=== PATIENT | female | born 1945 | race Caucasian/White ===

== ENCOUNTER 2018-05-24 08:53 | Emergency (ER) | payer MEDICARE, OTHER ==
--- NOTE | 2018-05-24 10:51 | ULT ---
ULTRASOUND WITH DOPPLER DUPLEX VENOUS LOWER EXTREMITY LEFT: HISTORY: A 73-year-old female with left lower extremity edema. TECHNIQUE: Color flow Doppler, spectral waveform analysis of pulsed Doppler, and valentin-scale imaging with hina taz and augmentation, were used to evaluate the left common femoral, femoral, popliteal, posterior t ibial, and superficial femoral, veins; and the proximal portions of the profunda femoral and greater saphenous, veins. FINDINGS: There is normal compressibility, demonstration of blood flow by color Doppler and pulsed Doppler, and response to augmentation, in all interrogated veins. IMPRESSION: Negative. No deep vein thrombosis in the left lower extremity. jn[] POS: HERMILO
== END 2018-05-24 10:39 | disposition home or self-care (01) ==
LOC: ERS 08:53
DX: M79.89 Other specified soft tissue disorders (principal); I25.10 Atherosclerotic heart disease of native coronary artery without angina pectoris; E11.9 Type 2 diabetes mellitus without complications; K21.9 Gastro-esophageal reflux disease without esophagitis; I11.0 Hypertensive heart disease with heart failure; I50.9 Heart failure, unspecified; Z86.73 Personal history of transient ischemic attack (TIA), and cerebral infarction without residual deficits; J44.9 Chronic obstructive pulmonary disease, unspecified; F41.9 Anxiety disorder, unspecified; F17.210 Nicotine dependence, cigarettes, uncomplicated; Z79.82 Long term (current) use of aspirin; Z79.899 Other long term (current) drug therapy; Z79.4 Long term (current) use of insulin

== ENCOUNTER 2018-08-24 15:39 | Inpatient (IN) | payer MEDICARE, MEDICAID ==
--- NOTE | 2018-08-24 18:04 | HP ---
REQUESTING PHYSICIAN: Dr. Carter. ATTENDING SURGEON: Dr. Ramsey. CONSULTATIONS: Orthopedics, Dr. Sloan. HISTORY OF PRESENT ILLNESS: The patient is a 73-year-old woman, who was at home, smoking on her porch. She was not using her walker. She turned to walk back to her house to get to her walker when she lost her balance and hit her right knee when she fell. She was able to summon her family to come get her, she was taken emergently to the emergency department at [facility], where she underwent evaluation and examination and was noted to have comminuted right proximal tibia and fibular fracture, at which time she was transferred to our facility for evaluation by Orthopedics in admission. Lab work there also showed that she had what appeared to be a chronic anemia with a hemoglobin of 6.8. The patient also has a history of CHF and COPD. ALLERGIES: CODEINE, HYDROCODONE, AND MORPHINE. SHE STATES THAT HER REACTION IS THEY MAKE HER "LOOPY." GABAPENTIN AND ADHESIVE TAPE. CURRENT MEDICATIONS: 1. Aspirin. 2. Diltiazem. 3. Lasix. 4. Lyrica. 5. Plavix. 6. Pravastatin. 7. Ranitidine. 8. Trazodone. 9. Estradiol. 10. Fish oil. 11. Albuterol sulfate. 12. Humalog. 13. Lantus. 14. Losartan. 15. Prednisone. 16. Protonix. 17. Remeron. PAST MEDICAL HISTORY: Coronary artery disease; type 1 diabetes; gastroesophageal reflux disease; spinal stenosis; history of TIA; COPD, the patient wears 3 L home oxygen; osteoarthritis; carotid stenosis; hypothyroidism; chronic bronchitis; hyperlipidemia; peripheral vascular disease; congestive heart failure; anxiety; and insomnia. PAST SURGICAL HISTORY: Four-vessel CABG, cholecystectomy, hernia repair, hysterectomy, tonsillectomy, and appendectomy. SOCIAL HISTORY: The patient denies drug or alcohol use, but smokes about 1/2 pack of cigarettes per day. FAMILY MEDICAL HISTORY: Diabetes. REVIEW OF SYSTEMS: Ten-point review of systems is negative as otherwise stated. PHYSICAL EXAMINATION: VITAL SIGNS: Blood pressure 106/56, heart rate 86, respirations 20, oxygen saturation is 97% on 3 L via nasal cannula, and temperature is 98.8. GENERAL: The patient is resting comfortably in bed. She is awake, alert, and oriented x3. [place] Coma Scale is 15. HEENT: Unremarkable. Head is normocephalic and atraumatic. Eyes, extraocular motion intact. PERRLA bilaterally. Ears are atraumatic without discharge. Nose is atraumatic without discharge. Oropharynx is clear. NECK: Nontender. Trachea is midline. No JVD. CHEST: Clear to auscultation with good inspiratory and expiratory effort. She does have at times some bilateral rhonchi that clears with cough. HEART: Regular rate and rhythm. ABDOMEN: Soft, flat, and nontender with active bowel sounds. PELVIS: Stable. EXTREMITIES: Neurovascularly intact x4. Right lower extremity is mobilized in a well-fitting knee immobilizer. The patient is also noted to have 1 to 2+ pitting edema. BACK: Nontender and atraumatic. LABORATORY FINDINGS: White blood cell count 13.9, hemoglobin 6.8, hematocrit 23.7, and platelets 163. Sodium 135, potassium 2.7, chloride 78, CO2 of 41, BUN 25, creatinine 1.18, glucose 60, troponin 0.036, and BNP 365. Urinalysis is unremarkable. RADIOGRAPHIC FINDINGS: CT of the chest without contrast shows diffuse severe interstitial lung disease, worse in the lung apices with changes throughout the all lobes, that appears unchanged since 2014, also noted are cardiomegaly and coronary artery sclerosis. Views of the right tib-fib showed displaced fractures of the proximal tibia and fibula. Views of the right knee again showed displaced comminuted fractures of right proximal tib-fib. CT of the brain without contrast shows no acute intracranial findings. AP chest x-ray shows cardiomegaly and chronic interstitial changes. ASSESSMENT: 1. Status post ground level fall. 2. Comminuted right tibia and fibular fracture. 3. History of chronic obstructive pulmonary disease, on home oxygen and steroids. 4. Congestive heart failure, that the patient reports she recently restarted her Lasix and sounds that she is self medicating. She restarted her Lasix on Tuesday and lost 30 pounds in just about six days. 5. Anemia. 6. History of hypertension. 7. History of hyperlipidemia. PLAN: Plan will be to admit the patient to the surgical floor. Per discussion with Orthopedics, the patient will be managed nonoperatively. She has good alignment at this point, and in light of all her multiple comorbidities, the attempts will be made for non-operative management at this time. The patient and family were in agreement with this plan. We will transfuse the patient 1 unit of PRBCs. She will have pulmonary toilet, gastritis, mechanical VTE prophylaxis, and we will resume her home medications as soon as possible. The evaluation, examination, laboratory, and radiographic findings will be discussed with Dr. Ramsey after this dictation. Job ID: [id number]
--- NOTE | 2018-08-24 18:14 | RAD ---
THREE VIEW RIGHT KNEE 08/24/18 CLINICAL INDICATION: Injury with pain, trauma. FINDINGS: There is a comminuted fracture centered about the proximal metaphysis of the tibia with intra-articul ar extension to undermine the tibial spines. There is a comminuted proximal fibular fracture with ass ociated angulation. Mild joint capsular distention is present. There is vascular disease. There are o steophytes. Prepatellar soft tissue swelling is present. IMPRESSION: Comminuted intra-articular proximal tibial fracture. Comminuted and angulated proximal fibular fracture. POS: C
[2018-08-24] MEDS ORDERED: Cyclobenzaprine 10 MG TAB PO PRN (20:32)
[2018-08-24] MEDS ORDERED: Dextrose 50% Abboject 50 ML SYRINGE SLOW IVP PRN (20:32)
[2018-08-24] MEDS ORDERED: Acetaminophen 1,000 MG in Premix Bag 1 BAG IVPB SCH (20:32)
[2018-08-24] MEDS ORDERED: Dextrose 5% in Water 1,000 ML IV PRN (20:32)
[2018-08-24] MEDS ORDERED: traMADol HCl 50 MG TAB PO PRN (20:32)
[2018-08-24] MEDS ORDERED: Furosemide 20 MG TAB PO SCH (20:32)
[2018-08-24] MEDS: Famotidine 20 MG TAB PO SCH (21:47)
[2018-08-24 23:29] VITALS: BMI 27.6
[2018-08-25] MEDS: traMADol HCl 50 MG TAB PO PRN (02:56)
[2018-08-25] MEDS: Acetaminophen 500 MG TAB PO SCH ×4 (02:56→20:51)
[2018-08-25 06:50] LABS: BUN (Urea Nitrogen) 22 mg/dL (9.8-20.1); Calc. Creatinine Clearance 60 mL/min (70-130); Calcium 8.5 mg/dL (7.8-10.44); Estimated GFR-MDRD 55; Glucose 103 mg/dL (83-110)
[2018-08-25 06:59] LABS: #Eosinphils 0.1 thou/uL (0.0-0.7); #Lymphocytes 1.6 thou/uL (1.20-3.40); #Monocytes 1.1 thou/uL (0.11-0.59); #Neutrophils 7.4 thou/uL (1.40-6.50); %Basophils 0.3 % (0.0-1.0); %Eosinophils 1.4 % (0.0-10.0); %Lymphocytes 15.3 % (21.0-51.0); %Monocytes 10.5 % (0.0-10.0); %Neutrophils 72.5 % (42.0-75.0); Anion Gap 16 mmol/L (10-20); Band 4 % (5-11); Chloride 80 mmol/L (98-107); Eosinophils 1 % (0-10); Hemoglobin 8.1 g/dL (12.0-16.0); Hypochromia MODERATE=16-30 cells (100X) (0-5/hpf); Lymphocytes 18 % (21-51); MDiff Complete? YES; Mean Corpuscular HGB CONC 30.4 g/dL (32.0-36.0); Mean Corpuscular Hemoglobin 19.8 pg (27.0-31.0); Mean Platelet Volume 6.9 fL (7.4-10.4); Microcytosis MODERATE=15-30 cells (100X) (0-5/hpf); Monocytes 5 % (0-10); Neutrophil 72 % (42-75); Platelet Count 120 thou/uL (130-400); Platelet Morphology Comment Appears Decreased; RBC Distribution Width 21.3 % (11.5-14.5); Reflex for Review?? NO; Sodium 137 mmol/L (136-145); White Blood Cell (WBC) Count 10.2 thou/uL (4.8-10.8)
[2018-08-25] MEDS ORDERED: CEFAZOLIN/Water 2 GM/20 ML SYRINGE SLOW IVP SCH ×2 (07:15→11:15)
[2018-08-25] MEDS ORDERED: CEFAZOLIN 2 GM/50 ML-DEXTROSE 2 GM in Premix Bag 1 BAG IVPB SCH (07:30)
--- NOTE | 2018-08-25 07:50 | RAD ---
PORTABLE AP CHEST XRAY: DATE: 08/25/2018. HISTORY: CHF. COMPARISON: 08/24/2018. FINDINGS: Median sternotomy wires are noted. Cardiac silhouette is enlarged. There are increased interstitial densities seen throughout the lungs bilaterally, greater in the upper lung zones and on the left sim ilar to the prior study. The findings were also present on the prior chest x-ray on 02/12/2016 and ar e most likely attributable to chronic interstitial fibrotic lung changes. There is mild persistent e levation of the right hemidiaphragm. No other interval change. IMPRESSION: Chronic interstitial fibrotic lung changes without definite acute cardiopulmonary process. POS: HERMILO
[2018-08-25] MEDS ORDERED: CEFAZOLIN 2 GM/50 ML BAG ONE (08:07)
[2018-08-25 08:09] LABS: Carbon Dioxide Greater than 37 mmol/L (23-31); Potassium 2.5 mmol/L (3.5-5.1)
[2018-08-25] MEDS ORDERED: Potassium Chloride 40 MEQ in Premix Bag 1 BAG IVPB SCH (09:15)
[2018-08-25] MEDS ORDERED: Fentanyl 100 MCG/2 ML VIAL ONE (09:19)
[2018-08-25] MEDS ORDERED: Midazolam HCl 2 mg/2 ml Vial ONE (09:19)
[2018-08-25] MEDS ORDERED: Dexamethasone 4 mg/ml Vial ONE (09:20)
[2018-08-25] MEDS ORDERED: KETAMINE 100 MG/ML (5ML VIAL) ONE (10:28)
--- NOTE | 2018-08-25 10:32 | CON ---
DATE OF CONSULTATION: 08/24/2018 REQUESTING PHYSICIAN: Dr. Todd Ramsey. BRIEF HISTORY OF PRESENT ILLNESS: The patient is a very ill 73-year-old lady who while at home was smoking on her porch when she turned to walk back into the house, lost her balance, fell and twisted her right knee. She was unable to ambulate after this fall. She was subsequently seen in the emergency department at [place], where x-rays demonstrated a proximal tibial plateau fracture. She was then transferred to [facility] for further evaluation and orthopedic care. On initial evaluation in the emergency room, she was found to have an extensive medical history with severe COPD. She wears 3 L of O2 nasal cannula at home as a baseline. She also has type 1 diabetes, spinal stenosis, coronary artery disease and peripheral vascular disease. Given all of these and comorbidities, we discussed initially proceeding with nonsurgical management with the patient admitted to the Trauma Service. PAST MEDICAL HISTORY: Remarkable for congestive heart failure, COPD, coronary artery disease, type 1 diabetes, gastroesophageal reflux, spinal stenosis, hyperlipidemia, carotid stenosis, and osteoarthritis. PAST SURGICAL HISTORY: Includes coronary artery bypass graft, cholecystectomy, hernia repair, hysterectomy, tonsillectomy, and appendectomy. MEDICATIONS: Include; 1. Aspirin. 2. Diltiazem. 3. Lasix. 4. Lyrica. 5. Plavix. 6. Pravastatin. 7. Ranitidine. 8. Trazodone. 9. Estradiol. 10. Albuterol. 11. Humalog. 12. Lantus. 13. Losartan. 14. Protonix. 15. Remeron. 16. Prednisone 20 mg daily. ALLERGIES: TO MORPHINE AND HYDROCODONE, WHICH CAUSED SOME CHANGE IN MENTAL STATUS. SOCIAL HISTORY: She smokes half pack cigarettes per day and denies alcohol use. FAMILY HISTORY: Noncontributory. REVIEW OF SYSTEMS: No recent fevers or chills or sweats. She does have chronic shortness of breath and chronic cough. She also has a stocking dysesthesias distally. PHYSICAL EXAMINATION: VITAL SIGNS: Temperature of 98.8, heart rate of 86, respiratory rate of 20, and blood pressure 106/56. GENERAL: She is resting in bed with generalized shortness of breath, but awake and alert. HEENT: Atraumatic, normocephalic. HEART: Shows a regular rate and rhythm with 2/6 murmur. CHEST: Remarkable for bilateral rhonchi with reasonably good respiratory effort. Chest wall, nontender. PELVIS: Stable. EXTREMITIES: Most remarkable for right lower extremity that is in a knee immobilizer. Inspection below the knee immobilizer shows some mild ecchymosis about the proximal tibia. There is no gross deformity. However, she has pain to palpation at the flare of the proximal tibia with a palpable step-off felt at the subcutaneous border of the tibia. Distally, she is moving her toes. She has a stocking distribution dysesthesias, which is not new. LABORATORY DATA: She was found to have a white count of 13.9, hematocrit of 23.7, and 163,000 platelets. Her potassium is 2.7. X-RAYS: Four-view x-ray of the right knee was obtained and is remarkable for a bicondylar fracture of the proximal tibia with comminution in the metaphyseal region and some displacement present as well as what appears to be very washed out osteopenic bone. ASSESSMENT: A 73-year-old lady status post ground level fall sustaining comminuted proximal right tib-fib fracture with intra-articular extension of the tibia. The patient also with severe comorbidities including COPD, congestive heart failure, coronary artery disease, hypertension, chronic anemia, as well as a history of prednisone consumption. PLAN: At this time, we discussed potential surgical versus nonsurgical management. She is at extremely high risk for wound infection or wound problems secondary to her cigarette smoking, prednisone use, as well as her diabetes. We have further discussed nonsurgical management. At this time, the proximal tibia is relatively well aligned, although I am concerned about the intra-articular split. At this time, we will proceed with nonsurgical management using the knee immobilizer. If there looks to be drift of the fracture, we could certainly reassess for a possible surgical intervention, although the patient is at extremely high risk for an extensive surgical procedure. The patient and family appeared comfortable with our discussion and plan. Job ID: [id number]
[2018-08-25] MEDS ORDERED: Lidocaine 1% (PF) 30 ML VIAL ONE (10:36)
[2018-08-25] MEDS: Potassium Chloride 20 MEQ in Premix Bag 1 BAG IVPB SCH ×2 (11:00→14:16)
--- NOTE | 2018-08-25 11:41 | RAD ---
RIGHT KNEE: Technique: Five fluoroscopic images were obtained in the OR during internal fixation procedure. Indications: Open reduction internal fixation of tibia fracture. FINDINGS: Screws are transfixing the tibial condyles from a lateral approach. Fractures of proximal tibia and f ibula again noted. POS: OFF
--- NOTE | 2018-08-25 11:55 | OP ---
DATE OF PROCEDURE: 08/25/2018 PREOPERATIVE DIAGNOSIS: Right bicondylar tibial plateau fracture. POSTOPERATIVE DIAGNOSIS: Right bicondylar tibial plateau fracture. PROCEDURE PERFORMED: 1. Closed reduction and percutaneous screw stabilization of intercondylar split of right tibial plateau. 2. Closed treatment of proximal tibial metaphyseal fracture. ANESTHESIA: General. 5TH GRADE TEACHER: Fozia Antonio PA-C. ESTIMATED BLOOD LOSS: 5 mL. IMPLANTS: Synthes 6.5 mm cannulated screws with washers x2. COMPLICATIONS: None. DRAINS: None. SPECIMEN: None. OUTCOME: Anatomic reduction of intra-articular fracture extension of tibial plateau and acceptable alignment of proximal tibial metaphyseal fracture with a posterior splint. INDICATIONS: The patient is a pleasant 73-year-old lady, who has very poor health with coronary artery disease, congestive heart failure, and COPD as well as type 1 diabetes. The patient was felt to be a very high risk for postsurgical infection due to her prednisone, history of cigarette smoking, and overall health, and also very high risk for general anesthetic. The patient originally accepted a concept of nonsurgical management of her tibial plateau. However, in light of this intra-articular extension, I would now like to be stabilizing intra-articular extension and try and treat the metaphyseal portion of the fracture with splint and casting. As such, the patient now taken to the operating room for percutaneous stabilization of the intra-articular split fracture of the tibial plateau under a regional anesthesia. Informed consent has been obtained. I believe I have answered all questions of the patient and her family, who were present for the original discussion regarding risks and benefits of surgery. DESCRIPTION OF PROCEDURE: The patient was brought to the operating room and a time-out performed followed by induction of pulmonary support with supplemental oxygen. She had blocks placed previously in day-stay. Next, a sterile prep and drape was performed of the right knee. Two areas, where stab wounds are going to be made laterally, were then infiltrated with a total of 10 mL of 1% lidocaine. Next, two 1 cm long vertical stab wounds were made along the lateral tibial plateau. Under C-arm guidance, threaded guidewires were then passed just below the surface of the tibial plateau across the fracture and into the medial condylar fragment. Once appropriately positioned, measurement was taken off these pins and then two 32 mm partially-threaded 6.5 cannulated screws with washers were passed over the respective guidewires. The guidewires were then removed. The two incisions irrigated with bulb syringe, then closed with berenice. At the completion of this, Xeroform gauze dressing was applied to the surgical site. The leg was then wrapped in a heavy cotton padding and Webril underlayment and then a long-leg posterior splint with the knee flexed approximately 15 degrees. Final AP lateral C-arm images were obtained that showed acceptable alignment on both AP and lateral image of the metaphyseal portion of the fracture. As such, the patient was then transferred to recovery room in stable condition. There were no complications. She tolerated this procedure well. Job ID: [id number]
[2018-08-25] MEDS: Famotidine 20 MG TAB PO SCH ×2 (14:20→20:52)
[2018-08-25] MEDS ORDERED: Bupivacaine HCl 0.5%/Epinephrine 1:200,000/PF 30 ml Vial ONE (16:12)
[2018-08-25] MEDS: CEFAZOLIN 2 GM/50 ML-DEXTROSE 2 GM in Premix Bag 1 BAG IVPB SCH ×2 (17:04→23:42)
[2018-08-25] MEDS: HumaLOG 300 UNITS/3 ML VIAL SC PRN (21:41)
[2018-08-26] MEDS: Acetaminophen 500 MG TAB PO SCH ×4 (02:36→21:55)
[2018-08-26] MEDS: Ondansetron ODT 4 MG TAB PO PRN ×3 (04:06→18:09)
[2018-08-26 06:24] LABS: #Lymphocytes 1.1 thou/uL (1.20-3.40); #Monocytes 1.1 thou/uL (0.11-0.59); #Neutrophils 10.7 thou/uL (1.40-6.50); %Basophils 0.3 % (0.0-1.0); %Eosinophils 0.4 % (0.0-10.0); %Lymphocytes 8.2 % (21.0-51.0); %Monocytes 8.5 % (0.0-10.0); %Neutrophils 82.7 % (42.0-75.0); Hemoglobin 8.3 g/dL (12.0-16.0); Mean Corpuscular HGB CONC 29.8 g/dL (32.0-36.0); Mean Corpuscular Hemoglobin 19.8 pg (27.0-31.0); Mean Corpuscular Volume 66.3 fL (78.0-98.0); Mean Platelet Volume 6.4 fL (7.4-10.4); Platelet Count 118 thou/uL (130-400); RBC Distribution Width 22.5 % (11.5-14.5)
[2018-08-26 06:34] LABS: BUN (Urea Nitrogen) 14 mg/dL (9.8-20.1); Calc. Creatinine Clearance 73 mL/min (70-130); Calcium 8.4 mg/dL (7.8-10.44); Estimated GFR-MDRD 70; Glucose 167 mg/dL (83-110); Magnesium 1.2 mg/dL (1.6-2.6); Phosphorus 2.4 mg/dL (2.3-4.7)
[2018-08-26 06:44] LABS: Anion Gap 18 mmol/L (10-20); Carbon Dioxide 38 mmol/L (23-31); Chloride 82 mmol/L (98-107); Sodium 135 mmol/L (136-145)
[2018-08-26 06:46] LABS: Potassium 2.8 mmol/L (3.5-5.1)
[2018-08-26] MEDS: HumaLOG 300 UNITS/3 ML VIAL SC PRN ×4 (07:05→21:41)
[2018-08-26] MEDS: CEFAZOLIN 2 GM/50 ML-DEXTROSE 2 GM in Premix Bag 1 BAG IVPB SCH (08:18)
[2018-08-26] MEDS: Potassium Chloride 20 MEQ TAB PO SCH ×2 (08:19→16:21)
[2018-08-26] MEDS: Ondansetron PF 4 MG/2 ML Vial IVP PRN ×3 (08:19→21:36)
[2018-08-26] MEDS: Famotidine 20 MG TAB PO SCH ×2 (08:19→21:55)
[2018-08-26] MEDS: Furosemide 40 MG TAB PO SCH (13:13)
--- NOTE | 2018-08-26 15:17 | CON ---
DATE OF CONSULTATION: HISTORY: Pilar Kirk is a 73-year-old white female patient of Dr. Barajas. She underwent CABG x4 in June 2009 with BARBOSA to the LAD and saphenous vein graft to diagonal, ramus, and right posterior descending artery. Her last echocardiogram was in July 2015, which revealed an ejection fraction of 50% to 55% with moderate left atrial enlargement, mild mitral regurgitation, mitral annular calcification , mild aortic sclerosis, mild aortic regurgitation, and mild tricuspid regurgitation. In November 2017, she underwent cardiac PET, which revealed reversible ischemia in the lateral wall, which was mild in the small area. She underwent cardiac catheterization at [facility] and vascular [place]. She was found to have diffuse three-vessel disease with total occlusion of the right coronary artery. There was a 50% stenosis in the proximal circumflex and 90% stenosis of the diagonal. Bypass grafts revealed patent graft to the ramus, although there was a 90%, followed by 75% stenosis distal to the graft insertion. The BARBOSA to the LAD was patent. The right posterior descending was patent. The diagonal graft was occluded. She has had some problems with diastolic heart failure and was seen in May 2018. At the present time, she denies any significant dyspnea at home, although she states that her legs will still occasionally become edematous. She also denies any chest discomfort. She had a fall with right tibial plateau fracture and underwent surgery of this yesterday. PAST MEDICAL HISTORY: Diabetes, hypertension, hypercholesterolemia, COPD, GERD, anxiety, depression, peripheral vascular disease, carotid stenosis, hypothyroidism. OPERATIONS: CABG x4, cholecystectomy, hernia repair, hysterectomy, tonsillectomy, appendectomy. She also just recently underwent right tibial plateau surgery. MEDICATIONS: 1. Albuterol nebs t.i.d. 2. Aspirin 81 daily. 3. Plavix 75 daily. 4. Colace 100 mg daily. 5. Duloxetine 60 daily. 6. Estradiol 0.5 mg daily. 7. Breo one inhalation daily. 8. Furosemide 40 b.i.d. 9. Insulin. 10. Combivent inhaler q.i.d. 11. Xyzal 5 mg at bedtime. 12. Cozaar 25 daily. 13. Mobic 15 mg daily. 14. Metolazone 5 mg daily. 15. Remeron 30 mg at bedtime. 16. Nitroglycerin p.r.n. 17. Protonix 40 mg daily. 18. [place]-3 one capsule b.i.d. 19. Pravastatin 40 at bedtime. 20. Lyrica 300 b.i.d. 21. Ranitidine 150 daily. 22. Trazodone 200 mg at bedtime. ALLERGIES: ACETAMINOPHEN, ADHESIVE TAPE, CODEINE, GABAPENTIN, HYDROCODONE, IODINE, MORPHINE, AND BEES. SOCIAL HISTORY: She continues to smoke one-half pack per day despite being on home oxygen. REVIEW OF SYSTEMS: A 10-point review of systems is otherwise unremarkable. PHYSICAL EXAMINATION: VITAL SIGNS: Blood pressure 124/65, pulse of 92. HEENT: PERRL. NECK: Supple. CHEST: Clear. CARDIAC: S1 and S2 normal without any S3, S4, or murmurs. ABDOMEN: Obese. Normal bowel sounds. No tenderness. EXTREMITIES: Revealed no significant edema. NEUROLOGIC: Grossly intact. SKIN: Warm and dry. IMAGING STUDIES: EKG revealed normal sinus rhythm with right bundle-branch block. No acute changes. Possible left ventricular hypertrophy. IMAGING STUDIES: Hemoglobin 8.3, hematocrit 27.9, white count 13,000, platelets 118,000. Sodium 135, potassium 2.8, chloride 82, carbon dioxide 38, BUN 14, creatinine 0.81. IMPRESSION: 1. Status post right tibial plateau surgery. 2. Status post coronary artery bypass grafting with occluded diagonal graft and significant disease distal to the ramus graft insertion. 3. History of diastolic heart failure, on high dose diuretics. 4. Severe chronic obstructive pulmonary disease, on home oxygen. 5. The patient continues to smoke. 6. Hypertension. 7. Hyperlipidemia. 8. Peripheral vascular disease. 9. Bilateral carotid artery stenosis. 10. Obesity. 11. Diabetes. PLAN: The patient will be watched very closely in terms of her volume status. Her medications will be gradually resumed. We will follow the patient with you. Job ID: [id number] [facility]
[2018-08-26] MEDS ORDERED: Magnesium Oxide 400 MG TAB PO SCH (15:45)
--- NOTE | 2018-08-26 16:09 | PRG ---
DATE OF SERVICE: 08/26/2018 SUBJECTIVE: The patient is hospital day #2, postop day #1, status post fall, which she sustained, had a right tibial plateau fracture. Yesterday, she underwent percutaneous pinning of the same. She tolerated the procedure well. This morning, she states that she feels tired, but her pain is controlled and she is tolerating a diet. She has not yet worked with Physical Therapy. She was also evaluated by Dr. Welch this morning from Cardiology. This is a patient of Dr. Barajas, and we asked them for their input with this patient per her family request. OBJECTIVE: VITAL SIGNS: Temperature is 98.8, heart rate 92, blood pressure 112/69, respirations 18, and oxygen saturation 94% on 3 L via nasal cannula. GENERAL: The patient is resting comfortably in bed. She is awake, alert, responsive, and appropriate. HEENT: Unremarkable. LUNGS: There are scant rhonchi and wheezes bilaterally. HEART: Regular rate and rhythm. ABDOMEN: Soft, flat, and nontender with active bowel sounds. EXTREMITIES: Neurovascularly intact x4. The patient has 1 to 2+ pitting edema which she states is normal. LABORATORY FINDINGS: White blood cell count 13.0, hemoglobin 8.3, hematocrit 27.9, platelets 118. Sodium 135, potassium 2.8, chloride 82, CO2 of 38, BUN 14, creatinine 0.81, glucose 167, phosphorus 2.4, magnesium 1.2. DIAGNOSTIC STUDIES: Radiographs reviewed this morning. ASSESSMENT: 1. Status post fall. 2. Status post percutaneous pinning of proximal tibial fracture. 3. Hypokalemia. 4. Hypomagnesemia. 5. Chronic obstructive pulmonary disease, chronic. PLAN: Plan will be to continue supportive care. We will resume her home medications. Replace her electrolytes. Recheck her labs in the morning. Begin physical and occupational therapy, and as soon as agreeable between Trauma Ortho and the cannon pinion adjuster, the patient will likely be discharged back to home hospice. This will likely be within the next 1 to 2 days. Job ID: [id number]
[2018-08-26] MEDS: Mometasone/Formoterol 120 PUFF INHALER INH SCH (18:52)
[2018-08-26] MEDS: traZODone HCl 50 MG TAB PO SCH (21:56)
[2018-08-26] MEDS: Loratadine 10 MG TAB PO SCH (21:56)
[2018-08-26] MEDS: Atorvastatin Calcium 10 MG TAB PO SCH (21:56)
[2018-08-26] MEDS: Senokot S 8.6-50 MG TAB PO SCH (21:56)
[2018-08-26] MEDS: Magnesium Oxide 400 MG TAB PO SCH (21:56)
[2018-08-26] MEDS: Fluticasone Propionate Nasal Spray 16 gm Bottle NASAL SCH (22:02)
[2018-08-26] MEDS: Azelastine 137 MCG/Spray 30 ML NS SCH (22:03)
[2018-08-26] MEDS: Mirtazapine 30 MG TAB PO SCH (22:29)
[2018-08-27] MEDS: Acetaminophen 500 MG TAB PO SCH ×4 (04:38→22:03)
[2018-08-27] MEDS: HumaLOG 300 UNITS/3 ML VIAL SC PRN ×2 (06:23→12:17)
[2018-08-27] MEDS: Mometasone/Formoterol 120 PUFF INHALER INH SCH ×2 (06:26→19:03)
[2018-08-27 06:36] LABS: #Eosinphils 0.1 thou/uL (0.0-0.7); #Neutrophils 9.1 thou/uL (1.40-6.50); %Basophils 0.2 % (0.0-1.0); %Eosinophils 0.6 % (0.0-10.0); %Lymphocytes 8.9 % (21.0-51.0); %Monocytes 9.1 % (0.0-10.0); %Neutrophils 81.1 % (42.0-75.0); Hemoglobin 8.6 g/dL (12.0-16.0); Mean Corpuscular HGB CONC 29.5 g/dL (32.0-36.0); Mean Corpuscular Hemoglobin 19.4 pg (27.0-31.0); Mean Corpuscular Volume 65.8 fL (78.0-98.0); Mean Platelet Volume 6.6 fL (7.4-10.4); Platelet Count 120 thou/uL (130-400); RBC Distribution Width 23.2 % (11.5-14.5); Red Blood Cell (RBC) Count 4.41 mill/uL (4.20-5.40); White Blood Cell (WBC) Count 11.2 thou/uL (4.8-10.8)
[2018-08-27 07:09] LABS: Anion Gap 22 mmol/L (10-20); Carbon Dioxide 36 mmol/L (23-31); Chloride 83 mmol/L (98-107); Sodium 138 mmol/L (136-145)
[2018-08-27 07:16] LABS: Phosphorus 1.9 mg/dL (2.3-4.7)
[2018-08-27 07:17] LABS: BUN (Urea Nitrogen) 16 mg/dL (9.8-20.1); Calc. Creatinine Clearance 63 mL/min (70-130); Calcium 9.2 mg/dL (7.8-10.44); Estimated GFR-MDRD 59; Glucose 187 mg/dL (83-110); Magnesium 1.6 mg/dL (1.6-2.6)
[2018-08-27] MEDS ORDERED: Potassium Phosphate 30 MMOL in Sodium Chloride 0.9% 250 ML 250 ML IVPB SCH (07:30)
[2018-08-27] MEDS: Potassium Chloride 20 MEQ TAB PO SCH ×2 (08:45→16:33)
[2018-08-27] MEDS: Losartan 25 MG TAB PO SCH (08:45)
[2018-08-27] MEDS: DULoxetine 60 MG CAP PO SCH (08:45)
[2018-08-27] MEDS: Clopidogrel Bisulfate 75 MG TAB PO SCH (08:45)
[2018-08-27] MEDS: Senokot S 8.6-50 MG TAB PO SCH ×2 (08:45→22:02)
[2018-08-27] MEDS: Polyethylene Glycol 3350 17 GM Packet PO SCH (08:45)
[2018-08-27] MEDS: Fluticasone Propionate Nasal Spray 16 gm Bottle NASAL SCH ×2 (08:46→22:04)
[2018-08-27] MEDS: Magnesium Oxide 400 MG TAB PO SCH ×2 (08:46→21:57)
[2018-08-27] MEDS: Aspirin 81 mg Enteric Coated Tablet PO SCH (08:46)
[2018-08-27] MEDS: Cyanocobalamin (Vitamin B-12) 1,000 MCG TAB PO SCH (08:46)
[2018-08-27] MEDS: Famotidine 20 MG TAB PO SCH ×2 (08:46→21:56)
[2018-08-27] MEDS: Furosemide 40 MG TAB PO SCH ×2 (08:46→13:21)
[2018-08-27] MEDS: Metolazone 5 MG TAB PO SCH (08:46)
[2018-08-27] MEDS: Estradiol 1 MG TAB PO SCH (08:47)
[2018-08-27] MEDS: Azelastine 137 MCG/Spray 30 ML NS SCH ×2 (08:47→22:03)
--- NOTE | 2018-08-27 13:55 | PRG ---
DATE OF SERVICE: 08/27/2018 SUBJECTIVE: The patient is currently on the surgical floor. She is hospital day 3, postop day 2, status post fall when she sustained a right tibial plateau fracture. She underwent percutaneous pinning of the same. Tolerated the procedure well and is scheduled to begin working with Physical and Occupational Therapy today. The patient had some nausea and some weakness yesterday. She did feel able to get out of bed, but the therapist were not able to do some in bed exercises. Overnight, she did well. She has tolerated diet this morning. States her pain is controlled. PHYSICAL EXAMINATION: VITAL SIGNS: Temperature is 98.8, heart rate 105, respirations 20, oxygen saturation is 97% on 3 L via nasal cannula. Blood pressure is 112/62. GENERAL: The patient is currently sitting on the side of the bed and the therapist are just beginning to work with her. HEENT: Unremarkable. LUNGS: Remain with scattered rhonchi and wheezes bilaterally. HEART: Regular rate and rhythm. ABDOMEN: Soft, flat, nontender with active bowel sounds. EXTREMITIES: Neurovascularly intact x4. Postop dressing and splint are clean, dry, and intact. LABORATORY FINDINGS: White blood cell count 11.2, hemoglobin 8.6, hematocrit 29.0, platelets 120. Sodium 138, potassium 3.0, chloride 83, CO2 36, BUN 16, creatinine 0.94, glucose 187, phosphorus 1.9. Magnesium 1.6. There are no radiographs to review this morning. ASSESSMENT AND PLAN: 1. Status post fall. 2. Status post percutaneous pinning of proximal tibia fracture. 3. Hypokalemia. 4. Hypophosphatemia. 5. Chronic obstructive pulmonary disease, stable. Plan will be to replace her electrolytes. Continue physical and occupational therapy and await final placement decision. Job ID: [id number]
[2018-08-27] MEDS: Mirtazapine 30 MG TAB PO SCH (21:54)
[2018-08-27] MEDS: traZODone HCl 50 MG TAB PO SCH (21:55)
[2018-08-27] MEDS: Atorvastatin Calcium 10 MG TAB PO SCH (21:56)
[2018-08-27] MEDS: Loratadine 10 MG TAB PO SCH (21:57)
[2018-08-28] MEDS: Acetaminophen 500 MG TAB PO SCH ×2 (01:57→07:30)
[2018-08-28] MEDS: HumaLOG 300 UNITS/3 ML VIAL SC PRN ×4 (06:55→21:29)
[2018-08-28 08:25] LABS: Anion Gap 23 mmol/L (10-20); Carbon Dioxide 34 mmol/L (23-31); Chloride 85 mmol/L (98-107); Potassium 3.5 mmol/L (3.5-5.1); Sodium 138 mmol/L (136-145)
[2018-08-28 08:27] LABS: BUN (Urea Nitrogen) 25 mg/dL (9.8-20.1); Calcium 9.2 mg/dL (7.8-10.44); Glucose 186 mg/dL (83-110); Magnesium 1.6 mg/dL (1.6-2.6); Phosphorus 3.3 mg/dL (2.3-4.7)
[2018-08-28 08:28] LABS: Calc. Creatinine Clearance 52 mL/min (70-130); Estimated GFR-MDRD 47
[2018-08-28] MEDS: Polyethylene Glycol 3350 17 GM Packet PO SCH (08:28)
[2018-08-28] MEDS: Potassium Chloride 20 MEQ TAB PO SCH ×2 (08:28→17:29)
[2018-08-28] MEDS: Aspirin 81 mg Enteric Coated Tablet PO SCH (08:29)
[2018-08-28] MEDS: DULoxetine 60 MG CAP PO SCH (08:29)
[2018-08-28] MEDS: Clopidogrel Bisulfate 75 MG TAB PO SCH (08:29)
[2018-08-28] MEDS: Famotidine 20 MG TAB PO SCH ×2 (08:29→21:20)
[2018-08-28] MEDS: Losartan 25 MG TAB PO SCH (08:29)
[2018-08-28] MEDS: Metolazone 5 MG TAB PO SCH (08:29)
[2018-08-28] MEDS: Senokot S 8.6-50 MG TAB PO SCH ×2 (08:29→21:20)
[2018-08-28] MEDS: Estradiol 1 MG TAB PO SCH (08:30)
[2018-08-28] MEDS: Cyanocobalamin (Vitamin B-12) 1,000 MCG TAB PO SCH (08:49)
[2018-08-28] MEDS: Azelastine 137 MCG/Spray 30 ML NS SCH ×2 (08:49→21:21)
[2018-08-28] MEDS: Furosemide 40 MG TAB PO SCH ×2 (09:29→17:29)
[2018-08-28] MEDS: Magnesium Oxide 400 MG TAB PO SCH ×2 (09:29→21:20)
[2018-08-28] MEDS: Mometasone/Formoterol 120 PUFF INHALER INH SCH ×2 (09:33→19:44)
--- NOTE | 2018-08-28 11:29 | PRG ---
DATE OF SERVICE: 08/28/2018 SUBJECTIVE: Ms. Kirk is a 73-year-old woman post injury day #4, status post fall. The patient is postoperative day #3 status post closed reduction and percutaneous screw to right tibial plateau fracture. This morning, the patient reports adequate pain control. She is participating with physical therapy modestly. She tolerates general diet, having normal bowel and urinary function. OBJECTIVE: VITAL SIGNS: Today include blood pressure 106/66, pulse 99, respiratory rate 18, temperature is 98.3 degrees Fahrenheit, oxygen saturation 97% on 2 L by nasal cannula oxygen. HEART: Reveals regular rate and rhythm. LUNGS: Clear to auscultation bilaterally. Breathing was nonlabored. ABDOMEN: Soft, nontender, nondistended. EXTREMITIES: Reveal 2+ radial and pedal pulses bilaterally. NEUROLOGIC: Reveals no focal deficits present. LABORATORY FINDINGS: Today includes metabolic profile; sodium 138, potassium 3.5, chloride is 85, bicarb is 34, BUN 25, creatinine is 1.14, glucose 186, magnesium 1.6, phosphorus 3.3. IMPRESSION: Postop day #3 status post closed reduction and percutaneous pinning to tibial plateau fracture. The patient is hemodynamically stable. PLAN: Continue with physical and occupational therapy. The patient has been evaluated by PM and R, and is stable for transfer to inpatient rehabilitation once bed becomes available and insurance authorization has been secured. Job ID: [id number]
--- NOTE | 2018-08-28 12:28 | PDOC.CTH ---
Cardiology Progress Note - Subjective The pt seen and examined. No overnight events. No cardiac complaints. - Objective Vital Signs Temp Pulse Resp BP Pulse Ox 08/28/18 12:04 98.0 F 100 18 129/75 96 08/28/18 09:33 100 18 96 08/28/18 08:52 100 18 96 08/28/18 08:09 98.3 F 99 18 106/66 97 08/28/18 04:24 98.6 F 97 20 97/62 95 Weight 160 lb 14.4 oz 08/27/18 08/28/18 08/29/18 06:59 06:59 06:59 Intake Total 1000 1280 Output Total 1100 450 Balance -100 830 - Physical Examination General/Neuro: alert & oriented x3 Neck: no JVD present Lungs: other: (diminished at bases) Heart: RRR Abdomen: soft Extremities: other: (No edema) - Labs Result Diagrams: 08/27/18 06:09 08/28/18 07:17 - Assessment/Plan 1. S/p Rt Tibial fx and sx on 08/25/2018 - stable; managed by trauma team 2. Chronic diastolic HF - stable; On Lasix, ARB. 3. CAD with Hx of CABG x4 in 2008 - stable; on ASA and Statin, but not on BBlocker due to hx of COPD. 4. HTN - stable 5. DM type 2 - managed by PCP 6. Hyperlipidemia - on Statin 7. Severe COPD with Home O2 - stable 8. Bilat carotid stenosis - stable 9. Obese - MAR reviewed * From Cardiac standpoint, the pt is stable to tx to rehab. The pt will f/u with Dr Barajas' office within 2-4 wks after she is d/c from Rehab. Pt. seen and eval. by me. I agree with the A/P by the SENIOR MEDICAL TECHNOLOGIST. The cardiac status is stable. Chest clear, RRR. Review of Systems - Review of Systems Constitutional: reports: no symptoms reported EENTM: reports: no symptoms reported Respiratory: reports: no symptoms reported Cardiac (ROS): reports: no symptoms reported ABD/GI: reports: no symptoms reported : reports: no symptoms reported
[2018-08-28] MEDS: traMADol HCl 50 MG TAB PO PRN (13:23)
[2018-08-28] MEDS: Fluticasone Propionate Nasal Spray 16 gm Bottle NASAL SCH ×2 (13:24→21:21)
--- NOTE | 2018-08-28 13:57 | PQF ---
CINTHIA OROPEZA GARY PA-C [id number] [place] [id number] CLINICAL DOCUMENTATION IMPROVEMENT CLARIFICATION FORM: ICD-10 Updated PLEASE DO AN ADDENDUM TO THE PROGRESS NOTE WITH ANY DOCUMENTATION UPDATES OR ADDITIONS AND CARRY THROUGH TO DC SUMMARY. THANK YOU. DATE: 08/28/2018 ATTN: MARGARETTE DALY PA-C Please exercise your independent, professional judgment in responding to the clarification form. Clinical indicators are provided on the bottom of this form for your review Please check appropriate box(s): [X ] Chronic Respiratory Failure [ ] with Hypoxia [ ] with Hypercapnia [ ] Hypoxia [ ] Other diagnosis [ ] Unable to determine In addition, please specify: Present on Admission (POA): [ ] Yes [ ] No [ ] Unable to determine For continuity of documentation, please document condition throughout progress notes and discharge summary. Thank You. CLINICAL INDICATORS - SIGNS / SYMPTOMS / LABS *ER NOTE: WEARS 3L HOME O2. *08/26 PROGRESS NOTE: SAT 94% ON 3L. RISK FACTORS ORIF, RIGHT HIP ON 08/24 08/24 H&P: CHRONIC CONGESTIVE HEART FAILURE AND ANEMIA *08/26 PROGRESS NOTE: HISTORY OF CHRONIC COPD *08/26 PROGRESS NOTE: LIKELY DISCHARGE BACK TO HOSPICE IN 1-2 DAYS. TREATMENTS: Oxygen STEROIDS LASIX Monitoring of oxygenation status Thank you, Caro (This form is maintained as a part of the permanent medical record) 2015 [employer] All Rights Reserved Caro Lopez RN, CDIS [email or web address] [phone] [facility]ITAL[facility]
[2018-08-28] MEDS: Atorvastatin Calcium 10 MG TAB PO SCH (21:20)
[2018-08-28] MEDS: Loratadine 10 MG TAB PO SCH (21:20)
[2018-08-28] MEDS: Mirtazapine 30 MG TAB PO SCH (21:22)
[2018-08-28] MEDS: traZODone HCl 50 MG TAB PO SCH (21:24)
[2018-08-29] MEDS: traMADol HCl 50 MG TAB PO PRN ×2 (00:15→12:05)
[2018-08-29] MEDS: HumaLOG 300 UNITS/3 ML VIAL SC PRN ×4 (06:22→21:16)
[2018-08-29 07:03] LABS: Anion Gap 17 mmol/L (10-20); BUN (Urea Nitrogen) 30 mg/dL (9.8-20.1); Calc. Creatinine Clearance 48 mL/min (70-130); Calcium 9.5 mg/dL (7.8-10.44); Carbon Dioxide 36 mmol/L (23-31); Chloride 88 mmol/L (98-107); Estimated GFR-MDRD 43; Glucose 174 mg/dL (83-110); Magnesium 1.7 mg/dL (1.6-2.6); Phosphorus 3.8 mg/dL (2.3-4.7); Potassium 4.1 mmol/L (3.5-5.1); Sodium 137 mmol/L (136-145)
[2018-08-29] MEDS ORDERED: Magnesium Sulfate 2 GM in Sodium Chloride 0.9% 100 ML IVPB SCH (07:45)
[2018-08-29] MEDS: Mometasone/Formoterol 120 PUFF INHALER INH SCH ×2 (07:53→19:29)
[2018-08-29] MEDS ORDERED: Magnesium 2 GM/50 ML 2 GM in Premix Bag 1 BAG IVPB SCH (08:00)
--- NOTE | 2018-08-29 09:10 | PDOC.CTH ---
Cardiology Progress Note - Subjective The pt seen and examined. No overnight events. No cardiac complaints. Her O2 Sat was 70s with RA while sleeping. O2 sat went up to 92% with 3LNC. - Objective Vital Signs Temp Pulse Resp BP Pulse Ox 08/29/18 07:45 98.5 F 110 H 20 129/77 100 08/29/18 07:44 111 H 16 97 08/29/18 03:52 99.4 F 102 H 19 111/69 95 08/29/18 00:15 99.1 F 107 H 18 103/69 95 Weight 160 lb 14.4 oz 08/28/18 08/29/18 08/30/18 06:59 06:59 06:59 Intake Total 1280 850 Output Total 450 Balance 830 850 - Physical Examination General/Neuro: alert & oriented x3 Lungs: other: (very diminished at bases) Heart: RRR Abdomen: soft Extremities: other: (No edema) - Labs Result Diagrams: 08/27/18 06:09 08/29/18 06:15 - Assessment/Plan 1. S/p Rt Tibial fx and sx on 08/25/2018 - stable; managed by trauma team 2. Chronic diastolic HF - stable; On Lasix, ARB. 3. CAD with Hx of CABG x4 in 2008 - stable; on ASA and Statin, but not on BBlocker due to hx of COPD. 4. HTN - stable 5. DM type 2 - managed by PCP 6. Hyperlipidemia - on Statin 7. Severe COPD with Home O2 - stable 8. Bilat carotid stenosis - stable 9. Obese - MAR reviewed * From Cardiac standpoint, the pt is stable to tx to rehab. The pt will f/u with Dr Barajas' office within 2-4 wks after she is d/c from Rehab. Review of Systems - Review of Systems Constitutional: reports: no symptoms reported EENTM: reports: no symptoms reported Respiratory: reports: no symptoms reported Cardiac (ROS): reports: no symptoms reported ABD/GI: reports: no symptoms reported : reports: no symptoms reported Musculoskeletal: reports: no symptoms reported
[2018-08-29] MEDS: Polyethylene Glycol 3350 17 GM Packet PO SCH (10:02)
[2018-08-29] MEDS: Azelastine 137 MCG/Spray 30 ML NS SCH ×2 (10:02→21:22)
[2018-08-29] MEDS: Fluticasone Propionate Nasal Spray 16 gm Bottle NASAL SCH ×2 (10:02→21:22)
[2018-08-29] MEDS: Famotidine 20 MG TAB PO SCH ×2 (10:03→21:22)
[2018-08-29] MEDS: Losartan 25 MG TAB PO SCH (10:03)
[2018-08-29] MEDS: Clopidogrel Bisulfate 75 MG TAB PO SCH (10:03)
[2018-08-29] MEDS: DULoxetine 60 MG CAP PO SCH (10:03)
[2018-08-29] MEDS: Cyanocobalamin (Vitamin B-12) 1,000 MCG TAB PO SCH (10:03)
[2018-08-29] MEDS: Potassium Chloride 20 MEQ TAB PO SCH ×2 (10:04→17:33)
[2018-08-29] MEDS: Magnesium Oxide 400 MG TAB PO SCH ×2 (10:04→21:21)
[2018-08-29] MEDS: Estradiol 1 MG TAB PO SCH (10:04)
[2018-08-29] MEDS: Senokot S 8.6-50 MG TAB PO SCH ×2 (10:04→21:25)
[2018-08-29] MEDS: Aspirin 81 mg Enteric Coated Tablet PO SCH ×2 (11:10→21:21)
[2018-08-29] MEDS ORDERED: Lactated Ringer's 500 ML IV SCH (11:15)
--- NOTE | 2018-08-29 14:03 | PRG ---
DATE OF SERVICE: 08/29/2018 SUBJECTIVE: This is a 73-year-old female, who is status post fall, postop day 4 status post closed reduction and percutaneous screw to right tibial plateau fracture. The patient is delirious this morning and oriented only to self. Upon our evaluation this morning, the patient had removed her nasal cannula and O2 saturations were in the 70s. This was replaced with an improvement in her O2 sats to the low to mid 90s. She is also mildly tachycardic with heart rate in one teens. OBJECTIVE: VITAL SIGNS: T-max 99.4, pulse 110, respiratory rate 20, O2 saturation 97% on 3 L nasal cannula, blood pressure is 129/77. GENERAL: Elderly appearing female, in no acute distress, resting in bed. PULMONARY: Normal work of breathing. Symmetric rise. LUNGS: Clear to auscultation bilaterally. CARDIOVASCULAR: Regular rate and rhythm. GI: Abdomen is soft, nontender, nondistended. MUSCULOSKELETAL: Moves all extremities x4. NEURO: No focal deficit is noted. Alert to self at this time. LABORATORY FINDINGS: Sodium 137, potassium 4.1, chloride 88, carbon dioxide 36 , BUN 30, creatinine 1.24, glucose 174, phosphorus 3.8, magnesium 1.7. ASSESSMENT: 1. Status post mechanical fall. 2. Right tibial plateau fracture postop day 4. 3. Acute traumatic pain. 4. Acute kidney injury, worsening. 5. Metabolic alkalosis. 6. History of coronary artery disease. 7. Diabetes. 8. Chronic obstructive pulmonary disease, on 3 L nasal cannula, chronic hypoxic respiratory failure. 9. Hypothyroidism. 10. Peripheral vascular disease. 11. History of congestive heart failure. PLAN: Gentle IV fluid bolus in setting of acute kidney injury and tachycardia. We will hold the patient's home Lasix and Zaroxolyn today. Given her increased confusion, we will also check urinalysis, limit sedating medications. Continue to encourage incentive spirometry and pulmonary toileting. Continue PT and OT. The patient has been having poor p.o. intake, we will add Glucerna and encourage PO intake. Eventual disposition to long-term facility once renal function and mental status is stabilized. Plan of care was discussed with the patient and the patient's nurse. All questions were answered at the time of this dictation. The patient was discussed with Trauma attending. Job ID: [id number] [facility]
[2018-08-29 15:01] LABS: Bilirubin Negative (Negative); Blood, Urine Negative (Negative); Clarity CLEAR (Clear); Glucose, Urine (Dipstick) Negative (Negative); Leukocyte Negative (Negative); Nitrite Negative (Negative); Protein, Urine (Dipstick) Negative (Neg-Trace); Specific Gravity, Urine 1.013 (1.002-1.036); pH, Urine 7.5 (5.0-9.0)
[2018-08-29 15:04] LABS: Bacteria/HPF None Seen HPF (None Seen); Hyaline Casts/LPF 4-6 HYALINE CAST LPF (0-3 Hyaline); Pathc Cast-AUWi Flag 1.01 (0-2.49); Squamous Epithelial 0-3 HPF (0-3); WBC/HPF 0-3 HPF (0-3)
[2018-08-29 15:05] LABS: Urine Culture Reflex No No
[2018-08-29] MEDS: Atorvastatin Calcium 10 MG TAB PO SCH (21:21)
[2018-08-29] MEDS: Loratadine 10 MG TAB PO SCH (21:21)
[2018-08-29] MEDS: traZODone HCl 50 MG TAB PO SCH (21:25)
[2018-08-29] MEDS: Mirtazapine 30 MG TAB PO SCH (21:25)
[2018-08-30] MEDS: HumaLOG 300 UNITS/3 ML VIAL SC PRN (06:41)
[2018-08-30] MEDS: Mometasone/Formoterol 120 PUFF INHALER INH SCH (06:55)
[2018-08-30 07:27] LABS: #Basophils 0.1 thou/uL (0.0-0.2); #Eosinphils 0.4 thou/uL (0.0-0.7); #Lymphocytes 1.3 thou/uL (1.20-3.40); #Monocytes 0.9 thou/uL (0.11-0.59); %Eosinophils 4.1 % (0.0-10.0); %Monocytes 9.8 % (0.0-10.0); %Neutrophils 70.1 % (42.0-75.0); Hemoglobin 8.5 g/dL (12.0-16.0); Mean Corpuscular HGB CONC 28.6 g/dL (32.0-36.0); Mean Corpuscular Hemoglobin 19.5 pg (27.0-31.0); Mean Corpuscular Volume 68.2 fL (78.0-98.0); Mean Platelet Volume 5.9 fL (7.4-10.4); Platelet Count 159 thou/uL (130-400); RBC Distribution Width 23.6 % (11.5-14.5); Red Blood Cell (RBC) Count 4.34 mill/uL (4.20-5.40); White Blood Cell (WBC) Count 8.6 thou/uL (4.8-10.8)
[2018-08-30 07:31] LABS: Anion Gap 16 mmol/L (10-20); BUN (Urea Nitrogen) 28 mg/dL (9.8-20.1); Calc. Creatinine Clearance 58 mL/min (70-130); Carbon Dioxide 36 mmol/L (23-31); Chloride 94 mmol/L (98-107); Estimated GFR-MDRD 53; Glucose 167 mg/dL (83-110); Magnesium 2.2 mg/dL (1.6-2.6); Phosphorus 3.7 mg/dL (2.3-4.7); Potassium 4.4 mmol/L (3.5-5.1); Sodium 142 mmol/L (136-145)
[2018-08-30 07:57] LABS: Hypochromia MODERATE=16-30 cells (100X) (0-5/hpf); MDiff Complete? YES; Microcytosis MODERATE=15-30 cells (100X) (0-5/hpf); Ovalocytes SLIGHT = 2-5 cells (100X) (0-1/hpf); Platelet Morphology Comment Appears Adequate; Polychromasia MODERATE = 3-4 cells (100X) (0-2/hpf)
[2018-08-30 08:42] VITALS: TEMP 98.5
[2018-08-30] MEDS: Famotidine 20 MG TAB PO SCH (09:06)
[2018-08-30] MEDS: Cyanocobalamin (Vitamin B-12) 1,000 MCG TAB PO SCH (09:07)
[2018-08-30] MEDS: Fluticasone Propionate Nasal Spray 16 gm Bottle NASAL SCH (09:07)
[2018-08-30] MEDS: Azelastine 137 MCG/Spray 30 ML NS SCH (09:07)
[2018-08-30] MEDS: Estradiol 1 MG TAB PO SCH (09:07)
[2018-08-30] MEDS: Magnesium Oxide 400 MG TAB PO SCH (09:08)
[2018-08-30] MEDS: DULoxetine 60 MG CAP PO SCH (09:08)
[2018-08-30] MEDS: Senokot S 8.6-50 MG TAB PO SCH (09:09)
[2018-08-30] MEDS: Polyethylene Glycol 3350 17 GM Packet PO SCH (09:09)
[2018-08-30] MEDS: Clopidogrel Bisulfate 75 MG TAB PO SCH (09:09)
[2018-08-30] MEDS: Losartan 25 MG TAB PO SCH (09:16)
[2018-08-30] MEDS: Aspirin 81 mg Enteric Coated Tablet PO SCH (09:17)
[2018-08-30] MEDS: Potassium Chloride 20 MEQ TAB PO SCH (09:17)
[2018-08-30 12:10] VITALS: BP 105/64
--- NOTE | 2018-08-30 12:49 | PDOC.CTH ---
Cardiology Progress Note - Subjective The pt seen and examined. No overnight events. No cardiac complaints. - Objective Vital Signs Temp Pulse Resp BP Pulse Ox 08/30/18 12:14 98 16 98 08/30/18 10:57 98.5 F 99 20 105/64 95 08/30/18 08:11 98.5 F 99 18 99/75 96 08/30/18 06:39 97 08/30/18 06:38 98 16 97 08/30/18 04:18 98.4 F 99 16 102/71 95 Weight 160 lb 14.4 oz 08/29/18 08/30/18 08/31/18 06:59 06:59 06:59 Intake Total 850 480 Balance 850 480 - Physical Examination General/Neuro: alert & oriented x3 Neck: no JVD present Lungs: other: (diminished at griffiths) Heart: RRR Abdomen: soft Extremities: other: (No edema) - Labs Result Diagrams: 08/30/18 06:25 08/30/18 06:25 - Assessment/Plan 1. S/p Rt Tibial fx and sx on 08/25/2018 - stable; managed by trauma team 2. Chronic diastolic HF - stable; On Lasix, ARB. 3. CAD with Hx of CABG x4 in 2008 - stable; on ASA and Statin, but not on BBlocker due to hx of COPD. 4. HTN - stable 5. DM type 2 - managed by PCP 6. Hyperlipidemia - on Statin 7. Severe COPD with Home O2 - stable 8. Bilat carotid stenosis - stable 9. Obese - MAR reviewed * From Cardiac standpoint, the pt is stable to tx to rehab. The pt will f/u with Dr Barajas' office within 2-4 wks after she is d/c from Rehab. Review of Systems - Review of Systems Constitutional: reports: no symptoms reported EENTM: reports: no symptoms reported Respiratory: reports: no symptoms reported Cardiac (ROS): reports: no symptoms reported ABD/GI: reports: no symptoms reported : reports: no symptoms reported Musculoskeletal: reports: no symptoms reported
--- NOTE | 2018-08-31 04:33 | DIS ---
DATE OF ADMISSION: 08/24/2018 DATE OF DISCHARGE: 08/30/2018 ADMISSION DIAGNOSIS: Right proximal tibia and fibular fracture. DISCHARGE DIAGNOSES: 1. Right proximal tibia and fibular fracture. 2. Status post mechanical fall. 3. Acute traumatic vein. 4. Acute kidney injury. 5. Metabolic alkalosis. 6. History of coronary artery disease. 7. Diabetes. 8. Chronic obstructive pulmonary disease, on home oxygen. 9. Hypothyroidism. 10. Peripheral vascular disease. 11. Congestive heart failure. CONSULTING PHYSICIAN: Oziel Sloan MD, who is orthopedic surgery. PROCEDURE: She went to the operating room with Dr. Sloan on August 25, 2018 and she had her postop diagnosis was a right bicondylar tibial plateau fracture. She got a closed reduction and percutaneous screw stabilization of intercondylar split of the right tibial plateau and closed treatment of proximal tibial metaphyseal fracture. HOSPITAL COURSE: Ms. Pilar Kirk is a 73-year-old female, presented to the hospital after a mechanical fall from standing. While on Plavix, she was determined to have a right proximal tib-fib fracture, for which orthopedic surgery was consulted. She was admitted to the hospital under the trauma team and resuscitated. The next day, she was taken to the operating room by Dr. Sloan to have a fixation of her right proximal tib-fib fracture. While in the hospital, cardiology also did see the patient and reported that she was stable and ready to go to rehab on August 29. She did develop change in her mentation on August 29 and acute kidney injury also developed on the same day. Her Lasix and Zaroxolyn were held for concern for dehydration as her p.o. intake was not sufficient. The trauma team also gave her a 500 mL bolus of IV fluid for that day. The next day, the patient's mentation was much improved as well as her creatinine was within normal range. On August 30, the patient was seen and evaluated by the trauma team with improved mentation, improved vital signs, and improved laboratory results. She had been working with physical therapy, who reported she was ready for discharge and she was subsequently discharged to the group home facility. Her Lasix and Zaroxolyn were held with an order for a BMP to be completed in 48 hours after discharge by the facility. The facility was also asked to reassess the patient in 48 hours and determine if the Lasix and Zaroxolyn could be restarted. DISCHARGE DISPOSITION: [facility] facility. DISCHARGE CONDITION: Satisfactory. PHYSICAL EXAMINATION: VITAL SIGNS: Temperature 98.5, pulse 98, respirations 16, O2 98% on 3 L nasal cannula. GENERAL: The patient is an elderly female, no acute distress, comfortable in bed. PULMONARY: No increased work of breathing, equal chest rise and fall, clear and equal breath sounds. CARDIOVASCULAR: Regular rate and rhythm, no gallops, rubs, or murmurs. GI: Abdomen is soft, nontender, nondistended. MUSCULOSKELETAL: Moves all extremities to command, with sensation intact in bilateral upper extremities and left lower extremity, did report decreased sensation to the great toe of the right lower extremity. Pule is intact in all extremities. All extremities are warm and dry. NEURO: No focal neurological deficits. Alert to person, place, and situation, not aware of time. LABORATORY FINDINGS: WBC 8.6, hemoglobin 8.5, hematocrit 29.6, platelets 159. Sodium 142, potassium 4.4, chloride 94, carbon dioxide 36, BUN 28, creatinine 1.03, glucose 167. DISCHARGE INSTRUCTIONS: The patient is discharged to a group home facility. Home medications were restarted as well as she was given a prescription for tramadol for 3 days. She is to have therapy by occupational and physical therapy. She has limitations of nonweightbearing to her right lower extremity. She was sent to the facility on a diabetic diet with Glucerna. She is to use a walker with assistance at the facility. DISCHARGE MEDICATIONS: The patient was discharged with: 1. Albuterol. 2. Aspirin. 3. Azelastine. 4. Plavix. 5. Vitamin B12. 6. Docusate sodium. 7. Duloxetine. 8. Estradiol. 9. Famotidine. 10. Fluticasone. 11. NovoLog. 12. Lantus. 13. Combivent. 14. Loratadine. 15. Losartan. 16. Magnesium oxide. 17. Mirtazapine. 18. Multivitamin. 19. Nitroglycerine p.r.n. 20. [place] 3 fatty acids. 21. Fish oil. 22. Pantoprazole. 23. MiraLax. 24. Potassium chloride. 25. Pravastatin. 26. Lyrica. 27. Ranitidine. 28. Sennoside. 29. Tramadol. 30. Trazodone. FOLLOWUP INSTRUCTIONS: The patient is to follow up in 2 to 4 weeks after discharge from her group home facility with Dr. Gabo Barajas, which is her assembler arranger. She is to follow up with Dr. Jason Avina, which is her primary care provider as needed and she is to follow up with Dr. Oziel Sloan, which is her orthopedic surgeon in 10 days. Job ID: [id number] MTDD
== END 2018-08-30 14:44 | DRG 493 ==
LOC: ERS 15:39 → SJJU 20:19
PROVIDERS: ADMIT Orthopaedic Surgery; ATTEND Orthopaedic Surgery
PROC: 30233N1 Transfusion of Nonautologous Red Blood Cells into Peripheral Vein, Percutaneous Approach (ICD-10-PCS; 2018-08-24)
PROC: 0QSG04Z Reposition Right Tibia with Internal Fixation Device, Open Approach (ICD-10-PCS; principal; 2018-08-25)
DX: S82.251A Displaced comminuted fracture of shaft of right tibia, initial encounter for closed fracture (principal); I50.32 Chronic diastolic (congestive) heart failure; E87.3 Alkalosis; N17.9 Acute kidney failure, unspecified; J96.10 Chronic respiratory failure, unspecified whether with hypoxia or hypercapnia; S82.451A Displaced comminuted fracture of shaft of right fibula, initial encounter for closed fracture; Z88.5 Allergy status to narcotic agent; Z91.048 Other nonmedicinal substance allergy status; Z79.899 Other long term (current) drug therapy; Z79.82 Long term (current) use of aspirin; Z79.02 Long term (current) use of antithrombotics/antiplatelets; J44.9 Chronic obstructive pulmonary disease, unspecified; I25.10 Atherosclerotic heart disease of native coronary artery without angina pectoris; I11.0 Hypertensive heart disease with heart failure; K21.9 Gastro-esophageal reflux disease without esophagitis; D50.9 Iron deficiency anemia, unspecified; E03.9 Hypothyroidism, unspecified; E78.5 Hyperlipidemia, unspecified; E11.9 Type 2 diabetes mellitus without complications; Z79.4 Long term (current) use of insulin; Z79.52 Long term (current) use of systemic steroids; Z86.73 Personal history of transient ischemic attack (TIA), and cerebral infarction without residual deficits; M48.00 Spinal stenosis, site unspecified; Z99.81 Dependence on supplemental oxygen; M19.90 Unspecified osteoarthritis, unspecified site; I73.9 Peripheral vascular disease, unspecified; F41.9 Anxiety disorder, unspecified; G47.00 Insomnia, unspecified; Z95.1 Presence of aortocoronary bypass graft; F17.210 Nicotine dependence, cigarettes, uncomplicated; W18.30XA Fall on same level, unspecified, initial encounter; Y92.008 Other place in unspecified non-institutional (private) residence as the place of occurrence of the external cause; D64.9 Anemia, unspecified; R00.0 Tachycardia, unspecified; E87.6 Hypokalemia; E83.39 Other disorders of phosphorus metabolism; I65.23 Occlusion and stenosis of bilateral carotid arteries; Z68.27 Body mass index [BMI] 27.0-27.9, adult
CPT/HCPCS: 36415; 36416; 36430; 71045; 76000; 80048; 81001; 83735; 84100; 85025; 86850; 86900; 86901; 94640; C1713; C1769; G0390; J0131; J0670; J1100; J2001; J2250; J2405; J3010; J3480; J7050; J7620; P9016; Q0162

== ENCOUNTER 2018-09-01 19:24 | Inpatient (IN) | payer MEDICARE, MEDICAID ==
[~2018-09-01 19:24] MED LIST: ISOVUE-370 76%-LOCM 1 ML ONE
[2018-09-01] MEDS ORDERED: Norepinephrine 8 MG/250 ML BAG IVPB PRN (19:47)
[2018-09-01 20:25] LABS: Hemoglobin 7.6 g/dL (12.0-16.0); Mean Corpuscular HGB CONC 29.2 g/dL (32.0-36.0); Mean Corpuscular Hemoglobin 20.1 pg (27.0-31.0); Mean Corpuscular Volume 68.9 fL (78.0-98.0); Platelet Count 227 thou/uL (130-400); RBC Distribution Width 23.8 % (11.5-14.5); Red Blood Cell (RBC) Count 3.78 mill/uL (4.20-5.40); White Blood Cell (WBC) Count 22.8 thou/uL (4.8-10.8)
[2018-09-01 20:46] LABS: Anisocytosis MODERATE=16-30 cells (100X) (0-5/hpf); Band 3 % (5-11); Basophilic Stippling SLIGHT = 1-2 cells (100X) (None Seen); Eosinophils 2 % (0-10); Hypochromia SLIGHT = 6-15 cells (100X) (0-5/hpf); Large Platelets SLIGHT; Lymphocytes 4 % (21-51); MDiff Complete? YES; Microcytosis SLIGHT = 6-15 cells (100X) (0-5/hpf); Monocytes 3 % (0-10); Neutrophil 88 % (42-75); Platelet Morphology Comment Appears Adequate; Polychromasia SLIGHT = 2-3 cells (100X) (0-2/hpf)
[2018-09-01 20:49] LABS: ALT (SGPT) 24 U/L (8-55); AST (SGOT) 51 U/L (5-34); Alkaline Phosphatase 96 U/L (40-150); Anion Gap 13 mmol/L (10-20); BUN (Urea Nitrogen) 41 mg/dL (9.8-20.1); Bilirubin, Total 1.3 mg/dL (0.2-1.2); Calc. Creatinine Clearance 0 mL/min (70-130); Calcium 8.1 mg/dL (7.8-10.44); Carbon Dioxide 31 mmol/L (23-31); Chloride 94 mmol/L (98-107); Estimated GFR-MDRD 19; Globulin 2.9 g/dL (2.4-3.5); Glucose 117 mg/dL (83-110); Potassium 5.2 mmol/L (3.5-5.1); Protein, Total 5.9 g/dL (6.0-8.3); Sodium 133 mmol/L (136-145)
[2018-09-01 20:57] LABS: Bilirubin Negative (Negative); Blood, Urine Negative (Negative); Clarity CLOUDY (Clear); Glucose, Urine (Dipstick) Negative (Negative); Leukocyte Trace (Negative); Nitrite Negative (Negative); Protein, Urine (Dipstick) Negative (Neg-Trace); Specific Gravity, Urine 1.011 (1.002-1.036)
[2018-09-01 21:00] LABS: Bacteria/HPF None Seen HPF (None Seen); WBC/HPF 0-3 HPF (0-3)
[2018-09-01 21:10] LABS: Hyaline Casts/LPF 0-3 HYALINE CAST LPF (0-3 Hyaline); Pathc Cast-AUWi Flag 5.66 (0-2.49)
[2018-09-01] MEDS ORDERED: Sodium Bicarb 50 MEQ/50 ML Abboject 8.4% SYRINGE ONE (21:53)
--- NOTE | 2018-09-01 22:54 | CT ---
CT ANGIOGRAM THORAX WITH IV CONTRAST AND 3D RECONSTRUCTIONS 09/01/18 HISTORY: Dyspnea. Patient transferred from [facility] with hypotension and sepsis. COMPARISON: Prior study obtained at [facility] on 08/24/18. FINDINGS: There is limited evaluation of the upper lobe segmental pulmonary arteries primarily related to the c hronic interstitial lung changes. There are otherwise no filling defects seen in the pulmonary arteri es to suggest a pulmonary embolus. Dense vascular calcifications are again seen in the coronary arteries as well as involving the thorac ic aorta. Mild scattered atherosclerotic plaque in the distal descending thoracic aorta and proximal abdominal aorta. The thoracic aorta is normal in caliber without evidence of an aortic dissection. The heart is enlarged. Prominent calcifications of the mitral valve annulus are seen. There is mediastinal and bilateral hilar lymphadenopathy. Largest right hilar lymph node measures james roximately 1.7 cm in short axis dimension. A large subcarinal lymph node is present measuring 1.8 cm in short axis dimension with increased number of mediastinal lymph nodes present. Lymphadenopathy wa s difficult to evaluate on the prior exam due to unopacified mediastinal structures, but there was al so probably lymphadenopathy on the prior exam. There was evidence of lymphadenopathy on a prior contr asted CT exam on 01/17/14. No pleural effusion is present, but there are increased interstitial opacities seen throughout the yamini ngs bilaterally, much greater in the upper lobes, overall similar to the prior exam. There does appea r to be mild traction bronchiectasis in the right upper lobe. There is a greater patchy parenchymal a hesham of small focal rounded areas of consolidation seen within the right lower lobe which could be rel ated to a focal area of acute pneumonitis/pneumonia superimposed on chronic lung changes. Mild ground glass densities are also seen within the right lower lobe. Multilevel degenerative changes are again seen in the thoracic spine. There is a wedge shaped hina taz fracture of the T6 vertebral body stable from the prior exam. Again noted is prominent thickening of each adrenal gland with nodular appearance involving the left adrenal gland which is stable from the prior exam. There was a nodule present involving the left adre nal gland on CT abdomen on 03/07/13. However, this left adrenal nodule does appear larger in size comp ared to that study in 2013. A nonemergent followup CT adrenal mass protocol with washout is recommend ed. IMPRESSION: 1. No CT evidence of a pulmonary embolus. 2. Mediastinal and hilar lymphadenopathy also seen on prior studies. 3. Chronic interstitial lung changes overall stable when compared to prior studies, but there is a focal rounded area of consolidation in the right lower lobe with additional ground glass opacities . The findings are worrisome for acute pneumonitis/pneumonia superimposed on chronic interstitial aleks g changes in the right lower lobe. Followup to resolution is recommended. 4. Stable compression fracture of T6 vertebral body. 5. Adrenal thickening bilaterally, which may be related to adrenal hyperplasia, but there is als o a left adrenal nodule which was seen on the prior study in 2012. However, the left adrenal gland as well as this nodule appear larger in size. A CT scan of the abdomen following the adrenal mass uziel col with washout imaging is recommended for further evaluation on a nonemergent basis. POS: HERMILO
[2018-09-01] MEDS ORDERED: Dextrose 5% in Water 1,000 ML IV PRN (23:25)
[2018-09-01] MEDS ORDERED: Sodium Chloride 0.9% 1,000 ML IV SCH (23:25)
[2018-09-01] MEDS ORDERED: Ondansetron ODT 4 MG TAB PO PRN (23:25)
[2018-09-01] MEDS ORDERED: Dextrose 50% Abboject 50 ML SYRINGE SLOW IVP PRN (23:25)
[2018-09-01] MEDS ORDERED: Ondansetron PF 4 MG/2 ML Vial IVP PRN (23:25)
[2018-09-01 23:38] LABS: Bilirubin Negative (Negative); Blood, Urine Small (Negative); Clarity CLEAR (Clear); Glucose, Urine (Dipstick) Negative (Negative); Leukocyte Negative (Negative); Nitrite Negative (Negative); Protein, Urine (Dipstick) Negative (Neg-Trace)
[2018-09-01 23:40] LABS: Bacteria/HPF None Seen HPF (None Seen); Hyaline Casts/LPF 0-3 HYALINE CAST LPF (0-3 Hyaline); Pathc Cast-AUWi Flag 0.43 (0-2.49); RBC/HPF 0-3 HPF (0-3); Squamous Epithelial 0-3 HPF (0-3); WBC/HPF None Seen HPF (0-3)
[2018-09-01] MEDS ORDERED: Morphine 4 MG/ML VIAL SLOW IVP PRN (23:45)
[2018-09-01] MEDS ORDERED: Vancomycin HCl 1 GM in Premix Bag 1 BAG IVPB SCH (23:45)
[2018-09-02] MEDS ORDERED: Sodium Bicarbonate 50 MEQ in Sodium Chloride 0.45% 1,000 ML IV SCH (00:30)
[2018-09-02 00:32] LABS: CKMB 3.8 ng/mL (0-6.6); Troponin I 0.024 ng/mL (< 0.028)
--- NOTE | 2018-09-02 02:03 | HP ---
REQUESTING PHYSICIAN: ATTENDING SURGEON: Dr. Layton. CONSULTATIONS: None. HISTORY OF PRESENT ILLNESS: The patient is a 73-year-old female, who is known to our service. She was recently discharged on 08/30/2018, status post ground-level fall when she sustained a proximal right tibia fracture that she underwent percutaneous screw placement. She tolerated the procedure well and was [facility]. This evening though was noted by nursing staff there that she had become hypotensive and was somewhat altered. She was taken to the emergency room there, underwent evaluation, examination, and noted to have elevated white count and hypotension, it is felt that she was septic and was brought to our facility for further evaluation and admission. Here in the emergency department, she was started on Levophed to support her pressure. Her oxygen saturation stayed at 100% at her baseline 3 L per nasal cannula. She had appropriate labs drawn to include blood cultures and started on antibiotics. ALLERGIES: CODEINE, GABAPENTIN, HYDROCODONE, AND MORPHINE, THE PATIENT STATES THAT THESE MEDICATIONS ALL MAKE HER "FEEL FUNNY AND WOOZY." SHE REPORTS NO HISTORY OF ANAPHYLAXIS FROM ANY OF THESE MEDICATIONS. CURRENT MEDICATIONS: 1. Albuterol. 2. Aspirin. 3. Azelastine. 4. Plavix. 5. Vitamin B12. 6. Docusate. 7. Duloxetine. 8. Estradiol. 9. Famotidine. 10. Fluticasone. 11. NovoLog. 12. Lantus. 13. Combivent. 14. Loratadine. 15. Losartan. 16. Magnesium oxide. 17. Mirtazapine. 18. Multivitamin. 19. Nitroglycerine sublingual p.r.n. 20. [place]-3 fatty acids. 21. Fish oil. 22. . 23. MiraLax. 24. Potassium chloride. 25. Pravastatin. 26. Lyrica. 27. Ranitidine. 28. Sennoside. 29. Tramadol. 30. Trazodone. PAST MEDICAL HISTORY: Gastroesophageal reflux disease, COPD, hyperlipidemia, hypothyroidism, carotid artery disease, hypertension, history of TIA, diabetes, anxiety, insomnia, spinal stenosis, and peripheral vascular disease. PAST SURGICAL HISTORY: Appendectomy; coronary artery bypass graft, four vessel; cholecystectomy; hernia repair; hysterectomy; and tonsillectomy. SOCIAL HISTORY: The patient prior to this fall lived independently at home. She smokes approximately 4 to 5 cigarettes per day. Denies drug or alcohol use. REVIEW OF SYSTEMS: A 10-point review of systems is negative as otherwise stated. PHYSICAL EXAMINATION: VITAL SIGNS: Blood pressure 96/72, this is on 10 mcg of Levophed; heart rate 110; respirations 20; oxygen saturation is 100% on 3 L via nasal cannula; and temperature is 99.0. GENERAL: The patient is resting comfortably in bed. She is awake, alert, and oriented. Sasha Coma Scale is 15. HEENT. Head is normocephalic and atraumatic. Eyes, extraocular motions are intact. PERRLA bilaterally. Ears are atraumatic without discharge. Nose is atraumatic without discharge. Oropharynx is clear. NECK: Nontender. Trachea is midline. LUNGS: The patient has scant rhonchi and scattered wheezes bilaterally. HEART: Regular rate and rhythm. ABDOMEN: Soft, flat, nontender with active bowel sounds. EXTREMITIES: Neurovascularly intact x2. Lower extremities have 1 to 2+ pitting edema. Right lower extremity is clean, dry, and intact, posterior splint and dressing, this was taken down. Her postoperative sites are clean, dry, and intact. There is no evidence of infection. There is no surrounding erythema. Minimal tenderness. There is no streaking. BACK: Nontender and atraumatic. LABORATORY FINDINGS: White blood cell count 22.8, hemoglobin 7.6, hematocrit 26.0, platelets 227, and 3% bands. Sodium 133, potassium 5.2, chloride 94, CO2 of 31, BUN 41, creatinine 2.50, and glucose 117. BNP 112. D-dimer 2.43. Urinalysis is unremarkable. RADIOGRAPHS: 1. CTA of the chest shows no CT evidence of pulmonary embolus. 2. Mediastinal and hilar lymphadenopathy seen on prior studies. 3. Shows findings are worrisome for acute pneumonitis/pneumonia superimposed on chronic interstitial lung changes in the right lower lobe. ASSESSMENT: 1. Septic shock. 2. Right lower lobe pneumonia. 3. Status post percutaneous screw fixation of right proximal tibia fracture. 4. History of chronic obstructive pulmonary disease. 5. History of congestive heart failure. 6. Pvufe-sl-qwznato renal failure. 7. History of coronary artery disease. 8. History of Plavix use. PLAN: 1. Plan will be to admit the patient to the critical care unit. Pulmonary toilet, antibiotics for possible hospital-acquired pneumonia. 2. Treatment for hypotension with fluids, albumin, and attempt to wean from her pressors. Repeat labs in the morning, gastritis, mechanical VTE prophylaxis. The patient was evaluated in the emergency department by Dr. Calin leyva. We will notify Dr. Ramsey in the morning or sooner as needed if the patient's critical care needs change. The patient is stable at this time. Of note, the patient will be held here in the emergency room until a bed is available in the critical care unit. Job ID: [id number]
[2018-09-02 02:26] LABS: Troponin I 0.067 ng/mL (< 0.028)
--- NOTE | 2018-09-02 04:03 | HP ---
HISTORY OF PRESENT ILLNESS: Pilar Kirk, is a 73-year-old female, recently status post on 08/25/2018, closed reduction and percutaneous screw stabilization of intercondylar split of the right tibial plateau and closed treatment of proximal tibial metaphyseal fracture by Dr. Sloan. The patient was transferred to the [facility] Bed. She presented to the emergency room, alert and oriented. GCS 15 because of low blood pressure. She had a CTA that was normal, obtained because of hypoxia and low blood pressure. GÓMEZ Rabago, has evaluated her and is planning on management in ICU due to her relative low blood pressure currently in the 90s. Her heart rate is 110. Her x-rays do reveal an infiltrate in the base, questionable, but the patient has no cough or fever. Her white count is 22, hemoglobin 7.6, BUN 41, creatinine 2.50. The patient has had normal renal function prior to August, but has had several increase in her creatinine, but this is higher than usual. She did have an echocardiogram on 01/29/2014, with normal LV function and only mild regurgitation, valvular changes. Cardiology did see her in August 2018, noted chronic diastolic dysfunction, history of CABG x4 in 2008, diabetes mellitus type 2, bilateral carotid stenosis, obesity, COPD on home oxygen. The patient will be admitted ICU and observed overnight. We will watch her oxygen saturations and blood pressure and gently hydrate her and recheck her renal function due to acute kidney injury. I agree with orders and plan per Raman Bridges PA-C Job ID: [id number]
[2018-09-02 04:20] LABS: Anion Gap 15 mmol/L (10-20); BUN (Urea Nitrogen) 32 mg/dL (9.8-20.1); Calc. Creatinine Clearance 0 mL/min (70-130); Calcium 7.7 mg/dL (7.8-10.44); Carbon Dioxide 29 mmol/L (23-31); Chloride 98 mmol/L (98-107); Estimated GFR-MDRD 32; Glucose 152 mg/dL (83-110); Magnesium 2.1 mg/dL (1.6-2.6); Potassium 4.1 mmol/L (3.5-5.1); Sodium 138 mmol/L (136-145)
[2018-09-02 04:22] LABS: Phosphorus 3.6 mg/dL (2.3-4.7)
[2018-09-02 05:53] LABS: #Basophils 0.1 thou/uL (0.0-0.2); #Eosinphils 0.2 thou/uL (0.0-0.7); #Lymphocytes 1.2 thou/uL (1.20-3.40); #Neutrophils 14.2 thou/uL (1.40-6.50); %Basophils 0.3 % (0.0-1.0); %Eosinophils 1.3 % (0.0-10.0); %Monocytes 5.9 % (0.0-10.0); %Neutrophils 85.6 % (42.0-75.0); Basophilic Stippling SLIGHT = 1-2 cells (100X) (None Seen); Hemoglobin 7.1 g/dL (12.0-16.0); Hypochromia MODERATE=16-30 cells (100X) (0-5/hpf); MDiff Complete? YES; Mean Corpuscular HGB CONC 28.6 g/dL (32.0-36.0); Mean Corpuscular Hemoglobin 19.9 pg (27.0-31.0); Mean Corpuscular Volume 69.7 fL (78.0-98.0); Mean Platelet Volume 5.9 fL (7.4-10.4); Microcytosis SLIGHT = 6-15 cells (100X) (0-5/hpf); Platelet Count 196 thou/uL (130-400); Platelet Morphology Comment Appears Adequate; Poikilocytosis SLIGHT = 6-15 cells (100X) (0-5/hpf); Polychromasia SLIGHT = 2-3 cells (100X) (0-2/hpf); RBC Distribution Width 23.7 % (11.5-14.5); Red Blood Cell (RBC) Count 3.57 mill/uL (4.20-5.40); Stomatocytes SLIGHT = 2-5 cells (100X) (0-1/hpf); White Blood Cell (WBC) Count 16.6 thou/uL (4.8-10.8)
--- NOTE | 2018-09-02 07:51 | RAD ---
PORTABLE CHEST: Date: 09/02/18 PROVIDED CLINICAL HISTORY: Pneumonia. COMPARISON: 09/01/18. FINDINGS: Cardiac and mediastinal silhouette is unchanged in appearance. The appearance of the lung parenchyma is radiographically stable. Blunting of the right costophrenic angle. No evidence for pneumothorax. IMPRESSION: Limited study. POS: [facility]
[2018-09-02] MEDS: Famotidine 20 MG TAB PO SCH (08:00)
[2018-09-02] MEDS ORDERED: Famotidine 20 MG TAB ONE (08:03)
[2018-09-02] MEDS ORDERED: Piperacillin/Tazobactam 3.375 GM VIAL ONE (11:27)
[2018-09-02] MEDS ORDERED: Sodium Bicarbonate 150 MEQ in Sodium Chloride 0.45% 1,000 ML IV SCH (11:30)
[2018-09-02] MEDS: Piperacillin/Tazobactam 3.375 GM in Sodium Chloride 0.9% 100 ML IVPB SCH ×4 (11:32→19:53)
[2018-09-02] MEDS ORDERED: Insulin Regular 300 UNITS/3 ML VIAL ONE (11:56)
[2018-09-02] MEDS: Insulin Regular 300 UNITS/3 ML VIAL SC PRN (12:11)
[2018-09-02] MEDS: Vancomycin HCl 1 GM in Premix Bag 1 BAG IVPB SCH ×2 (15:14→21:38)
[2018-09-02] MEDS ORDERED: Hydrocortisone Sod Succ/PF 100 mg/2 ml Vial IVP SCH ×2 (15:15)
--- NOTE | 2018-09-02 16:12 | PRG ---
DATE OF SERVICE: 09/02/2018 SUBJECTIVE: The patient is hospital day #2, status post being transferred back to our facility from a long term facility, where she was recovering from a proximal tibia fracture. She had been discharged on 08/30/2018. She reportedly had episodes of hypotension requiring pressor support and when transferred over here, she underwent evaluation, examination for sepsis and a possible pulmonary embolus. Her chest CTA was unremarkable for PE but did show a possible right lower lobe effusion. Overnight, the patient had been hydrated and treated with sodium bicarb drip in light of her acute on chronic kidney injury and any additional dye load from her CTA. Overnight, she did well. She maintained her oxygen saturation at 100% on 3 L via nasal cannula and her Levophed was able to be weaned down to 2.5 this morning when she was evaluated. She is tolerating clear liquid diet and her pain is controlled. The patient also had her surgical sites evaluated by Dr. Sloan and he was in agreement that the sites look good. There was no evidence of an infection. PHYSICAL EXAMINATION: VITAL SIGNS: Blood pressure 112/68, heart rate 103, respirations 19, oxygen saturations 100% on 3 L via nasal cannula, and temperature is 98.1. GENERAL: The patient remains in the emergency department as a critical care unit hold patient. She is awake, alert, in good spirits and appropriate. HEENT: Unremarkable. LUNGS: Scattered rhonchi and wheezes, which this patient is known to me and this is essentially her baseline due to her significant COPD. HEART: Regular rate and rhythm. ABDOMEN: Soft, flat, nontender with active bowel sounds. EXTREMITIES: Neurovascularly intact x4. LABORATORY FINDINGS: White blood cell count 16.6, hemoglobin 7.1, hematocrit 24.9, platelets 196. Sodium 138, potassium 4.1, chloride 98, CO2 of 29, BUN 32, creatinine 1.60, glucose 152, magnesium 2.1. RADIOGRAPHIC FINDINGS: AP chest shows blunting of the right costophrenic angle. Otherwise stable/unchanged appearance. ASSESSMENT: 1. Septic shock, resolving. 2. Possible right lower lobe pneumonia, under treatment with antibiotics. 3. Status post percutaneous screw fixation of right proximal tibia fracture. 4. History of chronic obstructive pulmonary disease. 5. History of congestive heart failure. 6. Acute on chronic renal failure. 7. History of coronary artery disease. 8. History of Plavix use. PLAN: Plan will be to continue weaning from the Levophed. We will give the patient 100 mg of hydrocortisone IV this morning and then 25 mg q.6 hours to treat her possible adrenal insufficiency with a cortisol level of 16. Continue gentle fluid hydration for renal protection and repeat labs in the morning. Continue to follow her I's and O's and await bed availability upstairs. The patient was discussed with Dr. Ramsey that if we were able to wean her from her pressors, we will be able to move her to the surgical floor after 4 hours of being off her vasopressors. Job ID: [id number]
[2018-09-02] MEDS ORDERED: Hydrocortisone Sod Succ/PF 100 mg/2 ml Vial ONE (19:36)
[2018-09-02] MEDS: Hydrocortisone Sod Succ/PF 100 mg/2 ml Vial IVP SCH (21:38)
[2018-09-02 22:14] VITALS: BMI 30.4
[2018-09-03] MEDS: Piperacillin/Tazobactam 3.375 GM in Sodium Chloride 0.9% 100 ML IVPB SCH ×4 (00:06→18:07)
[2018-09-03] MEDS: Insulin Regular 300 UNITS/3 ML VIAL SC PRN ×6 (00:15→20:26)
[2018-09-03 05:09] LABS: Magnesium 1.6 mg/dL (1.6-2.6); Phosphorus 2.6 mg/dL (2.3-4.7)
[2018-09-03] MEDS: Hydrocortisone Sod Succ/PF 100 mg/2 ml Vial IVP SCH ×4 (06:53→22:04)
[2018-09-03 07:14] LABS: Anion Gap 15 mmol/L (10-20); BUN (Urea Nitrogen) 13 mg/dL (9.8-20.1); Calc. Creatinine Clearance 76 mL/min (70-130); Calcium 8.5 mg/dL (7.8-10.44); Carbon Dioxide 32 mmol/L (23-31); Chloride 97 mmol/L (98-107); Estimated GFR-MDRD 63; Glucose 170 mg/dL (83-110); Sodium 141 mmol/L (136-145)
[2018-09-03 07:17] LABS: Potassium 2.9 mmol/L (3.5-5.1)
--- NOTE | 2018-09-03 09:05 | RAD ---
PORTABLE CHEST: Date: 09/03/18 PROVIDED CLINICAL HISTORY: Pneumonia. FINDINGS: Comparison with 09/02/18. Significant interval change with respect to the prior examination is not apparent. IMPRESSION: As above. POS: [facility]
[2018-09-03] MEDS: Famotidine 20 MG TAB PO SCH (09:09)
[2018-09-03] MEDS: Vancomycin HCl 1 GM in Premix Bag 1 BAG IVPB SCH (09:10)
[2018-09-03] MEDS ORDERED: Potassium Chloride 20 MEQ TAB PO SCH ×2 (09:15→18:30)
[2018-09-03 11:23] LABS: #Lymphocytes 0.5 thou/uL (1.20-3.40); #Monocytes 0.4 thou/uL (0.11-0.59); #Neutrophils 8.5 thou/uL (1.40-6.50); %Basophils 0.1 % (0.0-1.0); %Eosinophils 0.1 % (0.0-10.0); %Lymphocytes 5.5 % (21.0-51.0); %Monocytes 4.2 % (0.0-10.0); %Neutrophils 90.1 % (42.0-75.0); Hemoglobin 8.2 g/dL (12.0-16.0); Mean Corpuscular HGB CONC 29.3 g/dL (32.0-36.0); Mean Corpuscular Hemoglobin 20.8 pg (27.0-31.0); Mean Corpuscular Volume 70.9 fL (78.0-98.0); Mean Platelet Volume 6.5 fL (7.4-10.4); Platelet Count 188 thou/uL (130-400); RBC Distribution Width 24.1 % (11.5-14.5); Red Blood Cell (RBC) Count 3.95 mill/uL (4.20-5.40); White Blood Cell (WBC) Count 9.4 thou/uL (4.8-10.8)
[2018-09-03] MEDS ORDERED: Furosemide 20 MG/2 ML VIAL SLOW IVP SCH (13:15)
[2018-09-03] MEDS ORDERED: Cyclobenzaprine 10 MG TAB PO PRN (15:01)
[2018-09-03] MEDS ORDERED: Magnesium Oxide 400 MG TAB PO SCH (16:15)
--- NOTE | 2018-09-03 16:30 | PRG ---
DATE OF SERVICE: 09/03/2018 SUBJECTIVE: The patient is currently in the Critical Care Unit. She is hospital day #2, status post an admission for sepsis. The patient overnight is doing well, though the family noticed that she is starting to become confused at times, consistent with her previous admission, where she appeared started having some sundowning like issues. The patient is tolerating a diet and she has begun working with Physical Therapy. The patient since being here, has been afebrile and is off her Levophed for greater than 12 hours now. OBJECTIVE: VITAL SIGNS: Temperature 98.6, heart rate 98, blood pressure 126/98, respirations 25, oxygen saturation is 100% on 3 L via nasal cannula. GENERAL: The patient is resting comfortably in the bed. She is awake, alert, and appropriate. Nurse and family stated that she "just calm down." During my interview, the patient appeared appropriate. She remembered her surgeons and her prosthetics assistant, and stated that she would just like to go home. HEENT: Unremarkable. LUNGS: Continue to have scattered rhonchi and wheezing bilaterally. HEART: Regular rate and rhythm. ABDOMEN: Soft, flat, and nontender with active bowel sounds. EXTREMITIES: Neurovascularly intact x4. The patient has her knee immobilizer well fitted on her right lower extremity. I was informed that we are waiting for [facility] orthotics to place a different orthotic. LABORATORY EXAMINATION: White blood cell count 9.4, hemoglobin 8.2, hematocrit 28.0, platelets 188. Sodium 141, potassium 2.9, chloride 97, CO2 of 32, BUN 13, creatinine 0.88, glucose 170, magnesium 1.6, phosphorus 2.6. Radiographic reports; AP chest x-ray shows no significant interval change. ASSESSMENT AND PLAN: 1. Status post ground level fall with readmission due to sepsis. 2. Septic shock, resolved. 3. Possible right lower lobe pneumonia, Zosyn will be continued. We would discontinue Levaquin and vancomycin. 4. Status post percutaneous screw fixation of right proximal tibia fracture. 5. History of chronic obstructive pulmonary disease. 6. History of congestive heart failure. 7. Acute renal failure. 8. History of coronary artery disease. 9. History of Plavix use. PLAN: Plan will be to continue supportive care, pulmonary toilet. To begin VTE prophylaxis tonight. Prior to this dictation, I was called back to the patient's bedside, to me informed that when they lie her flat to do personal care is when she becomes extremely anxious and short of breath and lightheadedness. We will give her some Lasix today and also get an echocardiogram to evaluate her orthopnea. Once the patient was sat upright, she again returns to 100% oxygen saturation and appears calm as again upon my return, the patient was awake and appropriate. The evaluation, examination, laboratory, and radiographic findings and plan were discussed with Dr. Ramsey. Job ID: [id number]
[2018-09-03 18:11] LABS: Anion Gap 17 mmol/L (10-20); BUN (Urea Nitrogen) 12 mg/dL (9.8-20.1); Calc. Creatinine Clearance 77 mL/min (70-130); Calcium 9.1 mg/dL (7.8-10.44); Carbon Dioxide 32 mmol/L (23-31); Chloride 95 mmol/L (98-107); Estimated GFR-MDRD 65; Glucose 159 mg/dL (83-110); Magnesium 1.3 mg/dL (1.6-2.6); Phosphorus 1.9 mg/dL (2.3-4.7); Sodium 141 mmol/L (136-145)
[2018-09-03] MEDS ORDERED: Magnesium Sulfate 3 GM in Sodium Chloride 0.9% 100 ML IVPB SCH (18:45)
[2018-09-03] MEDS ORDERED: Potassium Phosphate 30 MMOL in Sodium Chloride 0.9% 250 ML 250 ML IVPB SCH (19:00)
[2018-09-03] MEDS: Ibuprofen 800 MG TAB PO SCH (22:04)
[2018-09-03] MEDS: Magnesium Oxide 400 MG TAB PO SCH (22:04)
[2018-09-04] MEDS: Piperacillin/Tazobactam 3.375 GM in Sodium Chloride 0.9% 100 ML IVPB SCH ×5 (00:52→23:13)
[2018-09-04] MEDS: Insulin Regular 300 UNITS/3 ML VIAL SC PRN ×4 (00:53→12:44)
[2018-09-04] MEDS: Hydrocortisone Sod Succ/PF 100 mg/2 ml Vial IVP SCH ×4 (04:59→23:07)
[2018-09-04] MEDS: Ibuprofen 800 MG TAB PO SCH ×3 (05:13→21:45)
[2018-09-04 05:37] LABS: Anion Gap 18 mmol/L (10-20); BUN (Urea Nitrogen) 14 mg/dL (9.8-20.1); Calc. Creatinine Clearance 83 mL/min (70-130); Calcium 8.9 mg/dL (7.8-10.44); Carbon Dioxide 31 mmol/L (23-31); Chloride 98 mmol/L (98-107); Estimated GFR-MDRD 72; Glucose 136 mg/dL (83-110); Magnesium 2.3 mg/dL (1.6-2.6); Phosphorus 3.9 mg/dL (2.3-4.7); Potassium 2.8 mmol/L (3.5-5.1); Sodium 144 mmol/L (136-145)
[2018-09-04 05:45] LABS: #Lymphocytes 0.6 thou/uL (1.20-3.40); #Monocytes 0.5 thou/uL (0.11-0.59); #Neutrophils 6.6 thou/uL (1.40-6.50); %Basophils 0.1 % (0.0-1.0); %Eosinophils 0.2 % (0.0-10.0); %Lymphocytes 8.2 % (21.0-51.0); %Monocytes 6.1 % (0.0-10.0); %Neutrophils 85.4 % (42.0-75.0); Anisocytosis MODERATE=16-30 cells (100X) (0-5/hpf); Hemoglobin 8.5 g/dL (12.0-16.0); Hypochromia MODERATE=16-30 cells (100X) (0-5/hpf); MDiff Complete? YES; Mean Corpuscular HGB CONC 29.3 g/dL (32.0-36.0); Mean Corpuscular Hemoglobin 21.2 pg (27.0-31.0); Mean Corpuscular Volume 72.2 fL (78.0-98.0); Mean Platelet Volume 6.3 fL (7.4-10.4); Microcytosis SLIGHT = 6-15 cells (100X) (0-5/hpf); Platelet Count 244 thou/uL (130-400); Polychromasia SLIGHT = 2-3 cells (100X) (0-2/hpf); RBC Distribution Width 24.5 % (11.5-14.5); Red Blood Cell (RBC) Count 4.03 mill/uL (4.20-5.40); White Blood Cell (WBC) Count 7.8 thou/uL (4.8-10.8)
[2018-09-04] MEDS: Mometasone/Formoterol 120 PUFF INHALER INH SCH ×2 (07:09→19:12)
[2018-09-04] MEDS ORDERED: Metolazone 5 MG TAB PO SCH (07:30)
[2018-09-04] MEDS ORDERED: Potassium Chloride 40 MEQ in Premix Bag 1 BAG IVPB ONE (07:52)
[2018-09-04] MEDS ORDERED: Potassium Chloride 20 MEQ TAB PO SCH ×3 (08:00→18:00)
[2018-09-04] MEDS: Losartan 25 MG TAB PO SCH (08:09)
[2018-09-04] MEDS: Aspirin 81 mg Enteric Coated Tablet PO SCH ×2 (08:09→21:45)
[2018-09-04] MEDS: DULoxetine 60 MG CAP PO SCH (08:10)
[2018-09-04] MEDS: Magnesium Oxide 400 MG TAB PO SCH ×2 (08:10→21:45)
[2018-09-04] MEDS: Famotidine 20 MG TAB PO SCH ×2 (08:11→21:45)
[2018-09-04] MEDS: Clopidogrel Bisulfate 75 MG TAB PO SCH (08:11)
[2018-09-04] MEDS ORDERED: Magnesium Oxide 400 MG TAB PO SCH ×2 (09:00→17:45)
[2018-09-04] MEDS ORDERED: Enoxaparin Sodium 40 MG/0.4 ML SYRINGE SC SCH (09:00)
[2018-09-04] MEDS ORDERED: Digoxin 0.5 MG/2 ML AMP ONE (09:42)
[2018-09-04] MEDS ORDERED: Furosemide 100 MG/10 ML VIAL SLOW IVP SCH (11:00)
[2018-09-04] MEDS ORDERED: Furosemide 40 MG/4 ML VIAL ONE (11:02)
--- NOTE | 2018-09-04 11:42 | RAD ---
AP CHEST: History: Atrial fibrillation. Date: 09-04-18 Comparison: 09-03-18 FINDINGS: AP chest demonstrates EKG leads seen over the chest. Sternotomy wires are seen. Mild cardiomegaly is seen. Pulmonary vascular congestion seen. Airspace opacity seen in the left upper lobe and patchy areas seen in the right lung. These are stabl e and unchanged. IMPRESSION: 1. Areas of multilevel lung parenchymal opacities. 2. Cardiomegaly. POS: [facility]
[2018-09-04] MEDS: Estradiol 1 MG TAB PO SCH (12:31)
[2018-09-04] MEDS: Pregabalin 75 MG CAP PO SCH ×2 (12:32→21:57)
[2018-09-04 16:52] LABS: Anion Gap 21 mmol/L (10-20); BUN (Urea Nitrogen) 17 mg/dL (9.8-20.1); Calc. Creatinine Clearance 69 mL/min (70-130); Calcium 9.3 mg/dL (7.8-10.44); Carbon Dioxide 30 mmol/L (23-31); Chloride 95 mmol/L (98-107); Estimated GFR-MDRD 58; Glucose 135 mg/dL (83-110); Magnesium 1.8 mg/dL (1.6-2.6); Phosphorus 3.3 mg/dL (2.3-4.7); Sodium 143 mmol/L (136-145)
--- NOTE | 2018-09-04 18:07 | PRG ---
DATE OF SERVICE: 09/05/2018 SUBJECTIVE: The patient was seen this morning on rounds, sitting up, on nasal cannula with no signs of distress. Reported pain was well tolerated and was tolerating a low-sodium diet. Her Rosario was in place with clear yellow urine. The Trauma Team left her room and shortly after was called back due to respiratory distress, the patient was placed on BiPAP by the Respiratory Team. A chest x- ray demonstrated perihilar edema and bilateral parenchymal opacities. At that time , the patient was given 80 mg of Lasix IV. She has not been on any pressors for over 24 hours. Later that afternoon, the patient was revisited by the Trauma Team and she was on a non-rebreather mask with significant improvement in her respiratory effort. PHYSICAL EXAMINATION: VITAL SIGNS: Temperature 98.6, pulse 96, respirations 12, oxygen saturation 100 % on 3 L nasal cannula, blood pressure 116/90. GENERAL: Alert and oriented, obese female, sitting up in bed with non- rebreather in place. NEURO: GCS 15, alert and oriented, gross motor and sensation intact. Pupils are equal, round and reactive to light. PULMONARY: Mild, acute distress, equal chest rise and fall, crackles at base of bilateral lungs. HEART: Tachycardic. No murmurs, gallops, or rubs. GI: Abdomen soft, nontender, nondistended. : Rosario in place with clear yellow urine in bag. EXTREMITIES: Motor and sensation intact. 2+ pulses in all extremities, 1+ pitting edema to right lower extremity, no pitting edema to left lower extremity. NECK: No signs of any JVD. No signs of trauma. LAB FINDINGS: White count 7.8, hemoglobin 8.5, hematocrit 29.1, platelets 244. Sodium 144, potassium 2.8, chloride 98, carbon dioxide 31, BUN 14, creatinine 0.79, glucose 136, phosphorus 3.9, magnesium 2.3. DIAGNOSTIC FINDINGS: Chest x-ray obtained this morning demonstrated areas of multilevel lung parenchymal opacities and a cardiomegaly. ASSESSMENT: 1. Status post readmission for septic shock. Originally admitted for right tibial fracture due to fall from standing. 2. Right tibial fracture. 3. Right lower lobe pneumonia. 4. Adrenal insufficiency. 5. Hypokalemia. 6. History of gastroesophageal reflux disease, hyperlipidemia, chronic obstructive pulmonary disease, on home oxygen at 3 L/minute, hypothyroidism, coronary artery disease, congestive heart failure, hypertension, transient ischemic attack, diabetes, peripheral vascular disease, anxiety. PLAN: The patient's home dose of 40 mg Lasix b.i.d. was restarted. Zaroxolyn was restarted at 2.5 mg per day. Her home dose was 5 mg per day. We will continue pain regimen as before. Potassium was replaced orally and through IV today. We will complete BMP this evening to reassess potassium levels. Diet was changed from a low-sodium diet to a diabetic diet. We will also start Glucerna 3 times day. Home Protonix was also started today. We will continue hydrocortisone for now. Patient was seen and discussed with Dr. Ramsey. Job ID: [id number] [facility]
[2018-09-04] MEDS: traZODone HCl 50 MG TAB PO SCH (21:45)
[2018-09-04] MEDS: Loratadine 10 MG TAB PO SCH (21:46)
[2018-09-04] MEDS: Atorvastatin Calcium 10 MG TAB PO SCH (21:46)
[2018-09-04] MEDS: Mirtazapine 30 MG TAB PO SCH (21:46)
--- NOTE | 2018-09-05 01:00 | CON ---
DATE OF CONSULTATION: 09/04/2018 INDICATION FOR CONSULTATION: A 73-year-old female, who has a history of atrial fibrillation, who developed tachycardia this morning with hypoxemia, also perhaps had an acute pulmonary edema. She required IV Lasix and BiPAP mask and then has had improvement. We were asked to see her due to the episode of what appeared to be acute congestive heart failure; however, she also appears to have possible pneumonia. She recently had a hip fracture and was in the hospital here and then was discharged to a snf facility or rehab. While she was there, she was noted to have hypotension and also became short of breath and was transferred to the emergency room and then transferred here for further evaluation. It was felt that she was having CHF exacerbation and also was noted to have possible pneumonia, is being treated with antibiotics at this time and earlier this morning. She became very anxious apparently and had significant tachycardia. Heart rate reportedly in the 160 to 180 range. There was noted to be an atrial fibrillation with rapid ventricular response. She was given I believe IV digoxin as well as Lasix for the CHF and is now improved. Her heart rate at this time is about 93 beats per minute and appears to be a sinus rhythm with frequent PACs. Does not appear that she is in atrial fibrillation. Her EKG on the also showed a normal sinus rhythm with a right bundle-branch block. At this time, she is comfortable. She denies any complaints at this time and is able to converse without any significant shortness of breath at this time. PAST MEDICAL HISTORY: Significant for coronary artery disease. She underwent bypass surgery x4 in 06/2009 with BARBOSA to the LAD, saphenous vein graft to diagonal, ramus and right posterior descending artery. Her most recent catheterization showed that in I believe 2018, she underwent cardiac catheterization, it was found to have severe [place] three vessel disease and had a 50% stenosis in the proximal circumflex, 90% stenosis of the diagonal, and total occlusion of the right coronary artery. She had bypasses with a patent graft to the ramus, but diffuse disease noted in the vessel beyond the graft insertion. The BARBOSA to the LAD was patent. The right posterior descending artery graft was patent and the diagonal graft was also occluded. She also has a history of diastolic heart failure. She has a history of diabetes, hypertension, hypercholesterolemia, COPD, gastroesophageal reflux disease, anxiety, depression, and peripheral vascular disease. She has had carotid artery stenosis as well as other vascular disease and hypothyroidism. She has had a bypass surgery x4, cholecystectomy, hernia repair, hysterectomy, tonsillectomy, and appendectomy. She has had right tibial plateau surgery after the fracture after she fell and broke her leg. MEDICATIONS: Include: 1. Albuterol. 2. Aspirin. 3. Plavix. 4. Colace. 5. Duloxetine. 6. Estradiol. 7. Breo inhaler. 8. Furosemide. 9. Insulin. 10. Combivent inhaler. 11. Xyzal 5 mg at bedtime. 12. Cozaar. 13. Mobic. 14. Metolazone. 15. Remeron. 16. Nitroglycerin. 17. Protonix. 18. [place]-3 capsules. 19. Pravastatin. 20. Lyrica. 21. Ranitidine. 22. Trazodone. ALLERGIES: SHE IS ALLERGIC TO ACETAMINOPHEN, ADHESIVE TAPE, CODEINE, GABAPENTIN, HYDROCODONE, IODINE, MORPHINE, AND BEES. SOCIAL HISTORY: She continued to smoke, but has not smoked for the last several days obviously. She is on oxygen at home. REVIEW OF SYSTEMS: Unchanged since her previous evaluations. She denies any HEENT complaints. She mainly complains of shortness of breath and also the pain in her leg after the fracture. She has been unable to walk very much despite being in rehab. She has only been there for two days before returning to the hospital. She had no or GI complaints. No neurological complaints. PHYSICAL EXAMINATION: GENERAL: Reveals an elderly female, who is in no acute distress at this time. She is alert. She is oriented. VITAL SIGNS: Show a blood pressure 116/90, previously was 155/72. She is afebrile. Heart rate is in the 90 to 100s and shows sinus rhythm with frequent PACs. Respiratory rate is about 12 to 14. HEENT: Reveals the head to be normocephalic and atraumatic. Carotid pulses are present. I did not hear any significant bruits. She has decreased carotid pulses bilaterally. CHEST: She does have bilateral rales noted. CARDIOVASCULAR: Reveals an irregular rhythm somewhat at this time, but mainly regular with occasional ectopy. She has systolic murmur at the upper sternal border and also with the apex, which is very soft. She also has surgical incision in the midsternal area. This is obviously is not well healed but is a chronic problem. There is no open wounds, but the bone healing was inadequate at the time of her surgery. ABDOMEN: Soft and nontender. Positive bowel sounds are present. EXTREMITIES: No clubbing or cyanosis. There is no significant edema noted. She has a Rosario catheter in place. Has good urine output. NEUROLOGICAL: She is intact. SKIN: Warm and dry. Cannot palpate pedal pulses. IMPRESSION: 1. Probable congestive heart failure exacerbation with associated probably underlying pneumonia. The patient became volume overloaded. We will need to continue her diuretics and watch her very carefully. May need to adjust her medications. Need to make sure that she goes back on her Zaroxolyn in addition to her Lasix. 2. History of coronary artery disease, appears to be stable at this time. 3. History of chronic obstructive pulmonary disease. She continues to smoke at home and uses home O2. Hopefully, this will be an encouragement for her to stop smoking. 4. Anemia. Her hemoglobin is 8.5, hematocrit was 29, but she has had recent leg surgery after fracture. 5. Hypokalemia. Earlier today, potassium was 2.8, this has been replaced and repeated at 4 o'clock, was still 3.0 due to the increased urine output. We will continue to follow this and replace potassium as needed. 6. Right bundle-branch block, this is stable. 7. Tachycardia earlier today what appears to be in sinus rhythm with PACs at this time and most likely this is due to her underlying CHF and pneumonia. Chest x-ray earlier today showed evidence of cardiomegaly as well as congestion. We will be more than happy to continue to follow the patient with you and see if we can improve her congestive heart failure symptoms. Job ID: [id number]
[2018-09-05] MEDS: Hydrocortisone Sod Succ/PF 100 mg/2 ml Vial IVP SCH ×2 (04:28→21:03)
[2018-09-05 05:08] LABS: Anion Gap 18 mmol/L (10-20); BUN (Urea Nitrogen) 20 mg/dL (9.8-20.1); Calc. Creatinine Clearance 66 mL/min (70-130); Calcium 8.8 mg/dL (7.8-10.44); Carbon Dioxide 31 mmol/L (23-31); Chloride 96 mmol/L (98-107); Estimated GFR-MDRD 57; Glucose 149 mg/dL (83-110); Magnesium 1.7 mg/dL (1.6-2.6); Phosphorus 4.2 mg/dL (2.3-4.7); Potassium 3.3 mmol/L (3.5-5.1); Sodium 142 mmol/L (136-145)
[2018-09-05] MEDS: Ibuprofen 800 MG TAB PO SCH ×3 (05:21→22:00)
[2018-09-05] MEDS: Piperacillin/Tazobactam 3.375 GM in Sodium Chloride 0.9% 100 ML IVPB SCH ×2 (05:21→11:23)
[2018-09-05 05:48] LABS: Anisocytosis MODERATE=16-30 cells (100X) (0-5/hpf); Hypochromia MODERATE=16-30 cells (100X) (0-5/hpf); MDiff Complete? YES
[2018-09-05 05:49] LABS: #Lymphocytes 0.7 thou/uL (1.20-3.40); #Monocytes 0.5 thou/uL (0.11-0.59); #Neutrophils 5.2 thou/uL (1.40-6.50); %Eosinophils 0.2 % (0.0-10.0); %Lymphocytes 11.4 % (21.0-51.0); %Monocytes 7.6 % (0.0-10.0); %Neutrophils 80.8 % (42.0-75.0); Hemoglobin 8.9 g/dL (12.0-16.0); Mean Corpuscular HGB CONC 28.9 g/dL (32.0-36.0); Mean Corpuscular Hemoglobin 21.1 pg (27.0-31.0); Mean Corpuscular Volume 73.2 fL (78.0-98.0); Platelet Count 247 thou/uL (130-400); RBC Distribution Width 24.6 % (11.5-14.5); Red Blood Cell (RBC) Count 4.21 mill/uL (4.20-5.40); White Blood Cell (WBC) Count 6.5 thou/uL (4.8-10.8)
[2018-09-05] MEDS ORDERED: Magnesium Oxide 400 MG TAB PO SCH (07:48)
[2018-09-05] MEDS: Mometasone/Formoterol 120 PUFF INHALER INH SCH ×2 (08:20→18:21)
[2018-09-05] MEDS: Potassium Chloride 20 MEQ TAB PO SCH ×2 (08:33→17:05)
[2018-09-05] MEDS: Clopidogrel Bisulfate 75 MG TAB PO SCH (08:33)
[2018-09-05] MEDS: Metolazone 5 MG TAB PO SCH (08:34)
[2018-09-05] MEDS: Estradiol 1 MG TAB PO SCH (08:35)
[2018-09-05] MEDS: Famotidine 20 MG TAB PO SCH (08:36)
[2018-09-05] MEDS: Pregabalin 75 MG CAP PO SCH ×2 (08:36→21:58)
[2018-09-05] MEDS: Pantoprazole 40 MG GRANULES PACKET PO SCH (08:38)
[2018-09-05] MEDS: DULoxetine 60 MG CAP PO SCH (08:38)
[2018-09-05] MEDS: Aspirin 81 mg Enteric Coated Tablet PO SCH (08:38)
[2018-09-05] MEDS: Losartan 25 MG TAB PO SCH (08:38)
[2018-09-05] MEDS: Furosemide 40 MG TAB PO SCH ×2 (08:38→13:38)
[2018-09-05] MEDS: Magnesium Oxide 400 MG TAB PO SCH ×2 (11:23→21:02)
[2018-09-05] MEDS ORDERED: traMADol HCl 50 MG TAB PO PRN (11:40)
--- NOTE | 2018-09-05 13:01 | PDOC.CTH ---
Cardiology Progress Note - Subjective The pt seen and examined. No overnight events. No cardiac complaints. She is more alerted and oriented today. - Objective Vital Signs Temp Pulse Resp BP Pulse Ox 09/05/18 10:57 99.3 F 112 H 22 H 116/60 100 09/05/18 08:20 99 09/05/18 08:18 109 H 18 99 09/05/18 08:00 100 09/05/18 07:36 98.3 F 99 22 H 110/81 96 09/05/18 04:36 98.3 F 101 H 22 H 130/69 97 Weight 173 lb 5 oz 09/04/18 09/05/18 09/06/18 06:59 06:59 06:59 Intake Total 2037 1820 Output Total 2079 3400 Balance -42 -1580 - Physical Examination General/Neuro: alert & oriented x3 Neck: no JVD present Lungs: other: (very coarses and diminished at bases) Heart: RRR Abdomen: soft Extremities: other: (mild edema to RLE) - Labs Result Diagrams: 09/05/18 04:25 09/05/18 04:25 Troponin/CKMB CK-MB (CK-2) 3.8 ng/mL (0-6.6) 09/01/18 20:11 Troponin I 0.067 ng/mL (< 0.028) H 09/02/18 01:41 - Assessment/Plan 1. Acute on Chronic Diastolic HF - stable with Lasix 40 mg PO BID, Losartan 25 mg qd; but no BBlocker 2/2 hx of severe COPD 2. CAD with hx of CABG x4 in 2008 - stable; on ASA 81mg qd, Plavix 75mg qd, and Lipitor. Not on Bblocker 2/2 Hx of severe COPD. 3. HTN - stable 4. Severe COPD with Home O2 - stable with 3LNC 5. DM type 2 - managed by PCP 6. RBBB - stable 7. Current smoker - Smoking cessation education given to the pt; she is willing to quit smoking now 8. Bilat Carotid stenosis - stable 9. S/p Rt tibial Fx and Sx on 08/25/2018 - will receive new brace to her RLE. MAR reviewed * Echo on 09/04/2018 showed EF 45-50%, mod dilated LA, mild MR, trace AR, and mod TR Pt. seen and eval. by me. I agree with the A/P by the RN REGISTRY. She was feeling better this AM but this afternoon she convereted to atrial fibrillation. Will give IV dogoxin and start diltiazem if BP tolerates. Review of Systems - Review of Systems Constitutional: reports: weakness EENTM: reports: no symptoms reported Respiratory: reports: no symptoms reported Cardiac (ROS): reports: no symptoms reported ABD/GI: reports: no symptoms reported : reports: no symptoms reported
--- NOTE | 2018-09-05 14:15 | PRG ---
DATE OF SERVICE: 09/05/2018 SUBJECTIVE: The patient is a readmission for septic shock and right lower lobe pneumonia, status post fall from standing with a right tib-fib fracture. She was seen this morning. Alert and oriented, sitting up in bed. She had no signs of acute distress. She was on her 3 L nasal cannula home oxygen, which was her baseline home amount. She reported she had not had any breakfast yet, but was feeling hungry. She denied any pain, but did say that her right lower extremity splint was uncomfortable and I have asked Orthopedic Surgery to replace the splint. Rosario was still in place. She denies any loose stools. PHYSICAL EXAMINATION: VITAL SIGNS: Temperature 99.3, pulse 112, heart rate 22, oxygen saturation 100 % on 3 L nasal cannula, blood pressure 116/60. GENERAL: Alert and oriented, obese female, sitting up in bed with nasal cannula in place. No signs of acute distress. NEUROLOGIC: GCS 15. Alert and oriented. Gross motor and sensation intact. Pupils are equal, round, reactive to light. PULMONARY: No acute signs of distress, equal chest rise and fall, minimal crackles at bilateral bases. HEART: Tachycardic but with regular rhythm. No murmurs, gallops, or rubs. GI. Abdomen is soft, nontender, nondistended. Rosario in place with clear yellow urine in bag. EXTREMITIES: Motor and sensation intact in all four extremities. Knee immobilizer to right lower extremity. 2+ pulses in all extremities. 1+ pitting edema to the right lower extremity. No pitting edema to the left lower extremity. NECK: No signs of JVD. No signs of trauma. LABORATORY FINDINGS: White blood cell count 6.5, hemoglobin 8.9, hematocrit 30.9, platelets 247. Sodium 142, potassium 3.3, chloride 69, BUN 20, creatinine 0.97, glucose 149, phosphorous 4.2, magnesium 1.7. DIAGNOSTIC FINDINGS: There are no diagnostic findings to report. ASSESSMENT: 1. Status post readmission for septic shock and pneumonia. Originally admitted for right tib-fib fracture due to fall from standing. 2. Right tib-fib fracture. 3. Right lower lobe pneumonia. 4. Adrenal insufficiency. 5. Hypokalemia. 6. History of gastroesophageal reflux disease; hyperlipidemia; chronic obstructive pulmonary disease, on home oxygen at 3 L/minute; hypothyroidism; coronary artery disease; congestive heart failure; hypertension; TIA; diabetes; peripheral vascular disease; and anxiety. PLAN: The patient was started on her home Lasix and potassium yesterday. Her Zaroxolyn was started at 2.5 mg. Her home dose is 5 mg. Today, we will continue that regimen. We will discontinue her Rosario, send her to a regular nursing floor. We will stop her IV Zosyn and transition her to oral antibiotics with oral Levaquin 750 mg daily for her hospital-acquired pneumonia. We will start a hydrocortisone taper, she would get it b.i.d. x2 days, then she will get it once a day for one day. Magnesium and potassium will also be replaced. The patient was seen and discussed with Dr. Ramsey on morning rounds. Job ID: [id number] [facility]
--- NOTE | 2018-09-05 14:47 | PQF ---
CINTHIA OROPEZADEE [id number] [facility]- B11 [id number] CLINICAL DOCUMENTATION IMPROVEMENT CLARIFICATION FORM: ICD-10 Updated PLEASE DO AN ADDENDUM TO THE PROGRESS NOTE WITH ANY DOCUMENTATION UPDATES OR ADDITIONS AND CARRY THROUGH TO DC SUMMARY. THANK YOU. DATE: 09/05 ATTN: DR. DEE VICTORIA Please exercise your independent, professional judgment in responding to the clarification form. Clinical indicators are provided on the bottom of this form for your review. Please check appropriate box(s): [ x ] Acute On Chronic Respiratory Failure: [x ] with Hypoxia [ ] with Hypercapnia [ ] Chronic Respiratory Failure only: [ ] with Hypoxia [ ] with Hypercapnia [ ] Hypoxia [ ] Other diagnosis [ ] Unable to determine For continuity of documentation, please document condition throughout progress notes and discharge summary. Thank You. CLINICAL INDICATORS - SIGNS / SYMPTOMS / LABS ER DIAGNOSES: HYPOXIA, PNEUMONIA H&P 09/01: HX: COPD ON HOME 02 @ 3L NC PN 09/04: SUBJ: ...TRAUMA TEAM CALLED BACK TO ROOM D/T RESPIRATORY DISTRESS, THE PT WAS PLACED ON BIPAP. CXR DEMONSTRATED PERIHILAR EDEMA & B PARENCHYMAL OPACITIES. THE PT WAS GIVEN 80 MG OF IV LASIX. LATER THAT AFTERNOON, THE PT WAS ON NRB MASK W/SIGNIFICANT IMPROVEMENT IN HER RESPIRATORY EFFORT. NN 09/04: PT NOTED TO BE VERY ANXIOUS & HAVING A HARD TIME BREATHING. DR GREENE AT BEDSIDE TO ASSIST.; PLACED PT ON BIPAP AT THIS TIME, 02 SATS RANGING FROM 74-80'S BEFORE PLACING ON BIPAP PN 09/05: SUBJ: ...SHE WAS ON HER 3L NC HOME OXYGEN, WHICH WAS HER BASELINE HOME AMOUNT. IMPRESSION: 6) HX OF COPD, ON HOME O2 AT 3L RISK FACTORS: COPD W/HOME 02 USE AT 3L NC AT BASELINE RLL HEALTHCARE ACQUIRED PNEUMONIA A/C DIASTOLIC CHF TREATMENTS: 3L NC > BIPAP > NRB > 3L NC (09/01 > 09/04 > 09/05) MONITORING OF 02 SATS (09/01 - PRESENT) THANK YOU! Ivana (This form is maintained as a part of the permanent medical record) 2014 [employer]. All Rights Reserved Ivana Sanchez RN, BSN [email or web address] Office: [phone] SHANE
[2018-09-05] MEDS ORDERED: Digoxin 0.5 MG/2 ML AMP ONE (16:23)
[2018-09-05] MEDS ORDERED: Digoxin 0.5 MG/2 ML AMP SLOW IVP SCH (16:30)
[2018-09-05] MEDS: Acetaminophen 500 MG TAB PO SCH ×2 (16:46→16:47)
[2018-09-05 19:46] LABS: BUN (Urea Nitrogen) 25 mg/dL (9.8-20.1); Calc. Creatinine Clearance 50 mL/min (70-130); Calcium 8.8 mg/dL (7.8-10.44); Chloride 92 mmol/L (98-107); Estimated GFR-MDRD 41; Glucose 113 mg/dL (83-110); Magnesium 1.4 mg/dL (1.6-2.6); Phosphorus 2.4 mg/dL (2.3-4.7); Potassium 3.1 mmol/L (3.5-5.1); Sodium 142 mmol/L (136-145)
[2018-09-05 19:53] LABS: Anion Gap 21 mmol/L (10-20); Carbon Dioxide 32 mmol/L (23-31)
[2018-09-05] MEDS ORDERED: Magnesium Sulfate 3 GM in Sodium Chloride 0.9% 100 ML IVPB SCH (20:45)
[2018-09-05] MEDS ORDERED: Potassium Chloride 40 MEQ in Sodium Chloride 0.9% 250 ML 250 ML IVPB SCH (20:45)
[2018-09-05] MEDS: Atorvastatin Calcium 10 MG TAB PO SCH (21:02)
[2018-09-05] MEDS: Loratadine 10 MG TAB PO SCH (21:02)
[2018-09-05] MEDS: Mirtazapine 30 MG TAB PO SCH (21:02)
[2018-09-05] MEDS: traZODone HCl 50 MG TAB PO SCH (21:02)
[2018-09-06 05:21] LABS: #Monocytes 0.7 thou/uL (0.11-0.59); #Neutrophils 6.5 thou/uL (1.40-6.50); %Basophils 0.3 % (0.0-1.0); %Eosinophils 0.5 % (0.0-10.0); %Lymphocytes 12.2 % (21.0-51.0); %Monocytes 8.6 % (0.0-10.0); %Neutrophils 78.4 % (42.0-75.0); Anion Gap 16 mmol/L (10-20); Anisocytosis MODERATE=16-30 cells (100X) (0-5/hpf); BUN (Urea Nitrogen) 22 mg/dL (9.8-20.1); Calc. Creatinine Clearance 59 mL/min (70-130); Calcium 8.8 mg/dL (7.8-10.44); Carbon Dioxide 36 mmol/L (23-31); Chloride 95 mmol/L (98-107); Estimated GFR-MDRD 50; Glucose 190 mg/dL (83-110); Hemoglobin 9.4 g/dL (12.0-16.0); Hypochromia MODERATE=16-30 cells (100X) (0-5/hpf); MDiff Complete? YES; Mean Corpuscular HGB CONC 28.6 g/dL (32.0-36.0); Mean Corpuscular Hemoglobin 21.1 pg (27.0-31.0); Mean Corpuscular Volume 73.6 fL (78.0-98.0); Mean Platelet Volume 6.2 fL (7.4-10.4); Microcytosis SLIGHT = 6-15 cells (100X) (0-5/hpf); Phosphorus 3.1 mg/dL (2.3-4.7); Platelet Count 261 thou/uL (130-400); Potassium 3.6 mmol/L (3.5-5.1); RBC Distribution Width 24.4 % (11.5-14.5); Red Blood Cell (RBC) Count 4.45 mill/uL (4.20-5.40); Sodium 143 mmol/L (136-145); White Blood Cell (WBC) Count 8.3 thou/uL (4.8-10.8)
[2018-09-06] MEDS: Ibuprofen 800 MG TAB PO SCH ×3 (06:28→21:30)
[2018-09-06] MEDS: Mometasone/Formoterol 120 PUFF INHALER INH SCH ×2 (07:54→19:18)
[2018-09-06] MEDS ORDERED: Potassium Chloride 20 MEQ TAB PO ONE (08:00)
[2018-09-06] MEDS: Losartan 25 MG TAB PO SCH (09:24)
[2018-09-06] MEDS: Pantoprazole 40 MG GRANULES PACKET PO SCH (09:24)
[2018-09-06] MEDS: Furosemide 40 MG TAB PO SCH ×2 (09:26→14:01)
[2018-09-06] MEDS: Estradiol 1 MG TAB PO SCH (09:26)
[2018-09-06] MEDS: DULoxetine 60 MG CAP PO SCH (09:26)
[2018-09-06] MEDS: Magnesium Oxide 400 MG TAB PO SCH ×2 (09:27→21:30)
[2018-09-06] MEDS: Digoxin 0.125 MG TAB PO SCH (09:27)
[2018-09-06] MEDS: Potassium Chloride 20 MEQ TAB PO SCH ×2 (09:28→18:20)
[2018-09-06] MEDS: Aspirin 81 mg Enteric Coated Tablet PO SCH (09:28)
[2018-09-06] MEDS: Clopidogrel Bisulfate 75 MG TAB PO SCH (09:28)
[2018-09-06] MEDS: Metolazone 5 MG TAB PO SCH (09:29)
[2018-09-06] MEDS: Pregabalin 75 MG CAP PO SCH ×2 (09:30→23:38)
[2018-09-06] MEDS: Hydrocortisone Sod Succ/PF 100 mg/2 ml Vial IVP SCH ×2 (09:31→21:27)
[2018-09-06] MEDS: Acetaminophen 500 MG TAB PO SCH ×4 (09:44→22:00)
[2018-09-06] MEDS: Insulin Regular 300 UNITS/3 ML VIAL SC PRN (13:09)
--- NOTE | 2018-09-06 17:29 | PRG ---
DATE OF SERVICE: 09/06/2018 SUBJECTIVE: The patient is a readmission for septic shock and right lower lobe pneumonia, status post fall from standing with a right tib-fib fracture. She was seen this morning in the ICU, alert, and awake. She had no acute signs of distress and had no complaints. She was on her home 3 L nasal cannula. She reports pain in her right lower extremity. She denies any nausea, vomiting, or loose stools. OBJECTIVE: VITAL SIGNS: Temperature 98.6, pulse 101, respirations 18, oxygen saturation 100% on 3 L nasal cannula, and blood pressure 105/60. GENERAL: Alert and oriented, obese female, sitting on the bed with nasal cannula, no signs of acute distress. NEUROLOGIC: GCS 15. Alert and oriented x3. Gross motor and sensation intact. Pupils are equal, round, and reactive to light. PULMONARY: No acute signs of distress, equal chest rise and fall, minimal crackles at bilateral lung bases. HEART: Tachycardic but with regular rhythm. No murmurs, gallops, or rubs. GI: Abdomen is soft, nontender, and nondistended. EXTREMITIES: Motor and sensation intact in all four extremities. Knee immobilizer to the right lower extremity. 2+ pulses in all extremities. 1+ pitting edema to the right lower extremity. NECK: No signs of JVD or signs of trauma. LABORATORY DATA: White count 8.3, hemoglobin 9.4, hematocrit 32.7, and platelets 261. Sodium 143, potassium 3.6, chloride 95, bicarbonate 36, BUN 22, creatinine 1.08, Mag 2.0. Phosphorus 3.1. ASSESSMENT: 1. Status post readmission for septic shock and pneumonia. Originally admitted for right tib-fib fracture due to fall from standing. 2. Right tib-fib fracture. 3. Right lower lobe pneumonia. 4. Adrenal insufficiency. 5. Hypokalemia. 6. History of gastroesophageal reflux disease, hyperlipidemia, chronic obstructive pulmonary disease on home oxygen at 3 L/minute, hypothyroidism, coronary artery disease, congestive heart failure, hypertension, transient ischemic attack, diabetes with peripheral vascular disease, anxiety. PLAN: The patient will be moved from the ICU to the surgical floor. She was started on scheduled Tylenol for pain. She reported she does have an allergy to Tylenol, but reported there was not anaphylactic and was willing to try the medication again. Her potassium was replaced. She was started on 0.125 mg of digoxin every day for paroxysmal atrial fibrillation. She will continue her hydrocortisone taper for another two days. She will continue to work with Physical and Occupational Therapy. The patient was seen as well as examined and discussed with Dr. Ramsey this morning on rounds. Job ID: [id number] MTDD
--- NOTE | 2018-09-06 19:53 | PDOC.CTH ---
Cardiology Progress Note - Subjective The pt seen and examined. No overnight events. No cardiac complaints. She is alerted and oriented today. She is up to chair. - Objective Vital Signs Temp Pulse Pulse Pulse Resp BP BP 09/06/18 19:05 100 16 09/06/18 15:00 98.2 F 102 H 20 09/06/18 13:04 103 H 16 09/06/18 10:40 98.6 F 101 H 18 09/06/18 09:59 109 H 110 H 105/60 101/72 09/06/18 09:27 113 H 09/06/18 08:00 BP Pulse Ox Pulse Ox Pulse Ox 09/06/18 19:05 100 09/06/18 15:00 110/56 L 99 09/06/18 13:04 100 09/06/18 10:40 105/60 100 09/06/18 09:59 100 100 09/06/18 09:27 09/06/18 08:00 99 Weight 170 lb 9.6 oz 09/05/18 09/06/18 09/07/18 06:59 06:59 06:59 Intake Total 1820 1580 Output Total 3400 2000 Balance -1580 -420 - Physical Examination General/Neuro: alert & oriented x3 Lungs: other: (coarses and diminished at bases) Heart: RRR Abdomen: soft Extremities: other: (No edema) - Telemetry Telemetry Rhythm: SR-ST - Labs Result Diagrams: 09/06/18 04:39 09/06/18 04:39 Troponin/CKMB CK-MB (CK-2) 3.8 ng/mL (0-6.6) 09/01/18 20:11 Troponin I 0.067 ng/mL (< 0.028) H 09/02/18 01:41 - Assessment/Plan 1. Acute on Chronic Diastolic HF - stable with Lasix 40 mg PO BID, Losartan 25 mg qd; but no BBlocker 2/2 hx of severe COPD 2. CAD with hx of CABG x4 in 2008 - stable; on ASA 81mg qd, Plavix 75mg qd, and Lipitor. Not on Bblocker 2/2 Hx of severe COPD. 3. HTN - stable 4. Severe COPD with Home O2 - stable with 3LNC 5. DM type 2 - managed by PCP 6. RBBB - stable 7. Current smoker - Smoking cessation education given to the pt; she is willing to quit smoking now 8. Bilat Carotid stenosis - stable 9. S/p Rt tibial Fx and Sx on 08/25/2018 - will receive new brace to her RLE. 10. Parox. Afib - Remains in SR-ST 90-100s with Digoxin 0.125mg po qd and ASA 81mg qd. MAR reviewed * Echo on 09/04/2018 showed EF 45-50%, mod dilated LA, mild MR, trace AR, and mod TR Pt. seen and eval. by me. I agree with the A/P by the SALES AGENT FINANCIAL REPORT SERVICE. I will add diltiazem to decrease the risk of atrial fib. recurrence. Review of Systems - Review of Systems Constitutional: reports: no symptoms reported EENTM: reports: no symptoms reported Respiratory: reports: no symptoms reported Cardiac (ROS): reports: no symptoms reported ABD/GI: reports: no symptoms reported : reports: no symptoms reported Musculoskeletal: reports: no symptoms reported
[2018-09-06] MEDS: Atorvastatin Calcium 10 MG TAB PO SCH (21:24)
[2018-09-06] MEDS: traZODone HCl 50 MG TAB PO SCH (21:29)
[2018-09-06] MEDS: Mirtazapine 30 MG TAB PO SCH (22:01)
[2018-09-06] MEDS: Loratadine 10 MG TAB PO SCH (22:01)
[2018-09-07] MEDS: Acetaminophen 500 MG TAB PO SCH ×6 (04:05→21:24)
[2018-09-07] MEDS: Insulin Regular 300 UNITS/3 ML VIAL SC PRN ×3 (06:15→21:40)
[2018-09-07] MEDS: Metolazone 5 MG TAB PO SCH (06:33)
[2018-09-07] MEDS: Ibuprofen 800 MG TAB PO SCH ×3 (06:34→21:50)
[2018-09-07 06:53] LABS: Anion Gap 18 mmol/L (10-20); Carbon Dioxide 38 mmol/L (23-31); Chloride 89 mmol/L (98-107); Potassium 3.3 mmol/L (3.5-5.1); Sodium 142 mmol/L (136-145)
[2018-09-07 07:06] LABS: BUN (Urea Nitrogen) 20 mg/dL (9.8-20.1); Calc. Creatinine Clearance 62 mL/min (70-130); Calcium 9.2 mg/dL (7.8-10.44); Estimated GFR-MDRD 54; Glucose 173 mg/dL (83-110); Magnesium 1.6 mg/dL (1.6-2.6)
[2018-09-07] MEDS: Mometasone/Formoterol 120 PUFF INHALER INH SCH ×2 (07:13→18:41)
[2018-09-07 07:21] LABS: #Eosinphils 0.1 thou/uL (0.0-0.7); #Lymphocytes 1.1 thou/uL (1.20-3.40); #Monocytes 0.5 thou/uL (0.11-0.59); %Basophils 0.4 % (0.0-1.0); %Eosinophils 1.5 % (0.0-10.0); %Lymphocytes 12.8 % (21.0-51.0); %Monocytes 5.6 % (0.0-10.0); %Neutrophils 79.7 % (42.0-75.0); Hemoglobin 9.9 g/dL (12.0-16.0); Hypochromia MODERATE=16-30 cells (100X) (0-5/hpf); MDiff Complete? YES; Mean Corpuscular Hemoglobin 21.4 pg (27.0-31.0); Mean Corpuscular Volume 73.7 fL (78.0-98.0); Mean Platelet Volume 6.2 fL (7.4-10.4); Microcytosis SLIGHT = 6-15 cells (100X) (0-5/hpf); Ovalocytes SLIGHT = 2-5 cells (100X) (0-1/hpf); Platelet Count 217 thou/uL (130-400); Platelet Morphology Comment Appears Adequate; Polychromasia MODERATE = 3-4 cells (100X) (0-2/hpf); RBC Distribution Width 23.5 % (11.5-14.5); Red Blood Cell (RBC) Count 4.62 mill/uL (4.20-5.40); Stomatocytes SLIGHT = 2-5 cells (100X) (0-1/hpf); White Blood Cell (WBC) Count 8.8 thou/uL (4.8-10.8)
[2018-09-07 07:28] LABS: Digoxin 1.38 ng/mL (0.8-2.0)
[2018-09-07] MEDS ORDERED: Magnesium Oxide 400 MG TAB PO SCH (07:44)
[2018-09-07] MEDS ORDERED: Potassium Chloride 20 MEQ TAB PO SCH (07:44)
[2018-09-07] MEDS ORDERED: Magnesium Sulfate 4 GM, Potassium Chloride 40 MEQ in Sodium Chloride 0.9% 250 ML 250 ML IVPB SCH (08:30)
[2018-09-07] MEDS: Potassium Chloride 20 MEQ TAB PO SCH ×2 (09:00→16:27)
[2018-09-07] MEDS: Magnesium Oxide 400 MG TAB PO SCH ×2 (09:01→21:23)
[2018-09-07] MEDS: DULoxetine 60 MG CAP PO SCH (09:03)
[2018-09-07] MEDS: Clopidogrel Bisulfate 75 MG TAB PO SCH (09:03)
[2018-09-07] MEDS: Estradiol 1 MG TAB PO SCH (09:03)
[2018-09-07] MEDS: Aspirin 81 mg Enteric Coated Tablet PO SCH (09:03)
[2018-09-07] MEDS: Furosemide 40 MG TAB PO SCH ×2 (09:03→15:11)
[2018-09-07] MEDS: Pantoprazole 40 MG GRANULES PACKET PO SCH (09:03)
[2018-09-07] MEDS: Pregabalin 75 MG CAP PO SCH ×2 (09:05→21:21)
[2018-09-07] MEDS: Digoxin 0.125 MG TAB PO SCH (09:06)
[2018-09-07] MEDS: Losartan 25 MG TAB PO SCH (09:16)
--- NOTE | 2018-09-07 11:35 | PDOC.CTH ---
Cardiology Progress Note - Subjective The pt seen and examined. No overnight events. No cardiac complaints. - Objective Vital Signs Temp Pulse Resp BP Pulse Ox 09/07/18 08:28 97.8 F 100 18 94/56 L 98 09/07/18 07:13 110 H 14 09/07/18 04:33 97.7 F 99 17 129/73 97 09/07/18 00:27 18 09/07/18 00:11 97.8 F 98 17 110/67 96 09/06/18 23:38 129/78 Weight 169 lb 5.04 oz 09/06/18 09/07/18 09/08/18 06:59 06:59 06:59 Intake Total 1580 740 Output Total 2000 Balance -420 740 - Physical Examination General/Neuro: alert & oriented x3 Neck: no JVD present Lungs: other: (diminished at bases) Heart: RRR Abdomen: soft Extremities: other: (no edema) - Labs Result Diagrams: 09/08/18 05:18 09/08/18 05:18 Troponin/CKMB CK-MB (CK-2) 3.8 ng/mL (0-6.6) 09/01/18 20:11 Troponin I 0.067 ng/mL (< 0.028) H 09/02/18 01:41 - Assessment/Plan 1. Acute on Chronic Diastolic HF - stable with Lasix 40 mg PO BID, Losartan 25 mg qd; but no BBlocker 2/2 hx of severe COPD 2. CAD with hx of CABG x4 in 2008 - stable; on ASA 81mg qd, Plavix 75mg qd, and Lipitor. Not on Bblocker 2/2 Hx of severe COPD. 3. HTN - stable 4. Severe COPD with Home O2 - stable with 3LNC 5. DM type 2 - managed by PCP 6. RBBB - stable 7. Current smoker - Smoking cessation education given to the pt; she is willing to quit smoking now 8. Bilat Carotid stenosis - stable 9. S/p Rt tibial Fx and Sx on 08/25/2018 - will receive new brace to her RLE. 10. Parox. Afib - Remains in SR-ST 90-100s with Digoxin 0.125mg po qd, ASA 81mg qd, and Diltiazem 180mg qd. MAR reviewed * Echo on 09/04/2018 showed EF 45-50%, mod dilated LA, mild MR, trace AR, and mod TR Pt. seen and eval. by me. I agree with the A/P by the MASTER BAKER. HR reg. Chest clear. Review of Systems - Review of Systems Constitutional: reports: no symptoms reported EENTM: reports: no symptoms reported Respiratory: reports: no symptoms reported Cardiac (ROS): reports: no symptoms reported ABD/GI: reports: no symptoms reported : reports: no symptoms reported Musculoskeletal: reports: joint pain
--- NOTE | 2018-09-07 14:25 | RAD ---
RIGHT KNEE 3 VIEWS: HISTORY: Right knee fracture. COMPARISON: 08/25/2018. FINDINGS: Lag screws transfixing the tibial plateaus remain in place without perihardware lucency. Comminuted fractures of the proximal tibia and fibula are again demonstrated with shaft width anterior displ acement of the distal fibular component and 1/3 shaft width anterior displacement of the distal tibia l component. Extensive fragmentation. IMPRESSION: Slight further anterior displacement of the major distal tibial and fibular fragments since the origi n exam from 08/24/2018. POS: [facility]
--- NOTE | 2018-09-07 15:15 | PRG ---
DATE OF SERVICE: 09/07/2018 SUBJECTIVE: Ms. Kirk is a readmission status post septic shock and right lower lobe pneumonia. Her previous admission was for a right tib-fib fracture. She was seen this morning on a regular nursing floor, alert and awake. She had no acute signs of distress. She was on her home 3 L nasal cannula. She reported some pain in her right lower extremity, but otherwise had no other complaints. She denies nausea, vomiting, or diarrhea. OBJECTIVE: VITAL SIGNS: Temperature 97.8, pulse 100, respirations 18, oxygen 98% on room air, and blood pressure 94/56. GENERAL: Alert and oriented, obese female, sitting up in bed with nasal cannula. No acute signs of distress. NEURO: GCS 15. Alert and oriented x3. Gross motor and sensation intact. Pupils are equal, round, and reactive to light. PULMONARY: No acute signs of distress. Equal chest rise and fall. Minimal crackles at bases of lungs. HEART: Tachycardic, but regular rhythm. No murmurs, gallops, or rubs. GI: Abdomen is soft, nontender, and nondistended. EXTREMITIES: Motor and sensation intact in all 4 extremities. Knee immobilizer to the right lower extremity. 2+ pulses in all extremities. 1+ pitting edema at the right lower extremity. NECK: No signs of JVD or trauma. LABORATORY FINDINGS: White count 8.8, hemoglobin 9.9, hematocrit 34.0, and platelets 217. Sodium 142, potassium 3.3, chloride 89, carbon dioxide 38, BUN 20, creatinine 1.01, glucose 137, phos 4.0, and magnesium 1.6. There are no diagnostic findings to report. ASSESSMENT: 1. Status post readmission for septic shock and pneumonia. Originally admitted for a right tib-fib fracture due to fall from standing. 2. Right tib-fib fracture. 3. Right lower lobe pneumonia. 4. Renal insufficiency, resolved. 5. Hypokalemia and hypomagnesemia. 6. History of gastroesophageal reflux disease, hyperlipidemia, congestive heart failure, on home O2 at 3 L/minute, hypothyroidism, coronary artery disease, chronic obstructive pulmonary disease, hypertension, transient ischemic attack, diabetes with peripheral vascular disease, and anxiety. PLAN: The patient will continue care on nursing floor today. The patient was offered tramadol for additional pain control, but she reported the medication makes her feel crazy. She denied our recommendation and would like to continue with Tylenol and ibuprofen. Ortho is to see her and replace her right knee brace. We will continue her hydrocortisone taper as tomorrow will be the last day. Her digoxin level today was 1.38 and adequate. We will replace her potassium and magnesium today. The patient is ready for discharge pending a new brace for her right lower extremity, which will be placed tomorrow. We will continue the current pain regimen and diet. The patient was seen and examined by Dr. Ramsey this morning during morning rounds. Job ID: [id number]
[2018-09-07] MEDS ORDERED: Hydrocortisone Sod Succ/PF 100 mg/2 ml Vial IVP SCH (21:00)
[2018-09-07] MEDS: traZODone HCl 50 MG TAB PO SCH (21:20)
[2018-09-07] MEDS: Loratadine 10 MG TAB PO SCH (21:23)
[2018-09-07] MEDS: Atorvastatin Calcium 10 MG TAB PO SCH (21:23)
[2018-09-07] MEDS: Mirtazapine 30 MG TAB PO SCH (21:50)
[2018-09-08] MEDS: Acetaminophen 500 MG TAB PO SCH ×3 (03:41→16:19)
[2018-09-08 06:18] LABS: #Eosinphils 0.1 thou/uL (0.0-0.7); #Lymphocytes 0.9 thou/uL (1.20-3.40); #Monocytes 0.4 thou/uL (0.11-0.59); #Neutrophils 6.6 thou/uL (1.40-6.50); %Basophils 0.2 % (0.0-1.0); %Eosinophils 0.7 % (0.0-10.0); %Monocytes 5.2 % (0.0-10.0); %Neutrophils 82.9 % (42.0-75.0); Hemoglobin 9.6 g/dL (12.0-16.0); Mean Corpuscular HGB CONC 28.9 g/dL (32.0-36.0); Mean Corpuscular Hemoglobin 21.3 pg (27.0-31.0); Mean Corpuscular Volume 73.7 fL (78.0-98.0); Mean Platelet Volume 5.6 fL (7.4-10.4); Platelet Count 241 thou/uL (130-400); RBC Distribution Width 23.5 % (11.5-14.5); Red Blood Cell (RBC) Count 4.49 mill/uL (4.20-5.40); White Blood Cell (WBC) Count 7.9 thou/uL (4.8-10.8)
[2018-09-08] MEDS: Insulin Regular 300 UNITS/3 ML VIAL SC PRN ×2 (06:30→12:38)
[2018-09-08] MEDS: Metolazone 5 MG TAB PO SCH (06:35)
[2018-09-08] MEDS: Ibuprofen 800 MG TAB PO SCH (06:36)
[2018-09-08 06:40] LABS: BUN (Urea Nitrogen) 21 mg/dL (9.8-20.1); Calc. Creatinine Clearance 55 mL/min (70-130); Estimated GFR-MDRD 46; Glucose 203 mg/dL (83-110); Magnesium 1.9 mg/dL (1.6-2.6); Phosphorus 4.3 mg/dL (2.3-4.7)
[2018-09-08 06:51] LABS: Anion Gap 15 mmol/L (10-20); Carbon Dioxide 39 mmol/L (23-31); Chloride 88 mmol/L (98-107); Potassium 4.3 mmol/L (3.5-5.1); Sodium 138 mmol/L (136-145)
[2018-09-08] MEDS: Mometasone/Formoterol 120 PUFF INHALER INH SCH (07:43)
[2018-09-08] MEDS: Digoxin 0.125 MG TAB PO SCH (09:40)
[2018-09-08] MEDS: DULoxetine 60 MG CAP PO SCH (09:40)
[2018-09-08] MEDS: Estradiol 1 MG TAB PO SCH (09:40)
[2018-09-08] MEDS: Pregabalin 75 MG CAP PO SCH (09:41)
[2018-09-08] MEDS: Magnesium Oxide 400 MG TAB PO SCH (09:41)
[2018-09-08] MEDS: Losartan 25 MG TAB PO SCH (09:42)
[2018-09-08] MEDS: Clopidogrel Bisulfate 75 MG TAB PO SCH (09:43)
[2018-09-08] MEDS: Potassium Chloride 20 MEQ TAB PO SCH (09:43)
[2018-09-08] MEDS: Aspirin 81 mg Enteric Coated Tablet PO SCH (09:43)
[2018-09-08] MEDS: Pantoprazole 40 MG GRANULES PACKET PO SCH (09:43)
--- NOTE | 2018-09-08 11:50 | PDOC.CTH ---
Cardiology Progress Note - Subjective The pt seen and examined. No overnight events. No cardiac complaints. - Objective Vital Signs Temp Pulse Resp BP Pulse Ox 09/08/18 10:43 97.8 F 89 20 110/67 100 09/08/18 09:40 98 09/08/18 07:46 99 09/08/18 07:44 95 20 99 09/08/18 07:40 98.1 F 89 18 128/72 98 09/08/18 06:00 98 F 92 20 102/57 L 96 09/08/18 00:39 82 18 100 09/08/18 00:00 97.8 F 87 20 123/68 99 Weight 173 lb 14.4 oz 09/07/18 09/08/18 09/09/18 06:59 06:59 06:59 Intake Total 740 Output Total 550 Balance 740 -550 - Physical Examination General/Neuro: alert & oriented x3 Neck: no JVD present Lungs: other: (diminished at bases) Heart: other: (irregular) Abdomen: soft Extremities: other: (No edema) - Labs Result Diagrams: 09/08/18 05:18 09/08/18 05:18 Troponin/CKMB CK-MB (CK-2) 3.8 ng/mL (0-6.6) 09/01/18 20:11 Troponin I 0.067 ng/mL (< 0.028) H 09/02/18 01:41 - Assessment/Plan 1. Acute on Chronic Diastolic HF - stable with Lasix 40 mg PO BID, Losartan 25 mg qd; but no BBlocker 2/2 hx of severe COPD 2. CAD with hx of CABG x4 in 2008 - stable; on ASA 81mg qd, Plavix 75mg qd, and Lipitor. Not on Bblocker 2/2 Hx of severe COPD. 3. HTN - stable 4. Severe COPD with Home O2 - stable with 3LNC 5. DM type 2 - managed by PCP 6. RBBB - stable 7. Current smoker - Smoking cessation education given to the pt; she is willing to quit smoking now 8. Bilat Carotid stenosis - stable 9. S/p Rt tibial Fx and Sx on 08/25/2018 - will receive new brace to her RLE. 10. Parox. Afib - Remains in SR-ST 90-100s with Digoxin 0.125mg po qd, Diltiazem 180mg qd, and ASA 81mg qd 2/2 high risk and hx of multiple falls. MAR reviewed * Echo on 09/04/2018 showed EF 45-50%, mod dilated LA, mild MR, trace AR, and mod TR * From Cardiac standpoint, the pt is stable to tx to Rehab. The pt will f/u with Dr Barajas' office within 2 wks after she is discharged from rehab. Pt. seen and eval. by me. I agree with the A/P by the TREATMENT SUPERVISOR. She remains in a regular rhythm. Chest clear. Ready for discharge back to rehab. Review of Systems - Review of Systems Constitutional: reports: no symptoms reported EENTM: reports: no symptoms reported Respiratory: reports: no symptoms reported Cardiac (ROS): reports: no symptoms reported ABD/GI: reports: no symptoms reported : reports: no symptoms reported Musculoskeletal: reports: joint pain
[2018-09-08 16:15] VITALS: BP 100/48; TEMP 97.3
--- NOTE | 2018-09-08 21:46 | DIS ---
DATE OF ADMISSION: 09/01/2018 DATE OF DISCHARGE: 09/08/2018 ADMITTING PHYSICIAN: Stevie Layton MD. CONSULTS: 1. Cardiology, Dr. Barajas. 2. Orthopedic Consult, Dr. Sloan. PROCEDURES: 1. On 09/01/2018, chest and thorax CTA, no evidence of pulmonary embolus, stable compression fracture of T6 vertebral body. 2. Mediastinal and hilar lymphadenopathy seen on prior studies. 3. Findings worrisome for acute pneumonitis/pneumonia superimposed on chronic interstitial lung changes in the right lower lobe. 4. Chest x-ray, appearance of lung parenchymal is radiographically stable. 5. Chest x-ray on 09/03, no significant change. 6. Chest x-ray on 09/04/2018; impression, cardiomegaly and areas of multilevel lung parenchymal opacities. 7. On 09/04/2018, knee x-ray, slight further anterior displacement of the major distal tibia-fibula fragment since original from 08/24/2018. PRIMARY DIAGNOSIS: Sepsis with right lower lobe pneumonia. SECONDARY DIAGNOSES: 1. Status post percutaneous screw fixation of the right proximal tibia of fracture. 2. Chronic obstructive pulmonary disease. 3. History of congestive heart failure. 4. Acute on chronic renal failure. 5. History of coronary artery disease. 6. History of Plavix use. DISCHARGE MEDICATIONS: 1. Digoxin 0.125 mg p.o. daily. 2. Acetaminophen 1000 mg q.6 hours. 3. Albuterol 2.5 mg neb 3 times a day. 4. Aspirin 81 mg p.o. daily. 5. Azelastine 137 mcg nasal spray b.i.d. 6. Vitamin B12 of 1000 mcg p.o. daily. 7. Flexeril 5 mg 3 times a day as needed. 8. Cardizem 180 mg cap p.o. daily. 9. Docusate sodium 100 mg capsule p.o. daily. 10. Cymbalta 60 mg p.o. daily. 11. Estrace 0.5 mg p.o. daily. 12. Pepcid 20 mg b.i.d. 13. Flonase nasal spray b.i.d. 14. Lasix 40 mg b.i.d. 15. NovoLog 1 unit subcu. 16. Sliding scale Lantus 32 units subcu b.i.d. 17. Ipratropium and albuterol 1 puff 3 times a day. 18. Xyzal 5 mg x2 p.o. at bedtime. 19. Claritin 10 mg p.o. at bedtime. 20. Losartan 25 mg p.o. daily. 21. Magnesium oxide 400 mg p.o. b.i.d. 22. Remeron 30 mg p.o. at bedtime. 23. Women's 50+ one p.o. daily. 24. Nitroglycerin 0.4 mg sublingual q.5 minutes p.r.n. for chest pain. 25. Anza-3 fatty acid fish oil one cap b.i.d. 1000 mg capsules. 26. Protonix 40 mg p.o. daily. 27. MiraLAX 17 g p.o. daily. 28. K-Dur 40 mEq p.o. b.i.d. 29. Pravastatin 40 mg tablets p.o. at bedtime. 30. Lyrica 400 mg p.o. b.i.d. 31. Ranitidine 150 mg p.o. b.i.d. 32. Sodium chloride/aloe vera saline gel one spray each naris q.i.d. 33. Trazodone 200 mg p.o. at bedtime. No discontinued medications. Dr. Barajas, polisher hand with recommendations one continued medications as above. HISTORY OF PRESENT ILLNESS AND HOSPITAL COURSE: This is a 73-year-old female, who was known to the Trauma Service. She was recently discharged on 08/30/2018, status post ground level fall with a proximal right tibia fracture, for which she underwent percutaneous screw replacement. She tolerated the procedure well and was discharged to [facility] in [place]. She was taken to the ER after the nursing staff noticed that she was hypotensive and somewhat altered. She was evaluated in the ER and felt that she was septic and was admitted to Trauma Services for further evaluation and admission. Initially, the patient was started on Levophed for pressure support. The patient remained on 100% oxygen saturation in the emergency room on 3 L nasal cannula. The patient was weaned off Levophed and was placed on hydrocortisone at a tapered dose during her hospital stay. Thus, it was felt to be possible adrenal insufficiency. The patient was given gentle fluid hydration for renal protection. The patient's I's and O's were monitored strictly during her hospital stay. The patient did have an episode of shortness of breath during her hospital stay with flash pulmonary edema. She was given Lasix and Cardiology consult and echo was ordered. The patient was placed on IV antibiotics and eventually was transitioned to oral antibiotics with Levaquin. The patient's magnesium and potassium were also replaced during the hospital stay. The patient was also started on digoxin for paroxysmal atrial fib per Cardiology. The patient's digoxin level was in normal range. The patient was eventually placed with her new brace to right lower extremity and continue to tolerate her pain regimen and diet. On the day of exam, the patient was stable. The patient was examined with Dr. Ramsey during morning rounds. The patient's vital signs were stable. On the day of discharge, an exam was unremarkable including cardiopulmonary and GI exam. The patient was deemed stable for discharge to swing bed for continued physical therapy and occupational therapy. The patient's medications were continued based on Cardiology's recommendation. The patient's echo on 09/04/2018, showed an EF of 45% to 50%, moderate dilated left atrium, mild mitral regurgitation and a trace of AR. From a cardiac standpoint, the patient is stable to be treated at rehab. DISPOSITION: Stable. DISCHARGE INSTRUCTIONS: 1. Location: Swing bed unit. 2. Diet: Heart healthy, diabetic diet. 3. Activity: Weightbearing as tolerated. The patient is to wear hinged brace at all times. Monitor weight and fluid intake. 4. Followup: Follow up with Dr. Barajas in 2 to 3 weeks. Follow up with Dr. Sloan, call for appointment. Follow up with Dr. Ramsey as needed. Job ID: [id number] [facility]
[2018-09-09] MEDS ORDERED: Furosemide 40 MG TAB PO SCH (07:30)
--- NOTE | 2018-09-09 23:17 | EKG ---
Test Reason : SEPSIS Blood Pressure : / mmHG Vent. Rate : 100 BPM Atrial Rate : 100 BPM P-R Int : 180 ms QRS Dur : 136 ms QT Int : 380 ms P-R-T Axes : 026 -21 039 degrees QTc Int : 490 ms Normal sinus rhythm Right bundle branch block Abnormal ECG Confirmed by CINDY ALFARO ([id number]), senior technical editor GREGOR MARTINEZ ([id number]) on 09/09/2018 11:17:14 PM Referred By: Confirmed By:CINDY ALFARO
== END 2018-09-08 17:27 | DRG 871 ==
LOC: ERS 19:24 → ERHOLD 21:08 → CCU 09-02 20:41 → IMCU/EMU 09-04 14:33 → SURG B 09-06 14:49
PROVIDERS: ADMIT Specialist; ATTEND Specialist
PROC: 30233N1 Transfusion of Nonautologous Red Blood Cells into Peripheral Vein, Percutaneous Approach (ICD-10-PCS; principal; 2018-09-02)
DX: A41.9 Sepsis, unspecified organism (principal); J18.1 Lobar pneumonia, unspecified organism; R65.21 Severe sepsis with septic shock; J96.21 Acute and chronic respiratory failure with hypoxia; I50.33 Acute on chronic diastolic (congestive) heart failure; N17.9 Acute kidney failure, unspecified; I13.0 Hypertensive heart and chronic kidney disease with heart failure and stage 1 through stage 4 chronic kidney disease, or unspecified chronic kidney disease; I25.10 Atherosclerotic heart disease of native coronary artery without angina pectoris; J44.9 Chronic obstructive pulmonary disease, unspecified; K21.9 Gastro-esophageal reflux disease without esophagitis; E78.5 Hyperlipidemia, unspecified; E03.9 Hypothyroidism, unspecified; F41.9 Anxiety disorder, unspecified; G47.00 Insomnia, unspecified; E11.51 Type 2 diabetes mellitus with diabetic peripheral angiopathy without gangrene; E11.65 Type 2 diabetes mellitus with hyperglycemia; E11.22 Type 2 diabetes mellitus with diabetic chronic kidney disease; N18.9 Chronic kidney disease, unspecified; I45.10 Unspecified right bundle-branch block; I65.23 Occlusion and stenosis of bilateral carotid arteries; F17.210 Nicotine dependence, cigarettes, uncomplicated; I48.0 Paroxysmal atrial fibrillation; D64.9 Anemia, unspecified; E87.6 Hypokalemia; Z99.81 Dependence on supplemental oxygen; Z79.02 Long term (current) use of antithrombotics/antiplatelets; Z79.82 Long term (current) use of aspirin; Z79.4 Long term (current) use of insulin; Z86.73 Personal history of transient ischemic attack (TIA), and cerebral infarction without residual deficits; Z95.1 Presence of aortocoronary bypass graft
CPT/HCPCS: 36415; 36416; 36430; 71045; 71275; 80048; 80162; 81015; 82533; 82553; 83605; 83735; 83880; 84100; 84484; 85025; 85379; 86850; 86900; 86901; 89220; 93005; 93010; 93306; 94640; 94660; A4353; J1160; J1720; J1815; J1940; J1956; J2270; J2543; J3370; J3475; J3480; J7050; J7620; L1832; P9016; P9045

== ENCOUNTER 2018-10-16 09:26 | Inpatient (IN) | payer MEDICARE, MEDICAID ==
[2018-10-16 10:20] LABS: ALT (SGPT) 35 U/L (8-55); AST (SGOT) 28 U/L (5-34); Albumin 2.7 g/dL (3.4-4.8); Alkaline Phosphatase 113 U/L (40-150); Anion Gap 12 mmol/L (10-20); BUN (Urea Nitrogen) 19 mg/dL (9.8-20.1); Bilirubin, Total 1.2 mg/dL (0.2-1.2); Calc. Creatinine Clearance 0 mL/min (70-130); Carbon Dioxide 31 mmol/L (23-31); Chloride 100 mmol/L (98-107); Estimated GFR-MDRD 49; Globulin 2.8 g/dL (2.4-3.5); Glucose 219 mg/dL (83-110); Potassium 3.1 mmol/L (3.5-5.1); Protein, Total 5.5 g/dL (6.0-8.3); Sodium 140 mmol/L (136-145)
[2018-10-16 10:45] LABS: Band 6 % (5-11); Eosinophils 1 % (0-10); Hemoglobin 9.5 g/dL (12.0-16.0); Hypochromia SLIGHT = 6-15 cells (100X) (0-5/hpf); Lymphocytes 7 % (21-51); MDiff Complete? YES; Mean Corpuscular HGB CONC 30.4 g/dL (32.0-36.0); Mean Corpuscular Hemoglobin 26.1 pg (27.0-31.0); Mean Corpuscular Volume 85.9 fL (78.0-98.0); Mean Platelet Volume 6.3 fL (7.4-10.4); Monocytes 3 % (0-10); Neutrophil 83 % (42-75); Platelet Count 100 thou/uL (130-400); Platelet Morphology Comment Appears Decreased; Polychromasia SLIGHT = 2-3 cells (100X) (0-2/hpf); RBC Distribution Width 21.4 % (11.5-14.5); Red Blood Cell (RBC) Count 3.62 mill/uL (4.20-5.40); White Blood Cell (WBC) Count 17.5 thou/uL (4.8-10.8)
--- NOTE | 2018-10-16 11:58 | CON ---
DATE OF CONSULTATION: 10/16/2018 CONSULTING PHYSICIAN: Cedric Olivares MD REASON FOR CONSULTATION: Sepsis and upcoming right proximal tibial hardware removal. HISTORY OF PRESENT ILLNESS: This is a 73-year-old female, who currently is staying at the [facility]. The patient was a code green activation at the [facility] and was brought into the [facility] this morning by ground ambulance and further evaluated for sepsis. It appears that the source is abdominal given the patient's history of diarrhea several days ago. She is being admitted to Dr. Wade's service for sepsis. We were asked to evaluate the patient for concern of right knee involvement and mainly because the patient has upcoming procedure with us this Tuesday for hardware removal, to take out two cannulated screws, and placement of a plate and screws. Dr. Wade was concerned that this upcoming procedure could possibly be indicated by joint infection. Currently in the emergency department, at bedside, the patient states she has no right knee pain. No recent increase in right knee pain and no recent redness noted to the right leg. She has been continuing to use a knee immobilizer. She denies any new symptoms of the right leg. She was last seen in our office on October 09, and at that time, it was decided that a portion of her right proximal tibia fracture was healing. This was the intra-articular component; however, the metaphyseal component was not healing. The patient had a long discussion with Dr. Sloan regarding removal of the two cannulated screws that are present and placement of a plate and screws to stabilize the metaphyseal fracture. Due to the patient's risk for surgery because of her multiple comorbidities, she underwent a spinal during the first procedure and we plan to do a spinal for this next upcoming procedure. PAST MEDICAL HISTORY: Significant for COPD as well as diabetes and congestive heart failure. Coronary artery disease, gastrointestinal disease, GERD, iron-deficiency anemia, hypertension, spinal stenosis, and TIA. PAST SURGICAL HISTORY: Significant for appendectomy, coronary artery bypass graft surgery x4, cholecystectomy, hernia repair, hysterectomy, and tonsillectomy. SOCIAL HISTORY: The patient is a smoker, approximately 4 to 5 cigarettes a day. Denies any alcohol use or illicit tobacco use. The patient states that she stopped smoking in August of 2018. KNOWN ALLERGIES: Codeine, gabapentin, hydrocodone, iodines, morphine, Tylenol, and Vicodin. FAMILY HISTORY: Reviewed and noncontributory. PHYSICAL EXAMINATION: VITAL SIGNS: Current vital signs show pulse of 102, blood pressure 100/57, respiratory rate of 17, and afebrile. GENERAL: The patient is awake and alert in the emergency department. Her son is currently at bedside. She is in no apparent distress. She is pleasant and cooperative with exam today. HEENT: Head is normocephalic and atraumatic. NECK: Supple. Trachea midline. RESPIRATIONS: Breathing nonlabored. CARDIAC: The patient is tachycardic. EXTREMITIES: The right lower extremity was evaluated. There is a knee immobilizer present. Foot is noted to be in the equinus position. Knee immobilizer was opened. There is no evidence for soft tissue swelling at the knee or at the proximal tibia. There does appear to be somewhat of a deformity noted at the proximal tibia. No ecchymosis. No lesions or blisters to the skin. No erythema. The patient is able to plantar flex the foot. EHL is not intact at this time. There is no obvious peroneal nerve palsy. DIAGNOSTIC DATA: X-rays reviewed from the patient's last clinic visit on 10/08/2018 show evidence of 2 cannulated screws placed to the proximal portion of the tibial plateau. This appears to show a healing split to the intra-articular component of the fracture. There is also metaphyseal component to the fracture that appears without any signs of healing bone. No x-rays taken in the emergency department today. ASSESSMENT: Sepsis with likely abdominal source. PLAN: I have discussed this case with Dr. Wade in depth. I have explained to him that the upcoming surgical procedure this Tuesday was to help stabilize the nonhealing portion of her fracture rather than remove hardware due to infection. He verbalizes understanding on this. I have also seen and examined the patient today and have no concerns for infection to the right lower extremity. We will plan to cancel the patient's surgery for this Tuesday due to her current infection. We will sign off on this patient for now. Please re-consult us if you have any further orthopedic concerns. We will see the patient in clinic once she has recovered from this hospitalization. Job ID: [id number]
[2018-10-16] MEDS ORDERED: Vancomycin HCl 1 GM in Premix Bag 1 BAG IVPB SCH (15:45)
[2018-10-16] MEDS ORDERED: Bisacodyl 5 MG TAB PO PRN (15:46)
[2018-10-16] MEDS ORDERED: Dextrose 5% in Water 1,000 ML IV PRN (15:50)
[2018-10-16] MEDS ORDERED: Dextrose 50% Abboject 50 ML SYRINGE SLOW IVP PRN (15:50)
--- NOTE | 2018-10-16 16:35 | HP ---
PRIMARY CARE PROVIDER: Dr. Jason Avina. CHIEF COMPLAINT: Fever. HISTORY OF PRESENT ILLNESS: Ms. Kirk is a pleasant 73-year-old lady, who was seen at [facility] on October 16, 2018, following transfer from emergency room at [facility]. She was hospitalized at [facility] from August 24, 2018 to August 30, 2018 for a right proximal tibia and fibular fracture following a fall. She underwent closed reduction and percutaneous screw stabilization of intercondylar split of the right tibial plateau and closed treatment of proximal tibial metaphyseal fracture. She was subsequently transferred to [facility]. She reports that she was doing well there. She reports that 2 days ago, she started having abdominal pain. Pain is over the right lower quadrant, sharp, 8/10, constant, radiating to the left lower quadrant, accompanied by vomiting. She reports vomiting four times. She also reports having a temperature of 100.3 degree Fahrenheit. She also reports having some diarrhea two days ago, but has not had a bowel movement since then. She reports chronic cough that has not changed recently. She also reports tingling of her right hand, where she had IV placement today. REVIEW OF SYSTEMS: All other systems reviewed and found to be negative. PAST MEDICAL HISTORY: Gastroesophageal reflux disease, COPD, dyslipidemia, hypothyroidism, coronary artery disease, hypertension, TIA, diabetes type 2, anxiety, insomnia, spinal stenosis, peripheral vascular disease, systolic congestive heart failure, and chronic kidney disease. PAST SURGICAL HISTORY: Appendectomy, coronary artery bypass graft, cholecystectomy, hernia repair, hysterectomy, tonsillectomy, and right tibial fracture repair. SOCIAL HISTORY: The patient denies tobacco use, alcohol use, or recreational drug use. FAMILY HISTORY: Significant for hypertension. ALLERGIES: CODEINE, GABAPENTIN, HYDROCODONE, MORPHINE. CURRENT MEDICATIONS: 1. Aspirin 81 mg daily. 2. Lasix 40 mg two times a day. 3. Plavix 75 mg daily. 4. Pravastatin 40 mg daily. 5. Ranitidine 150 mg two times a day. 6. Trazodone 200 mg daily at bedtime. 7. Albuterol inhaler as needed. 8. Humalog Mix 50/50 100 units subcutaneously daily. 9. Losartan 25 mg daily. 10. Prednisone 20 mg two times a day. 11. Protonix 40 mg daily. 12. Remeron 60 mg daily. 13. Vitamin B12 1000 mcg daily. 14. Anusol-HC 25 mg rectally three times a day. 15. Women's multiple vitamins one tab daily. 16. Nitrostat p.r.n. 17. Nasal saline p.r.n. 18. Docusate 100 mg as needed. 19. Fish oil 1000 mg 2 times a day. 20. Nystatin topically two times a day. 21. Meloxicam 15 mg daily. 22. Dymista one spray intranasally two times a day. 23. Breo Ellipta one puff daily. 24. Duloxetine 60 mg daily. 25. Lantus 32 units subcutaneously two times a day. 26. Estradiol 0.5 mg daily. 27. Lyrica 300 mg two times a day. 28. Xyzal 5 mg daily. CODE STATUS: I discussed her code status. She is chemical code only. PHYSICAL EXAMINATION: GENERAL: On examination, Ms. Kirk is awake and alert, not in acute distress. VITAL SIGNS: Blood pressure is 99/59, pulse 100, respiratory rate 16, and oxygen saturation 100% on 2 L of oxygen. When she presented to the emergency room, she had a pulse of 107. T-max in the emergency room was 99.4. HEENT: Eyes; no scleral icterus. No conjunctival pallor. ENT; moist mucosal membranes. No oropharyngeal erythema or exudates. NECK: Supple, nontender. Trachea is midline. RESPIRATORY: Accessory muscles of breathing are not active. Chest wall movements are symmetric bilaterally. Lungs are clear to auscultation without wheeze, rhonchi, or crepitations. CARDIOVASCULAR: S1 and S2 are heard, regular. Peripheral pulses palpable. ABDOMEN: She has right lower quadrant tenderness along with guarding. Bowel sounds are heard. No hepatomegaly. No splenomegaly. NEUROLOGIC: Cranial nerves 2 through 12 are intact. MUSCULOSKELETAL: Right lower extremity with brace. She is able to move all four extremities. SKIN: No rashes or subcutaneous nodules. LYMPHATIC: No lymphadenopathy. PSYCHIATRIC: Normal mood, normal affect. The patient is oriented to person, place, and time. LABORATORY DATA: Ms. Kirk's labs and investigations were reviewed. I reviewed her electrocardiogram, which shows sinus tachycardia, no ST changes to suggest an acute coronary syndrome. I also reviewed her chest x-ray, which does not show any pulmonary infiltrates. She had a CT scan of the abdomen and pelvis, which did not show any CT evidence of urinary tract obstruction or calcification. She had two areas of inflammation involving the right and transverse colon, with normal area in between. She also had diverticula, with no evidence of diverticulitis. She has normal sodium; decreased potassium of 3.1; normal creatinine; decreased albumin of 2.7; leukocytosis with 17,500 white cells, of which 83% are neutrophils, thrombocytopenia with platelet count of 100,000 and normocytic anemia with hemoglobin 9.5. ASSESSMENT AND PLAN: Ms. Kirk is a pleasant 73-year-old lady, who was seen at [facility] on October 16, 2017. Her problem list includes: 1. Sepsis: Ms. Kirk is presenting with sepsis, most likely secondary to colitis. She will be admitted to the hospital for further management. She will be treated with intravenous antibiotics. She has already been started on vancomycin and Zosyn, which I will continue. We will consult GI service for colitis. 2. Hypokalemia: Potassium will be replaced and rechecked. 3. Diabetes mellitus type 2: We will continue insulin, and start Accu-Cheks and sliding scale insulin as well. 4. Hypertension: Blood pressure is slightly low at this time. We will monitor vital signs and titrate antihypertensives as needed. 5. Chronic obstructive pulmonary disease: Appears to be stable. The patient reports that at baseline she uses oxygen at home. 6. Gastroesophageal reflux disease: Stable. 7. Dyslipidemia: Continue statin. 8. Chronic systolic congestive heart failure: Appears to be stable. 9. Acute on chronic stage 2 kidney disease: The patient is currently in stage 3. We will continue to monitor creatinine and GFR. Many thanks for allowing me to participate in your patient's care. Please feel free to contact me with any questions or concerns. LEVEL OF RISK: High. LEVEL OF COMPLEXITY: High. Job ID: [id number]
[2018-10-16] MEDS ORDERED: Piperacillin/Tazobactam 4.5 GM in Sodium Chloride 0.9% 100 ML IVPB SCH (17:00)
[2018-10-16] MEDS ORDERED: Vancomycin HCl 1.75 GM in Sodium Chloride 0.9% 500 ML IVPB SCH (18:00)
[2018-10-16] MEDS ORDERED: Sodium Chloride Nasal 15 GM TUBE EA NARE PRN (18:23)
[2018-10-16] MEDS ORDERED: Nitroglycerin 0.4 MG TAB (25 Tab Bottle) SL PRN (18:23)
[2018-10-16] MEDS: Albuterol Sulfate 2.5 mg/3 ml Neb NEB SCH (19:17)
[2018-10-16] MEDS ORDERED: Famotidine 20 MG TAB PO SCH (21:00)
[2018-10-16] MEDS ORDERED: Non-Formulary Item 1 EACH (Insulin Glargine,Hum.Rec.Anlog [Lantus Solostar] 32 UNIT) SC SCH (21:00)
[2018-10-16] MEDS: Fish Oil 1,000 MG CAP PO SCH (21:24)
[2018-10-16] MEDS: traZODone HCl 50 MG TAB PO SCH (21:24)
[2018-10-16] MEDS: Loratadine 10 MG TAB PO SCH (21:24)
[2018-10-16] MEDS: Famotidine 20 MG TAB PO SCH (21:25)
[2018-10-16] MEDS: Pravastatin Sodium 40 MG TAB PO SCH (21:25)
[2018-10-16] MEDS: Pregabalin 75 MG CAP PO SCH (21:27)
[2018-10-16] MEDS: Hydrocortisone Acetate 25 MG Suppository PR SCH (21:28)
[2018-10-16] MEDS: Mirtazapine 30 MG TAB PO SCH (21:43)
[2018-10-16] MEDS: Oseltamivir 75 MG CAP PO SCH (21:44)
[2018-10-16] MEDS: Furosemide 40 MG TAB PO SCH (21:55)
[2018-10-16] MEDS: Insulin Glargine 32 UNITS in Pre-Filled Syringe 1 EACH SC SCH (21:55)
[2018-10-16] MEDS ORDERED: Vancomycin HCl 25 MG/ML Oral PO SCH (22:45)
[2018-10-16] MEDS ORDERED: metroNIDAZOLE 500 MG in Premix Bag 1 BAG IVPB SCH (22:45)
--- NOTE | 2018-10-16 23:38 | CON ---
DATE OF CONSULTATION: 10/16/2018 CHIEF COMPLAINT: Abdominal pain and diarrhea. HISTORY OF PRESENT ILLNESS: Ms. Kirk is a 73-year-old woman who was admitted with right lower quadrant pain and nausea, vomiting, diarrhea. She had recently been hospitalized with a fracture of the right tibia. Saturday night, 2 nights ago, she had rather abrupt onset of nausea and vomiting, 5 or 6 times followed by multiple liquidy stools. She had ongoing diarrhea the next day and cramping pain in the right lower quadrant as well. She had no blood in the stool that was visible. She was transferred to [place] and admitted for further care. She was diagnosed with sepsis and started on broad-spectrum antibiotics, found to have elevated white blood cell count, and this afternoon she has had a few more liquidy stools per her report. PAST MEDICAL HISTORY: COPD, on high-dose prednisone 20 mg twice daily. Dyslipidemia, gastroesophageal reflux, hypothyroidism, coronary artery disease, hypertension, TIA, diabetes mellitus type 2, peripheral vascular disease, congestive heart failure, chronic kidney disease. She has had iron deficiency anemia, evaluated with upper endoscopy in 2009 and colonoscopy around 2011. She had an adenoma removed at that time in 2011 from her right colon. She declined further workup after that and states that she does not wish to ever undergo any further procedures or anesthesia. FAMILY HISTORY: Negative for GI malignancies. SOCIAL HISTORY: No alcohol, tobacco, or drugs. ALLERGIES: CODEINE, GABAPENTIN, HYDROCODONE, MORPHINE. MEDICATIONS: As an outpatient, she has an extensive list including 1. Plavix. 2. Aspirin. 3. Furosemide. 4. Pravastatin. 5. Ranitidine. 6. Trazodone. 7. Albuterol. 8. Insulin. 9. Losartan. 10. Prednisone 20 mg twice daily. 11. Protonix. 12. Remeron. 13. Vitamin B12. 14. Anusol-HC. 15. Multiple vitamins. 16. Docusate. 17. Meloxicam. 18. Nystatin topically. 19. Dymista. 20. Breo Ellipta. 21. Duloxetine. 22. Lantus. 23. Estradiol. 24. Lyrica. 25. Xyzal. REVIEW OF SYSTEMS: Negative x10 systems reviewed except as stated in the history of present illness. PHYSICAL EXAMINATION: VITAL SIGNS: Temperature 99.1, pulse 98, blood pressure is 97/53. GENERAL: She is in no acute distress. Alert and oriented x3. HEENT: Eyes have no scleral icterus. Oropharynx is clear without lesions. No cervical or supraclavicular lymphadenopathy. LUNGS: Have bilateral expiratory low-pitched wheezes. HEART: Regular rate and rhythm without murmur. ABDOMEN: Soft. Mild tenderness in right lower quadrant without guarding. Bowel sounds are present. EXTREMITIES: No lower extremity edema. LABORATORY DATA: Bilirubin 1.2, AST 28, ALT 35, alkaline phosphatase 113, albumin 2.7. White blood cell count 17.5, hemoglobin 9.5, platelets 100. C diff antigen is positive. PCR for toxigenic C diff is pending. IMPRESSION: 1. Acute infectious gastroenteritis, most likely secondary to Clostridium difficile given the positive Clostridium difficile antigen and recent hospitalization. Still this could be an infectious gastroenteritis from another source, such as other bacteria or viral, but she is at risk for Clostridium difficile and has positive antigen. We will start treatment for that. 2. Chronic obstructive pulmonary disease, on prednisone 20 mg twice daily. 3. Coronary artery disease and congestive heart failure, on aspirin and Plavix. 4. History of anemia. She states that she does not wish to undergo endoscopic evaluation of that. Still, it would be reasonable to check iron studies and start iron supplementation if she is iron deficient. RECOMMENDATIONS: 1. Start vancomycin 125 mg orally 4 times daily. 2. Discontinue Zosyn and IV vancomycin. She appears to have been started on the broad-spectrum antibiotics for sepsis related to colitis. At this point, blood cultures are negative and urine cultures are negative and the C diff is positive in the stool, so we will discontinue all the broad-spectrum antibiotics and initiate oral vancomycin. Certainly, if the primary service wishes to restart the other antibiotics for other reasons, these can be restarted. Given her high white blood cell count greater than 15,000 and low albumin, I will give IV metronidazole along with the oral vancomycin. Job ID: [id number]
[2018-10-17] MEDS: Nystatin Cream 30 GM TUBE TOP SCH ×3 (00:49→21:04)
[2018-10-17] MEDS: metroNIDAZOLE 500 MG in Premix Bag 1 BAG IVPB SCH ×3 (06:03→21:10)
[2018-10-17 06:33] LABS: Anion Gap 12 mmol/L (10-20); BUN (Urea Nitrogen) 13 mg/dL (9.8-20.1); Calc. Creatinine Clearance 98 mL/min (70-130); Calcium 8.3 mg/dL (7.8-10.44); Carbon Dioxide 29 mmol/L (23-31); Chloride 104 mmol/L (98-107); Estimated GFR-MDRD 79; Glucose 128 mg/dL (83-110); Sodium 142 mmol/L (136-145)
[2018-10-17 06:37] LABS: Potassium 2.7 mmol/L (3.5-5.1)
[2018-10-17 06:41] LABS: #Eosinphils 0.1 thou/uL (0.0-0.7); #Lymphocytes 1.1 thou/uL (1.20-3.40); #Monocytes 0.5 thou/uL (0.11-0.59); #Neutrophils 10.4 thou/uL (1.40-6.50); %Basophils 0.3 % (0.0-1.0); %Eosinophils 1.2 % (0.0-10.0); %Lymphocytes 8.8 % (21.0-51.0); %Monocytes 3.8 % (0.0-10.0); %Neutrophils 85.8 % (42.0-75.0); Hemoglobin 9.7 g/dL (12.0-16.0); Mean Corpuscular HGB CONC 30.4 g/dL (32.0-36.0); Mean Corpuscular Volume 85.8 fL (78.0-98.0); Platelet Count 115 thou/uL (130-400); Platelet Morphology Comment Appears Decreased; Red Blood Cell (RBC) Count 3.72 mill/uL (4.20-5.40); White Blood Cell (WBC) Count 12.1 thou/uL (4.8-10.8)
[2018-10-17] MEDS: Mometasone/Formoterol 120 PUFF INHALER INH SCH ×2 (07:02→19:58)
[2018-10-17] MEDS: Vancomycin HCl 25 MG/ML Oral PO SCH ×4 (09:57→21:03)
[2018-10-17] MEDS: Enoxaparin Sodium 40 MG/0.4 ML SYRINGE SC SCH (09:57)
[2018-10-17] MEDS: Pregabalin 75 MG CAP PO SCH ×2 (09:58→20:57)
[2018-10-17] MEDS: Potassium Chloride 20 MEQ TAB PO SCH ×3 (09:59→14:05)
[2018-10-17] MEDS: Aspirin 81 mg Enteric Coated Tablet PO SCH (09:59)
[2018-10-17] MEDS: Cyanocobalamin (Vitamin B-12) 1,000 MCG TAB PO SCH (09:59)
[2018-10-17] MEDS: Estradiol 1 MG TAB PO SCH (09:59)
[2018-10-17] MEDS: Losartan 25 MG TAB PO SCH (09:59)
[2018-10-17] MEDS: DULoxetine 60 MG CAP PO SCH (09:59)
[2018-10-17] MEDS: Docusate 100 MG CAP PO SCH (10:00)
[2018-10-17] MEDS: Meloxicam 15 MG TAB PO SCH (10:00)
[2018-10-17] MEDS: Fish Oil 1,000 MG CAP PO SCH ×2 (10:00→20:54)
[2018-10-17] MEDS: Multivitamin W/ Minerals 1 TAB PO SCH (10:01)
[2018-10-17] MEDS: Clopidogrel Bisulfate 75 MG TAB PO SCH (10:01)
[2018-10-17] MEDS: Hydrocortisone Acetate 25 MG Suppository PR SCH ×3 (10:01→21:03)
[2018-10-17] MEDS: Pantoprazole 40 MG GRANULES PACKET PO SCH (10:01)
[2018-10-17] MEDS: Furosemide 40 MG TAB PO SCH ×2 (10:01→20:54)
[2018-10-17] MEDS: Oseltamivir 75 MG CAP PO SCH ×2 (10:02→20:56)
[2018-10-17] MEDS: Insulin Glargine 32 UNITS in Pre-Filled Syringe 1 EACH SC SCH ×2 (10:03→20:55)
[2018-10-17] MEDS: Albuterol Sulfate 2.5 mg/3 ml Neb NEB SCH (11:07)
--- NOTE | 2018-10-17 16:34 | PDOC.PN ---
- Subjective Encounter Start Date: 10/17/18 Encounter Start Time: 09:00 Pt seen for followup re: clostridium difficile diarrhea. Denies chest pain or shortness of breath. - Objective Resuscitation Status - Order Detail: 10/16/18 15:46 Resuscitation Status Routine Resuscitation Status: PRTL: Chem only Discussed with: patient MAR Reviewed: Yes Vital Signs & Weight: Vital Signs (12 hours) Temp Pulse Pulse Resp BP BP BP 10/17/18 15:47 98.1 F 97 20 10/17/18 14:56 117 H 86/54 L 110/51 L 103/51 L 10/17/18 11:24 97.8 F 88 18 10/17/18 10:49 80 16 10/17/18 07:54 97.9 F 100 18 10/17/18 07:02 80 16 BP BP Pulse Ox Pulse Ox 10/17/18 15:47 105/53 L 97 10/17/18 14:56 92/46 L 106 H 10/17/18 11:24 104/51 L 99 10/17/18 10:49 10/17/18 07:54 111/51 L 100 10/17/18 07:02 Weight Weight 193 lb 3.2 oz I&O: 10/16/18 10/17/18 10/18/18 06:59 06:59 06:59 Intake Total 1280 Output Total 1250 Balance 30 Result Diagrams: 10/17/18 05:57 10/17/18 05:57 Additional Labs: Accuchecks 10/17/18 10/17/18 10/16/18 11:26 05:57 20:39 POC Glucose 149 H 129 H 122 H 10/16/18 17:06 POC Glucose 149 H EKG Reviewed by me: Yes (Tele: sinus tachycardia) Phys Exam - Physical Examination Obese HEENT: moist MMs, sclera anicteric, oral pharynx no lesions, 2+ tonsils Neck: no nodes, no JVD, supple, full ROM Respiratory: clear to auscultation bilateral Cardiovascular: no rub S1, S2, reg, tachy Gastrointestinal: soft, non-tender, no distention, positive bowel sounds Neurological: moves all 4 limbs Psychiatric: normal affect, A&O x 3 Dx/Plan (1) Clostridium difficile colitis Status: Acute Comment: continue IV metronidazole and oral vancomycin (2) Hypokalemia Code(s): E87.6 - HYPOKALEMIA Status: Acute Comment: replace potassium and recheck (3) CAD (coronary artery disease) Code(s): I25.10 - ATHSCL HEART DISEASE OF PILOT STATION CORONARY ARTERY W/O ANG PCTRS Status: Chronic Comment: stable (4) COPD (chronic obstructive pulmonary disease) Status: Chronic Comment: stable (5) DM type 2 (diabetes mellitus, type 2) Status: Chronic Comment: relatively controlled (6) GERD (gastroesophageal reflux disease) Code(s): K21.9 - GASTRO-ESOPHAGEAL REFLUX DISEASE WITHOUT ESOPHAGITIS Status: Chronic Comment: stable (7) Sepsis Code(s): A41.9 - SEPSIS, UNSPECIFIED ORGANISM Status: Resolved Comment: due to clostridium difficile colitis, present on admission - Plan * . Review of Systems - Review of Systems Constitutional: weakness. negative: fever, chills, sweats, malaise Respiratory: negative: Cough, Shortness of Breath, SOB with Excertion, Pleuritic Pain, Wheezing Cardiovascular: negative: chest pain, palpitations, orthopnea, paroxysmal nocturnal dyspnea, edema, light headedness Gastrointestinal: Diarrhea. negative: Nausea, Vomiting, Abdominal Pain, Constipation, Melena, Hematochezia Genitourinary: negative: Dysuria, Frequency, Incontinence, Hematuria, Retention - Medications/Allergies Allergies/Adverse Reactions: Allergies Allergy/AdvReac Type Severity Reaction Status Date / Time acetaminophen [From Tylenol] Allergy Verified 08/24/18 21:29 adhesive tape Allergy Verified 08/24/18 21:29 codeine Allergy Verified 08/24/18 21:29 gabapentin Allergy Verified 08/24/18 21:29 hydrocodone Allergy Verified 08/24/18 21:29 iodine Allergy Verified 08/24/18 21:29 morphine Allergy Verified 08/24/18 21:29 venom-honey bee Allergy Verified 08/24/18 21:29 [bee venom (honey bee)] Medications: Current Medications Albuterol/Ipratropium (Duoneb) 3 ml NEB QID-RT [facility] Last Admin: 10/17/18 14:24 Dose: 3 ml Aspirin (Ecotrin) 81 mg PO DAILY [facility] Last Admin: 10/17/18 09:59 Dose: 81 mg Bisacodyl (Dulcolax) 10 mg PO DAILYPRN PRN PRN Reason: Constipation Clopidogrel Bisulfate (Plavix) 75 mg PO DAILY [facility] Last Admin: 10/17/18 10:01 Dose: 75 mg Cyanocobalamin (Vitamin B-12) 1,000 mcg PO DAILY [facility] Last Admin: 10/17/18 09:59 Dose: 1,000 mcg Dextrose/Water (Dextrose 50%) 25 gm SLOW IVP PRN PRN PRN Reason: Hypoglycemia Docusate Sodium (Colace) 100 mg PO DAILY [facility] Last Admin: 10/17/18 10:00 Dose: Not Given Duloxetine HCl (Cymbalta) 60 mg PO DAILY [facility] Last Admin: 10/17/18 09:59 Dose: 60 mg Enoxaparin Sodium (Lovenox) 40 mg SC 0900 [facility] Last Admin: 10/17/18 09:57 Dose: 40 mg Estradiol (Estrace) 0.5 mg PO DAILY [facility] Last Admin: 10/17/18 09:59 Dose: 0.5 mg Famotidine (Pepcid) 20 mg PO Q24HR [facility] Last Admin: 10/16/18 21:25 Dose: 20 mg Fish Oil (Fish Oil) 1,000 mg PO BID [facility] Last Admin: 10/17/18 10:00 Dose: 1,000 mg Furosemide (Lasix) 40 mg PO BID [facility] Last Admin: 10/17/18 10:01 Dose: 40 mg Glucagon (Glucagon) 1 mg IM PRN PRN PRN Reason: Hypoglycemia Hydrocortisone Acetate (Anusol-Hc) 25 mg SC TID [facility] Last Admin: 10/17/18 14:05 Dose: 25 mg Dextrose/Water (D5w) 1,000 mls @ 0 mls/hr IV .Q0M PRN PRN Reason: Hypoglycemia Insulin Glargine 32 units/ (Miscellaneous Medication) 0.32 mls @ 0 mls/hr SC BID [facility] Last Admin: 10/17/18 10:03 Dose: 0.32 mls Metronidazole 500 mg/ Device 100 mls @ 100 mls/hr IVPB Q8HR [facility] Last Admin: 10/17/18 14:04 Dose: 100 mls Insulin Human Lispro (Humalog) 0 units SC .MILD SLIDING SCALE PRN PRN Reason: Mild Correctional Scale Iron/Minerals/Multivitamins (Theragran M) 1 tab PO DAILY [facility] Last Admin: 10/17/18 10:01 Dose: 1 tab Loratadine (Claritin) 10 mg PO HS [facility] Last Admin: 10/16/18 21:24 Dose: 10 mg Losartan Potassium (Cozaar) 25 mg PO DAILY [facility] Last Admin: 10/17/18 09:59 Dose: 25 mg Meloxicam (Mobic) 15 mg PO DAILY [facility] Last Admin: 10/17/18 10:00 Dose: 15 mg Mirtazapine (Remeron) 30 mg PO HS [facility] Last Admin: 10/16/18 21:43 Dose: 30 mg Miscellaneous Medication (Pharmacy To Dose) 1 each IVPB ONE PRN PRN Reason: Pharmacy to dose Stop: 10/26/18 15:45 Mometasone Furoate/Formoterol Fumar (Dulera 100 Mcg/5 Mcg Inhaler) 2 puff INH BID-RT [facility] Last Admin: 10/17/18 07:02 Dose: 2 puff Nitroglycerin (Nitrostat) 0.4 mg SL Q5MIN PRN PRN Reason: Chest Pain Nystatin (Mycostatin Cream) 0 gm TOP BID [facility] Last Admin: 10/17/18 10:02 Dose: 30 gm Oseltamivir Phosphate (Tamiflu) 75 mg PO BID [facility] Stop: 10/21/18 09:01 Last Admin: 10/17/18 10:02 Dose: 75 mg Pantoprazole Sodium (Protonix) 40 mg PO DAILY [facility] Last Admin: 10/17/18 10:01 Dose: 40 mg Pravastatin Sodium (Pravachol) 40 mg PO HS [facility] Last Admin: 10/16/18 21:25 Dose: 40 mg Pregabalin (Lyrica) 300 mg PO BID [facility] Last Admin: 10/17/18 09:58 Dose: 300 mg Sodium Chloride (Flush - Normal Saline) 10 ml IVF Q12HR [facility] Last Admin: 10/17/18 10:02 Dose: 10 ml Sodium Chloride (Flush - Normal Saline) 10 ml IVF PRN PRN PRN Reason: Saline Flush Sodium Chloride/Aloe Vera ([place] W/Aloe Gel) 1 gm EA NARE QIDPRN PRN PRN Reason: prevent nosebleeds Trazodone HCl (Desyrel) 200 mg PO HS [facility] Last Admin: 10/16/18 21:24 Dose: 200 mg Vancomycin HCl (First Vancomycin) 125 mg PO QID [facility] Last Admin: 10/17/18 12:31 Dose: 125 mg
[2018-10-17] MEDS: Famotidine 20 MG TAB PO SCH (20:54)
[2018-10-17] MEDS: Loratadine 10 MG TAB PO SCH (20:56)
[2018-10-17] MEDS: Pravastatin Sodium 40 MG TAB PO SCH (20:57)
[2018-10-17] MEDS: traZODone HCl 50 MG TAB PO SCH (20:58)
[2018-10-17] MEDS: Mirtazapine 30 MG TAB PO SCH (21:03)
--- NOTE | 2018-10-17 22:44 | PRG ---
DATE OF SERVICE: 10/17/2018 SUBJECTIVE: Ms. Kirk still had a few liquidy stools today. She has no abdominal pain. OBJECTIVE: VITAL SIGNS: Temperature 98.6, pulse 89, blood pressure 100/54. GENERAL: She is in no acute distress. Alert and oriented x3. LUNGS: Clear to auscultation bilaterally. HEART: Regular rate and rhythm without murmur. ABDOMEN: Soft, nontender, nondistended. Bowel sounds are present. EXTREMITIES: No lower extremity edema. LABORATORY DATA: White blood cell count 12.1, hemoglobin 9.7, platelets 115. Creatinine 0.73. IMPRESSION: Clostridium difficile colitis. RECOMMENDATIONS: 1. Continue a 14-day course of vancomycin 125 mg orally 4 times daily. 2. Metronidazole IV q.8 hours 500 mg. This can be continued over the next few days and potentially tapered off when she is significantly clinically improved. 3. Of note, she is on prednisone 40 mg daily for her lungs. 4. Continue supportive care per the primary service. I will sign off for now. Please call if GI can be of assistance. Job ID: [id number]
[2018-10-18] MEDS: metroNIDAZOLE 500 MG in Premix Bag 1 BAG IVPB SCH ×3 (05:33→20:54)
[2018-10-18 06:27] LABS: Anion Gap 12 mmol/L (10-20); BUN (Urea Nitrogen) 13 mg/dL (9.8-20.1); Calc. Creatinine Clearance 98 mL/min (70-130); Calcium 8.6 mg/dL (7.8-10.44); Carbon Dioxide 30 mmol/L (23-31); Chloride 105 mmol/L (98-107); Estimated GFR-MDRD 79; Glucose 153 mg/dL (83-110); Sodium 143 mmol/L (136-145)
[2018-10-18] MEDS: Mometasone/Formoterol 120 PUFF INHALER INH SCH ×2 (06:33→19:42)
[2018-10-18 06:48] LABS: #Eosinphils 0.1 thou/uL (0.0-0.7); #Lymphocytes 0.8 thou/uL (1.20-3.40); #Monocytes 0.4 thou/uL (0.11-0.59); #Neutrophils 5.3 thou/uL (1.40-6.50); %Basophils 0.1 % (0.0-1.0); %Eosinophils 1.9 % (0.0-10.0); %Lymphocytes 12.3 % (21.0-51.0); %Monocytes 5.3 % (0.0-10.0); %Neutrophils 80.4 % (42.0-75.0); Hemoglobin 8.9 g/dL (12.0-16.0); Hypochromia SLIGHT = 6-15 cells (100X) (0-5/hpf); MDiff Complete? YES; Mean Corpuscular HGB CONC 30.8 g/dL (32.0-36.0); Mean Corpuscular Hemoglobin 26.3 pg (27.0-31.0); Mean Corpuscular Volume 85.5 fL (78.0-98.0); Mean Platelet Volume 6.6 fL (7.4-10.4); Platelet Count 121 thou/uL (130-400); Platelet Morphology Comment Appears Decreased; Polychromasia SLIGHT = 2-3 cells (100X) (0-2/hpf); RBC Distribution Width 20.5 % (11.5-14.5); Red Blood Cell (RBC) Count 3.37 mill/uL (4.20-5.40); White Blood Cell (WBC) Count 6.6 thou/uL (4.8-10.8)
[2018-10-18] MEDS: Enoxaparin Sodium 40 MG/0.4 ML SYRINGE SC SCH (08:13)
[2018-10-18] MEDS: DULoxetine 60 MG CAP PO SCH (08:13)
[2018-10-18] MEDS: Vancomycin HCl 25 MG/ML Oral PO SCH ×4 (08:13→20:53)
[2018-10-18] MEDS: Estradiol 1 MG TAB PO SCH (08:14)
[2018-10-18] MEDS: Pantoprazole 40 MG GRANULES PACKET PO SCH (08:14)
[2018-10-18] MEDS: Pregabalin 75 MG CAP PO SCH ×2 (08:15→20:48)
[2018-10-18] MEDS: Clopidogrel Bisulfate 75 MG TAB PO SCH (08:15)
[2018-10-18] MEDS: Losartan 25 MG TAB PO SCH (08:15)
[2018-10-18] MEDS: Fish Oil 1,000 MG CAP PO SCH ×2 (08:15→20:46)
[2018-10-18] MEDS: Meloxicam 15 MG TAB PO SCH (08:15)
[2018-10-18] MEDS: Oseltamivir 75 MG CAP PO SCH ×2 (08:16→20:53)
[2018-10-18] MEDS: Hydrocortisone Acetate 25 MG Suppository PR SCH ×3 (08:16→20:46)
[2018-10-18] MEDS: Furosemide 40 MG TAB PO SCH ×2 (08:16→20:46)
[2018-10-18] MEDS: Cyanocobalamin (Vitamin B-12) 1,000 MCG TAB PO SCH (08:16)
[2018-10-18] MEDS: Aspirin 81 mg Enteric Coated Tablet PO SCH (08:16)
[2018-10-18] MEDS: Multivitamin W/ Minerals 1 TAB PO SCH (08:16)
[2018-10-18] MEDS: Nystatin Cream 30 GM TUBE TOP SCH ×2 (08:17→20:47)
[2018-10-18] MEDS: Docusate 100 MG CAP PO SCH (08:18)
[2018-10-18] MEDS: Insulin Glargine 32 UNITS in Pre-Filled Syringe 1 EACH SC SCH ×2 (08:18→20:46)
[2018-10-18] MEDS ORDERED: predniSONE 20 MG TAB PO SCH (09:30)
[2018-10-18] MEDS ORDERED: Saccharomyces boulardii 250 MG CAP PO SCH (11:15)
[2018-10-18 12:55] VITALS: BMI 33.3
--- NOTE | 2018-10-18 14:47 | PDOC.PN ---
- Subjective Encounter Start Date: 10/18/18 Encounter Start Time: 12:00 Pt seen for followup re; new-onset atrial fibrillation. Denies chest pain, shortness of breath, fevers or chills. Diarrhea better, - Objective Resuscitation Status - Order Detail: 10/16/18 15:46 Resuscitation Status Routine Resuscitation Status: PRTL: Chem only Discussed with: patient MAR Reviewed: Yes Vital Signs & Weight: Vital Signs (12 hours) Temp Pulse Pulse Pulse Resp BP BP 10/18/18 13:42 85 16 10/18/18 11:40 98 F 108 H 20 10/18/18 10:23 88 16 10/18/18 10:04 99 93 118/59 L 101/55 L 10/18/18 08:09 97.9 F 85 20 10/18/18 06:37 10/18/18 06:36 87 16 10/18/18 06:33 87 16 10/18/18 04:00 97.8 F 82 16 BP Pulse Ox 10/18/18 13:42 98 10/18/18 11:40 111/51 L 96 10/18/18 10:23 98 10/18/18 10:04 10/18/18 08:09 110/54 L 95 10/18/18 06:37 99 10/18/18 06:36 99 10/18/18 06:33 99 10/18/18 04:00 103/49 L 99 Weight Admit Weight 192 lb 6.4 oz Weight 194 lb 8 oz I&O: 10/17/18 10/18/18 10/19/18 06:59 06:59 06:59 Intake Total 1280 1280 Output Total 1250 Balance 30 1280 Result Diagrams: 10/18/18 05:49 10/18/18 05:49 Additional Labs: Accuchecks 10/18/18 10/18/18 10/17/18 11:20 06:07 20:27 POC Glucose 166 H 155 H 253 H 10/17/18 16:54 POC Glucose 231 H EKG Reviewed by me: Yes (Tele: she thorpe) Phys Exam - Physical Examination Obese HEENT: moist MMs Neck: supple Respiratory: clear to auscultation bilateral Cardiovascular: irregular Gastrointestinal: soft Neurological: moves all 4 limbs Psychiatric: normal affect Dx/Plan (1) New onset atrial fibrillation Code(s): I48.91 - UNSPECIFIED ATRIAL FIBRILLATION Status: Acute Comment: monitor on telemetry, check 2D echo (2) Clostridium difficile colitis Status: Acute Comment: on IV metronidazole and oral vancomycin, ass Florastor (3) CAD (coronary artery disease) Code(s): I25.10 - ATHSCL HEART DISEASE OF [place] CORONARY ARTERY W/O ANG PCTRS Status: Chronic Comment: stable (4) COPD (chronic obstructive pulmonary disease) Status: Chronic Comment: stable (5) DM type 2 (diabetes mellitus, type 2) Status: Chronic Comment: relatively controlled (6) GERD (gastroesophageal reflux disease) Code(s): K21.9 - GASTRO-ESOPHAGEAL REFLUX DISEASE WITHOUT ESOPHAGITIS Status: Chronic Comment: stable (7) Sepsis Code(s): A41.9 - SEPSIS, UNSPECIFIED ORGANISM Status: Resolved Comment: due to clostridium difficile colitis, present on admission (8) Hypokalemia Code(s): E87.6 - HYPOKALEMIA Status: Resolved - Plan * . Review of Systems - Review of Systems Cardiovascular: negative: chest pain, palpitations, orthopnea, paroxysmal nocturnal dyspnea, edema, light headedness Gastrointestinal: negative: Nausea, Vomiting, Abdominal Pain, Diarrhea, Constipation, Melena, Hematochezia - Medications/Allergies Allergies/Adverse Reactions: Allergies Allergy/AdvReac Type Severity Reaction Status Date / Time acetaminophen [From Tylenol] Allergy Verified 08/24/18 21:29 adhesive tape Allergy Verified 08/24/18 21:29 codeine Allergy Verified 08/24/18 21:29 gabapentin Allergy Verified 08/24/18 21:29 hydrocodone Allergy Verified 08/24/18 21:29 iodine Allergy Verified 08/24/18 21:29 morphine Allergy Verified 08/24/18 21:29 venom-honey bee Allergy Verified 08/24/18 21:29 [bee venom (honey bee)] Medications: Current Medications Albuterol/Ipratropium (Duoneb) 3 ml NEB QID-RT [facility] Last Admin: 10/18/18 13:42 Dose: 3 ml Aspirin (Ecotrin) 81 mg PO DAILY [facility] Last Admin: 10/18/18 08:16 Dose: 81 mg Bisacodyl (Dulcolax) 10 mg PO DAILYPRN PRN PRN Reason: Constipation Clopidogrel Bisulfate (Plavix) 75 mg PO DAILY [facility] Last Admin: 10/18/18 08:15 Dose: 75 mg Cyanocobalamin (Vitamin B-12) 1,000 mcg PO DAILY [facility] Last Admin: 10/18/18 08:16 Dose: 1,000 mcg Dextrose/Water (Dextrose 50%) 25 gm SLOW IVP PRN PRN PRN Reason: Hypoglycemia Docusate Sodium (Colace) 100 mg PO DAILY [facility] Last Admin: 10/18/18 08:18 Dose: Not Given Duloxetine HCl (Cymbalta) 60 mg PO DAILY [facility] Last Admin: 10/18/18 08:13 Dose: 60 mg Enoxaparin Sodium (Lovenox) 40 mg SC 0900 [facility] Last Admin: 10/18/18 08:13 Dose: 40 mg Estradiol (Estrace) 0.5 mg PO DAILY [facility] Last Admin: 10/18/18 08:14 Dose: 0.5 mg Famotidine (Pepcid) 20 mg PO Q24HR [facility] Last Admin: 10/17/18 20:54 Dose: 20 mg Fish Oil (Fish Oil) 1,000 mg PO BID [facility] Last Admin: 10/18/18 08:15 Dose: 1,000 mg Furosemide (Lasix) 40 mg PO BID [facility] Last Admin: 10/18/18 08:16 Dose: 40 mg Glucagon (Glucagon) 1 mg IM PRN PRN PRN Reason: Hypoglycemia Hydrocortisone Acetate (Anusol-Hc) 25 mg WI TID [facility] Last Admin: 10/18/18 08:16 Dose: 25 mg Dextrose/Water (D5w) 1,000 mls @ 0 mls/hr IV .Q0M PRN PRN Reason: Hypoglycemia Insulin Glargine 32 units/ (Miscellaneous Medication) 0.32 mls @ 0 mls/hr SC BID [facility] Last Admin: 10/18/18 08:18 Dose: 0.32 mls Metronidazole 500 mg/ Device 100 mls @ 100 mls/hr IVPB Q8HR [facility] Last Admin: 10/18/18 05:33 Dose: 100 mls Insulin Human Lispro (Humalog) 0 units SC .MILD SLIDING SCALE PRN PRN Reason: Mild Correctional Scale Iron/Minerals/Multivitamins (Theragran M) 1 tab PO DAILY [facility] Last Admin: 10/18/18 08:16 Dose: 1 tab Loratadine (Claritin) 10 mg PO HS [facility] Last Admin: 10/17/18 20:56 Dose: 10 mg Losartan Potassium (Cozaar) 25 mg PO DAILY [facility] Last Admin: 10/18/18 08:15 Dose: 25 mg Meloxicam (Mobic) 15 mg PO DAILY [facility] Last Admin: 10/18/18 08:15 Dose: 15 mg Mirtazapine (Remeron) 30 mg PO HS [facility] Last Admin: 10/17/18 21:03 Dose: 30 mg Miscellaneous Medication (Pharmacy To Dose) 1 each IVPB ONE PRN PRN Reason: Pharmacy to dose Stop: 10/26/18 15:45 Mometasone Furoate/Formoterol Fumar (Dulera 100 Mcg/5 Mcg Inhaler) 2 puff INH BID-RT [facility] Last Admin: 10/18/18 06:33 Dose: 2 puff Nitroglycerin (Nitrostat) 0.4 mg SL Q5MIN PRN PRN Reason: Chest Pain Nystatin (Mycostatin Cream) 0 gm TOP BID [facility] Last Admin: 10/18/18 08:17 Dose: 30 gm Oseltamivir Phosphate (Tamiflu) 75 mg PO BID [facility] Stop: 10/21/18 09:01 Last Admin: 10/18/18 08:16 Dose: 75 mg Pantoprazole Sodium (Protonix) 40 mg PO DAILY [facility] Last Admin: 10/18/18 08:14 Dose: 40 mg Pravastatin Sodium (Pravachol) 40 mg PO HS [facility] Last Admin: 10/17/18 20:57 Dose: 40 mg Prednisone (Prednisone) 20 mg PO BID [facility] Pregabalin (Lyrica) 300 mg PO BID [facility] Last Admin: 10/18/18 08:15 Dose: 300 mg Sodium Chloride (Flush - Normal Saline) 10 ml IVF Q12HR [facility] Last Admin: 10/18/18 08:17 Dose: 10 ml Sodium Chloride (Flush - Normal Saline) 10 ml IVF PRN PRN PRN Reason: Saline Flush Sodium Chloride/Aloe Vera ([place] W/Aloe Gel) 1 gm EA NARE QIDPRN PRN PRN Reason: prevent nosebleeds Trazodone HCl (Desyrel) 200 mg PO HS [facility] Last Admin: 10/17/18 20:58 Dose: 200 mg Vancomycin HCl (First Vancomycin) 125 mg PO QID [facility] Last Admin: 10/18/18 12:04 Dose: 125 mg
--- NOTE | 2018-10-18 17:14 | EKG ---
Test Reason : Blood Pressure : / mmHG Vent. Rate : 099 BPM Atrial Rate : 099 BPM P-R Int : 178 ms QRS Dur : 142 ms QT Int : 374 ms P-R-T Axes : 019 -06 004 degrees QTc Int : 479 ms Sinus rhythm Premature ectopic complexes Right bundle branch block Minimal voltage criteria for LVH, may be normal variant Abnormal ECG Confirmed by SARA TURCIOS ([id number]) on 10/18/2018 5:14:47 PM Referred By: HOMERO Confirmed By:SARA TURCIOS
--- NOTE | 2018-10-18 18:27 | CON ---
DATE OF CONSULTATION: 10/18/2018 PRIMARY WHEEL LACER AND TRUER: Destini Barajas MD HISTORY OF PRESENT ILLNESS: Ms. Kirk is a very pleasant 73-year-old white female, who comes to the hospital for abdominal pain. She has been noticing fevers and diarrhea as well. She was admitted and diagnosed with a colitis and eventually had a positive Clostridium difficile and has been started on antibiotics for this. GI is involved. She is feeling much better from an abdominal point of view; however, she has been having runs of what appears to be atrial fibrillation or atrial flutter. She has a history of atrial fibrillation in the past. Dr. Barajas follows her for coronary artery disease. Last heart catheterization was in 2018. She had her bypass in 2008 with BARBOSA to the LAD, saphenous vein graft to diagonal, ramus, and right posterior descending artery. On most recent catheterization, she was found to have significant hughes disease. Her bypasses graft to an OM with diffuse disease. After the graft insertion, BARBOSA was patent, and diagonal graft and posterior graft were occluded. Currently, she is more rate controlled, heart rate in the 80s. Denies any chest pain, tightness, pressure, or shortness of breath. PAST MEDICAL HISTORY: 1. Coronary artery disease, status post CABG as above. 2. 2 out of 4 grafts are patent. 3. COPD. 4. Diastolic heart failure. 5. Diabetes. 6. Hypertension. 7. Hyperlipidemia. 8. GERD. 9. Anxiety with depression. 10. Peripheral vascular disease. 11. Carotid artery stenosis. 12. Hypothyroidism. PAST SURGICAL HISTORY: 1. CABG x4. 2. Cholecystectomy. 3. Hernia repair. 4. Hysterectomy. 5. Tonsillectomy. 6. Appendectomy. 7. Right tibial plateau surgery which is nonhealing. She had surgery planned on her right leg today, but this was canceled due to her current issue. MEDICATIONS: Outpatient medications were reviewed on the OCT. They include: 1. Tamiflu. 2. Lyrica. 3. Remeron. 4. Xyzal. 5. Trazodone. 6. Pravastatin. 7. Combivent. 8. Estradiol. 9. Losartan 25 a day. 10. Insulin. 11. Furosemide 40 mg b.i.d. 12. Ranitidine. 13. Cymbalta. 14. Breo Ellipta. 15. Azelastine nasal spray. 16. Nystatin cream. 17. Meloxicam. 18. Aspirin. 19. Albuterol inhaler. 20. [place]-3 fish oil. 21. Plavix 75 mg a day. 22. Protonix. 23. Stool softener. 24. Nitroglycerin sublingual p.r.n. 25. Hydrocortisone (Anusol). 26. Vitamin B12. 27. Prednisone 10 mg b.i.d. 28. Metronidazole. 29. Florastor. 30. Vancomycin. ALLERGIES: 1. ACETAMINOPHEN. 2. ADHESIVE TAPE. 3. CODEINE. 4. GABAPENTIN. 5. HYDROCODONE. 6. IODINE. 7. MORPHINE. 8. HONEY BEE VENOM. SOCIAL HISTORY: Continued to smoke, quit recently. She is on home O2. No alcohol or drugs. REVIEW OF SYSTEMS: A 12-point review of systems was done and was found to be negative unless stated in the history of present illness. PHYSICAL EXAMINATION: VITAL SIGNS: Temperature 98.0, pulse 88, respiratory rate 18, saturation 98% on 2 L nasal cannula, and blood pressure 119/61. GENERAL: Awake, alert, and oriented x3, in no distress. HEENT: Normocephalic and atraumatic. NECK: Supple. LUNGS: Clear. CARDIOVASCULAR: S1 and S2. No S3 or S4. No murmurs. ABDOMEN: Soft. Positive bowel sounds. EXTREMITIES: No edema. SKIN: Warm and dry. LABORATORY DATA: Laboratory work was reviewed. CBC with a white count of 17 on admission, down to 6.6 after antibiotics; hemoglobin of 8.9; hematocrit of 28; and platelet count of 121. Chemistry unremarkable. Calcium of 8.6. Imaging was reviewed. Telemetry was reviewed. ASSESSMENT: 1. Atrial fibrillation/atrial flutter. 2. Clostridium difficile colitis. 3. Recent leg fracture, nonhealing. 4. Coronary artery disease, stable. No acute coronary syndrome. PLAN: 1. Continue current medication. She is currently rate controlled, heart rate in the 80s. We would recommend to start low-dose calcium channel arleen to try to maintain rate control. 2. Aspirin alone for stroke prophylaxis due to high fall risk. 3. Further recommendations per Dr. Barajas in the morning. Job ID: [id number] [facility]
[2018-10-18] MEDS: Famotidine 20 MG TAB PO SCH (20:46)
[2018-10-18] MEDS: Loratadine 10 MG TAB PO SCH (20:46)
[2018-10-18] MEDS: Mirtazapine 30 MG TAB PO SCH (20:47)
[2018-10-18] MEDS: Pravastatin Sodium 40 MG TAB PO SCH (20:48)
[2018-10-18] MEDS: predniSONE 20 MG TAB PO SCH (20:48)
[2018-10-18] MEDS: traZODone HCl 50 MG TAB PO SCH (20:49)
[2018-10-18] MEDS: HumaLOG 300 UNITS/3 ML VIAL SC PRN (20:49)
[2018-10-19] MEDS: metroNIDAZOLE 500 MG in Premix Bag 1 BAG IVPB SCH ×3 (05:05→21:31)
[2018-10-19] MEDS: Mometasone/Formoterol 120 PUFF INHALER INH SCH ×2 (06:45→18:47)
[2018-10-19 06:54] LABS: Anion Gap 12 mmol/L (10-20); BUN (Urea Nitrogen) 13 mg/dL (9.8-20.1); Calc. Creatinine Clearance 89 mL/min (70-130); Calcium 8.5 mg/dL (7.8-10.44); Carbon Dioxide 31 mmol/L (23-31); Chloride 101 mmol/L (98-107); Estimated GFR-MDRD 71; Glucose 229 mg/dL (83-110); Potassium 3.7 mmol/L (3.5-5.1); Sodium 140 mmol/L (136-145)
[2018-10-19 07:14] LABS: #Lymphocytes 0.5 thou/uL (1.20-3.40); #Monocytes 0.3 thou/uL (0.11-0.59); #Neutrophils 4.3 thou/uL (1.40-6.50); %Eosinophils 0.1 % (0.0-10.0); %Lymphocytes 9.6 % (21.0-51.0); %Monocytes 5.5 % (0.0-10.0); %Neutrophils 84.9 % (42.0-75.0); Hemoglobin 9.6 g/dL (12.0-16.0); Hypochromia SLIGHT = 6-15 cells (100X) (0-5/hpf); MDiff Complete? YES; Mean Corpuscular HGB CONC 30.5 g/dL (32.0-36.0); Mean Corpuscular Hemoglobin 26.4 pg (27.0-31.0); Mean Corpuscular Volume 86.5 fL (78.0-98.0); Platelet Count 124 thou/uL (130-400); Platelet Morphology Comment Appears Decreased; Polychromasia SLIGHT = 2-3 cells (100X) (0-2/hpf); RBC Distribution Width 20.1 % (11.5-14.5); Red Blood Cell (RBC) Count 3.63 mill/uL (4.20-5.40); White Blood Cell (WBC) Count 5.1 thou/uL (4.8-10.8)
[2018-10-19] MEDS: Vancomycin HCl 25 MG/ML Oral PO SCH ×4 (11:15→21:27)
[2018-10-19] MEDS: Enoxaparin Sodium 40 MG/0.4 ML SYRINGE SC SCH (11:16)
[2018-10-19] MEDS: Insulin Glargine 32 UNITS in Pre-Filled Syringe 1 EACH SC SCH ×2 (11:16→21:25)
[2018-10-19] MEDS: Fish Oil 1,000 MG CAP PO SCH ×2 (11:17→21:24)
[2018-10-19] MEDS: predniSONE 20 MG TAB PO SCH ×2 (11:17→21:26)
[2018-10-19] MEDS: Cyanocobalamin (Vitamin B-12) 1,000 MCG TAB PO SCH (11:17)
[2018-10-19] MEDS: Meloxicam 15 MG TAB PO SCH (11:18)
[2018-10-19] MEDS: Hydrocortisone Acetate 25 MG Suppository PR SCH ×3 (11:18→21:24)
[2018-10-19] MEDS: Oseltamivir 75 MG CAP PO SCH ×2 (11:18→21:26)
[2018-10-19] MEDS: Pantoprazole 40 MG GRANULES PACKET PO SCH (11:18)
[2018-10-19] MEDS: Clopidogrel Bisulfate 75 MG TAB PO SCH (11:19)
[2018-10-19] MEDS: Aspirin 81 mg Enteric Coated Tablet PO SCH (11:19)
[2018-10-19] MEDS: Docusate 100 MG CAP PO SCH ×2 (11:19→11:40)
[2018-10-19] MEDS: Saccharomyces boulardii 250 MG CAP PO SCH (11:19)
[2018-10-19] MEDS: Pregabalin 75 MG CAP PO SCH ×2 (11:20→21:26)
[2018-10-19] MEDS: DULoxetine 60 MG CAP PO SCH (11:20)
[2018-10-19] MEDS: Multivitamin W/ Minerals 1 TAB PO SCH (11:22)
[2018-10-19] MEDS: Losartan 25 MG TAB PO SCH (11:22)
[2018-10-19] MEDS: Estradiol 1 MG TAB PO SCH (11:22)
[2018-10-19] MEDS: Furosemide 40 MG TAB PO SCH ×2 (11:22→21:24)
[2018-10-19] MEDS: Nystatin Cream 30 GM TUBE TOP SCH ×2 (11:37→21:25)
--- NOTE | 2018-10-19 15:52 | PDOC.PN ---
- Subjective Encounter Start Date: 10/19/18 Encounter Start Time: 11:00 Pt seen for followup re: atrial fibrillation. No complaints today. - Objective Resuscitation Status - Order Detail: 10/16/18 15:46 Resuscitation Status Routine Resuscitation Status: PRTL: Chem only Discussed with: patient JAMAAL Reviewed: Yes Vital Signs & Weight: Vital Signs (12 hours) Temp Pulse Resp BP Pulse Ox 10/19/18 14:34 78 16 98 10/19/18 10:30 83 16 97 10/19/18 08:29 97.5 F L 81 18 129/58 L 99 10/19/18 06:48 87 16 98 10/19/18 06:45 87 16 96 10/19/18 04:00 97.6 F 78 20 143/63 H 99 Weight Admit Weight 192 lb 6.4 oz Weight 193 lb 4.8 oz I&O: 10/18/18 10/19/18 10/20/18 06:59 06:59 06:59 Intake Total 1280 1830 Output Total 300 Balance 1280 1530 Result Diagrams: 10/19/18 04:58 10/19/18 04:58 Additional Labs: Accuchecks 10/19/18 10/19/18 10/18/18 10:55 05:41 20:14 POC Glucose 276 H 243 H 361 H 10/18/18 10/18/18 18:14 17:02 POC Glucose 419 H 399 H EKG Reviewed by me: Yes (Tele: NSR) Phys Exam - Physical Examination Obese HEENT: moist MMs Neck: supple Respiratory: clear to auscultation bilateral Cardiovascular: RRR Gastrointestinal: soft Neurological: moves all 4 limbs Psychiatric: normal affect Dx/Plan (1) New onset atrial fibrillation Code(s): I48.91 - UNSPECIFIED ATRIAL FIBRILLATION Status: Acute Comment: monitor on telemetry, pt is now in NSR (2) Clostridium difficile colitis Status: Acute Comment: on IV metronidazole, vancomycin and Florastor (3) CAD (coronary artery disease) Code(s): I25.10 - ATHSCL HEART DISEASE OF [place] CORONARY ARTERY W/O ANG PCTRS Status: Chronic Comment: stable (4) COPD (chronic obstructive pulmonary disease) Status: Chronic Comment: stable (5) DM type 2 (diabetes mellitus, type 2) Status: Chronic Comment: relatively controlled (6) GERD (gastroesophageal reflux disease) Code(s): K21.9 - GASTRO-ESOPHAGEAL REFLUX DISEASE WITHOUT ESOPHAGITIS Status: Chronic Comment: stable (7) Sepsis Code(s): A41.9 - SEPSIS, UNSPECIFIED ORGANISM Status: Resolved (8) Hypokalemia Code(s): E87.6 - HYPOKALEMIA Status: Resolved - Plan * . Review of Systems - Review of Systems Cardiovascular: negative: chest pain, palpitations, orthopnea, paroxysmal nocturnal dyspnea, edema, light headedness Gastrointestinal: negative: Nausea, Vomiting, Abdominal Pain, Diarrhea, Constipation, Melena, Hematochezia - Medications/Allergies Allergies/Adverse Reactions: Allergies Allergy/AdvReac Type Severity Reaction Status Date / Time acetaminophen [From Tylenol] Allergy Verified 08/24/18 21:29 adhesive tape Allergy Verified 08/24/18 21:29 codeine Allergy Verified 08/24/18 21:29 gabapentin Allergy Verified 08/24/18 21:29 hydrocodone Allergy Verified 08/24/18 21:29 iodine Allergy Verified 08/24/18 21:29 morphine Allergy Verified 08/24/18 21:29 venom-honey bee Allergy Verified 08/24/18 21:29 [bee venom (honey bee)] Medications: Current Medications Albuterol/Ipratropium (Duoneb) 3 ml NEB QID-RT [facility] Last Admin: 10/19/18 14:34 Dose: 3 ml Aspirin (Ecotrin) 81 mg PO DAILY [facility] Last Admin: 10/19/18 11:19 Dose: 81 mg Bisacodyl (Dulcolax) 10 mg PO DAILYPRN PRN PRN Reason: Constipation Clopidogrel Bisulfate (Plavix) 75 mg PO DAILY [facility] Last Admin: 10/19/18 11:19 Dose: 75 mg Cyanocobalamin (Vitamin B-12) 1,000 mcg PO DAILY [facility] Last Admin: 10/19/18 11:17 Dose: 1,000 mcg Dextrose/Water (Dextrose 50%) 25 gm SLOW IVP PRN PRN PRN Reason: Hypoglycemia Diltiazem HCl (Cardizem) 30 mg PO BID [facility] Last Admin: 10/19/18 11:23 Dose: 30 mg Docusate Sodium (Colace) 100 mg PO DAILY [facility] Last Admin: 10/19/18 11:40 Dose: Not Given Duloxetine HCl (Cymbalta) 60 mg PO DAILY [facility] Last Admin: 10/19/18 11:20 Dose: 60 mg Enoxaparin Sodium (Lovenox) 40 mg SC 0900 [facility] Last Admin: 10/19/18 11:16 Dose: 40 mg Estradiol (Estrace) 0.5 mg PO DAILY [facility] Last Admin: 10/19/18 11:22 Dose: 0.5 mg Famotidine (Pepcid) 20 mg PO Q24HR [facility] Last Admin: 10/18/18 20:46 Dose: 20 mg Fish Oil (Fish Oil) 1,000 mg PO BID [facility] Last Admin: 10/19/18 11:17 Dose: 1,000 mg Furosemide (Lasix) 40 mg PO BID [facility] Last Admin: 10/19/18 11:22 Dose: 40 mg Glucagon (Glucagon) 1 mg IM PRN PRN PRN Reason: Hypoglycemia Hydrocortisone Acetate (Anusol-Hc) 25 mg IN TID [facility] Last Admin: 10/19/18 11:18 Dose: 25 mg Dextrose/Water (D5w) 1,000 mls @ 0 mls/hr IV .Q0M PRN PRN Reason: Hypoglycemia Insulin Glargine 32 units/ (Miscellaneous Medication) 0.32 mls @ 0 mls/hr SC BID [facility] Last Admin: 10/19/18 11:16 Dose: 0.32 mls Metronidazole 500 mg/ Device 100 mls @ 100 mls/hr IVPB Q8HR [facility] Last Admin: 10/19/18 14:19 Dose: 100 mls Insulin Human Lispro (Humalog) 0 units SC .MILD SLIDING SCALE PRN PRN Reason: Mild Correctional Scale Last Admin: 10/18/18 20:49 Dose: 6 unit Iron/Minerals/Multivitamins (Theragran M) 1 tab PO DAILY [facility] Last Admin: 10/19/18 11:22 Dose: 1 tab Loratadine (Claritin) 10 mg PO HS [facility] Last Admin: 10/18/18 20:46 Dose: 10 mg Losartan Potassium (Cozaar) 25 mg PO DAILY [facility] Last Admin: 10/19/18 11:22 Dose: 25 mg Meloxicam (Mobic) 15 mg PO DAILY [facility] Last Admin: 10/19/18 11:18 Dose: 15 mg Mirtazapine (Remeron) 30 mg PO HS [facility] Last Admin: 10/18/18 20:47 Dose: 30 mg Miscellaneous Medication (Pharmacy To Dose) 1 each IVPB ONE PRN PRN Reason: Pharmacy to dose Stop: 10/26/18 15:45 Mometasone Furoate/Formoterol Fumar (Dulera 100 Mcg/5 Mcg Inhaler) 2 puff INH BID-RT [facility] Last Admin: 10/19/18 06:45 Dose: 2 puff Nitroglycerin (Nitrostat) 0.4 mg SL Q5MIN PRN PRN Reason: Chest Pain Nystatin (Mycostatin Cream) 0 gm TOP BID [facility] Last Admin: 10/19/18 11:37 Dose: Not Given Oseltamivir Phosphate (Tamiflu) 75 mg PO BID [facility] Stop: 10/21/18 09:01 Last Admin: 10/19/18 11:18 Dose: 75 mg Pantoprazole Sodium (Protonix) 40 mg PO DAILY [facility] Last Admin: 10/19/18 11:18 Dose: 40 mg Pravastatin Sodium (Pravachol) 40 mg PO HS [facility] Last Admin: 10/18/18 20:48 Dose: 40 mg Prednisone (Prednisone) 20 mg PO BID [facility] Last Admin: 10/19/18 11:17 Dose: 20 mg Pregabalin (Lyrica) 300 mg PO BID [facility] Last Admin: 10/19/18 11:20 Dose: 300 mg Saccharomyces Boulardii (Florastor) 250 mg PO DAILY [facility] Last Admin: 10/19/18 11:19 Dose: 250 mg Sodium Chloride (Flush - Normal Saline) 10 ml IVF Q12HR [facility] Last Admin: 10/19/18 11:38 Dose: 10 ml Sodium Chloride (Flush - Normal Saline) 10 ml IVF PRN PRN PRN Reason: Saline Flush Sodium Chloride/Aloe Vera ([place] W/Aloe Gel) 1 gm EA NARE QIDPRN PRN PRN Reason: prevent nosebleeds Trazodone HCl (Desyrel) 200 mg PO HS [facility] Last Admin: 10/18/18 20:49 Dose: 200 mg Vancomycin HCl (First Vancomycin) 125 mg PO QID [facility] Last Admin: 10/19/18 14:19 Dose: 125 mg
[2018-10-19] MEDS: HumaLOG 300 UNITS/3 ML VIAL SC PRN ×2 (18:22→21:28)
[2018-10-19] MEDS: Famotidine 20 MG TAB PO SCH (21:24)
[2018-10-19] MEDS: Loratadine 10 MG TAB PO SCH (21:25)
[2018-10-19] MEDS: Mirtazapine 30 MG TAB PO SCH (21:25)
[2018-10-19] MEDS: Pravastatin Sodium 40 MG TAB PO SCH (21:26)
[2018-10-19] MEDS: traZODone HCl 50 MG TAB PO SCH (21:27)
--- NOTE | 2018-10-19 23:18 | PDOC.CTH ---
Cardiology Progress Note - Subjective Pt. seen and eval. by me. No new events overnight. No cardiac complaints. Abd. discomfort is better. - Objective Vital Signs Temp Pulse Resp BP Pulse Ox 10/19/18 21:20 98.2 F 86 18 132/58 L 97 10/19/18 18:50 96 10/19/18 18:49 80 16 96 10/19/18 18:47 96 10/19/18 16:00 97.5 F L 74 18 132/60 99 10/19/18 14:34 78 16 98 10/19/18 12:00 98.7 F 79 18 131/62 99 Admit Weight 192 lb 6.4 oz Weight 193 lb 4.8 oz 10/18/18 10/19/18 10/20/18 06:59 06:59 06:59 Intake Total 1280 1830 1100 Output Total 300 Balance 1280 1530 1100 - Physical Examination General/Neuro: alert & oriented x3 Neck: carotid US brisk Lungs: CTA, unlabored respirations Heart: RRR Abdomen: soft Extremities: other: (no edema.) - Telemetry Telemetry Rhythm: NSR,PAC's. - Labs Result Diagrams: 10/19/18 04:58 10/19/18 04:58 - Assessment/Plan 1. C.Diff. on antibiotics. Abd. pain improved. 2. Afib: converted to NSR, continue present meds. 3. CAD, s/p CABG- stable. No symptoms. 4. COPD 5. DM 6. diastolic dysfunction. Continue medical treatment with ARB's and diuretics. She is not on a betablocker due to her COPD. 7. [place];emia. 8. HTN: stable. 9. Hypercholesterolemia. 10. PVD: stable. No complaints . 11. s/p right leg fracture. Repaired but needs further surgery to remove screws and insert a plate or senthil. From a cardiac standpoint she remains stable. When cleared from GI she can return to rehab. Review of Systems - Review of Systems EENTM: reports: no symptoms reported Respiratory: reports: no symptoms reported Cardiac (ROS): reports: no symptoms reported ABD/GI: reports: diarrhea, poor appetite : reports: no symptoms reported Skin: reports: no symptoms reported Neurological: reports: no symptoms reported Endocrine: reports: no symptoms reported
[2018-10-20] MEDS: metroNIDAZOLE 500 MG in Premix Bag 1 BAG IVPB SCH ×2 (05:36→13:17)
[2018-10-20] MEDS: Mometasone/Formoterol 120 PUFF INHALER INH SCH (07:01)
[2018-10-20] MEDS: Clopidogrel Bisulfate 75 MG TAB PO SCH (10:00)
[2018-10-20] MEDS: Pregabalin 75 MG CAP PO SCH (10:01)
[2018-10-20] MEDS: Aspirin 81 mg Enteric Coated Tablet PO SCH (10:03)
[2018-10-20] MEDS: predniSONE 20 MG TAB PO SCH (10:03)
[2018-10-20] MEDS: Saccharomyces boulardii 250 MG CAP PO SCH (10:04)
[2018-10-20] MEDS: Fish Oil 1,000 MG CAP PO SCH (10:04)
[2018-10-20] MEDS: Meloxicam 15 MG TAB PO SCH (10:05)
[2018-10-20] MEDS: Multivitamin W/ Minerals 1 TAB PO SCH (10:05)
[2018-10-20] MEDS: DULoxetine 60 MG CAP PO SCH (10:05)
[2018-10-20] MEDS: Losartan 25 MG TAB PO SCH (10:05)
[2018-10-20] MEDS: Estradiol 1 MG TAB PO SCH (10:05)
[2018-10-20] MEDS: Furosemide 40 MG TAB PO SCH (10:05)
[2018-10-20] MEDS: Cyanocobalamin (Vitamin B-12) 1,000 MCG TAB PO SCH (10:05)
[2018-10-20] MEDS: Vancomycin HCl 25 MG/ML Oral PO SCH ×3 (10:06→17:25)
[2018-10-20] MEDS: Hydrocortisone Acetate 25 MG Suppository PR SCH ×2 (10:06→14:20)
[2018-10-20] MEDS: Pantoprazole 40 MG GRANULES PACKET PO SCH (10:06)
[2018-10-20] MEDS: Enoxaparin Sodium 40 MG/0.4 ML SYRINGE SC SCH (10:07)
[2018-10-20] MEDS: Docusate 100 MG CAP PO SCH (10:08)
[2018-10-20] MEDS: Oseltamivir 75 MG CAP PO SCH (10:08)
[2018-10-20] MEDS: Nystatin Cream 30 GM TUBE TOP SCH (10:11)
[2018-10-20] MEDS: Insulin Glargine 32 UNITS in Pre-Filled Syringe 1 EACH SC SCH (10:15)
[2018-10-20] MEDS: HumaLOG 300 UNITS/3 ML VIAL SC PRN ×2 (10:18→12:39)
[2018-10-20] MEDS ORDERED: Meclizine HCl 25 MG TAB PO SCH (12:45)
--- NOTE | 2018-10-20 13:02 | PDOC.CTH ---
Cardiology Progress Note - Subjective The pt seen and examined. No overnight events. No cardiac complaints. - Objective Vital Signs Temp Pulse Resp BP Pulse Ox 10/20/18 11:47 97.3 F L 96 18 139/61 98 10/20/18 10:36 90 16 98 10/20/18 08:00 97.7 F 85 20 129/61 98 10/20/18 06:42 95 10/20/18 06:35 79 16 94 L 10/20/18 04:05 96.7 F L 78 16 160/62 H 98 Admit Weight 192 lb 6.4 oz Weight 191 lb 14.4 oz 10/19/18 10/20/18 10/21/18 06:59 06:59 06:59 Intake Total 1830 1540 Output Total 300 Balance 1530 1540 - Physical Examination General/Neuro: alert & oriented x3 Neck: no JVD present Lungs: other: (diminnished at bases) Heart: RRR Abdomen: soft Extremities: other: - Telemetry Telemetry Rhythm: SR - Labs Result Diagrams: 10/19/18 04:58 10/19/18 04:58 - Assessment/Plan 1. C.Diff. on antibiotics. Abd. pain improved. 2. Afib for 20 mins and converted to NSR; cont. ASA 81mg qd; continue present meds. 3. CAD, s/p CABG- stable. No symptoms. 4. COPD 5. DM 6. diastolic dysfunction. Continue medical treatment with ARB's and diuretics. She is not on a betablocker due to her COPD. 7. [place];emia. 8. HTN: stable. 9. Hypercholesterolemia. 10. PVD: stable. No complaints . 11. s/p right leg fracture. Repaired but needs further surgery to remove screws and insert a plate or senthil. From a cardiac standpoint she remains stable. When cleared from GI she can return to rehab. pt. seen and eval by me i agree with the A/P by theNP. She can return to rehab. Continue ASA,Plavix. No other OAC neded.. Chest clear. RR. gjm Review of Systems - Review of Systems Constitutional: reports: no symptoms reported EENTM: reports: no symptoms reported Respiratory: reports: no symptoms reported Cardiac (ROS): reports: no symptoms reported ABD/GI: reports: no symptoms reported
[2018-10-20 15:17] VITALS: BP 145/62; TEMP 96.7
--- NOTE | 2018-10-21 03:55 | DIS ---
DATE OF ADMISSION: 10/16/2018 DATE OF DISCHARGE: 10/20/2018 PRIMARY CARE PROVIDER: Dr. Jason Avina. DISCHARGE DIAGNOSES: 1. Sepsis. 2. Clostridium difficile diarrhea. 3. New onset atrial fibrillation. 4. Hypokalemia. CONDITION OF PATIENT ON THE DAY OF DISCHARGE: Stable. I assessed Ms. Kirk on the day of discharge. She denies any chest pain or shortness of breath. Vital signs are stable. S1 and S2 are heard, regular. Lungs are clear to auscultation bilaterally. DISCHARGE MEDICATIONS: In addition to her pre-admission home medications as dictated on my history and physical note dated 10/16/2018, she is being discharged on: 1. Vancomycin 125 mg four times a day orally for 10 more days. 2. Metronidazole 500 mg intravenously every 8 hours for 10 more days. 3. Florastor 250 mg daily for 10 more days. 4. Her Tamiflu should be given for 2 more doses. 5. She has also been started on aspirin 81 mg daily. CONSULTATIONS DURING THIS HOSPITALIZATION: Gastroenterology, Dr. Crisostomo and Cardiology, Dr. Pat. HOSPITAL COURSE: Ms. Kirk is a pleasant 73-year-old lady, who was admitted to [facility] on 10/16/2018, for sepsis. She was found to have Clostridium difficile diarrhea. She was seen by Gastroenterology Service. She improved with enteral vancomycin and intravenous metronidazole. During this hospitalization, she also had new onset atrial fibrillation. She was seen by Cardiology Service. 2D echocardiogram showed left ventricular ejection fraction of 50% to 55%, and E/A flow reversal suggestive of diastolic dysfunction. She converted to normal sinus rhythm. She has been cleared for discharge by Cardiology Service. Many thanks for allowing me to participate in your patient's care. Please feel free to contact me with any questions or concerns. DISCHARGE DESTINATION: [facility], from where the patient was admitted to the hospital. TOTAL AMOUNT OF TIME SPENT COORDINATING THIS DISCHARGE: 33 minutes. Job ID: [id number]
== END 2018-10-20 17:53 | disposition swing bed (61) | DRG 872 ==
LOC: ERS 09:26 → ERHOLD 12:30 → 2NO 15:42
PROVIDERS: ADMIT Internal Medicine; ATTEND Internal Medicine
DX: A41.9 Sepsis, unspecified organism (principal); A04.72 Enterocolitis due to Clostridium difficile, not specified as recurrent; I13.0 Hypertensive heart and chronic kidney disease with heart failure and stage 1 through stage 4 chronic kidney disease, or unspecified chronic kidney disease; I50.22 Chronic systolic (congestive) heart failure; E87.6 Hypokalemia; E11.22 Type 2 diabetes mellitus with diabetic chronic kidney disease; N18.3 Chronic kidney disease, stage 3 (moderate); J44.9 Chronic obstructive pulmonary disease, unspecified; K21.9 Gastro-esophageal reflux disease without esophagitis; E78.5 Hyperlipidemia, unspecified; E03.9 Hypothyroidism, unspecified; I25.10 Atherosclerotic heart disease of native coronary artery without angina pectoris; I48.91 Unspecified atrial fibrillation; E11.51 Type 2 diabetes mellitus with diabetic peripheral angiopathy without gangrene; Z99.81 Dependence on supplemental oxygen; Z86.73 Personal history of transient ischemic attack (TIA), and cerebral infarction without residual deficits; Z88.5 Allergy status to narcotic agent; Z88.8 Allergy status to other drugs, medicaments and biological substances; Z79.02 Long term (current) use of antithrombotics/antiplatelets; Z79.82 Long term (current) use of aspirin; Z79.4 Long term (current) use of insulin; Z79.899 Other long term (current) drug therapy; Z87.891 Personal history of nicotine dependence; Z79.52 Long term (current) use of systemic steroids; Z95.1 Presence of aortocoronary bypass graft
CPT/HCPCS: 36415; 36416; 80048; 80053; 85025; 87324; 87449; 87493; 93005; 93010; 93306; 94640; 94664; J1650; J1825; J2543; J3370; J7050; J7620

== ENCOUNTER 2018-11-13 10:47 | Inpatient (IN) | payer MEDICARE, MEDICAID ==
[2018-11-13] MEDS ORDERED: Midazolam HCl 2 mg/2 ml Vial ONE (11:42)
[2018-11-13] MEDS ORDERED: Fentanyl 100 MCG/2 ML VIAL ONE ×2 (11:42)
[2018-11-13] MEDS ORDERED: Ketamine 50 MG/ML (10ML VIAL) ONE (11:56)
[2018-11-13] MEDS ORDERED: Ondansetron PF 4 MG/2 ML Vial IVP PRN (12:28)
[2018-11-13] MEDS ORDERED: traMADol HCl 50 MG TAB PO PRN ×2 (12:28)
[2018-11-13] MEDS ORDERED: Promethazine HCl 25 MG/ML VIAL IM PRN ×2 (12:28→15:11)
[2018-11-13] MEDS ORDERED: Zolpidem Tartrate 5 MG TAB PO PRN (12:28)
[2018-11-13] MEDS ORDERED: Ropivacaine 0.2% 550 ML 550 ML NERVE BLCK SCH (12:28)
[2018-11-13] MEDS ORDERED: Fentanyl 100 MCG/2 ML VIAL IV PRN (12:30)
[2018-11-13 12:41] LABS: #Basophils 0.1 thou/uL (0.0-0.2); #Eosinphils 0.2 thou/uL (0.0-0.7); #Lymphocytes 1.5 thou/uL (1.20-3.40); #Monocytes 0.9 thou/uL (0.11-0.59); #Neutrophils 9.3 thou/uL (1.40-6.50); %Basophils 0.6 % (0.0-1.0); %Eosinophils 1.7 % (0.0-10.0); %Lymphocytes 12.8 % (21.0-51.0); %Monocytes 7.1 % (0.0-10.0); %Neutrophils 77.8 % (42.0-75.0); Hemoglobin 8.9 g/dL (12.0-16.0); Mean Corpuscular HGB CONC 31.1 g/dL (32.0-36.0); Mean Corpuscular Hemoglobin 26.1 pg (27.0-31.0); Mean Corpuscular Volume 83.9 fL (78.0-98.0); Mean Platelet Volume 10.4 fL (7.4-10.4); Platelet Count 203 thou/uL (130-400); RBC Distribution Width 17.1 % (11.5-14.5); Red Blood Cell (RBC) Count 3.42 mill/uL (4.20-5.40); White Blood Cell (WBC) Count 11.9 thou/uL (4.8-10.8)
[2018-11-13 12:47] LABS: INR-International Normal Ratio 1.2; PTT 37.6 SEC (22.9-36.1); Prothrombin Time 15.1 SEC (12.0-14.7)
[2018-11-13] MEDS ORDERED: TETANUS AND DIPHTHERIA TOX/PF 0.5 ML DISP.SYRIN IM SCH (14:15)
[2018-11-13] MEDS ORDERED: RENALLY ADJUST ABX FS SCH (14:15)
[2018-11-13] MEDS ORDERED: Ropivacaine 0.2% HCl/PF (40 MG/20 ML VIAL) ONE (15:06)
[2018-11-13] MEDS ORDERED: Ropivacaine 0.5% HCl/PF (150 MG/30 ML VIAL) ONE (15:06)
[2018-11-13] MEDS ORDERED: Ondansetron HCl/PF 4 MG/2 ML Vial IVP PRN (15:11)
[2018-11-13] MEDS ORDERED: Promethazine HCl 25 MG/ML VIAL SLOW IVP PRN (15:11)
--- NOTE | 2018-11-13 16:56 | RAD ---
FIntraoperative fluoroscopic views, right knee, 3 view series CLINICAL HISTORY: Hardware removal, ORIF right tibial plateau FINDINGS: Plate and screw traverse fracture site of the proximal right tibia. There is a fracture of the adjacent proximal fibula. IMPRESSION: Intraoperative fluoroscopic imaging of the right knee.
[2018-11-13 17:25] VITALS: BMI 27.8
[2018-11-13] MEDS: Ibuprofen 600 MG TAB PO PRN (19:00)
[2018-11-13] MEDS ORDERED: Dextrose 50% Abboject 50 ML SYRINGE SLOW IVP PRN (19:31)
[2018-11-13] MEDS ORDERED: Dextrose 5% in Water 1,000 ML IV PRN (19:31)
--- NOTE | 2018-11-13 20:44 | PDOC.EVN ---
Event Note - Event Note Event Note: Will need to clarify if patient is taking Eliquis, and or Plavix. She did not know for sure.
[2018-11-13] MEDS ORDERED: Aspirin 81 mg Enteric Coated Tablet PO SCH (21:00)
[2018-11-13] MEDS: Acetaminophen 325 MG TAB PO PRN (21:22)
[2018-11-13] MEDS: Ferrous Sulfate 325 MG TAB PO SCH (21:22)
[2018-11-13] MEDS: Atorvastatin Calcium 10 MG TAB PO SCH (21:22)
[2018-11-13] MEDS: Insulin Glargine 32 UNITS in Pre-Filled Syringe 1 EACH SC SCH (21:22)
[2018-11-13] MEDS: Pregabalin 75 MG CAP PO SCH (21:23)
[2018-11-13] MEDS: CEFAZOLIN 2 GM in Premix Bag 1 BAG IVPB SCH (21:24)
[2018-11-13] MEDS: Mirtazapine 30 MG TAB PO SCH (21:31)
[2018-11-13] MEDS ORDERED: Ketorolac Tromethamine 10 MG TAB PO SCH (23:45)
[2018-11-14] MEDS: Ibuprofen 600 MG TAB PO PRN ×2 (01:32→19:01)
--- NOTE | 2018-11-14 01:45 | CON ---
DATE OF CONSULTATION: PRIMARY CARE PHYSICIAN: Dr. Avina. REASON FOR ADMISSION: Removal of hardware from a right total knee replacement. REASON FOR CONSULTATION: For the aid in medical management. HISTORY OF PRESENT ILLNESS: Ms. Pilar Kirk is a pleasant 73-year-old female, who recently underwent a right total knee replacement. She was transferred to the [facility] facility for rehabilitation. She developed a foot drop and was transferred back here for revision of the surgery and removal of hardware. She is currently postop. When I come to see her, her main concern is some pain in her right knee, but otherwise no other complaints. She denies feeling dizzy or lightheaded. She denies any nausea, no vomiting. She denies chest pain or shortness of breath. REVIEW OF SYSTEMS: All systems were reviewed and are negative except for that mentioned in the history of present illness. PAST MEDICAL HISTORY: Significant for gastroesophageal reflux disease, COPD, hyperlipidemia, coronary artery disease, hypothyroidism, diabetes mellitus type 2, transient ischemic attack in the past, spinal stenosis, anxiety, insomnia, peripheral vascular disease, congestive heart failure, both systolic and diastolic and atrial fibrillation on chronic anticoagulation. PAST SURGICAL HISTORY: She has had an appendectomy, coronary artery bypass grafting, cholecystectomy, hernia repair, hysterectomy, tonsillectomy, right tibial fracture repair. ALLERGIES: INCLUDE CODEINE, BEE VENOM, GABAPENTIN, HYDROCODONE, MORPHINE, IODINE AND ADHESIVE TAPE. FAMILY HISTORY: Significant for COPD, hypertension, diabetes mellitus, and coronary artery disease. CURRENT MEDICATIONS: Include: 1. Protonix 40 mg daily. 2. Cozaar 25 mg daily. 3. Lasix 40 mg daily. 4. Estrace 0.5 mg daily. 5. Cymbalta 60 mg daily. 6. Cardizem CD 120 mg daily. 7. Astelin 30 mL twice daily. 8. Aspirin 81 mg daily. 9. Trazodone 200 mg at bedtime. 10. Ranitidine 150 mg daily. 11. Lyrica 300 mg twice daily. 12. Pravastatin 40 mg at bedtime. 13. Nystatin topical. 14. Nitroglycerin 0.4 sublingual p.r.n. 15. Remeron 30 mg at bedtime. 16. Meloxicam 50 mg daily. 17. Zyrtec 10 mg at bedtime. 18. Lantus insulin 32 units twice daily. 19. Breo Ellipta 1 inhalation daily. 20. Hydrocortisone p.r.n. 21. Vitamin B12 1000 mcg daily. 22. Plavix 75 mg daily. 23. Ventolin nebulizers t.i.d. PHYSICAL EXAMINATION: GENERAL: She is alert and oriented. She appears to be in no acute distress. She is well developed and well nourished. VITAL SIGNS: Her blood pressure was 106/59, heart rate 115, respiratory rate of 18, temperature is 98. HEENT: Pupils are equal, round, and reactive. Extraocular muscles are intact. Her sclerae anicteric. Throat; there is no erythema, no exudates. NECK: No adenopathy, no bruits. LUNGS: She has some bilateral wheezing and rhonchi. There are no rales at the bases. CARDIOVASCULAR: She had a normal S1, S2. There was no S3 or S4. No murmurs, clicks or rubs. ABDOMEN: Obese. It is soft. It is nontender and nondistended. Positive for bowel sounds. No rebound or guarding. EXTREMITIES: On her extremities, she has no edema. However, her right leg is bandaged. NEUROLOGIC: Grossly nonfocal. LABORATORY DATA: Her white blood cell count is 11.9, hemoglobin 8.9, hematocrit is 28.7, and platelet count is 203. INR is 1.2. She had lab work done on November 11, which was reviewed. ASSESSMENT: This is a pleasant 73-year-old female, who is status post revision of a right total knee replacement with removal of hardware. She is currently postoperative and is clinically stable. We will be happy to follow along with you with regard to her current medical condition, all of which appear to be stable. With regard to her coronary artery disease, we will continue her usual home medications. 1. Chronic systolic and diastolic heart failure, this appears to be compensated. 2. Diabetes mellitus. She will be placed on a sliding scale insulin for now and can restart her usual dose of insulin tomorrow, if she is tolerating p.o. well. 3. Chronic atrial fibrillation. Her heart rate is stable. Continue Cardizem and it appears as if she was on aspirin and Plavix. It is seen recently in a note by Dr. Pat that due to her high risk of fall, she was not on anticoagulation and these can be restarted at the discretion of orthopedic surgery. 4. Hypothyroidism. She appears to be clinically euthyroid and will continue her usual medication for thyroid. 5. Chronic obstructive pulmonary disease. We will continue her usual inhaler and have DuoNeb available. Job ID: [id number]
[2018-11-14] MEDS: CEFAZOLIN 2 GM in Premix Bag 1 BAG IVPB SCH ×3 (04:10→21:52)
[2018-11-14] MEDS: HumaLOG 300 UNITS/3 ML VIAL SC PRN ×2 (05:37→12:59)
[2018-11-14] MEDS: Mometasone/Formoterol 120 PUFF INHALER INH SCH ×2 (06:59→18:11)
[2018-11-14 07:14] LABS: #Basophils 0.1 thou/uL (0.0-0.2); #Eosinphils 0.3 thou/uL (0.0-0.7); #Lymphocytes 1.2 thou/uL (1.20-3.40); #Monocytes 1.1 thou/uL (0.11-0.59); #Neutrophils 8.3 thou/uL (1.40-6.50); %Basophils 0.6 % (0.0-1.0); %Eosinophils 2.3 % (0.0-10.0); %Lymphocytes 10.5 % (21.0-51.0); %Monocytes 10.4 % (0.0-10.0); %Neutrophils 76.2 % (42.0-75.0); Hemoglobin 8.3 g/dL (12.0-16.0); Mean Corpuscular HGB CONC 31.4 g/dL (32.0-36.0); Mean Corpuscular Hemoglobin 26.1 pg (27.0-31.0); Mean Corpuscular Volume 83.3 fL (78.0-98.0); Mean Platelet Volume 10.6 fL (7.4-10.4); Platelet Count 183 thou/uL (130-400); Red Blood Cell (RBC) Count 3.19 mill/uL (4.20-5.40); White Blood Cell (WBC) Count 10.9 thou/uL (4.8-10.8)
[2018-11-14] MEDS ORDERED: Losartan 25 MG TAB PO SCH (09:00)
[2018-11-14] MEDS ORDERED: Non-Formulary Item 1 EACH (Insulin Glargine,Hum.Rec.Anlog [Lantus Solostar] 32 UNIT) SC SCH (09:00)
[2018-11-14] MEDS: Pregabalin 75 MG CAP PO SCH ×2 (10:15→20:08)
[2018-11-14] MEDS: Aspirin 81 mg Enteric Coated Tablet PO SCH (10:16)
[2018-11-14] MEDS: Saccharomyces boulardii 250 MG CAP PO SCH (10:17)
[2018-11-14] MEDS: Docusate 100 MG CAP PO SCH (10:18)
[2018-11-14] MEDS: DULoxetine 60 MG CAP PO SCH (10:18)
[2018-11-14] MEDS: Estradiol 1 MG TAB PO SCH (10:18)
[2018-11-14] MEDS: Ferrous Sulfate 325 MG TAB PO SCH ×2 (10:18→20:08)
[2018-11-14] MEDS: Insulin Glargine 32 UNITS in Pre-Filled Syringe 1 EACH SC SCH ×2 (10:19→20:22)
[2018-11-14] MEDS: Polyethylene Glycol 3350 17 GM Packet PO SCH (10:20)
[2018-11-14] MEDS: guaiFENesin ER 600 MG TAB PO SCH ×2 (10:23→20:08)
[2018-11-14] MEDS: Acetaminophen 325 MG TAB PO PRN ×2 (13:04→23:04)
[2018-11-14 16:42] LABS: Hemoglobin 7.6 g/dL (12.0-16.0)
[2018-11-14 16:59] LABS: Anion Gap 11 mmol/L (10-20); BUN (Urea Nitrogen) 14 mg/dL (9.8-20.1); Calc. Creatinine Clearance 65 mL/min (70-130); Calcium 7.9 mg/dL (7.8-10.44); Carbon Dioxide 30 mmol/L (23-31); Chloride 100 mmol/L (98-107); Estimated GFR-MDRD 60; Glucose 138 mg/dL (83-110); Magnesium 1.2 mg/dL (1.6-2.6); Potassium 3.4 mmol/L (3.5-5.1); Sodium 138 mmol/L (136-145)
[2018-11-14] MEDS ORDERED: Magnesium Sulfate 4 GM in Sodium Chloride 0.9% 250 ML 250 ML IVPB SCH (17:15)
[2018-11-14] MEDS: Atorvastatin Calcium 10 MG TAB PO SCH (20:09)
[2018-11-14] MEDS: Mirtazapine 30 MG TAB PO SCH (20:09)
--- NOTE | 2018-11-14 22:46 | PDOC.PN ---
- Subjective Encounter Start Date: 11/14/18 Encounter Start Time: 09:15 Patient seen and examined for med mngt. No CP/SOB. Pain controlled. No new complaints. No overnight events - Objective Resuscitation Status - Order Detail: 11/13/18 16:47 Resuscitation Status Routine Co-Sign Provider: Resuscitation Status: DNAR: NO Resuscitation Discussed with: Discussed with Pt and Family and Pt wishes to be a DNAR MAR Reviewed: Yes Vital Signs & Weight: Vital Signs (12 hours) Temp Pulse Pulse Resp BP BP BP 11/14/18 21:32 98.6 F 95 20 97/61 11/14/18 20:00 98.5 F 102 H 20 11/14/18 18:12 97 18 11/14/18 18:11 97 18 11/14/18 17:52 97.9 F 101 H 18 77/50 L 11/14/18 17:10 99 78/47 L 11/14/18 16:57 101 H 71/42 L 11/14/18 16:23 72 86/53 L 11/14/18 16:00 98.5 F 108 H 20 76/43 L 11/14/18 15:45 111 H 18 72/42 L 11/14/18 14:42 112 H 16 11/14/18 14:19 11/14/18 11:41 97.9 F 124 H 20 99/58 L 11/14/18 10:48 96 16 Pulse Ox Pulse Ox 11/14/18 21:32 95 11/14/18 20:00 97 11/14/18 18:12 98 11/14/18 18:11 98 11/14/18 17:52 97 11/14/18 17:10 11/14/18 16:57 11/14/18 16:23 11/14/18 16:00 94 L 11/14/18 15:45 98 11/14/18 14:42 11/14/18 14:19 95 11/14/18 11:41 92 L 11/14/18 10:48 Weight Weight 162 lb I&O: 11/13/18 11/14/18 11/15/18 06:59 06:59 06:59 Intake Total 925 1070 Balance 925 1070 Result Diagrams: 11/15/18 05:50 11/14/18 16:35 Additional Labs: Accuchecks 11/14/18 11/14/18 11/14/18 20:27 15:33 11:12 POC Glucose 127 H 189 H 168 H 11/14/18 11/13/18 05:32 12:38 POC Glucose 171 H 130 H Phys Exam - Physical Examination Constitutional: NAD Respiratory: no wheezing, no rhonchi Cardiovascular: RRR, no rub Gastrointestinal: soft, non-tender, positive bowel sounds Musculoskeletal: no edema Dx/Plan - Plan DVT proph w/SCDs 1. GERD 2. Hypokalemia/Hypoamagnesemia 3. CAD s/p CABG 4. DM2 5. Hypothyroidism 6. Chronic Afib 7. Chronic diastolic HF 8. Recent C diff colitis 9. CKD 3 10. COPD/Chronic resp failure on home O2 PLAN: Cont supportive care Cont sliding scale with Lantus - Will consider reducing Lantus dose if poor appetite Eliquis dced on 11/[address] Avina's note Cont ASA Hold Losartan due to BP on lower side Replace electrolytes AM labs Review of Systems - Medications/Allergies Allergies/Adverse Reactions: Allergies Allergy/AdvReac Type Severity Reaction Status Date / Time adhesive tape Allergy Verified 08/24/18 21:29 codeine Allergy Verified 08/24/18 21:29 gabapentin Allergy Verified 08/24/18 21:29 hydrocodone Allergy Verified 08/24/18 21:29 iodine Allergy Verified 08/24/18 21:29 morphine Allergy Verified 08/24/18 21:29 venom-honey bee Allergy Verified 08/24/18 21:29 [bee venom (honey bee)] Medications: Current Medications Acetaminophen (Tylenol) 650 mg PO Q6H PRN PRN Reason: Headache/Fever or Pain Last Admin: 11/14/18 13:04 Dose: 650 mg Albuterol/Ipratropium (Duoneb) 3 ml NEB [id number] PRN PRN Reason: SOB &/or Wheezing Last Admin: 11/14/18 03:29 Dose: 3 ml Albuterol/Ipratropium (Duoneb) 3 ml NEB QID-RT KRISTIE Last Admin: 11/14/18 18:12 Dose: 3 ml Aspirin (Ecotrin) 81 mg PO DAILY KRISTIE Last Admin: 11/14/18 10:16 Dose: 81 mg Atorvastatin Calcium (Lipitor) 10 mg PO HS KRISTIE Last Admin: 11/14/18 20:09 Dose: 10 mg Dextrose/Water (Dextrose 50%) 25 gm SLOW IVP PRN PRN PRN Reason: Hypoglycemia Diltiazem HCl (Cardizem Cd) 120 mg PO DAILY [facility] Last Admin: 11/14/18 10:18 Dose: 120 mg Docusate Sodium (Colace) 100 mg PO DAILY [facility] Last Admin: 11/14/18 10:18 Dose: 100 mg Duloxetine HCl (Cymbalta) 60 mg PO DAILY [facility] Last Admin: 11/14/18 10:18 Dose: 60 mg Estradiol (Estrace) 0.5 mg PO DAILY [facility] Last Admin: 11/14/18 10:18 Dose: 0.5 mg Fentanyl (Sublimaze) 50 mcg IV Q1H PRN PRN Reason: BREAKTHRU PAIN Ferrous Sulfate (Feosol) 325 mg PO BID [facility] Last Admin: 11/14/18 20:08 Dose: 325 mg Glucagon (Glucagon) 1 mg IM PRN PRN PRN Reason: Hypoglycemia Guaifenesin (Mucinex) 600 mg PO Q12HR [facility] Last Admin: 11/14/18 20:08 Dose: 600 mg Ropivacaine (Ropivacaine 0.2% 550 Ml) 550 mls @ 0 mls/hr NERVE BLCK INF [facility] Cefazolin Sodium/Dextrose 2 gm (/ Device) 50 mls @ 100 mls/hr IVPB 0500,1300, 2100 [facility] Stop: 11/15/18 21:01 Last Admin: 11/14/18 21:52 Dose: 50 mls Dextrose/Water (D5w) 1,000 mls @ 0 mls/hr IV .Q0M PRN PRN Reason: Hypoglycemia Insulin Glargine 32 units/ (Miscellaneous Medication) 0.32 mls @ 0 mls/hr SC BID [facility] Last Admin: 11/14/18 20:22 Dose: 0.32 mls Ibuprofen (Motrin) 600 mg PO Q6H PRN PRN Reason: Mild Pain (1-3) Last Admin: 11/14/18 19:01 Dose: 600 mg Insulin Human Lispro (Humalog) 0 units SC .MODERATE SLIDING SC PRN PRN Reason: Moderate Correctional Scale Last Admin: 11/14/18 12:59 Dose: 2 unit Insulin Human Lispro (Humalog) 0 units SC .BEDTIME SLIDING SC PRN PRN Reason: Bedtime Correctional Scale Mirtazapine (Remeron) 30 mg PO [facility] Last Admin: 11/14/18 20:09 Dose: 30 mg Miscellaneous Information (Communication Order-Pharmacy) 1 each FS ONE [facility] Stop: 11/20/18 14:16 Mometasone Furoate/Formoterol Fumar (Dulera 200 Mcg/5 Mcg Inhaler) 2 puff INH BID-RT [facility] Last Admin: 11/14/18 18:11 Dose: 2 puff Ondansetron HCl (Zofran) 4 mg IVP Q6H PRN PRN Reason: Nausea/Vomiting Polyethylene Glycol (Miralax) 17 gm PO DAILY [facility] Last Admin: 11/14/18 10:20 Dose: Not Given Pregabalin (Lyrica) 300 mg PO BID [facility] Last Admin: 11/14/18 20:08 Dose: 300 mg Promethazine HCl (Phenergan) 12.5 mg IM Q4H PRN PRN Reason: Nausea Saccharomyces Boulardii (Florastor) 250 mg PO DAILY [facility] Last Admin: 11/14/18 10:17 Dose: 250 mg Sodium Chloride (Flush - Normal Saline) 10 ml IVF PRN PRN PRN Reason: Saline Flush Tramadol HCl (Ultram) 50 mg PO Q6H PRN PRN Reason: Mild Pain (1-3) Tramadol HCl (Ultram) 100 mg PO Q6H PRN PRN Reason: Moderate Pain 4-6 Trazodone HCl (Desyrel) 200 mg PO [facility] Last Admin: 11/14/18 20:09 Dose: Not Given Zolpidem Tartrate (Ambien) 5 mg PO HSPRN PRN PRN Reason: Insomnia Last Admin: 11/13/18 21:34 Dose: 5 mg
[2018-11-15] MEDS: CEFAZOLIN 2 GM in Premix Bag 1 BAG IVPB SCH ×3 (04:06→20:01)
[2018-11-15 06:15] LABS: Hemoglobin 9.2 g/dL (12.0-16.0); Platelet Count 193 thou/uL (130-400)
[2018-11-15] MEDS: Ibuprofen 600 MG TAB PO PRN ×2 (06:17→20:00)
[2018-11-15] MEDS: Mometasone/Formoterol 120 PUFF INHALER INH SCH ×2 (06:33→18:54)
[2018-11-15 06:36] LABS: Anion Gap 9 mmol/L (10-20); BUN (Urea Nitrogen) 16 mg/dL (9.8-20.1); Calc. Creatinine Clearance 67 mL/min (70-130); Calcium 8.1 mg/dL (7.8-10.44); Carbon Dioxide 30 mmol/L (23-31); Chloride 102 mmol/L (98-107); Estimated GFR-MDRD 63; Magnesium 2.3 mg/dL (1.6-2.6); Potassium 3.3 mmol/L (3.5-5.1); Sodium 138 mmol/L (136-145)
[2018-11-15 06:40] LABS: Glucose 58 mg/dL (83-110)
--- NOTE | 2018-11-15 09:35 | OP ---
DATE OF PROCEDURE: 11/13/2018 PREOPERATIVE DIAGNOSIS: Right tibial plateau delayed union. POSTOPERATIVE DIAGNOSIS: Right tibial plateau delayed union. PROCEDURES PERFORMED: 1. Open reduction and internal fixation, right tibial plateau. 2. Removal of cannulated screws, right tibial plateau. ANESTHESIA: General. RAFTER CUTTING MACHINE OPERATOR: Kilo. TOURNIQUET TIME: 72 minutes at 250 mmHg. ESTIMATED BLOOD LOSS: 50 mL. IMPLANTS: 1. Synthes 4.5 mm proximal lateral tibial plateau plate, 8-hole. 2. Infuse bone morphogenic protein. COMPLICATIONS: None. DRAINS: None. SPECIMEN: Explanted cannulated screws discarded. OUTCOME: Satisfactory. INDICATIONS FOR PROCEDURE: Ms. Kirk is a pleasant 73-year-old lady with severe COPD. She sustained a bicondylar tibial plateau fracture approximately 2 to 3 months ago. However, due to her severe underlying pulmonary disease, it was felt that she was on unacceptable risk for general anesthetic. At that time, we instead proceeded with an intravenous sedation and percutaneous cannulated screw stabilization of the bicondylar split and opted to treat the metaphyseal portion of the fracture nonsurgically. Unfortunately, she has not tolerated nonsurgical treatment of this metaphyseal fragment. During the course of her early recovery, either from excessive motion of the fracture, perhaps an excessively tight brace, she developed a peroneal nerve palsy. The patient still has an unstable fracture and after careful discussion and consideration with the patient, we have now decided to attempt a spinal anesthetic for revision to a plate in hopes of stabilizing the fracture and promoting bony union. I have had a lengthy discussion with the patient on multiple occasions regarding the risks, which include, but are not limited to bleeding, infection, continued nerve injury, DVT, PE, pulmonary complications from surgery, inability to complete the procedure, if the spinal does not provide adequate pain relief, continued malunion, and nonunion. The patient does understand. I believe she is able to give a very informed consent regarding the surgery. DESCRIPTION OF PROCEDURE: The patient was brought to the operating room and a time-out performed followed by spinal anesthetic and the patient also had a peripheral nerve block performed as well. Next, the patient was positioned supine on the OR table and a sterile prep and drape was performed of the right lower extremity. A curvilinear incision was made following the lateral crest of the tibia and then curving along the joint surface laterally. After skin was sharply incised, dissection was carried down to the underlying fascia of the anterior compartment. This fascia was incised just off the crest of the tibia and then the muscle belly reflected posteriorly gaining access to the lateral aspect of the tibia and the lateral tibial flare. At this point, the fracture could be visualized and there was clear nonunion present at the fracture site. Some of the callus was debrided with a rongeur. Next, the two cannulated screws that had been placed previously were removed without difficulty along with their washers. At this point, AP, lateral C-arm imaging was performed, and the fracture was felt to be acceptably aligned. As such, an 8-hole 4.5 mm proximal lateral plateau plate was applied to the lateral cortex of the tibia and had a good fit. This was held provisionally with a cortical screw in the longitudinal shaft of the plate and then a total of three locking screws were placed across the plateau. Additional locking screws were then placed distally. Once the plate was securely fixed, some gaps in the fracture were exploited and the bone morphogenic protein pads were rolled over some cancellous bone and then packed in these voids in hopes of promoting union. Once performed, closure was then performed using 0 Vicryl for the fascia of the anterior compartment, followed by 2-0 Vicryl and then berenice for the skin. Xeroform gauze, Webril, and North wrap dressing was then applied to the leg. Tourniquet was let down and then the patient was transferred to recovery room in stable condition. There were no complications. The patient tolerated the procedure well. Job ID: [id number]
[2018-11-15] MEDS: Pregabalin 75 MG CAP PO SCH ×2 (09:48→20:00)
[2018-11-15] MEDS: Acetaminophen 325 MG TAB PO PRN ×2 (09:51→15:21)
[2018-11-15] MEDS: Ferrous Sulfate 325 MG TAB PO SCH ×2 (09:51→20:01)
[2018-11-15] MEDS: guaiFENesin ER 600 MG TAB PO SCH ×2 (09:51→20:01)
[2018-11-15] MEDS: Docusate 100 MG CAP PO SCH (09:51)
[2018-11-15] MEDS: Estradiol 1 MG TAB PO SCH (09:52)
[2018-11-15] MEDS: Aspirin 81 mg Enteric Coated Tablet PO SCH (09:52)
[2018-11-15] MEDS: DULoxetine 60 MG CAP PO SCH (09:52)
[2018-11-15] MEDS: Polyethylene Glycol 3350 17 GM Packet PO SCH (09:53)
[2018-11-15] MEDS: Saccharomyces boulardii 250 MG CAP PO SCH (09:53)
[2018-11-15] MEDS: Insulin Glargine 10 UNITS in Pre-Filled Syringe 1 EACH SC SCH ×2 (10:02→20:01)
[2018-11-15] MEDS ORDERED: Furosemide 40 MG TAB PO SCH (18:30)
--- NOTE | 2018-11-15 18:38 | PDOC.PN ---
- Subjective Encounter Start Date: 11/15/18 Encounter Start Time: 18:00 Follow up medical management s/p removal cannulated screws and subsequent ORIF right tibial plateau. Much better today after transfusion. BP still trending on lower side, losartan and cardizem from home on hold. She "feels puffy" and requests resuming her home lasix. Potassium noted, mildly low, discussed with patient. Breathing "ok ". No N/V, pain controlled on alternating tylenol and ibuprofen, no key. - Objective Resuscitation Status - Order Detail: 11/13/18 16:47 Resuscitation Status Routine Co-Sign Provider: Resuscitation Status: DNAR: NO Resuscitation Discussed with: Discussed with Pt and Family and Pt wishes to be a DNAR Vital Signs & Weight: Vital Signs (12 hours) Temp Pulse Pulse Resp BP BP Pulse Ox 11/15/18 16:00 98.5 F 96 18 100/61 98 11/15/18 13:41 102 H 20 98 11/15/18 12:00 97.5 F L 85 18 107/65 97 11/15/18 10:23 94 107/62 11/15/18 09:47 88 101/64 11/15/18 08:00 98.1 F 87 20 96/46 L 97 Pulse Ox Pulse Ox 11/15/18 16:00 11/15/18 13:41 11/15/18 12:00 11/15/18 10:23 98 94 L 11/15/18 09:47 11/15/18 08:00 Weight Weight 162 lb I&O: 11/14/18 11/15/18 11/16/18 06:59 06:59 06:59 Intake Total 925 1970 Balance 925 1970 Result Diagrams: 11/15/18 05:50 11/15/18 05:50 Additional Labs: Accuchecks 11/15/18 11/15/18 11/15/18 17:23 10:51 06:16 POC Glucose 129 H 139 H 87 11/15/18 11/14/18 05:51 20:27 POC Glucose 62 L 127 H Phys Exam - Physical Examination Constitutional: NAD Pleasant, resting in bed HEENT: PERRLA, moist MMs Neck: no JVD, supple Respiratory: clear to auscultation bilateral Distant BS, no distinct wheeze or rhonchi presently Fairly regular Gastrointestinal: soft, non-tender Edema RLL (surgical site), mild edema hands bilaterally Neurological: non-focal, moves all 4 limbs Psychiatric: normal affect, A&O x 3 Skin: no rash Dx/Plan (1) Atrial fibrillation Code(s): I48.91 - UNSPECIFIED ATRIAL FIBRILLATION Status: Chronic Comment: Resume Eliquis when ok with surgery team (2) Hypothyroid Code(s): E03.9 - HYPOTHYROIDISM, UNSPECIFIED Status: Chronic (3) Acute blood loss anemia Code(s): D62 - ACUTE POSTHEMORRHAGIC ANEMIA Status: Acute Comment: Improved , ordered AM lab (4) Chronic diastolic CHF (congestive heart failure) Code(s): I50.32 - CHRONIC DIASTOLIC (CONGESTIVE) HEART FAILURE Status: Chronic (5) Dyslipidemia Code(s): E78.5 - HYPERLIPIDEMIA, UNSPECIFIED Status: Chronic Comment: Statin (6) CKD stage 3 due to type 2 diabetes mellitus Code(s): E11.22 - TYPE 2 DIABETES MELLITUS W DIABETIC CHRONIC KIDNEY DISEASE; N18.3 - CHRONIC KIDNEY DISEASE, STAGE 3 (MODERATE) Status: Acute (7) Clostridium difficile colitis Status: Acute Comment: Recently early October 2018, not active issue (8) CAD (coronary artery disease) Code(s): I25.10 - ATHSCL HEART DISEASE OF [place] CORONARY ARTERY W/O ANG PCTRS Status: Chronic Comment: Continue ASA (9) COPD (chronic obstructive pulmonary disease) Status: Chronic Comment: Continue dulera, oxygen (is on home oxygen), nebs (10) DM type 2 (diabetes mellitus, type 2) Status: Chronic Comment: Controlled (11) GERD (gastroesophageal reflux disease) Code(s): K21.9 - GASTRO-ESOPHAGEAL REFLUX DISEASE WITHOUT ESOPHAGITIS Status: Chronic Comment: stable (12) Hypokalemia Code(s): E87.6 - HYPOKALEMIA Status: Resolved Comment: Replete - Plan * See above * Losartan and Cardizem on hold, BP low normal * Resumed home lasix and potassium, check AM BMP * Continue iron for postop anemia. Received 2 units prbcs 11/15/18 *
[2018-11-15] MEDS: Mirtazapine 30 MG TAB PO SCH (20:01)
[2018-11-15] MEDS: Atorvastatin Calcium 10 MG TAB PO SCH (20:01)
[2018-11-15] MEDS: HumaLOG 300 UNITS/3 ML VIAL SC PRN (20:08)
[2018-11-16 04:53] LABS: #Eosinphils 0.3 thou/uL (0.0-0.7); #Lymphocytes 0.9 thou/uL (1.20-3.40); #Monocytes 0.7 thou/uL (0.11-0.59); #Neutrophils 6.8 thou/uL (1.40-6.50); %Basophils 0.5 % (0.0-1.0); %Eosinophils 3.3 % (0.0-10.0); %Lymphocytes 10.1 % (21.0-51.0); %Monocytes 8.3 % (0.0-10.0); %Neutrophils 77.8 % (42.0-75.0); Hemoglobin 8.6 g/dL (12.0-16.0); Mean Corpuscular Hemoglobin 26.2 pg (27.0-31.0); Mean Corpuscular Volume 84.4 fL (78.0-98.0); Mean Platelet Volume 9.6 fL (7.4-10.4); Platelet Count 183 thou/uL (130-400); RBC Distribution Width 16.2 % (11.5-14.5); Red Blood Cell (RBC) Count 3.27 mill/uL (4.20-5.40); White Blood Cell (WBC) Count 8.7 thou/uL (4.8-10.8)
[2018-11-16 05:17] LABS: Anion Gap 11 mmol/L (10-20); BUN (Urea Nitrogen) 16 mg/dL (9.8-20.1); Calc. Creatinine Clearance 70 mL/min (70-130); Calcium 8.1 mg/dL (7.8-10.44); Carbon Dioxide 32 mmol/L (23-31); Chloride 102 mmol/L (98-107); Estimated GFR-MDRD 65; Glucose 75 mg/dL (83-110); Sodium 142 mmol/L (136-145)
[2018-11-16] MEDS: Mometasone/Formoterol 120 PUFF INHALER INH SCH ×2 (06:19→18:45)
[2018-11-16] MEDS: Pregabalin 75 MG CAP PO SCH ×2 (08:47→21:09)
[2018-11-16] MEDS: Saccharomyces boulardii 250 MG CAP PO SCH (08:47)
[2018-11-16] MEDS: Estradiol 1 MG TAB PO SCH (08:48)
[2018-11-16] MEDS: Ferrous Sulfate 325 MG TAB PO SCH ×2 (08:48→21:10)
[2018-11-16] MEDS: Aspirin 81 mg Enteric Coated Tablet PO SCH (08:48)
[2018-11-16] MEDS: Docusate 100 MG CAP PO SCH (08:48)
[2018-11-16] MEDS: DULoxetine 60 MG CAP PO SCH (08:48)
[2018-11-16] MEDS: Insulin Glargine 10 UNITS in Pre-Filled Syringe 1 EACH SC SCH ×2 (08:49→21:10)
[2018-11-16] MEDS: Polyethylene Glycol 3350 17 GM Packet PO SCH (08:49)
[2018-11-16] MEDS: Potassium Chloride 20 MEQ TAB PO SCH ×2 (08:49→17:11)
[2018-11-16] MEDS: guaiFENesin ER 600 MG TAB PO SCH ×2 (08:49→21:10)
[2018-11-16] MEDS: Furosemide 20 MG TAB PO SCH ×2 (08:49→14:08)
[2018-11-16] MEDS: Acetaminophen 325 MG TAB PO PRN (11:10)
[2018-11-16] MEDS: HumaLOG 300 UNITS/3 ML VIAL SC PRN ×2 (12:44→17:11)
[2018-11-16] MEDS: Atorvastatin Calcium 10 MG TAB PO SCH (21:10)
[2018-11-16] MEDS: Mirtazapine 30 MG TAB PO SCH (21:10)
--- NOTE | 2018-11-16 22:04 | PDOC.PN ---
- Subjective Encounter Start Date: 11/16/18 Encounter Start Time: 09:30 Patient seen and examined for med mngt. No CP. No new complaints. No overnight events - Objective Resuscitation Status - Order Detail: 11/13/18 16:47 Resuscitation Status Routine Co-Sign Provider: Resuscitation Status: DNAR: NO Resuscitation Discussed with: Discussed with Pt and Family and Pt wishes to be a DNAR MAR Reviewed: Yes Vital Signs & Weight: Vital Signs (12 hours) Temp Pulse Resp BP Pulse Ox 11/16/18 20:00 98.8 F 101 H 20 105/63 97 11/16/18 18:43 97 16 98 11/16/18 15:30 98.6 F 97 18 131/64 99 11/16/18 14:09 107 H 20 96 11/16/18 11:30 97.1 F L 109 H 16 108/66 97 11/16/18 10:24 112 H 20 96 Weight Weight 162 lb I&O: 11/15/18 11/16/18 11/17/18 06:59 06:59 06:59 Intake Total 1970 Balance 1970 Result Diagrams: 11/17/18 06:14 11/17/18 06:14 Additional Labs: Accuchecks 11/16/18 11/16/18 11/16/18 21:13 15:57 10:38 POC Glucose 92 234 H 236 H 11/16/18 05:31 POC Glucose 72 Phys Exam - Physical Examination Constitutional: NAD Respiratory: no wheezing, no rhonchi Cardiovascular: RRR, no rub Gastrointestinal: soft, non-tender, positive bowel sounds Musculoskeletal: no edema Neurological: moves all 4 limbs Dx/Plan - Plan DVT proph w/SCDs 1. GERD 2. Hypokalemia/Hypoamagnesemia 3. CAD s/p CABG 4. DM2 5. Hypothyroidism 6. Chronic Afib 7. Chronic diastolic HF 8. Recent C diff colitis 9. CKD 3 10. COPD/Chronic resp failure on home O2 11. Anemia - prob due to surgical blood loss s/p PRBC PLAN: Reduce Insulin to daily AM labs Restart Cardizem at 30 mg ACHS Cont PO Lasix Cont other meds as below Review of Systems - Review of Systems Respiratory: negative: Cough, Dry, Shortness of Breath, Hemoptysis, SOB with Excertion, Pleuritic Pain, Sputum, Wheezing Cardiovascular: negative: chest pain, palpitations, orthopnea, paroxysmal nocturnal dyspnea, edema, light headedness, other - Medications/Allergies Allergies/Adverse Reactions: Allergies Allergy/AdvReac Type Severity Reaction Status Date / Time adhesive tape Allergy Verified 08/24/18 21:29 codeine Allergy Verified 08/24/18 21:29 gabapentin Allergy Verified 08/24/18 21:29 hydrocodone Allergy Verified 08/24/18 21:29 iodine Allergy Verified 08/24/18 21:29 morphine Allergy Verified 08/24/18 21:29 venom-honey bee Allergy Verified 08/24/18 21:29 [bee venom (honey bee)] Medications: Current Medications Acetaminophen (Tylenol) 650 mg PO Q6H PRN PRN Reason: Headache/Fever or Pain Last Admin: 11/16/18 11:10 Dose: 650 mg Albuterol/Ipratropium (Duoneb) 3 ml NEB [id number] PRN PRN Reason: SOB &/or Wheezing Last Admin: 11/14/18 23:13 Dose: 3 ml Albuterol/Ipratropium (Duoneb) 3 ml NEB QID-RT [facility] Last Admin: 11/16/18 18:43 Dose: 3 ml Aspirin (Ecotrin) 81 mg PO DAILY [facility] Last Admin: 11/16/18 08:48 Dose: 81 mg Atorvastatin Calcium (Lipitor) 10 mg PO HS [facility] Last Admin: 11/16/18 21:10 Dose: 10 mg Dextrose/Water (Dextrose 50%) 25 gm SLOW IVP PRN PRN PRN Reason: Hypoglycemia Diltiazem HCl (Cardizem) 30 mg PO ACHS [facility] Last Admin: 11/16/18 21:10 Dose: 30 mg Docusate Sodium (Colace) 100 mg PO DAILY [facility] Last Admin: 11/16/18 08:48 Dose: 100 mg Duloxetine HCl (Cymbalta) 60 mg PO DAILY [facility] Last Admin: 11/16/18 08:48 Dose: 60 mg Estradiol (Estrace) 0.5 mg PO DAILY [facility] Last Admin: 11/16/18 08:48 Dose: 0.5 mg Fentanyl (Sublimaze) 50 mcg IV Q1H PRN PRN Reason: BREAKTHRU PAIN Ferrous Sulfate (Feosol) 325 mg PO BID [facility] Last Admin: 11/16/18 21:10 Dose: 325 mg Furosemide (Lasix) 40 mg PO 0900,1400 [facility] Last Admin: 11/16/18 14:08 Dose: 40 mg Glucagon (Glucagon) 1 mg IM PRN PRN PRN Reason: Hypoglycemia Guaifenesin (Mucinex) 600 mg PO Q12HR [facility] Last Admin: 11/16/18 21:10 Dose: 600 mg Ropivacaine (Ropivacaine 0.2% 550 Ml) 550 mls @ 0 mls/hr NERVE BLCK INF [facility] Dextrose/Water (D5w) 1,000 mls @ 0 mls/hr IV .Q0M PRN PRN Reason: Hypoglycemia Insulin Glargine 10 units/ (Miscellaneous Medication) 0.1 mls @ 0 mls/hr SC QAM [facility] Ibuprofen (Motrin) 600 mg PO Q6H PRN PRN Reason: Mild Pain (1-3) Last Admin: 11/15/18 20:00 Dose: 600 mg Insulin Human Lispro (Humalog) 0 units SC .MODERATE SLIDING SC PRN PRN Reason: Moderate Correctional Scale Last Admin: 11/16/18 17:11 Dose: 4 unit Insulin Human Lispro (Humalog) 0 units SC .BEDTIME SLIDING SC PRN PRN Reason: Bedtime Correctional Scale Last Admin: 11/15/18 20:08 Dose: 3 unit Mirtazapine (Remeron) 30 mg PO HS [facility] Last Admin: 11/16/18 21:10 Dose: 30 mg Miscellaneous Information (Communication Order-Pharmacy) 1 each FS ONE [facility] Stop: 11/20/18 14:16 Mometasone Furoate/Formoterol Fumar (Dulera 200 Mcg/5 Mcg Inhaler) 2 puff INH BID-RT [facility] Last Admin: 11/16/18 18:45 Dose: 2 puff Ondansetron HCl (Zofran) 4 mg IVP Q6H PRN PRN Reason: Nausea/Vomiting Polyethylene Glycol (Miralax) 17 gm PO DAILY [facility] Last Admin: 11/16/18 08:49 Dose: Not Given Potassium Chloride (K-Dur) 40 meq PO BID-WM [facility] Last Admin: 11/16/18 17:11 Dose: 40 meq Pregabalin (Lyrica) 300 mg PO BID [facility] Last Admin: 11/16/18 21:09 Dose: 300 mg Promethazine HCl (Phenergan) 12.5 mg IM Q4H PRN PRN Reason: Nausea Saccharomyces Boulardii (Florastor) 250 mg PO DAILY [facility] Last Admin: 11/16/18 08:47 Dose: 250 mg Sodium Chloride (Flush - Normal Saline) 10 ml IVF PRN PRN PRN Reason: Saline Flush Tramadol HCl (Ultram) 50 mg PO Q6H PRN PRN Reason: Mild Pain (1-3) Tramadol HCl (Ultram) 100 mg PO Q6H PRN PRN Reason: Moderate Pain 4-6 Trazodone HCl (Desyrel) 200 mg PO HS [facility] Last Admin: 11/16/18 21:09 Dose: 200 mg Zolpidem Tartrate (Ambien) 5 mg PO HSPRN PRN PRN Reason: Insomnia Last Admin: 11/13/18 21:34 Dose: 5 mg
[2018-11-17 06:26] LABS: #Eosinphils 0.2 thou/uL (0.0-0.7); #Lymphocytes 1.4 thou/uL (1.20-3.40); #Monocytes 0.6 thou/uL (0.11-0.59); #Neutrophils 3.9 thou/uL (1.40-6.50); %Basophils 0.4 % (0.0-1.0); %Lymphocytes 22.6 % (21.0-51.0); %Monocytes 9.2 % (0.0-10.0); %Neutrophils 64.8 % (42.0-75.0); Hemoglobin 8.6 g/dL (12.0-16.0); Mean Corpuscular HGB CONC 30.7 g/dL (32.0-36.0); Mean Corpuscular Hemoglobin 25.6 pg (27.0-31.0); Mean Corpuscular Volume 83.4 fL (78.0-98.0); Mean Platelet Volume 9.1 fL (7.4-10.4); Platelet Count 192 thou/uL (130-400); RBC Distribution Width 16.3 % (11.5-14.5); Red Blood Cell (RBC) Count 3.34 mill/uL (4.20-5.40); White Blood Cell (WBC) Count 6.1 thou/uL (4.8-10.8)
[2018-11-17 06:40] LABS: Anion Gap 7 mmol/L (10-20); BUN (Urea Nitrogen) 11 mg/dL (9.8-20.1); Calc. Creatinine Clearance 83 mL/min (70-130); Calcium 8.3 mg/dL (7.8-10.44); Carbon Dioxide 37 mmol/L (23-31); Chloride 102 mmol/L (98-107); Estimated GFR-MDRD 80; Glucose 75 mg/dL (83-110); Magnesium 1.4 mg/dL (1.6-2.6); Potassium 3.6 mmol/L (3.5-5.1); Sodium 142 mmol/L (136-145)
[2018-11-17] MEDS: Mometasone/Formoterol 120 PUFF INHALER INH SCH ×2 (08:48→19:19)
[2018-11-17] MEDS ORDERED: Magnesium Sulfate 4 GM in Sodium Chloride 0.9% 250 ML 250 ML IVPB SCH (09:00)
[2018-11-17] MEDS: Insulin Glargine 10 UNITS in Pre-Filled Syringe 1 EACH SC SCH (09:16)
[2018-11-17] MEDS: guaiFENesin ER 600 MG TAB PO SCH ×2 (09:17→20:49)
[2018-11-17] MEDS: Pregabalin 75 MG CAP PO SCH ×2 (09:17→20:49)
[2018-11-17] MEDS: Potassium Chloride 20 MEQ TAB PO SCH ×2 (09:18→17:46)
[2018-11-17] MEDS: Docusate 100 MG CAP PO SCH (09:19)
[2018-11-17] MEDS: Aspirin 81 mg Enteric Coated Tablet PO SCH (09:19)
[2018-11-17] MEDS: Saccharomyces boulardii 250 MG CAP PO SCH (09:19)
[2018-11-17] MEDS: DULoxetine 60 MG CAP PO SCH (09:19)
[2018-11-17] MEDS: Polyethylene Glycol 3350 17 GM Packet PO SCH (09:19)
[2018-11-17] MEDS: Estradiol 1 MG TAB PO SCH (09:19)
[2018-11-17] MEDS: Ferrous Sulfate 325 MG TAB PO SCH ×2 (09:19→20:48)
[2018-11-17] MEDS: Furosemide 20 MG TAB PO SCH (09:19)
[2018-11-17] MEDS: Ibuprofen 600 MG TAB PO PRN (11:50)
[2018-11-17] MEDS ORDERED: Nitroglycerin 0.4 MG TAB (25 Tab Bottle) PO PRN (12:57)
--- NOTE | 2018-11-17 13:01 | PDOC.PN ---
- Subjective Encounter Start Date: 11/17/18 Encounter Start Time: 12:59 Patient seen and examined for med mngt. Tachycardic per RN. No CP/palpitations. No new complaints. No overnight events - Objective Resuscitation Status - Order Detail: 11/13/18 16:47 Resuscitation Status Routine Co-Sign Provider: Resuscitation Status: DNAR: NO Resuscitation Discussed with: Discussed with Pt and Family and Pt wishes to be a DNAR MAR Reviewed: Yes Vital Signs & Weight: Vital Signs (12 hours) Temp Pulse Resp BP Pulse Ox 11/17/18 12:06 98.0 F 98 18 98/64 96 11/17/18 11:28 88 20 11/17/18 09:15 98 18 106/68 11/17/18 08:48 104 H 20 96 11/17/18 08:35 96 11/17/18 08:33 104 H 20 96 11/17/18 08:04 98.6 F 102 H 16 99/64 97 11/17/18 04:00 98.6 F 97 20 127/84 98 Weight Weight 162 lb I&O: 11/16/18 11/17/18 11/18/18 06:59 06:59 06:59 Intake Total 400 Balance 400 Result Diagrams: 11/17/18 06:14 11/17/18 06:14 Additional Labs: Accuchecks 11/17/18 11/17/18 11/16/18 10:55 06:08 21:13 POC Glucose 158 H 78 92 11/16/18 15:57 POC Glucose 234 H Laboratory Tests 11/17/18 06:14 Magnesium 1.4 L EKG Reviewed by me: Yes (Afib with RVR) Phys Exam - Physical Examination Constitutional: NAD Respiratory: no wheezing, no rhonchi Cardiovascular: no rub, irregular Gastrointestinal: soft, non-tender, positive bowel sounds Musculoskeletal: no edema Dx/Plan - Plan DVT proph w/SCDs 1. Afib with RVR 2. Hypokalemia/Hypoamagnesemia 3. CAD s/p CABG 4. DM2 5. Hypothyroidism 6. GERD 7. Chronic diastolic HF 8. Recent C diff colitis 9. CKD 3 10. COPD/Chronic resp failure on home O2 11. Anemia - prob due to surgical blood loss s/p PRBC PLAN: Start Cardizem drip Eli[facility] on hold [facility] Potassium supp - change to 20 meq BID AM labs Cont Cardizem at 30 mg ACHS Reduce Lasix tod daily Cont other meds as below Review of Systems - Review of Systems Respiratory: negative: Cough, Dry, Shortness of Breath, Hemoptysis, SOB with Excertion, Pleuritic Pain, Sputum, Wheezing Cardiovascular: negative: chest pain, palpitations, orthopnea, paroxysmal nocturnal dyspnea, edema, light headedness, other - Medications/Allergies Allergies/Adverse Reactions: Allergies Allergy/AdvReac Type Severity Reaction Status Date / Time adhesive tape Allergy Verified 08/24/18 21:29 codeine Allergy Verified 08/24/18 21:29 gabapentin Allergy Verified 08/24/18 21:29 hydrocodone Allergy Verified 08/24/18 21:29 iodine Allergy Verified 08/24/18 21:29 morphine Allergy Verified 08/24/18 21:29 venom-honey bee Allergy Verified 08/24/18 21:29 [bee venom (honey bee)] Medications: Current Medications Acetaminophen (Tylenol) 650 mg PO Q6H PRN PRN Reason: Headache/Fever or Pain Last Admin: 11/16/18 11:10 Dose: 650 mg Albuterol/Ipratropium (Duoneb) 3 ml NEB [id number] PRN PRN Reason: SOB &/or Wheezing Last Admin: 11/14/18 23:13 Dose: 3 ml Albuterol/Ipratropium (Duoneb) 3 ml NEB QID-RT [facility] Last Admin: 11/17/18 11:28 Dose: 3 ml Aspirin (Ecotrin) 81 mg PO DAILY [facility] Last Admin: 11/17/18 09:19 Dose: 81 mg Atorvastatin Calcium (Lipitor) 10 mg PO HS [facility] Last Admin: 11/16/18 21:10 Dose: 10 mg Dextrose/Water (Dextrose 50%) 25 gm SLOW IVP PRN PRN PRN Reason: Hypoglycemia Diltiazem HCl (Cardizem) 30 mg PO ACHS [facility] Last Admin: 11/17/18 11:59 Dose: 30 mg Docusate Sodium (Colace) 100 mg PO DAILY [facility] Last Admin: 11/17/18 09:19 Dose: 100 mg Duloxetine HCl (Cymbalta) 60 mg PO DAILY [facility] Last Admin: 11/17/18 09:19 Dose: 60 mg Estradiol (Estrace) 0.5 mg PO DAILY [facility] Last Admin: 11/17/18 09:19 Dose: 0.5 mg Fentanyl (Sublimaze) 50 mcg IV Q1H PRN PRN Reason: BREAKTHRU PAIN Ferrous Sulfate (Feosol) 325 mg PO BID [facility] Last Admin: 11/17/18 09:19 Dose: 325 mg Furosemide (Lasix) 40 mg PO DAILY [facility] Glucagon (Glucagon) 1 mg IM PRN PRN PRN Reason: Hypoglycemia Guaifenesin (Mucinex) 600 mg PO Q12HR [facility] Last Admin: 11/17/18 09:17 Dose: 600 mg Ropivacaine (Ropivacaine 0.2% 550 Ml) 550 mls @ 0 mls/hr NERVE BLCK INF [facility] Dextrose/Water (D5w) 1,000 mls @ 0 mls/hr IV .Q0M PRN PRN Reason: Hypoglycemia Insulin Glargine 10 units/ (Miscellaneous Medication) 0.1 mls @ 0 mls/hr SC QAM [facility] Last Admin: 11/17/18 09:16 Dose: 0.1 mls Diltiazem HCl 125 mg/ Sodium (Chloride) 125 mls @ 2.5 mls/hr IVPB INF [facility]; Protocol Ibuprofen (Motrin) 600 mg PO Q6H PRN PRN Reason: Mild Pain (1-3) Last Admin: 11/17/18 11:50 Dose: 600 mg Insulin Human Lispro (Humalog) 0 units SC .MODERATE SLIDING SC PRN PRN Reason: Moderate Correctional Scale Last Admin: 11/16/18 17:11 Dose: 4 unit Insulin Human Lispro (Humalog) 0 units SC .BEDTIME SLIDING SC PRN PRN Reason: Bedtime Correctional Scale Last Admin: 11/15/18 20:08 Dose: 3 unit Mirtazapine (Remeron) 30 mg PO HS [facility] Last Admin: 11/16/18 21:10 Dose: 30 mg Miscellaneous Information (Communication Order-Pharmacy) 1 each FS ONE [facility] Stop: 11/20/18 14:16 Mometasone Furoate/Formoterol Fumar (Dulera 200 Mcg/5 Mcg Inhaler) 2 puff INH BID-RT [facility] Last Admin: 11/17/18 08:48 Dose: 2 puff Nitroglycerin (Nitrostat) 0.4 mg PO Q5MIN PRN PRN Reason: Chest Pain Ondansetron HCl (Zofran) 4 mg IVP Q6H PRN PRN Reason: Nausea/Vomiting Polyethylene Glycol (Miralax) 17 gm PO DAILY [facility] Last Admin: 11/17/18 09:19 Dose: 17 gm Potassium Chloride (K-Dur) 40 meq PO BID-[facility] Last Admin: 11/17/18 09:18 Dose: 40 meq Pregabalin (Lyrica) 300 mg PO BID [facility] Last Admin: 11/17/18 09:17 Dose: 300 mg Promethazine HCl (Phenergan) 12.5 mg IM Q4H PRN PRN Reason: Nausea Saccharomyces Boulardii (Florastor) 250 mg PO DAILY [facility] Last Admin: 11/17/18 09:19 Dose: 250 mg Sodium Chloride (Flush - Normal Saline) 10 ml IVF PRN PRN PRN Reason: Saline Flush Tramadol HCl (Ultram) 50 mg PO Q6H PRN PRN Reason: Mild Pain (1-3) Tramadol HCl (Ultram) 100 mg PO Q6H PRN PRN Reason: Moderate Pain 4-6 Trazodone HCl (Desyrel) 200 mg PO [facility] Last Admin: 11/16/18 21:09 Dose: 200 mg Zolpidem Tartrate (Ambien) 5 mg PO HSPRN PRN PRN Reason: Insomnia Last Admin: 11/13/18 21:34 Dose: 5 mg
[2018-11-17] MEDS ORDERED: Diltiazem 125 MG in Sodium Chloride 0.9% 100 ML IVPB SCH (13:30)
[2018-11-17] MEDS: HumaLOG 300 UNITS/3 ML VIAL SC PRN ×2 (13:38→20:53)
--- NOTE | 2018-11-17 14:49 | EKG ---
Test Reason : A FIB W/RVR Blood Pressure : / mmHG Vent. Rate : 141 BPM Atrial Rate : 163 BPM P-R Int : 000 ms QRS Dur : 134 ms QT Int : 346 ms P-R-T Axes : 000 -10 028 degrees QTc Int : 529 ms Atrial fibrillation with rapid ventricular response Right bundle branch block Abnormal ECG When compared with ECG of 18-OCT-2018 11:41, Atrial fibrillation has replaced Sinus rhythm Confirmed by LEE ANN MARINO, . SMina ([id number]) on 11/17/2018 2:48:33 PM Referred By: STORM Confirmed By:DR. Lyn NANCE MD
[2018-11-17 14:52] LABS: Troponin I 0.028 ng/mL (< 0.028)
[2018-11-17] MEDS: Acetaminophen 325 MG TAB PO PRN (15:07)
[2018-11-17 17:19] LABS: Magnesium 1.9 mg/dL (1.6-2.6); Potassium 4.5 mmol/L (3.5-5.1)
[2018-11-17 17:30] LABS: Troponin I 0.023 ng/mL (< 0.028)
[2018-11-17] MEDS: Apixaban 5 MG TAB PO SCH (20:48)
[2018-11-17] MEDS: Atorvastatin Calcium 10 MG TAB PO SCH (20:48)
[2018-11-17] MEDS: Mirtazapine 30 MG TAB PO SCH (20:49)
[2018-11-18 04:58] LABS: #Eosinphils 0.2 thou/uL (0.0-0.7); #Lymphocytes 1.4 thou/uL (1.20-3.40); #Monocytes 0.6 thou/uL (0.11-0.59); %Basophils 0.6 % (0.0-1.0); %Eosinophils 3.1 % (0.0-10.0); %Monocytes 9.2 % (0.0-10.0); %Neutrophils 65.1 % (42.0-75.0); Hemoglobin 8.7 g/dL (12.0-16.0); Mean Corpuscular HGB CONC 29.9 g/dL (32.0-36.0); Mean Corpuscular Hemoglobin 25.8 pg (27.0-31.0); Mean Corpuscular Volume 86.3 fL (78.0-98.0); Mean Platelet Volume 9.4 fL (7.4-10.4); Platelet Count 212 thou/uL (130-400); RBC Distribution Width 16.3 % (11.5-14.5); Red Blood Cell (RBC) Count 3.38 mill/uL (4.20-5.40); White Blood Cell (WBC) Count 6.2 thou/uL (4.8-10.8)
[2018-11-18 05:15] LABS: Anion Gap 12 mmol/L (10-20); BUN (Urea Nitrogen) 13 mg/dL (9.8-20.1); Calc. Creatinine Clearance 82 mL/min (70-130); Calcium 8.3 mg/dL (7.8-10.44); Carbon Dioxide 30 mmol/L (23-31); Chloride 102 mmol/L (98-107); Estimated GFR-MDRD 76; Glucose 121 mg/dL (83-110); Magnesium 1.7 mg/dL (1.6-2.6); Potassium 4.2 mmol/L (3.5-5.1); Sodium 140 mmol/L (136-145)
[2018-11-18] MEDS: Estradiol 1 MG TAB PO SCH (07:50)
[2018-11-18] MEDS: Apixaban 5 MG TAB PO SCH ×2 (07:50→21:57)
[2018-11-18] MEDS: DULoxetine 60 MG CAP PO SCH (07:50)
[2018-11-18] MEDS: Pregabalin 75 MG CAP PO SCH ×2 (07:52→21:56)
[2018-11-18] MEDS: Docusate 100 MG CAP PO SCH (07:52)
[2018-11-18] MEDS: guaiFENesin ER 600 MG TAB PO SCH ×2 (07:53→21:56)
[2018-11-18] MEDS: Aspirin 81 mg Enteric Coated Tablet PO SCH (07:53)
[2018-11-18] MEDS: Potassium Chloride 20 MEQ TAB PO SCH ×2 (07:53→17:08)
[2018-11-18] MEDS: Ferrous Sulfate 325 MG TAB PO SCH ×2 (07:53→21:56)
[2018-11-18] MEDS: Polyethylene Glycol 3350 17 GM Packet PO SCH (07:54)
[2018-11-18] MEDS: Furosemide 40 MG TAB PO SCH (07:54)
[2018-11-18] MEDS: Saccharomyces boulardii 250 MG CAP PO SCH (07:54)
[2018-11-18] MEDS: Mometasone/Formoterol 120 PUFF INHALER INH SCH ×2 (08:11→19:09)
[2018-11-18] MEDS: Insulin Glargine 10 UNITS in Pre-Filled Syringe 1 EACH SC SCH (09:13)
[2018-11-18] MEDS: Acetaminophen 325 MG TAB PO PRN (10:28)
--- NOTE | 2018-11-18 11:15 | PDOC.CTH ---
Cardiology Progress Note - Subjective Patient without complaints. Maintaining NSR since 1800 last night. Asymptomatic. No CP. Chronic SOB/FREITAS. - Objective Vital Signs Temp Pulse Resp BP Pulse Ox 11/18/18 10:46 71 16 11/18/18 08:11 108 H 16 11/18/18 08:04 98 11/18/18 08:03 108 H 16 11/18/18 07:46 98.0 F 112 H 20 138/62 96 11/18/18 07:40 96 11/18/18 04:28 98.0 F 99 18 105/56 L 96 11/18/18 00:00 99 116/63 Weight 167 lb 6.4 oz 11/17/18 11/18/18 11/19/18 06:59 06:59 06:59 Intake Total 400 840 Balance 400 840 - Physical Examination General/Neuro: alert & oriented x3 Neck: no JVD present Lungs: CTA Heart: RRR Abdomen: NT/ND Extremities: other: (no edema) - Telemetry Telemetry Rhythm: SR - Labs Result Diagrams: 11/18/18 04:42 11/18/18 04:42 Troponin/CKMB Troponin I 0.023 ng/mL (< 0.028) 11/17/18 16:50 - Assessment/Plan 1. s/p right ORIF tibia 2. paroxysmal AF 3. HTN 4. Chronic diastolic CHF 5. COPD Stable. Eliquis resumed and maintaining NSR on current meds. Ok to discharge to swing bed when available.
--- NOTE | 2018-11-18 12:29 | PRG ---
DATE OF SERVICE: 11/18/2018 SUBJECTIVE: The patient is doing quite well. She does not have much complaints to offer. Her appetite is fair. OBJECTIVE: VITAL SIGNS: Blood pressure is 138/62, pulse is 71, respiratory rate is 16, O2 saturation is 98% on 3 L by nasal cannula. HEENT: Her head is atraumatic and normocephalic. Sclerae are nonicteric. Oral mucosa is moist. NECK: Supple. LUNGS: Clear. HEART: S1 and S2 regular. No S3, no S4. ABDOMEN: Soft, nontender, nondistended. EXTREMITIES: Right lower extremity is in AIDTHYA wrap. NEUROLOGICAL: She is able to move her all four extremities. There is no any motor or sensory deficits. LABORATORY DATA: Labs showed a white count of 6.2, hemoglobin 8.7, hematocrit 29.2, platelet count is 212,000. Normal electrolytes, BUN of 13, creatinine 0.75, glucose 121. Glycemia on Accu-Cheks is ranging from 133 to 295. Calcium 8.3, magnesium 1.7. Two sets of troponins 0.028 and 0.023. IMPRESSION: 1. Atrial fibrillation with rapid ventricular response, converted to normal sinus rhythm. 2. Hypokalemia/hypomagnesemia, corrected. 3. Coronary artery disease, status post coronary artery bypass grafting. 4. Diabetes mellitus type 2. 5. Hypothyroidism. 6. Gastroesophageal reflux disease. 7. Chronic diastolic congestive heart failure. 8. Chronic obstructive pulmonary disease and chronic respiratory failure on home O2. 9. Anemia. 10. Recent Clostridium difficile colitis. 11. Chronic kidney disease, stage 3. PLAN: The patient is cleared by Cardiology, transfer to the swing bed. She just converted to sinus rhythm. I made decision about postponing her discharge and watching her on monitors for the next 24 hours, make sure she is not going back to atrial fibrillation since this was atrial fibrillation with rapid ventricular response. She required IV Cardizem treatment. She is on Eliquis. She is on diltiazem extended release 180 mg once a day. The patient was moved from medical floor to telemetry because of her new onset of atrial fibrillation with rapid ventricular response. She did not have any additional episodes after she converted. She will be watched for additional 24 hours and discharged to swing bed as soon as tomorrow. Job ID: [id number]
[2018-11-18] MEDS: HumaLOG 300 UNITS/3 ML VIAL SC PRN ×2 (14:29→22:00)
[2018-11-18] MEDS: Ibuprofen 600 MG TAB PO PRN (14:32)
[2018-11-18] MEDS: Atorvastatin Calcium 10 MG TAB PO SCH (21:57)
[2018-11-18] MEDS: Mirtazapine 30 MG TAB PO SCH (21:57)
[2018-11-19 06:10] LABS: #Eosinphils 0.2 thou/uL (0.0-0.7); #Lymphocytes 1.2 thou/uL (1.20-3.40); #Monocytes 0.4 thou/uL (0.11-0.59); #Neutrophils 3.6 thou/uL (1.40-6.50); %Basophils 0.8 % (0.0-1.0); %Eosinophils 3.5 % (0.0-10.0); %Lymphocytes 21.9 % (21.0-51.0); %Monocytes 6.7 % (0.0-10.0); %Neutrophils 67.1 % (42.0-75.0); Hemoglobin 8.8 g/dL (12.0-16.0); Mean Corpuscular HGB CONC 30.2 g/dL (32.0-36.0); Mean Corpuscular Hemoglobin 25.4 pg (27.0-31.0); Mean Platelet Volume 9.1 fL (7.4-10.4); Platelet Count 214 thou/uL (130-400); Red Blood Cell (RBC) Count 3.48 mill/uL (4.20-5.40); White Blood Cell (WBC) Count 5.4 thou/uL (4.8-10.8)
[2018-11-19 06:29] LABS: Anion Gap 9 mmol/L (10-20); BUN (Urea Nitrogen) 12 mg/dL (9.8-20.1); Calc. Creatinine Clearance 82 mL/min (70-130); Calcium 8.6 mg/dL (7.8-10.44); Carbon Dioxide 35 mmol/L (23-31); Chloride 100 mmol/L (98-107); Estimated GFR-MDRD 77; Glucose 124 mg/dL (83-110); Magnesium 1.4 mg/dL (1.6-2.6); Potassium 4.3 mmol/L (3.5-5.1); Sodium 140 mmol/L (136-145)
[2018-11-19] MEDS: Mometasone/Formoterol 120 PUFF INHALER INH SCH (07:24)
[2018-11-19] MEDS: Aspirin 81 mg Enteric Coated Tablet PO SCH (09:28)
[2018-11-19] MEDS: Potassium Chloride 20 MEQ TAB PO SCH (09:28)
[2018-11-19] MEDS: Apixaban 5 MG TAB PO SCH (09:28)
[2018-11-19] MEDS: Estradiol 1 MG TAB PO SCH (09:30)
[2018-11-19] MEDS: Docusate 100 MG CAP PO SCH (09:30)
[2018-11-19] MEDS: DULoxetine 60 MG CAP PO SCH (09:30)
[2018-11-19] MEDS: guaiFENesin ER 600 MG TAB PO SCH (09:31)
[2018-11-19] MEDS: Ferrous Sulfate 325 MG TAB PO SCH (09:31)
[2018-11-19] MEDS: Saccharomyces boulardii 250 MG CAP PO SCH (09:31)
[2018-11-19] MEDS: Furosemide 40 MG TAB PO SCH (09:31)
[2018-11-19] MEDS: Polyethylene Glycol 3350 17 GM Packet PO SCH (09:32)
[2018-11-19] MEDS: Insulin Glargine 10 UNITS in Pre-Filled Syringe 1 EACH SC SCH (09:32)
[2018-11-19] MEDS: Pregabalin 75 MG CAP PO SCH (09:32)
[2018-11-19 11:33] VITALS: TEMP 98
[2018-11-19] MEDS: HumaLOG 300 UNITS/3 ML VIAL SC PRN (11:33)
[2018-11-19] MEDS: Ibuprofen 600 MG TAB PO PRN (11:33)
[2018-11-19 13:09] VITALS: BP 109/55
[2018-11-19] MEDS: Acetaminophen 325 MG TAB PO PRN (14:05)
--- NOTE | 2018-11-20 06:58 | CON ---
DATE OF CONSULTATION: 11/17/2018 REASON FOR CONSULTATION: AFib with RVR. HISTORY OF PRESENT ILLNESS: Ms. Kirk is a 73-year-old woman, who recently underwent surgery by Dr. Sloan. She underwent open reduction and internal fixation of the right tibial plateau and removal of cannulated screws along the right tibial plateau. She does have a history of chronic atrial fibrillation. Her heart rate was in the 130s. This was felt to be brief based on the review of the chart. She is currently on in addition to aspirin, atorvastatin, and Cardizem at 30 mg q.6 hours. PAST MEDICAL HISTORY: CAD status post bypass surgery, carotid stenosis, hypothyroidism, cholecystectomy, hysterectomy, tonsillectomy, appendectomy. HOME MEDICATIONS: Include: 1. Aspirin. 2. Plavix. 3. Colace. 4. Estradiol. 5. Breo. 6. Lasix. 7. Insulin. 8. Cozaar. 9. Mobic. 10. Metolazone. 11. Remeron. 12. Protonix. 13. Pravastatin. 14. Lyrica. 15. Ranitidine. 16. Trazodone. ALLERGIES: ACETAMINOPHEN, ADHESIVE TAPE, CODEINE, HYDROCODONE. SOCIAL HISTORY: Continues to smoke. REVIEW OF SYSTEMS: A 10-point review of systems is reviewed and as above, otherwise negative. PHYSICAL EXAMINATION: GENERAL: Patient is a pleasant female, who is in no acute distress. The patient appears their stated age. VITAL SIGNS: Blood pressure 90/64, pulse 98, temperature 98. NEUROLOGIC: The patient is alert and oriented x3 with no focal neurologic deficits. HEENT: Sclerae without icterus. Mouth has moist mucous membranes with normal pallor. NECK: No JVD. Carotid upstroke brisk. No bruits bilaterally. LUNGS: Clear to auscultation with unlabored respirations. BACK: No scoliosis or kyphosis. CARDIAC: Irregularly irregular with normal S1 and S2. No S3 or S4 noted. No significant rubs, murmurs, thrills, or gallops noted throughout the precordium. PMI is not displaced. There is no parasternal heave. ABDOMEN: Soft, nontender, nondistended. No peritoneal signs present. No hepatosplenomegaly. No abnormal striae. EXTREMITIES: 2+ femoral and 2+ dorsalis pedis pulses. No cyanosis, clubbing, or edema. SKIN: No gross abnormalities. PERTINENT LABORATORY DATA: Hemoglobin 8.6, which is felt to be chronic. Sodium 142, creatinine 0.7. IMPRESSION: 1. Atrial fibrillation with rapid ventricular rate. 2. Recent open reduction and internal fixation. 3. Coronary artery disease. 4. Status post bypass surgery. RECOMMENDATION: The patient's heart appears to be well controlled currently. Continue current treatment with Cardizem. We will switch to long acting if rate is controlled overnight. Continue Alejandrina. Job ID: [id number]
--- NOTE | 2018-11-20 12:59 | DIS ---
DATE OF ADMISSION: 11/13/2018 DATE OF DISCHARGE: 11/19/2018 This is Fozia Antonio PA-C dictating a report for Oziel Sloan MD. REASON FOR ADMISSION: Hardware removal with ORIF of the right tibial plateau. CONSULTANTS ON THE CASE: Include [facility] as well as the [facility] and also include Dr. Junaid Yoo. PREOPERATIVE DIAGNOSIS: Right tibial plateau delayed union. POSTOPERATIVE DIAGNOSIS: Right tibial plateau delayed union. PROCEDURES PERFORMED: 1. Open reduction and internal fixation of right tibial plateau. 2. Removal of cannulated screws, right tibial plateau. BRIEF HOSPITAL COURSE: Ms. Kirk is a pleasant 73-year-old lady with severe COPD. She sustained a bicondylar tibial plateau fracture approximately 2 to 3 months ago. However, due to her severe underlying pulmonary disease, it was felt that she was unacceptable risk for general anesthetic. At that time, we instead proceeded with an intravenous sedation and percutaneous cannulated screw stabilization of the bicondylar split and opted to treat the metaphyseal portion of the fracture nonsurgically. Unfortunately, she has not tolerated nonsurgical treatment of this metaphyseal fragment. During the course of her early recovery, either from excessive motion of the fracture, perhaps an excessive type brace, she developed a peroneal nerve palsy. The patient still has an unstable fracture, and after careful discussion and consideration with the patient, we have now decided to attempt a spinal anesthetic for revision to a plate in hopes of stabilizing the fracture and promoting a bony union. The patient was indicated for the above-mentioned procedure. Postoperatively, she was admitted to the surgical floor where she worked with Physical Therapy, Occupational Therapy, and received adequate pain control. She received postoperative antibiotics and did very well. Postoperatively, she was discharged to a swing bed facility. DISCHARGE CONDITION: Stable. DISCHARGE DISPOSITION: Swing bed. DISCHARGE INSTRUCTIONS: The patient will continue an AFO. She will be nonweightbearing. She will follow up in the clinic in 2 weeks for wound check and suture removal. She will remain nonweightbearing. DISCHARGE MEDICATIONS: See MAR. Job ID: [id number]
== END 2018-11-19 16:13 | disposition swing bed (61) | DRG 493 ==
LOC: SDC 10:47 → SURG A 15:43 → OBSVTOIN 15:43 → 2NO 11-17 16:41
PROVIDERS: ADMIT Orthopaedic Surgery; ATTEND Orthopaedic Surgery
PROC: 0QSG04Z Reposition Right Tibia with Internal Fixation Device, Open Approach (ICD-10-PCS; principal; 2018-11-13)
PROC: 0QPG04Z Removal of Internal Fixation Device from Right Tibia, Open Approach (ICD-10-PCS; 2018-11-13)
PROC: 30233N1 Transfusion of Nonautologous Red Blood Cells into Peripheral Vein, Percutaneous Approach (ICD-10-PCS; 2018-11-14)
DX: S82.141G Displaced bicondylar fracture of right tibia, subsequent encounter for closed fracture with delayed healing (principal); I50.32 Chronic diastolic (congestive) heart failure; J96.10 Chronic respiratory failure, unspecified whether with hypoxia or hypercapnia; D62 Acute posthemorrhagic anemia; J44.9 Chronic obstructive pulmonary disease, unspecified; E11.22 Type 2 diabetes mellitus with diabetic chronic kidney disease; I48.2 Chronic atrial fibrillation; N18.3 Chronic kidney disease, stage 3 (moderate); I25.10 Atherosclerotic heart disease of native coronary artery without angina pectoris; K21.9 Gastro-esophageal reflux disease without esophagitis; G89.29 Other chronic pain; M54.5 Low back pain; F32.9 Major depressive disorder, single episode, unspecified; E87.6 Hypokalemia; E83.42 Hypomagnesemia; E03.9 Hypothyroidism, unspecified; F17.210 Nicotine dependence, cigarettes, uncomplicated; Z66 Do not resuscitate; Z99.81 Dependence on supplemental oxygen; Z86.73 Personal history of transient ischemic attack (TIA), and cerebral infarction without residual deficits; Z88.4 Allergy status to anesthetic agent; Z91.030 Bee allergy status; Z88.5 Allergy status to narcotic agent; Z79.01 Long term (current) use of anticoagulants; Z79.4 Long term (current) use of insulin; Z79.899 Other long term (current) drug therapy; Z79.02 Long term (current) use of antithrombotics/antiplatelets; Z79.82 Long term (current) use of aspirin; Z95.1 Presence of aortocoronary bypass graft; W19.XXXD Unspecified fall, subsequent encounter
CPT/HCPCS: 36415; 36416; 36430; 76000; 80048; 82533; 83735; 84484; 85014; 85018; 85025; 85049; 85610; 85730; 86850; 86900; 86901; 93005; 93010; 94640; 94760; A4306; C1713; J1825; J2250; J2795; J3010; J3475; J7050; J7620; P9016; P9059

== ENCOUNTER 2018-12-04 12:06 | Day surgery (SDC) | payer MEDICARE, MEDICAID ==
[2018-11-30 14:45] VITALS: BMI 29.7
[~2018-12-04 12:06] MED LIST changes: -ISOVUE-370 76%-LOCM 1 ML ONE; +PROPOFOL 200 MG/20 ML VIAL ONE
[2018-12-04] MEDS ORDERED: Midazolam HCl 2 mg/2 ml Vial ONE (13:09)
[2018-12-04] MEDS ORDERED: Ketamine 50 MG/ML (10ML VIAL) ONE (13:12)
[2018-12-04] MEDS ORDERED: Sodium Chloride 0.9% 10 ML ONE (15:51)
--- NOTE | 2018-12-04 21:31 | OP ---
DATE OF PROCEDURE: 12/04/2018 PROCEDURE PERFORMED: Esophagogastroduodenoscopy with biopsy. PREPROCEDURE DIAGNOSIS: Severe iron deficiency anemia. POSTPROCEDURE DIAGNOSES: 1. Exam to second portion of duodenum. 2. Normal-appearing esophagus with Z-line estimated at 35 cm. 3. Small 5 mm nonbleeding vascular ectasia, treated with argon plasma coagulation. 4. Normal duodenum with random biopsies obtained in the proximal duodenum for histology. PROCEDURE IN DETAIL: Written informed consent was obtained. The patient was brought to the endoscopy suite. Total intravenous anesthesia was provided by Mr. Lyle Matt CRNA. The patient was placed in the left lateral decubitus position. A bite block was inserted into the mouth. A Pentax video diagnostic gastroscope was introduced into the oral cavity and the esophagus was carefully intubated. The gastroscope was advanced under direct visualization to the second portion of the duodenum. Endoscopic findings revealed a normal-appearing esophagus with grossly normal motility. There was no evidence of erosive esophagitis or candidiasis. The Z-line was estimated at 35 cm. The stomach was then entered and carefully examined. This included a retroflexed view of the cardia and fundus. No ulcers were identified. In the gastric body, greater curvature, a 5 mm nonbleeding vascular ectasias was identified. The lesion was treated with argon plasma coagulation (0.6 L/minute, 25 dowd) with good ablation post treatment. No other vascular ectasias were identified. Inspection of the duodenum revealed normal-appearing mucosa with no vascular ectasias or ulcers identified. Random biopsies were obtained in the proximal duodenum for histology. The stomach was decompressed as the endoscope was completely removed from the patient. She was then repositioned for the colonoscopy. RECOMMENDATIONS: 1. Await biopsy results. 2. Proceed with colonoscopy. 3. Have the patient follow up with me in the office in about 2 to 3 weeks. Job ID: [id number]
--- NOTE | 2018-12-04 22:01 | OP ---
DATE OF PROCEDURE: 12/04/2018 PROCEDURE PERFORMED: Colonoscopy with snare polypectomy and biopsy. PREPROCEDURE DIAGNOSIS: Severe iron-deficiency anemia with no overt rectal bleeding. POSTPROCEDURE DIAGNOSES: 1. Exam to ulcerated colonic stricture in the mid-transverse colon. 2. Moderate sigmoid diverticulosis. 3. Six diminutive sessile polyps in the distal transverse and descending colon, removed by cold snare technique. 4. Three diminutive sessile polyps in the sigmoid colon, removed by cold snare technique. 5. Small internal hemorrhoids. 6. Exam limited to the mid-transverse colon distally to the rectum. DESCRIPTION OF PROCEDURE: Written informed consent was obtained. Upon completion of the EGD, the patient was repositioned for the colonoscopy. A digital rectal exam was performed that was unremarkable. A Pentax video colonoscope was inserted through the anal canal and advanced under direct visualization to approximately 62 cm at the mid-transverse colon. At this level, the severe luminal narrowing was encountered and the colonoscope could not be advanced safely any further. An ulcerated strictured area was encountered of unclear length. Because the colonoscope could not be advanced through the ulcerated stricture, its length could not be reliably estimated. Multiple biopsies were obtained for histology. In the distal transverse colon, three diminutive sessile polyps were identified and removed by cold snare polypectomy. The polyps were retrieved for histology. They ranged in size from 3 to 5 mm. Three additional similar-sized sessile polyps were encountered in the descending colon and were also removed by cold snare technique with the tissue retrieved for histology. In the sigmoid colon, three diminutive sessile polyps were identified, ranging in size from 3 mm to 4 mm. These polyps were also removed by cold snare technique, but only one of the three tissue specimens were retrieved for histology. Frequent diverticular orifices, both large and small, were identified in the sigmoid colon. They did not appear to be infected or actively bleeding. In the rectum, retroflex exam demonstrated small internal hemorrhoids. The colon was diffusely redundant. The colon was decompressed as the colonoscope was removed from the patient. She was transferred to the recovery room for postprocedure monitoring. There were no immediate complications. RECOMMENDATIONS: 1. Await pathology results. 2. Ask the patient to call me in one week for pathology results. 3. We would refrain from using any antiplatelet therapy or anticoagulant therapy given the ulcerated stricture in her colon. 4. We would advise the use of stool softener or MiraLAX daily if the patient experiences any constipation. 5. Continue close clinical monitoring in a long-term care facility setting as she is doing. 6. Have the patient follow up in GI clinic in 2 weeks. Job ID: [id number]
== END 2018-12-04 16:10 | disposition home or self-care (01) ==
LOC: SDC 12:06
PROVIDERS: ATTEND Internal Medicine Gastroenterology
PROC: 0DBM8ZX Excision of Descending Colon, Via Natural or Artificial Opening Endoscopic, Diagnostic (ICD-10-PCS; principal; 2018-12-04)
PROC: 0DBL8ZX Excision of Transverse Colon, Via Natural or Artificial Opening Endoscopic, Diagnostic (ICD-10-PCS; 2018-12-04)
PROC: 0DBN8ZX Excision of Sigmoid Colon, Via Natural or Artificial Opening Endoscopic, Diagnostic (ICD-10-PCS; 2018-12-04)
PROC: 0DBL8ZX Excision of Transverse Colon, Via Natural or Artificial Opening Endoscopic, Diagnostic (ICD-10-PCS; 2018-12-04)
PROC: 0DB98ZX Excision of Duodenum, Via Natural or Artificial Opening Endoscopic, Diagnostic (ICD-10-PCS; 2018-12-04)
PROC: 0D578ZZ Destruction of Stomach, Pylorus, Via Natural or Artificial Opening Endoscopic (ICD-10-PCS; 2018-12-04)
DX: D50.9 Iron deficiency anemia, unspecified (principal); D12.3 Benign neoplasm of transverse colon; D12.4 Benign neoplasm of descending colon; D12.5 Benign neoplasm of sigmoid colon; K56.699 Other intestinal obstruction unspecified as to partial versus complete obstruction; K64.8 Other hemorrhoids; K57.30 Diverticulosis of large intestine without perforation or abscess without bleeding; K31.819 Angiodysplasia of stomach and duodenum without bleeding; J44.9 Chronic obstructive pulmonary disease, unspecified; I48.91 Unspecified atrial fibrillation; Z88.5 Allergy status to narcotic agent; Z88.8 Allergy status to other drugs, medicaments and biological substances; Z91.041 Radiographic dye allergy status; Z91.048 Other nonmedicinal substance allergy status; Z91.030 Bee allergy status; Z79.4 Long term (current) use of insulin; Z79.899 Other long term (current) drug therapy; Z79.1 Long term (current) use of non-steroidal anti-inflammatories (NSAID); Z79.82 Long term (current) use of aspirin; Z79.01 Long term (current) use of anticoagulants; Z95.1 Presence of aortocoronary bypass graft
CPT/HCPCS: 36416; 88305; J2250; J2704

== ENCOUNTER 2019-01-11 14:26 | Inpatient (IN) | payer MEDICARE, MEDICAID ==
[2019-01-11 15:11] LABS: #Eosinphils 0.3 thou/uL (0.0-0.7); #Lymphocytes 1.4 thou/uL (1.20-3.40); #Monocytes 0.6 thou/uL (0.11-0.59); #Neutrophils 5.7 thou/uL (1.40-6.50); %Basophils 0.3 % (0.0-1.0); %Eosinophils 3.5 % (0.0-10.0); %Lymphocytes 17.9 % (21.0-51.0); %Monocytes 7.2 % (0.0-10.0); %Neutrophils 71.1 % (42.0-75.0); Hemoglobin 7.3 g/dL (12.0-16.0); Mean Corpuscular HGB CONC 29.7 g/dL (32.0-36.0); Mean Corpuscular Hemoglobin 27.3 pg (27.0-31.0); Mean Corpuscular Volume 92.1 fL (78.0-98.0); Mean Platelet Volume 9.8 fL (7.4-10.4); Platelet Count 132 thou/uL (130-400); RBC Distribution Width 15.7 % (11.5-14.5); Red Blood Cell (RBC) Count 2.65 mill/uL (4.20-5.40); White Blood Cell (WBC) Count 7.9 thou/uL (4.8-10.8)
[2019-01-11 15:29] LABS: Anisocytosis SLIGHT = 6-15 cells (100X) (0-5/hpf); MDiff Complete? YES; Platelet Morphology Comment Appears Adequate; Polychromasia MODERATE = 3-4 cells (100X) (0-2/hpf)
[2019-01-11 15:46] LABS: ALT (SGPT) 11 U/L (8-55); AST (SGOT) 19 U/L (5-34); Albumin 2.7 g/dL (3.4-4.8); Alkaline Phosphatase 132 U/L (40-150); Anion Gap 12 mmol/L (10-20); BUN (Urea Nitrogen) 18 mg/dL (9.8-20.1); Bilirubin, Total 0.4 mg/dL (0.2-1.2); CK (CPK) 66 U/L (29-168); Calc. Creatinine Clearance 0 mL/min (70-130); Calcium 8.2 mg/dL (7.8-10.44); Carbon Dioxide 26 mmol/L (23-31); Chloride 104 mmol/L (98-107); Estimated GFR-MDRD 59; Globulin 2.3 g/dL (2.4-3.5); Glucose 153 mg/dL (83-110); Potassium 4.3 mmol/L (3.5-5.1); Sodium 138 mmol/L (136-145)
[2019-01-11] MEDS ORDERED: Furosemide 40 MG/4 ML VIAL ONE (15:53)
--- NOTE | 2019-01-11 16:15 | RAD ---
PORTABLE CHEST 1 VIEW: Date: 01/11/19 Time: 1521 hours HISTORY: Chest pain. COPD. Atrial fibrillation. Coronary artery disease. CHF. Anemia. FINDINGS/IMPRESSION: Comparison made with exam of 10/21/18. Changes of median sternotomy are again seen. The heart size is enlarged. There is pulmonary vascular congestion superimposed on chronic interstitial changes. No lobar consolidation, pneumothoraces, or l arge effusions are seen. POS: OFF
[2019-01-11 18:40] LABS: Troponin I 0.013 ng/mL (< 0.028)
[2019-01-11] MEDS ORDERED: Senokot S 8.6-50 MG TAB PO PRN (20:04)
[2019-01-11] MEDS ORDERED: Dextrose 50% Abboject 50 ML SYRINGE SLOW IVP PRN (20:04)
[2019-01-11] MEDS ORDERED: HumaLOG 300 UNITS/3 ML VIAL SC PRN (20:04)
[2019-01-11] MEDS ORDERED: Guaifenesin DM 100-10/5 ML UDCUP PO PRN (20:04)
[2019-01-11] MEDS ORDERED: Dextrose 5% in Water 1,000 ML IV PRN (20:04)
[2019-01-11] MEDS ORDERED: Bisacodyl 10 MG SUPP PR PRN (20:04)
--- NOTE | 2019-01-11 21:25 | HP ---
REASON FOR ADMISSION: CHF exacerbation, hypotension, anasarca. HISTORY OF PRESENTING ILLNESS: The patient gives history of developing shortness of breath from Tuesday. This has been progressively getting worse, and finally, she asked the custodial where she is staying [facility] staff to send her to the emergency room. She also mentions that she has had progressive swelling of her lower extremities, more so on the right lower extremity, where she has had surgery. The patient had open reduction and internal fixation of right tibial plateau delayed union on 11/13/[address] Sloan. She initially sustained a right bicondylar tibial plateau fracture on 08/25/2018, for which a closed reduction and percutaneous screw stabilization was done on 08/25/[address] Sloan. Post the last procedure, the patient was sent to [facility] for further recuperation. She has been bearing 25% weight on the right lower extremity from the on. She has really not ambulated so far. Currently, has no complaints of chest pain, palpitations, or PND. There are no complaints of orthopnea either. The patient has dry cough with no expectoration. PAST MEDICAL AND SURGICAL HISTORY: 1. History of coronary artery disease with prior 4-vessel bypass. 2. History of carotid stenosis. 3. Hypothyroidism. 4. COPD, likely end stage. 5. Hypertension. 6. History of TIA. 7. Diabetes mellitus type 2. 8. Anxiety. 9. Severe deconditioning. 10. Peripheral vascular disease. 11. Spinal stenosis. 12. 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 13. Chronic atrial fibrillation. 14. Hernia repair. 15. Hysterectomy. 16. Cholecystectomy. 17. GERD. 18. Tonsillectomy. 19. Appendectomy. CURRENT MEDICATIONS: Please note the patient is on multiple medications. She is on; 1. Aspirin 81 mg p.o. daily. 2. Lipitor 10 mg p.o. at bedtime. 3. Eliquis 5 mg p.o. twice daily. 4. DuoNeb q.6 hourly p.r.n. 5. Cardizem CD 180 mg p.o. daily. 6. Cymbalta 60 mg p.o. daily. 7. Ferrous sulfate 325 mg p.o. twice daily. 8. Mirtazapine 30 mg p.o. at bedtime. 9. Multivitamin 1 tablet once daily. 10. Dulera inhaler 2 puffs twice daily. 11. [place]-3 fatty acids 1 capsule twice daily. 12. MiraLAX 17 g daily. 13. Lyrica 300 mg p.o. twice daily. 14. Trazodone 200 mg p.o. at bedtime p.r.n. 15. Estradiol 0.5 mg p.o. daily. 16. Lasix 40 mg p.o. daily. 17. Lantus 30 units subcu twice daily. 18. Protonix 40 mg daily. 19. K-Dur 20 mEq p.o. twice daily. 20. Ultram p.r.n. for pain. 21. Ambien 5 mg p.o. at bedtime p.r.n. ALLERGIES: TO ADHESIVE TAPE, CODEINE, GABAPENTIN, HYDROCODONE, IODINE, MORPHINE , BEE VENOM. PERSONAL HISTORY: Quit smoking on 08/30/2018. Does not abuse alcohol or drugs. FAMILY HISTORY: Mother in her 80s from natural causes. Father in his 60s, he had history of [place]. CODE STATUS: Do not attempt to resuscitate. This was discussed with the patient at bedside. Mr. Stevie Anderson, one of the power of attorneys, and son is at bedside confirms the same. Power of trial attorney is both her sons, Mr. Hubbard and Josh Anderson. REVIEW OF SYSTEMS: CONSTITUTIONAL: Negative for weight loss or gain, ability to conduct usual activities. SKIN: Negative for rash, itching. EYES: Negative for double vision, pain. ENT/MOUTH: Negative for nose bleeding, neck stiffness, pain, tenderness. CARDIOVASCULAR: Negative for palpitations, dyspnea on exertion, orthopnea. RESPIRATORY: Negative for shortness of breath, wheezing, cough, hemoptysis, fever or night sweats. GASTROINTESTINAL: Negative for poor appetite, abdominal pain, heartburn, nausea , vomiting, constipation, or diarrhea. GENITOURINARY: Negative for urgency, frequency, dysuria, nocturia. MUSCULOSKELETAL: Negative for pain, swelling. NEUROLOGIC/PSYCHIATRIC: Negative for anxiety, depression. ALLERGY/IMMUNOLOGIC: Negative for skin rash, bleeding tendency. PHYSICAL EXAMINATION: GENERAL: The patient is a 73-year-old female, who is currently hypotensive after receiving a dose of IV Lasix 40 mg. VITAL SIGNS: Blood pressure 70/60, pulse 90 per minute, respiratory rate 20 per minute, temperature 98 degrees Fahrenheit, saturating 100% on 2 L nasal cannula. NECK: Supple. No elevated JVD. HEENT: Eyes; extraocular muscles intact. Pupils reacting to light. Oral cavity, mucous membranes are moist. No exudates or congestion. CARDIOVASCULAR: S1, S2 heard. Regular rhythm. RESPIRATORY: Scattered rales plus bilateral. ABDOMEN: Soft. Bowel sounds heard. No tenderness, rigidity, or guarding. EXTREMITIES: There is 2+ peripheral edema. Also, the patient has a chronic surgical wound on the right lateral aspect of her leg with serosanguineous discharge due to edema. Wound appears to be healing with no dehiscence seen. No obvious calf tenderness. VASCULAR: Peripheral pulses 1+ bilateral. No ischemic ulcerations or gangrene. Please note, the patient has a right foot drop. PSYCHIATRIC: The patient's mood is euthymic. No hallucinations or delusions. CENTRAL NERVOUS SYSTEM: No gross focal deficits noted except for right footdrop. The patient is alert and oriented well. LABORATORY AND DIAGNOSTIC DATA: Chest x-ray done, shows pulmonary vascular congestion, cardiomegaly. White count of 7.9, H and H are 7.3 and 24, platelet count 132, MCV is 92 with 71% neutrophils. Electrolytes are stable. BUN 18, creatinine 0.9, serum glucose 153. Liver enzymes within normal limits. BNP 255. Albumin is 2.7. Troponin x2 negative. CLINICAL IMPRESSION AND PLAN: The patient will be admitted to telemetry for [id number] congestive heart failure exacerbation, anasarca, currently hypotensive after receiving 40 mg of Lasix IV push in the ER with systolic blood pressure trending in the 70s. She will be given a 250 mL normal saline bolus. We will try to diurese her from morning at 20 mg IV q.12 hourly if she tolerates it. If not, we will need to add dobutamine or dopamine for pressor support for diuresis. The patient has massive edema in both lower extremities, more so on the right. We will also obtain an ultrasound venous Doppler to rule out DVT. She has a foot drop as well in the right foot, might need an orthotic device if there is no DVT in the leg. We will obtain PT/OT evaluations and the patient is 25% weightbearing on the right lower extremity. We will also consult Dr. Sloan, her orthopedic surgeon. We will continue her aspirin, Eliquis, Cymbalta, estradiol, Pepcid, ferrous sulfate, DuoNeb, Dulera, fish oil, Protonix, MiraLAX, pravastatin, trazodone, Ultram, and Florastor as before. She will be on Lantus 10 units subcu twice daily and we will slowly titrate this up based on fingerstick glucose. Based on the patient's progress, we will consult her java web user interface developer, Dr. Barajas, if needed, and Dr. Walton, her core winder machine operator, if she was to decompensate. I have discussed code status with the patient at bedside and she wants to be a do not attempt to resuscitate. The patient's overall prognosis is guarded. Job ID: [id number] MTDD
--- NOTE | 2019-01-11 21:44 | ULT ---
ULTRASOUND WITH DOPPLER DUPLEX VENOUS LOWER EXTREMITY BILATERAL CPT: 21514 ICD-10-PCS: B54D HISTORY: Edema in bilateral lower extremities. TECHNIQUE: Color flow Doppler, spectral waveform analysis of pulsed Doppler, and valentin-scale imaging with hina taz and augmentation, were used to evaluate the bilateral common femoral, femoral, popliteal, rn admission ior tibial, and superficial femoral, veins; and the proximal portions of the profunda femoral and gre ater saphenous, veins. FINDINGS: There is appropriate compressibility and flow within the imaged deep vein system of the bilateral low er extremities without evidence of DVT. IMPRESSION: No DVT identified. POS: KELI
[2019-01-11] MEDS: Apixaban 5 MG TAB PO SCH (21:45)
[2019-01-11] MEDS: Insulin Glargine 10 UNITS in Pre-Filled Syringe 1 EACH SC SCH (21:45)
[2019-01-11] MEDS: traZODone HCl 50 MG TAB PO PRN (21:45)
[2019-01-11] MEDS: Famotidine 20 MG TAB PO SCH (21:46)
[2019-01-11] MEDS: Ferrous Sulfate 325 MG TAB PO SCH (21:46)
[2019-01-11] MEDS: Fish Oil 1,000 MG CAP PO SCH (21:46)
[2019-01-11] MEDS: Pravastatin Sodium 40 MG TAB PO SCH (21:46)
[2019-01-12 03:39] LABS: #Eosinphils 0.2 thou/uL (0.0-0.7); #Lymphocytes 1.3 thou/uL (1.20-3.40); #Monocytes 0.4 thou/uL (0.11-0.59); #Neutrophils 4.1 thou/uL (1.40-6.50); %Basophils 0.7 % (0.0-1.0); %Eosinophils 2.7 % (0.0-10.0); %Lymphocytes 21.7 % (21.0-51.0); %Neutrophils 67.9 % (42.0-75.0); Hemoglobin 6.5 g/dL (12.0-16.0); Mean Corpuscular HGB CONC 30.7 g/dL (32.0-36.0); Mean Corpuscular Hemoglobin 27.7 pg (27.0-31.0); Mean Corpuscular Volume 90.3 fL (78.0-98.0); Mean Platelet Volume 9.8 fL (7.4-10.4); Platelet Count 115 thou/uL (130-400); RBC Distribution Width 15.6 % (11.5-14.5); Red Blood Cell (RBC) Count 2.34 mill/uL (4.20-5.40)
[2019-01-12 03:58] LABS: Anion Gap 11 mmol/L (10-20); BUN (Urea Nitrogen) 19 mg/dL (9.8-20.1); Calc. Creatinine Clearance 69 mL/min (70-130); Calcium 8.3 mg/dL (7.8-10.44); Carbon Dioxide 31 mmol/L (23-31); Chloride 104 mmol/L (98-107); Estimated GFR-MDRD 61; Glucose 119 mg/dL (83-110); Potassium 3.8 mmol/L (3.5-5.1); Sodium 142 mmol/L (136-145)
[2019-01-12 04:03] LABS: Troponin I Less than 0.010 ng/mL (< 0.028)
[2019-01-12] MEDS: Furosemide 20 MG/2 ML VIAL SLOW IVP SCH ×2 (06:37→14:51)
[2019-01-12 07:00] LABS: Troponin I Less than 0.010 ng/mL (< 0.028)
[2019-01-12] MEDS: Polyethylene Glycol 3350 17 GM Packet PO SCH (08:52)
[2019-01-12] MEDS: Fish Oil 1,000 MG CAP PO SCH ×2 (08:52→20:26)
[2019-01-12] MEDS: Pantoprazole 40 MG GRANULES PACKET PO SCH (08:52)
[2019-01-12] MEDS: Aspirin Chewable 81 MG TAB PO SCH (08:52)
[2019-01-12] MEDS: Cyanocobalamin (Vitamin B-12) 1,000 MCG TAB PO SCH (08:52)
[2019-01-12] MEDS: Potassium Chloride 20 MEQ TAB PO SCH ×2 (08:52→17:53)
[2019-01-12] MEDS: DULoxetine 30 MG CAP PO SCH (08:53)
[2019-01-12] MEDS: Docusate 100 MG CAP PO SCH (08:53)
[2019-01-12] MEDS: Estradiol 1 MG TAB PO SCH (08:53)
[2019-01-12] MEDS: Apixaban 5 MG TAB PO SCH ×2 (08:53→20:27)
[2019-01-12] MEDS: Saccharomyces boulardii 250 MG CAP PO SCH (08:53)
[2019-01-12] MEDS: Ferrous Sulfate 325 MG TAB PO SCH ×2 (08:54→20:26)
[2019-01-12] MEDS ORDERED: Aspirin 81 mg Enteric Coated Tablet PO SCH (09:00)
[2019-01-12] MEDS: Insulin Glargine 10 UNITS in Pre-Filled Syringe 1 EACH SC SCH ×2 (09:11→20:25)
[2019-01-12] MEDS: HumaLOG 300 UNITS/3 ML VIAL SC PRN ×2 (09:17→14:51)
[2019-01-12] MEDS: Famotidine 20 MG TAB PO SCH ×2 (09:19→20:27)
[2019-01-12] MEDS: Mometasone/Formoterol 120 PUFF INHALER INH SCH ×2 (09:33→19:17)
--- NOTE | 2019-01-12 09:49 | RAD ---
XR Knee Rt 2 View: 01/12/2019 9:02 AM CLINICAL INDICATION: Tibial plateau fracture evaluate healing COMPARISON: 09/07/2018 FINDINGS: Fracture:Grossly stable alignment of proximal tibial and fibular fractures. There has been interval e xchange of prior hardware for plate and screw fixation traversing the level of the tibial plateau to the proximal diaphysis. No hardware complication. Residual fracture lucency does remain, and mild callus formation is also seen. Arthropathy:Evidence of CPPD deposition disease Incidental findings:Vascular calcification IMPRESSION: Interval hardware revision with plate and screw fixation traversing proximal tibial fracture. Fractur e lucencies of the proximal tibia and fibula persist with callus formation present.. Transcribed Date/Time: 01/12/2019 9:58 AM
--- NOTE | 2019-01-12 11:30 | CON ---
DATE OF CONSULTATION: HISTORY OF PRESENT ILLNESS: Pilar Kirk is a 73-year-old morbidly obese female, who presented to the hospital with weakness and shortness of breath. She is feeling better. In September, she had surgery done on the right leg for a fracture. She has been seen one time following her surgery in 2008 many years ago. She has not been in the office. She has severe limitation to activity. Long-time smoker of half pack to a pack a day, though she quit smoking in 2008. Previous history of multiple endoscopies for GI bleed. She denied any chest pain yesterday except for the shortness of breath. Her saturations on 2 L were 100%. Respirations 20. Blood pressure in the ER was 108/73. PAST MEDICAL HISTORY: Pertinent otherwise for coronary artery disease, severe deconditioning, diabetes, chronic anemia, GI bleed, iron deficiency anemia, hypertension, arthritis, spinal stenosis, previous TIA, previous COPD, and fractured leg. PAST SURGICAL HISTORY: Previous surgeries, multiple endoscopies. Bypass surgery. Recent left leg surgery. Right tibia surgery. MEDICATIONS: Home medicine includes an extremely long list; 1. Low-flow O2. 2. Ultram. 3. Mucinex. 4. Ambien. 5. Lyrica 300 twice a day. 6. Pravastatin 40. 7. Potassium. 8. Vitamins. 9. Dulera 200. 10. Nitroglycerin. 11. Remeron 30. 12. Mobic 15. 13. Nebulizer three times a day. 14. Combivent. 15. Lasix 40. 16. Iron tablets 325. 17. Cardizem CD 180. 18. Cymbalta 60. 19. Nose spray several. 20. Eliquis 5 twice a day. ALLERGIES: CODEINE, GABAPENTIN, HYDROCODONE AND MORPHINE. SOCIAL HISTORY: At one time, she did drive a school bus. REVIEW OF SYSTEMS: Otherwise, 10-point negative. PHYSICAL EXAMINATION: GENERAL: Morbidly obese female. VITAL SIGNS: Saturations are 92% on 2 L, pulse 104, temperature 98, and blood pressure 120/55. CHEST: Decreased breath sounds. No wheezing. CARDIAC: Normal S1 and S2. No gallops. ABDOMEN: No masses. LABORATORY DATA: White count 6000, H and H 6 and 21, and platelet count 115. Her lytes are normal. IMPRESSION AND PLAN: 1. Recurrent chronic anemia and gastrointestinal bleed, unknown etiology. 2. Dyspnea, congestive heart failure, and chronic obstructive pulmonary disease. 3. Morbid obesity. Pulmonary centeno, she is presently on adequate medication, no need to change any medicine. May consider outpatient sleep study, if she so desires. Supportive care for chronic anemia, transfusion as needed. We will follow while in the hospital. Consultation note, 70 minutes, 50% direct patient care. Job ID: [id number]
--- NOTE | 2019-01-12 13:32 | PDOC.PN ---
- Subjective Encounter Start Date: 01/12/19 Encounter Start Time: 10:00 Subjective: breathing better this am -: no abd pain -: leg swelling has come down remarkably - Objective Resuscitation Status - Order Detail: 01/11/19 19:49 Resuscitation Status Routine Resuscitation Status: DNAR: NO Resuscitation Discussed with: d/w patient at bedside, POA is charisse Mancini & Josh Anderson MAR Reviewed: Yes Vital Signs & Weight: Vital Signs (12 hours) Temp Pulse Pulse Resp BP BP BP 01/12/19 13:06 97.8 F 101 H 18 110/51 L 01/12/19 12:14 98 F 104 H 18 97/54 L 01/12/19 12:00 97.8 F 101 H 18 110/51 L 01/12/19 09:34 01/12/19 09:33 104 H 16 01/12/19 09:17 104 H 16 01/12/19 07:30 98.6 F 104 H 19 102/55 L 01/12/19 06:01 102 H 102/54 L 01/12/19 03:19 98.8 F 109 H 16 102/59 L Pulse Ox 01/12/19 13:06 01/12/19 12:14 100 01/12/19 12:00 96 01/12/19 09:34 92 L 01/12/19 09:33 01/12/19 09:17 01/12/19 07:30 99 01/12/19 06:01 01/12/19 03:19 96 Weight Admit Weight 170 lb 6 oz Weight 170 lb 1 oz I&O: 01/11/19 01/12/19 01/13/19 06:59 06:59 06:59 Intake Total 0 Balance 0 Result Diagrams: 01/12/19 03:21 01/12/19 03:21 Additional Labs: Accuchecks 01/12/19 01/12/19 01/11/19 10:50 05:18 21:14 POC Glucose 219 H 153 H 133 H Phys Exam - Physical Examination HEENT: PERRLA, moist MMs Neck: no JVD, supple Respiratory: no wheezing, no rales Cardiovascular: RRR, no significant murmur Gastrointestinal: soft, non-tender, positive bowel sounds Musculoskeletal: pulses present, edema present Neurological: non-focal, moves all 4 limbs Psychiatric: normal affect, A&O x 3 Dx/Plan (1) Acute exacerbation of CHF (congestive heart failure) Code(s): I50.9 - HEART FAILURE, UNSPECIFIED Status: Acute Qualifiers: Heart failure type: diastolic Qualified Code(s): I50.33 - Acute on chronic diastolic (congestive) heart failure (2) Anasarca Code(s): R60.1 - GENERALIZED EDEMA Status: Acute (3) Acute blood loss anemia Code(s): D62 - ACUTE POSTHEMORRHAGIC ANEMIA Status: Acute (4) COPD (chronic obstructive pulmonary disease) Status: Chronic Qualifiers: COPD type: COPD with acute exacerbation Qualified Code(s): J44.1 - Chronic obstructive pulmonary disease with (acute) exacerbation Comment: Continue dulera, oxygen (is on home oxygen), nebs (5) PVD (peripheral vascular disease) Code(s): I73.9 - PERIPHERAL VASCULAR DISEASE, UNSPECIFIED Status: Chronic (6) Atrial fibrillation Code(s): I48.91 - UNSPECIFIED ATRIAL FIBRILLATION Status: Chronic Qualifiers: Atrial fibrillation type: chronic Qualified Code(s): I48.2 - Chronic atrial fibrillation (7) CAD (coronary artery disease) Code(s): I25.10 - ATHSCL HEART DISEASE OF [place] CORONARY ARTERY W/O ANG PCTRS Status: Chronic Qualifiers: Coronary Disease-Associated Artery/Lesion type: bypass graft [place] vs. transplanted heart: [place] heart Associated angina: without angina Qualified Code(s): I25.810 - Atherosclerosis of coronary artery bypass graft(s) without angina pectoris (8) Chronic diastolic CHF (congestive heart failure) Code(s): I50.32 - CHRONIC DIASTOLIC (CONGESTIVE) HEART FAILURE Status: Chronic (9) DM type 2 (diabetes mellitus, type 2) Status: Chronic Qualifiers: Diabetes mellitus fci insulin use: with fci use Diabetes mellitus complication status: with unspecified complications Qualified Code(s) : E11.8 - Type 2 diabetes mellitus with unspecified complications; Z79.4 - control electrician (current) use of insulin Comment: Controlled (10) Dyslipidemia Code(s): E78.5 - HYPERLIPIDEMIA, UNSPECIFIED Status: Chronic Comment: Statin (11) GERD (gastroesophageal reflux disease) Code(s): K21.9 - GASTRO-ESOPHAGEAL REFLUX DISEASE WITHOUT ESOPHAGITIS Status: Chronic Qualifiers: Esophagitis presence: esophagitis presence not specified Qualified Code(s) : K21.9 - Gastro-esophageal reflux disease without esophagitis Comment: stable (12) Moderate protein-calorie malnutrition Code(s): E44.0 - MODERATE PROTEIN-CALORIE MALNUTRITION Status: Acute (13) Hypoalbuminemia Code(s): E88.09 - OTH DISORDERS OF PLASMA-PROTEIN METABOLISM, NEC Status: Acute (14) Hypothyroidism Code(s): E03.9 - HYPOTHYROIDISM, UNSPECIFIED Status: Chronic Qualifiers: Hypothyroidism type: unspecified Qualified Code(s): E03.9 - Hypothyroidism , unspecified - Plan gentle diuresis as blood pressure permits -: glucerna 1 can tid, dietary consultation for low alb -: brett hose for LE if ok with ortho, PT to mobilize per ortho adv -: continue asp, eliquis, iron, dulera, nebs, 1 unit prbc -: hemostable, needs to mobilize more, no dvt on usg, wound care for left leg * . Review of Systems - Medications/Allergies Allergies/Adverse Reactions: Allergies Allergy/AdvReac Type Severity Reaction Status Date / Time adhesive tape Allergy Verified 01/11/19 23:32 codeine Allergy Verified 01/11/19 23:32 gabapentin Allergy Verified 01/11/19 23:32 hydrocodone Allergy Verified 01/11/19 23:32 iodine Allergy Verified 01/11/19 23:32 morphine Allergy Verified 01/11/19 23:32 venom-honey bee Allergy Verified 01/11/19 23:32 [bee venom (honey bee)] Medications: Current Medications Acetaminophen (Tylenol) 650 mg PO Q4H PRN PRN Reason: Headache/Fever/Mild Pain (1-3) Albuterol/Ipratropium (Duoneb) 3 ml NEB [id number] [facility] Last Admin: 01/12/19 09:17 Dose: 3 ml Apixaban (Eliquis) 5 mg PO BID [facility] Last Admin: 01/12/19 08:53 Dose: 5 mg Aspirin (Aspirin Chewable) 81 mg PO DAILY [facility] Last Admin: 01/12/19 08:52 Dose: 81 mg Bisacodyl (Dulcolax) 10 mg [place] DAILYPRN PRN PRN Reason: Constipation Cyanocobalamin (Vitamin B-12) 1,000 mcg PO DAILY [facility] Last Admin: 01/12/19 08:52 Dose: 1,000 mcg Dextrose/Water (Dextrose 50%) 25 gm SLOW IVP PRN PRN PRN Reason: Hypoglycemia Docusate Sodium (Colace) 100 mg PO DAILY [facility] Last Admin: 01/12/19 08:53 Dose: 100 mg Duloxetine HCl (Cymbalta) 60 mg PO DAILY [facility] Last Admin: 01/12/19 08:53 Dose: 60 mg Estradiol (Estrace) 0.5 mg PO DAILY [facility] Last Admin: 01/12/19 08:53 Dose: 0.5 mg Famotidine (Pepcid) 20 mg PO BID [facility] Last Admin: 01/12/19 09:19 Dose: 20 mg Ferrous Sulfate (Feosol) 325 mg PO BID [facility] Last Admin: 01/12/19 08:54 Dose: 325 mg Fish Oil (Fish Oil) 1,000 mg PO BID [facility] Last Admin: 01/12/19 08:52 Dose: 1,000 mg Furosemide (Lasix) 20 mg SLOW IVP 0600,1400 [facility] Last Admin: 01/12/19 06:37 Dose: Not Given Glucagon (Glucagon) 1 mg IM PRN PRN PRN Reason: Hypoglycemia Guaifenesin/Dextromethorphan (Robitussin Dm) 15 ml PO Q4H PRN PRN Reason: Cough Dextrose/Water (D5w) 1,000 mls @ 0 mls/hr IV .Q0M PRN PRN Reason: Hypoglycemia Insulin Glargine 10 units/ (Miscellaneous Medication) 0.1 mls @ 0 mls/hr SC BID [facility] Last Admin: 01/12/19 09:11 Dose: 0.1 mls Insulin Human Lispro (Humalog) 0 units SC .MODERATE SLIDING SC PRN PRN Reason: Moderate Correctional Scale Last Admin: 01/12/19 09:17 Dose: 2 units Insulin Human Lispro (Humalog) 0 units SC .BEDTIME SLIDING SC PRN PRN Reason: Bedtime Correctional Scale Mometasone Furoate/Formoterol Fumar (Dulera 200 Mcg/5 Mcg Inhaler) 2 puff INH BID-RT [facility] Last Admin: 01/12/19 09:33 Dose: 2 puff Pantoprazole Sodium (Protonix) 40 mg PO DAILY [facility] Last Admin: 01/12/19 08:52 Dose: 40 mg Polyethylene Glycol (Miralax) 17 gm PO DAILY [facility] Last Admin: 01/12/19 08:52 Dose: 17 gm Potassium Chloride (K-Dur) 20 meq PO BID[facility] Last Admin: 01/12/19 08:52 Dose: 20 meq Pravastatin Sodium (Pravachol) 40 mg PO HS [facility] Last Admin: 01/11/19 21:46 Dose: 40 mg Saccharomyces Boulardii (Florastor) 250 mg PO DAILY [facility] Last Admin: 01/12/19 08:53 Dose: 250 mg Senna/Docusate Sodium (Senokot S) 2 tab PO BID PRN PRN Reason: Constipation Sodium Chloride (Flush - Normal Saline) 10 ml IVF PRN PRN PRN Reason: Saline Flush Last Admin: 01/12/19 08:52 Dose: 10 ml Tramadol HCl (Ultram) 50 mg PO Q6H PRN PRN Reason: Mild Pain (1-3) Trazodone HCl (Desyrel) 200 mg PO HS PRN PRN Reason: Pain Last Admin: 01/11/19 21:45 Dose: 200 mg
[2019-01-12] MEDS: Pravastatin Sodium 40 MG TAB PO SCH (20:26)
[2019-01-12] MEDS: traZODone HCl 50 MG TAB PO PRN (20:26)
--- NOTE | 2019-01-13 00:20 | CON ---
DATE OF CONSULTATION: 01/12/2019 INDICATION FOR CONSULTATION: A 73-year-old female with chest pain. HISTORY OF PRESENT ILLNESS: This is a very pleasant elderly female, who has been followed by me for many years. She has had multiple hospital admissions recently for chest pain, ischemia, right leg fracture, right hip fracture. She has a history of atrial fibrillation. She has a history of bypass surgery in the past. She has been on a BiPAP mask in the past. She has sleep apnea. She has had episodes of tachycardia, requiring digoxin just to slow the heart rate, but at this time, she again presented after she had noticed herself she was getting more anemic, more fatigued, more short of breath and then developed chest pain. She was admitted to the hospital. For the entire history and physical, please refer to the notes dictated by the nurse practitioner. At this time, when she was admitted, she was found to have a hemoglobin of 7.3, it then decreased down to 6.5 earlier this morning. Her WBC was 6.0, hematocrit was 21.1, platelet count was 115,000. Her cardiac enzymes are negative for myocardial infarction. The EKG did not show any acute changes. Her BNP was 255. Does not appear that she has had any myocardial injury. Denies any chest pain after she has been given I believe 1 to 2 units of blood already. PHYSICAL EXAMINATION: GENERAL: Reveals an elderly fragile female, who is in no acute distress at this time. She is comfortable. She is afebrile. VITAL SIGNS: Heart rate is 101, respiratory rate is 18, blood pressure is 110/56, O2 saturations 98%. She at this time is in a normal sinus rhythm with occasional PACs. No indication of any atrial fibrillation. HEENT: Unremarkable. She has bilateral carotid bruits. CHEST: Clear to auscultation. CARDIAC: She has a midline incision in the sternal area. She had very poor healing in the past, which she healed by secondary intention. She had unstable sternum and dehisced her sutures many years ago. CARDIOVASCULAR: Reveals a regular rate and rhythm at this time. She has systolic murmur at the upper sternal border and also at the apex. ABDOMEN: Soft. Positive bowel sounds are present. EXTREMITIES: Showed no clubbing or cyanosis. She has lower extremity edema. She has a surgical dressing or wound dressing on the right lateral lower leg, just below the knee area. She has multiple areas of contusions. The right foot also is more edematous than the left. Pulses are difficult to palpate and neurologically she appears to be fully intact. SKIN: Warm and dry at this time. IMPRESSION: Elderly female with significant anemia, causing demand ischemia or chest discomfort, but EKG does not show any acute changes and nor is any indication that she has had a myocardial infarction. Cardiac enzymes remain negative. Would continue to fully transfuse her as needed, being careful not to over-transfuse or volume overload this lady. She has been seen by enterprise resource planning consultant in the past. I am uncertain if they have ever found any evidence of whether she is losing blood. She has been on Eliquis in the past for her history of atrial fibrillation. At this time, remains in sinus rhythm. She is a diabetic. We will be continuing her insulin. She has coronary artery disease which appears to be stable after bypass surgery many years ago. She has history of congestive heart failure. This appears also to be stable. We will continue her present medications, but add Zaroxolyn as needed. She also has a long history of COPD, has been followed by the slubber frame changer in the past. This appears to be stable. She has a chronic right bundle-branch block. There have been no changes. We will be more than happy to continue to follow the patient with you. However, from a cardiac standpoint she appears to be stable at this time. Job ID: [id number]
[2019-01-13] MEDS: Furosemide 20 MG/2 ML VIAL SLOW IVP SCH ×2 (05:58→14:45)
[2019-01-13 07:44] LABS: #Eosinphils 0.1 thou/uL (0.0-0.7); #Lymphocytes 0.7 thou/uL (1.20-3.40); #Monocytes 0.4 thou/uL (0.11-0.59); #Neutrophils 6.3 thou/uL (1.40-6.50); %Basophils 0.2 % (0.0-1.0); %Eosinophils 1.9 % (0.0-10.0); %Lymphocytes 8.7 % (21.0-51.0); %Monocytes 5.8 % (0.0-10.0); %Neutrophils 83.4 % (42.0-75.0); Mean Corpuscular HGB CONC 31.3 g/dL (32.0-36.0); Mean Corpuscular Hemoglobin 27.4 pg (27.0-31.0); Mean Corpuscular Volume 87.5 fL (78.0-98.0); Mean Platelet Volume 9.4 fL (7.4-10.4); Platelet Count 121 thou/uL (130-400); RBC Distribution Width 14.9 % (11.5-14.5); Red Blood Cell (RBC) Count 2.93 mill/uL (4.20-5.40); White Blood Cell (WBC) Count 7.6 thou/uL (4.8-10.8)
[2019-01-13 08:04] LABS: Anion Gap 11 mmol/L (10-20); BUN (Urea Nitrogen) 15 mg/dL (9.8-20.1); Calc. Creatinine Clearance 74 mL/min (70-130); Calcium 8.4 mg/dL (7.8-10.44); Carbon Dioxide 30 mmol/L (23-31); Chloride 101 mmol/L (98-107); Estimated GFR-MDRD 66; Glucose 249 mg/dL (83-110); Potassium 3.6 mmol/L (3.5-5.1); Sodium 138 mmol/L (136-145)
[2019-01-13] MEDS: Ondansetron ODT 4 MG TAB PO PRN ×2 (08:35→14:45)
[2019-01-13] MEDS: Insulin Glargine 10 UNITS in Pre-Filled Syringe 1 EACH SC SCH ×2 (08:35→21:56)
[2019-01-13] MEDS: HumaLOG 300 UNITS/3 ML VIAL SC PRN (08:36)
[2019-01-13] MEDS: DULoxetine 30 MG CAP PO SCH (08:37)
[2019-01-13] MEDS: Famotidine 20 MG TAB PO SCH ×2 (08:37→21:55)
[2019-01-13] MEDS: Pantoprazole 40 MG GRANULES PACKET PO SCH (08:37)
[2019-01-13] MEDS: Ferrous Sulfate 325 MG TAB PO SCH ×2 (08:37→21:55)
[2019-01-13] MEDS: Estradiol 1 MG TAB PO SCH (08:37)
[2019-01-13] MEDS: Saccharomyces boulardii 250 MG CAP PO SCH (08:38)
[2019-01-13] MEDS: Aspirin Chewable 81 MG TAB PO SCH (08:38)
[2019-01-13] MEDS: Potassium Chloride 20 MEQ TAB PO SCH ×2 (08:38→16:42)
[2019-01-13] MEDS: Fish Oil 1,000 MG CAP PO SCH ×2 (08:38→21:55)
[2019-01-13] MEDS: Docusate 100 MG CAP PO SCH (08:38)
[2019-01-13] MEDS: Apixaban 5 MG TAB PO SCH ×2 (08:38→21:55)
[2019-01-13] MEDS: Cyanocobalamin (Vitamin B-12) 1,000 MCG TAB PO SCH (08:38)
[2019-01-13] MEDS: Polyethylene Glycol 3350 17 GM Packet PO SCH (08:39)
--- NOTE | 2019-01-13 09:12 | PDOC.PN ---
- Subjective Encounter Start Date: 01/13/19 Encounter Start Time: 09:11 Subjective: Admitted due to worsening SOB and bilateral leg edema. -: Feeling better. -: Recieved 1 PRBC yesterday. Cough with sputum production is chronic - Objective Resuscitation Status - Order Detail: 01/11/19 19:49 Resuscitation Status Routine Resuscitation Status: DNAR: NO Resuscitation Discussed with: d/w patient at bedside, POA is sons & Josh Anderson Vital Signs & Weight: Vital Signs (12 hours) Temp Pulse Resp BP BP Pulse Ox 01/13/19 07:14 97.7 F 107 H 16 116/53 L 97 01/13/19 03:40 97.8 F 103 H 16 108/54 L 98 01/13/19 00:00 98.3 F 103 H 19 111/53 L 95 Weight Admit Weight 170 lb 6 oz Weight 171 lb 1 oz I&O: 01/12/19 01/13/19 01/14/19 06:59 06:59 06:59 Intake Total 750 Output Total 600 Balance 150 Result Diagrams: 01/13/19 07:37 01/13/19 07:38 Additional Labs: Accuchecks 01/13/19 01/12/19 01/12/19 05:31 20:04 16:53 POC Glucose 162 H 169 H 127 H 01/12/19 10:50 POC Glucose 219 H Phys Exam - Physical Examination Constitutional: NAD morbidly obese HEENT: PERRLA, moist MMs Neck: no JVD Short thick neck Respiratory: no wheezing, no rhonchi Fair air entry bilaterally with some transmitted sound. Cardiovascular: RRR tachycardic with occasional ectopics. Gastrointestinal: soft, non-tender, no distention, positive bowel sounds morbidly obese Musculoskeletal: pulses present mild to moderate bilateral leg edema. Lateral right leg dressings noted Neurological: non-focal Power is decreased all limbs. Right foot drop noted Psychiatric: A&O x 3 Dx/Plan (1) Acute on chronic diastolic (congestive) heart failure Code(s): I50.33 - ACUTE ON CHRONIC DIASTOLIC (CONGESTIVE) HEART FAILURE Status : Acute (2) Paroxysmal atrial fibrillation Code(s): I48.0 - PAROXYSMAL ATRIAL FIBRILLATION Status: Acute (3) Acute on chronic anemia Code(s): D64.9 - ANEMIA, UNSPECIFIED Status: Acute (4) Chronic respiratory failure with hypoxia, on home oxygen therapy Code(s): J96.11 - CHRONIC RESPIRATORY FAILURE WITH HYPOXIA; Z99.81 - DEPENDENCE ON SUPPLEMENTAL OXYGEN Status: Acute (5) Hypoalbuminemia Code(s): E88.09 - OTH DISORDERS OF PLASMA-PROTEIN METABOLISM, NEC Status: Acute (6) Acute blood loss anemia Code(s): D62 - ACUTE POSTHEMORRHAGIC ANEMIA Status: Acute (7) Hx of CABG Status: Acute (8) CAD (coronary artery disease) Code(s): I25.10 - ATHSCL HEART DISEASE OF [place] CORONARY ARTERY W/O ANG PCTRS Status: Chronic Qualifiers: Coronary Disease-Associated Artery/Lesion type: bypass graft [place] vs. transplanted heart: [place] heart Associated angina: without angina Qualified Code(s): I25.810 - Atherosclerosis of coronary artery bypass graft(s) without angina pectoris (9) COPD (chronic obstructive pulmonary disease) Status: Chronic Qualifiers: COPD type: COPD with acute exacerbation Qualified Code(s): J44.1 - Chronic obstructive pulmonary disease with (acute) exacerbation Comment: Continue dulera, oxygen (is on home oxygen), nebs (10) DM type 2 (diabetes mellitus, type 2) Status: Chronic Qualifiers: Diabetes mellitus jail insulin use: with long haul truck driver use Diabetes mellitus complication status: with unspecified complications Qualified Code(s) : E11.8 - Type 2 diabetes mellitus with unspecified complications; Z79.4 - long term care administrator (current) use of insulin Comment: Controlled (11) Dyslipidemia Code(s): E78.5 - HYPERLIPIDEMIA, UNSPECIFIED Status: Chronic Comment: Statin (12) GERD (gastroesophageal reflux disease) Code(s): K21.9 - GASTRO-ESOPHAGEAL REFLUX DISEASE WITHOUT ESOPHAGITIS Status: Chronic Qualifiers: Esophagitis presence: esophagitis presence not specified Qualified Code(s) : K21.9 - Gastro-esophageal reflux disease without esophagitis Comment: stable (13) Hypothyroid Code(s): E03.9 - HYPOTHYROIDISM, UNSPECIFIED Status: Chronic (14) PVD (peripheral vascular disease) Code(s): I73.9 - PERIPHERAL VASCULAR DISEASE, UNSPECIFIED Status: Chronic - Plan Restart cardizem at a lower rate given recent Hypotension. -: monitor H/H while continuing eliquis. -: Monitor renal function and vitals with diuretics. -: Continue PT/OT as well as other treatments -: Continue bronchodilators. * .
[2019-01-13] MEDS: Mometasone/Formoterol 120 PUFF INHALER INH SCH ×2 (11:02→18:57)
--- NOTE | 2019-01-13 11:39 | PRG ---
DATE OF SERVICE: 01/13/2019 SUBJECTIVE: This morning, she says she is feeling better. She denies difficulty breathing, coughing, or wheezing. OBJECTIVE: VITAL SIGNS: Temperature 97, pulse 107, respirations 16, saturations 97% on 2 L, blood pressure 116/53. CHEST: Decreased breath sounds. No wheezing. CARDIAC: Normal S1 and S2. No gallops. ABDOMEN: Soft. LABORATORY DATA: Her creatinine is normal. H and H is unremarkable, 8 and 25. Lytes are normal. IMPRESSION: 1. Congestive heart failure. 2. Chronic obstructive pulmonary disease. 3. Obesity. 4. Severe deconditioning. 5. Do not resuscitate. 6. Anemia. PLAN: Continue PT, supportive care. Disposition as per primary care physician. Job ID: [id number]
[2019-01-13] MEDS: Metoclopramide HCl 10 MG TAB PO PRN ×2 (18:15→21:55)
[2019-01-13] MEDS: Pravastatin Sodium 40 MG TAB PO SCH (21:55)
[2019-01-14] MEDS: Ondansetron ODT 4 MG TAB PO PRN (00:10)
[2019-01-14] MEDS: traZODone HCl 50 MG TAB PO PRN (01:38)
[2019-01-14] MEDS ORDERED: Ondansetron ODT 4 MG TAB PO SCH (02:30)
[2019-01-14 02:41] LABS: #Eosinphils 0.2 thou/uL (0.0-0.7); #Monocytes 0.5 thou/uL (0.11-0.59); #Neutrophils 4.5 thou/uL (1.40-6.50); %Basophils 0.6 % (0.0-1.0); %Eosinophils 2.7 % (0.0-10.0); %Lymphocytes 16.4 % (21.0-51.0); %Monocytes 7.3 % (0.0-10.0); Hemoglobin 8.2 g/dL (12.0-16.0); Mean Corpuscular HGB CONC 31.1 g/dL (32.0-36.0); Mean Corpuscular Hemoglobin 27.4 pg (27.0-31.0); Mean Corpuscular Volume 87.9 fL (78.0-98.0); Mean Platelet Volume 9.5 fL (7.4-10.4); Platelet Count 139 thou/uL (130-400); RBC Distribution Width 14.7 % (11.5-14.5); Red Blood Cell (RBC) Count 2.98 mill/uL (4.20-5.40); White Blood Cell (WBC) Count 6.1 thou/uL (4.8-10.8)
[2019-01-14 03:03] LABS: ALT (SGPT) 11 U/L (8-55); AST (SGOT) 17 U/L (5-34); Albumin 2.7 g/dL (3.4-4.8); Alkaline Phosphatase 114 U/L (40-150); Anion Gap 10 mmol/L (10-20); BUN (Urea Nitrogen) 17 mg/dL (9.8-20.1); Bilirubin, Total 0.7 mg/dL (0.2-1.2); Calc. Creatinine Clearance 74 mL/min (70-130); Calcium 8.8 mg/dL (7.8-10.44); Carbon Dioxide 30 mmol/L (23-31); Chloride 100 mmol/L (98-107); Estimated GFR-MDRD 66; Globulin 2.9 g/dL (2.4-3.5); Glucose 202 mg/dL (83-110); Potassium 3.9 mmol/L (3.5-5.1); Protein, Total 5.6 g/dL (6.0-8.3); Sodium 136 mmol/L (136-145)
[2019-01-14] MEDS: Metoclopramide HCl 10 MG TAB PO PRN ×3 (05:18→22:25)
[2019-01-14] MEDS: Furosemide 20 MG/2 ML VIAL SLOW IVP SCH (05:18)
[2019-01-14] MEDS: Mometasone/Formoterol 120 PUFF INHALER INH SCH ×2 (08:23→19:05)
[2019-01-14] MEDS: DULoxetine 30 MG CAP PO SCH (08:25)
[2019-01-14] MEDS: Famotidine 20 MG TAB PO SCH ×2 (08:25→20:28)
[2019-01-14] MEDS: Docusate 100 MG CAP PO SCH (08:25)
[2019-01-14] MEDS: Saccharomyces boulardii 250 MG CAP PO SCH (08:25)
[2019-01-14] MEDS: Aspirin Chewable 81 MG TAB PO SCH (08:25)
[2019-01-14] MEDS: Apixaban 5 MG TAB PO SCH ×2 (08:25→20:28)
[2019-01-14] MEDS: Ferrous Sulfate 325 MG TAB PO SCH ×2 (08:25→20:29)
[2019-01-14] MEDS: Fish Oil 1,000 MG CAP PO SCH ×2 (08:26→20:29)
[2019-01-14] MEDS: Pantoprazole 40 MG GRANULES PACKET PO SCH (08:26)
[2019-01-14] MEDS: Potassium Chloride 20 MEQ TAB PO SCH ×2 (08:26→16:44)
[2019-01-14] MEDS: Insulin Glargine 10 UNITS in Pre-Filled Syringe 1 EACH SC SCH ×2 (08:26→22:25)
[2019-01-14] MEDS: Cyanocobalamin (Vitamin B-12) 1,000 MCG TAB PO SCH (08:26)
[2019-01-14] MEDS: Estradiol 1 MG TAB PO SCH (08:26)
[2019-01-14] MEDS: Polyethylene Glycol 3350 17 GM Packet PO SCH (08:27)
--- NOTE | 2019-01-14 10:32 | PDOC.PN ---
- Subjective Encounter Start Date: 01/14/19 Encounter Start Time: 10:30 Subjective: No new problem. -: Feeling better. Had some nausea yesterday which has improved. - Objective Resuscitation Status - Order Detail: 01/11/19 19:49 Resuscitation Status Routine Resuscitation Status: DNAR: NO Resuscitation Discussed with: d/w patient at bedside, POA is charisse Mancini & Josh Anderson Vital Signs & Weight: Vital Signs (12 hours) Temp Pulse Resp BP Pulse Ox 01/14/19 08:23 112 H 16 01/14/19 08:14 97 01/14/19 08:12 112 H 16 01/14/19 08:00 97.4 F L 111 H 19 118/61 100 Weight Admit Weight 170 lb 6 oz Weight 173 lb 3 oz I&O: 01/13/19 01/14/19 01/15/19 06:59 06:59 06:59 Intake Total 750 490 Output Total 600 600 Balance 150 -110 Result Diagrams: 01/14/19 02:26 01/14/19 02:31 Additional Labs: Accuchecks 01/14/19 01/13/19 01/13/19 06:14 20:50 16:49 POC Glucose 209 H 156 H 165 H 01/13/19 13:09 POC Glucose 170 H Phys Exam - Physical Examination Constitutional: NAD obese HEENT: moist MMs Neck: supple fair air entry bilaterally with some transmitted sound irregular rhythm and rate, tachycardic Gastrointestinal: soft, non-tender, no distention, positive bowel sounds Morbidly obese Musculoskeletal: edema present mild bilateral leg edema Neurological: non-focal awake and conversational. Moves all limbs but weakly Psychiatric: A&O x 3 Dx/Plan (1) Acute on chronic diastolic (congestive) heart failure Code(s): I50.33 - ACUTE ON CHRONIC DIASTOLIC (CONGESTIVE) HEART FAILURE Status : Acute (2) Paroxysmal atrial fibrillation Code(s): I48.0 - PAROXYSMAL ATRIAL FIBRILLATION Status: Acute (3) Acute on chronic anemia Code(s): D64.9 - ANEMIA, UNSPECIFIED Status: Acute (4) Chronic respiratory failure with hypoxia, on home oxygen therapy Code(s): J96.11 - CHRONIC RESPIRATORY FAILURE WITH HYPOXIA; Z99.81 - DEPENDENCE ON SUPPLEMENTAL OXYGEN Status: Acute (5) Hypoalbuminemia Code(s): E88.09 - OTH DISORDERS OF PLASMA-PROTEIN METABOLISM, NEC Status: Acute (6) Acute blood loss anemia Code(s): D62 - ACUTE POSTHEMORRHAGIC ANEMIA Status: Acute (7) Hx of CABG Status: Acute (8) CAD (coronary artery disease) Code(s): I25.10 - ATHSCL HEART DISEASE OF [place] CORONARY ARTERY W/O ANG PCTRS Status: Chronic Qualifiers: Coronary Disease-Associated Artery/Lesion type: bypass graft [place] vs. transplanted heart: [place] heart Associated angina: without angina Qualified Code(s): I25.810 - Atherosclerosis of coronary artery bypass graft(s) without angina pectoris (9) COPD (chronic obstructive pulmonary disease) Status: Chronic Qualifiers: COPD type: COPD with acute exacerbation Qualified Code(s): J44.1 - Chronic obstructive pulmonary disease with (acute) exacerbation Comment: Continue dulera, oxygen (is on home oxygen), nebs (10) DM type 2 (diabetes mellitus, type 2) Status: Chronic Qualifiers: Diabetes mellitus [place] insulin use: with prison use Diabetes mellitus complication status: with unspecified complications Qualified Code(s) : E11.8 - Type 2 diabetes mellitus with unspecified complications; Z79.4 - [facility] (current) use of insulin Comment: Controlled (11) Dyslipidemia Code(s): E78.5 - HYPERLIPIDEMIA, UNSPECIFIED Status: Chronic Comment: Statin (12) GERD (gastroesophageal reflux disease) Code(s): K21.9 - GASTRO-ESOPHAGEAL REFLUX DISEASE WITHOUT ESOPHAGITIS Status: Chronic Qualifiers: Esophagitis presence: esophagitis presence not specified Qualified Code(s) : K21.9 - Gastro-esophageal reflux disease without esophagitis Comment: stable (13) Hypothyroid Code(s): E03.9 - HYPOTHYROIDISM, UNSPECIFIED Status: Chronic (14) PVD (peripheral vascular disease) Code(s): I73.9 - PERIPHERAL VASCULAR DISEASE, UNSPECIFIED Status: Chronic - Plan Restart cardizem CD 180 daily. Dc cardizem IR q6. -: Continue diuretics. -: Continue other treatments. -: Monitor renal function and H/H * .
[2019-01-14] MEDS: HumaLOG 300 UNITS/3 ML VIAL SC PRN (11:42)
--- NOTE | 2019-01-14 11:54 | PRG ---
DATE OF SERVICE: 01/14/2019 SUBJECTIVE: Pilar Kirk, morbidly obese female. She says she is doing better, less short of breath. OBJECTIVE: VITAL SIGNS: Saturations are 97% on 2 L, respiratory rate 16, pulse 112, temperature 97, blood pressure 180/61. CHEST: No wheezing. No crackles. CARDIAC: Normal S1 and S2. No gallops. LABORATORY DATA: Lytes are normal. Blood sugar 224. IMPRESSION: Congestive heart failure; chronic obstructive pulmonary disease; deconditioning; anemia, stable. She is stable enough to be discharged back to alf. I suggest switching over to oral Lasix. Job ID: [id number]
[2019-01-14] MEDS: guaiFENesin ER 600 MG TAB PO SCH (20:29)
[2019-01-14] MEDS: Pravastatin Sodium 40 MG TAB PO SCH (20:29)
[2019-01-15 06:32] LABS: #Eosinphils 0.1 thou/uL (0.0-0.7); #Lymphocytes 1.1 thou/uL (1.20-3.40); #Monocytes 0.6 thou/uL (0.11-0.59); #Neutrophils 5.1 thou/uL (1.40-6.50); %Basophils 0.2 % (0.0-1.0); %Eosinophils 2.1 % (0.0-10.0); %Lymphocytes 16.2 % (21.0-51.0); %Monocytes 8.3 % (0.0-10.0); %Neutrophils 73.2 % (42.0-75.0); Hemoglobin 7.1 g/dL (12.0-16.0); Mean Corpuscular HGB CONC 31.5 g/dL (32.0-36.0); Mean Corpuscular Volume 85.9 fL (78.0-98.0); Mean Platelet Volume 9.3 fL (7.4-10.4); Platelet Count 164 thou/uL (130-400); RBC Distribution Width 14.4 % (11.5-14.5); Red Blood Cell (RBC) Count 2.63 mill/uL (4.20-5.40); White Blood Cell (WBC) Count 6.9 thou/uL (4.8-10.8)
[2019-01-15 06:50] LABS: Albumin 2.7 g/dL (3.4-4.8); Anion Gap 7 mmol/L (10-20); BUN (Urea Nitrogen) 23 mg/dL (9.8-20.1); BUN/Creatinine Ratio 29.49; Calc. Creatinine Clearance 82 mL/min (70-130); Calcium 8.4 mg/dL (7.8-10.44); Carbon Dioxide 33 mmol/L (23-31); Chloride 100 mmol/L (98-107); Estimated GFR-MDRD 73; Glucose 178 mg/dL (83-110); Phosphorus 3.2 mg/dL (2.3-4.7); Sodium 136 mmol/L (136-145)
[2019-01-15] MEDS: Ferrous Sulfate 325 MG TAB PO SCH ×2 (07:59→21:01)
[2019-01-15] MEDS: DULoxetine 30 MG CAP PO SCH (07:59)
[2019-01-15] MEDS: Potassium Chloride 20 MEQ TAB PO SCH ×2 (07:59→18:01)
[2019-01-15] MEDS: Polyethylene Glycol 3350 17 GM Packet PO SCH (07:59)
[2019-01-15] MEDS: Aspirin Chewable 81 MG TAB PO SCH (08:00)
[2019-01-15] MEDS: Furosemide 40 MG TAB PO SCH (08:00)
[2019-01-15] MEDS: Famotidine 20 MG TAB PO SCH ×2 (08:00→21:00)
[2019-01-15] MEDS: Estradiol 1 MG TAB PO SCH (08:00)
[2019-01-15] MEDS: Fish Oil 1,000 MG CAP PO SCH ×2 (08:00→21:01)
[2019-01-15] MEDS: Cyanocobalamin (Vitamin B-12) 1,000 MCG TAB PO SCH (08:01)
[2019-01-15] MEDS: guaiFENesin ER 600 MG TAB PO SCH ×2 (08:01→21:01)
[2019-01-15] MEDS: Saccharomyces boulardii 250 MG CAP PO SCH (08:01)
[2019-01-15] MEDS: Pantoprazole 40 MG GRANULES PACKET PO SCH (08:01)
[2019-01-15] MEDS: Docusate 100 MG CAP PO SCH (08:01)
[2019-01-15] MEDS: Apixaban 5 MG TAB PO SCH (08:02)
[2019-01-15] MEDS: Insulin Glargine 10 UNITS in Pre-Filled Syringe 1 EACH SC SCH ×2 (08:02→21:01)
[2019-01-15] MEDS: Mometasone/Formoterol 120 PUFF INHALER INH SCH ×2 (08:12→18:25)
--- NOTE | 2019-01-15 08:51 | PDOC.PN ---
- Subjective Encounter Start Date: 01/15/19 Encounter Start Time: 08:49 Subjective: i want to go home - Objective Resuscitation Status - Order Detail: 01/11/19 19:49 Resuscitation Status Routine Resuscitation Status: DNAR: NO Resuscitation Discussed with: d/w patient at bedside, POA is sons & Josh HINTON Reviewed: Yes Vital Signs & Weight: Vital Signs (12 hours) Temp Pulse Resp BP Pulse Ox 01/15/19 08:00 97.6 F 99 18 122/54 L 96 01/15/19 04:00 97.9 F 98 14 119/56 L 99 Weight Admit Weight 170 lb 6 oz Weight 173 lb 6.4 oz I&O: 01/14/19 01/15/19 01/16/19 06:59 06:59 06:59 Intake Total 670 Output Total 975 Balance -305 Result Diagrams: 01/15/19 06:05 01/15/19 06:05 Additional Labs: Accuchecks 01/15/19 01/14/19 01/14/19 06:12 22:12 17:03 POC Glucose 194 H 201 H 238 H 01/14/19 11:00 POC Glucose 225 H Phys Exam - Physical Examination Neck: no JVD Respiratory: clear to auscultation bilateral Cardiovascular: irregular Gastrointestinal: soft, positive bowel sounds Musculoskeletal: edema present Dx/Plan (1) Acute on chronic anemia Code(s): D64.9 - ANEMIA, UNSPECIFIED Status: Acute (2) Acute on chronic diastolic (congestive) heart failure Code(s): I50.33 - ACUTE ON CHRONIC DIASTOLIC (CONGESTIVE) HEART FAILURE Status : Acute (3) Chronic respiratory failure with hypoxia, on home oxygen therapy Code(s): J96.11 - CHRONIC RESPIRATORY FAILURE WITH HYPOXIA; Z99.81 - DEPENDENCE ON SUPPLEMENTAL OXYGEN Status: Acute (4) Hypothyroidism Code(s): E03.9 - HYPOTHYROIDISM, UNSPECIFIED Status: Chronic Qualifiers: Hypothyroidism type: unspecified Qualified Code(s): E03.9 - Hypothyroidism , unspecified (5) Atrial fibrillation with RVR Code(s): I48.91 - UNSPECIFIED ATRIAL FIBRILLATION Status: Acute (6) CKD stage 3 due to type 2 diabetes mellitus Code(s): E11.22 - TYPE 2 DIABETES MELLITUS W DIABETIC CHRONIC KIDNEY DISEASE; N18.3 - CHRONIC KIDNEY DISEASE, STAGE 3 (MODERATE) Status: Acute (7) Hx of CABG Status: Acute (8) DM type 2 (diabetes mellitus, type 2) Status: Chronic Qualifiers: Diabetes mellitus [facility] insulin use: with terminal press operator use Diabetes mellitus complication status: with unspecified complications Qualified Code(s) : E11.8 - Type 2 diabetes mellitus with unspecified complications; Z79.4 - nursing home (current) use of insulin Comment: Controlled (9) Dyslipidemia Code(s): E78.5 - HYPERLIPIDEMIA, UNSPECIFIED Status: Chronic Comment: Statin (10) Hypothyroid Code(s): E03.9 - HYPOTHYROIDISM, UNSPECIFIED Status: Chronic - Plan transfuse 1 unit PRBC -: ferriten level -: discuss anticoag with cardiology -: multiple endoscopies for bleeding unrevealing * .
--- NOTE | 2019-01-15 09:30 | PRG ---
DATE OF SERVICE: 01/15/2019 SUBJECTIVE: She is nauseated this morning. Her breathing is otherwise stable. OBJECTIVE: VITAL SIGNS: Saturations are 96% on 2 L, respiratory rate 18, pulse 99, temperature 97, . CHEST: Decreased breath sounds. No wheezing. CARDIAC: Normal S1 and S2. No gallops. ABDOMEN: No masses. ASSESSMENT: 1. Chronic obstructive pulmonary disease and congestive heart failure, improved. 2. Nausea. PLAN: She could be discharged home. Comfort care. Supportive care, PT. Continue present home medication. Job ID: [id number]
[2019-01-15 09:36] LABS: Iron 25 ug/dL (50-170); Iron Binding Capacity, Total 301 mcg/dL (265-497)
--- NOTE | 2019-01-15 10:13 | CON ---
DATE OF CONSULTATION: PRIMARY CARE PHYSICIAN: Dr. Avina. PRIMARY MEDICAL PRACTICE ASSISTANT: Dr. Destini Barajas. GI DOCTOR: Dr. Nassar. REASON FOR CARDIOLOGY CONSULT: Congestive heart failure exacerbation and history of atrial fibrillation. HISTORY OF PRESENT ILLNESS: Mrs. Kirk is a 73-year-old female with a significant history of diastolic heart failure, paroxysmal atrial fibrillation, coronary artery disease with status post CABG, severe COPD, insulin-dependent diabetes, hypertension, anemia, and history of moderate sigmoid diverticulitis, PVD, and status post right leg fracture. Since the last Tuesday, she started having shortness of breath and tightness to the left upper chest continuously, and the patient's symptoms getting worse and severe edema in the lower extremities. Next, the staff from [facility] called EMS and the patient was transferred to the emergency department for further evaluation and treatment and at this moment, the patient denied any chest pain, discomfort and tightness in her chest, shortness of breath, dizziness, lightheadedness or any other cardiac complaints. At this moment, the patient receiving 1 unit of blood transfusion for hemoglobin level of 6.5. The patient underwent upper endoscopy and colonoscopy and found that she had ulcerated colonic stricture of transverse colon, polyps, internal hemorrhoid and moderate sigmoid diverticulosis along with small nonbleeding vascular ectasia of the stomach treated with argon plasma coagulation. The patient had total of 9 polyps, which were benign. The patient had echocardiogram done October 2018, with EF 50% to 55%, diastolic dysfunction, moderately dilated left atrium, mild ERA, trace mitral valve regurgitation, mild aortic valve regurgitation, mild tricuspid regurgitation, and mild pulmonic valve regurgitation. She had a cardiac PET stress test in November 2017, which revealed reversible ischemia in lateral wall, which was mild in the small area. She underwent cardiac catheterization. She was found to have diffuse 3-vessel disease with total occlusion of the right coronary artery disease with 50% stenosis in the proximal left circumflex and 90% in the diagonal and bypass grafts revealed patent graft to the 70% stenosis distal to the graft insertion. BARBOSA to LAD was patent. Right posterior descending was patent. Diagonal graft was occluded. PAST MEDICAL HISTORY: Coronary artery disease, COPD, hypertension, hyperlipidemia, GERD, insulin-dependent diabetes, anxiety, depression, PVDs, carotid stenosis, hypothyroidism, history of TIA, and spinal stenosis. PAST SURGICAL HISTORY: 1. Right tibia-fibula fracture repaired. 2. Hernia repair. 3. Hysterectomy. 4. Cholecystectomy. 5. Tonsillectomy. 6. Appendectomy. 7. CABG x4. CURRENT MEDICATIONS: Please refer to the patient's medical record. ALLERGIES: SHE HAS ALLERGIES TO TAPE, CODEINE, GABAPENTIN, HYDROCODONE, IODINE, MORPHINE, AND BEES. FAMILY HISTORY: The patient's mother around the age of 80s from natural cause. The patient's father diseased around age 60s due to the NE. SOCIAL HISTORY: She is staying in a rehab at this moment. She just stops smoking in August 2018. She denied alcohol or illicit drug abuse. She started walking a few steps a day since few weeks ago. CODE STATUS: Do not attempt to resuscitate. REVIEW OF SYSTEMS: 12-point review of systems negative unless otherwise mentioned in the HPI. The patient denied hematuria or hematochezia. PHYSICAL EXAMINATION: VITAL SIGNS: Blood pressure 110/51, temperature 97.8, respiratory rate 18, heart rate 101 sinus tach, and 2 L nasal cannula O2 saturation 100%. GENERAL: The patient is alert and oriented x4, not in acute distress. HEENT: Normocephalic and atraumatic. EYES: Extraocular muscle movements intact. ENT AND MOUTH: Oral and nasal mucosa are moist without lesion. RESPIRATORY: Diminished at the bases, but no wheezing, rales, or rhonchi noted. CARDIOVASCULAR: Regular rate and rhythm. Normal S1 and S2. There is no S3 or S4. No significant murmur, hives, or thrill noted. EXTREMITIES: 2 to 3+ pitting edema in the bilateral lower extremities. Carotid pulses are present without bruit or thrill. 2+ pulses in bilateral upper and lower extremities. ABDOMEN: Soft and nontender. No mass to palpitate. Bowel sounds are present. SKIN: Warm and dry. No lesion, rash, or erythema noted, but the patient had a dressing in the right ankle side and lateral part. MUSCULOSKELETAL: The patient able to move upper extremities without difficulty. In the lower extremity, the patient had a discomfort with movement. NEUROLOGIC: The patient is alert and oriented x4. Nonfocal. PSYCHIATRIC: The patient's mood is appropriate. LABORATORY DATA: WBC 6.0, hemoglobin 6.5, hematocrit 21.1, platelet 115. Sodium 142, potassium 3.8, BUN 19, creatinine 0.91, glucose 119. AST 19, ALT 11, creatine kinase 66. Troponin 0.012 and 0.013. BNP 255.8 and TSH 2.7315. Venogram in the lower extremity shows no DVT. Chest x-ray shows enlarged heart size, pulmonary vascular congestion, but no lobar consolidation, pneumothorax, or large effusion. 12-lead EKG shows a sinus tach, no ST-segment change or T-wave inversion. ASSESSMENT AND PLAN: 1. Acute on chronic diastolic heart failure. The patient's condition is stable at this moment due to hypotension with Lasix 40 mg IV push. The patient has been on Lasix 20 mg IV push twice a day for now, although the patient has 2 to 3+ pitting edema in lower extremities. The patient was instructed to raise the lower extremities at this moment. Respiratory status is stable with 2 L nasal cannula at this moment. She is on a beta arleen at this moment due to the history of severe chronic obstructive pulmonary disease and the patient is not on ADITHYA inhibitor or ARB at this moment because the patient's blood pressure is hypotensive at this moment. Once the patient's vital signs are stable, we would like to start ADITHYA inhibitor or ARB for this patient. 2. Paroxysmal atrial fibrillation. The patient remains in sinus rhythm, sinus tach at this moment. The patient is on Eliquis 5 mg twice a day, which may hold for a few days to see if the patient's hemoglobin level has come up. We would like to continue to monitor on the telemetry and see if the patient's heart rate coming down after blood transfusion. 3. Coronary artery disease with a history of CABG. The patient's condition is stable at this moment. We would like to continue to monitor on the telemetry. Again, the patient is on the beta arleen due to history of severe chronic obstructive pulmonary disease ADITHYA inhibitor due to the hypotension. The patient is on aspirin 81 mg once a day and pravastatin. 4. End-stage chronic obstructive pulmonary disease. The patient's condition is stable at this moment. We would like to continue to monitor. 5. Insulin dependent diabetes, which is managed by the patient's primary care doctor. 6. Hypertension. The patient is hypotensive at this moment. The patient's blood pressure medication is on hold. 7. Anemia, unknown etiology, possible GI bleed from moderate sigmoid diverticulitis. 8. Peripheral vascular disease. The patient's condition is stable at this moment. The patient's venogram showed no DVT in the lower extremities. Thank you very much for allowing the Cardiology Service to participate in the care of this patient. We will follow along the patient's care team and make further recommendations as appropriate. Job ID: [id number]
--- NOTE | 2019-01-15 12:13 | PDOC.CTH ---
Cardiology Progress Note - Subjective The pt seen and examined. No overnight events. No cardiac complaints. - Objective Vital Signs Temp Pulse Resp BP BP Pulse Ox 01/15/19 11:10 98.3 F 104 H 18 108/54 L 100 01/15/19 08:00 97.6 F 99 18 122/54 L 96 01/15/19 04:00 97.9 F 98 14 119/56 L 99 Admit Weight 170 lb 6 oz Weight 173 lb 6.4 oz 01/14/19 01/15/19 01/16/19 06:59 06:59 06:59 Intake Total 670 Output Total 975 Balance -305 - Physical Examination General/Neuro: alert & oriented x3 Neck: no JVD present Lungs: other: (coarses and diminished at bases) Heart: RRR Abdomen: soft Extremities: other: (No edema to BLE) - Telemetry Telemetry Rhythm: SR - Labs Result Diagrams: 01/15/19 06:05 01/15/19 06:05 Troponin/CKMB Troponin I Less than 0.010 ng/mL (< 0.028) 01/12/19 06:02 - Assessment/Plan 1. Acute on chronic Diastolic HF - stable with Lasix 40mg po; Not on BBlocker 2/ 2 hx of severe COPD; Not on ADITHYA/ARB 2/2 hx of CKD 2. Anemia - will have another 1 unit of PRBC 3. Parox AFib - remains in SR; Stop Eliquis for anemia; on ASA 81mg qd; Dilatiazem 180mg was started from this am 4. CAD with hx of CABG - stable; on ASA 81mg and Pravastatin; Not on BBlocker 2 /2 hx of severe COPD; Not on ADITHYA/ARB 2/2 hx of CKD 5. COPD - On 2LNC; managed by silk trimmer 6. CKD stage 3 - stable 7. DM type 2 - 8. HTN - hypotensitve; cont. to monitor 9. HLD - on statin 10. S/p Rt leg fx - MAR reviewed Pt. seen and eval. by me. I agree with the A/P by the RESIDENTIAL PROGRAM WORKER. Chest clear. RRR with occasional ectopy. Review of Systems - Review of Systems Constitutional: reports: no symptoms reported EENTM: reports: no symptoms reported Respiratory: reports: no symptoms reported Cardiac (ROS): reports: no symptoms reported ABD/GI: reports: no symptoms reported : reports: no symptoms reported Musculoskeletal: reports: no symptoms reported
[2019-01-15] MEDS: HumaLOG 300 UNITS/3 ML VIAL SC PRN (17:55)
[2019-01-15] MEDS: Pravastatin Sodium 40 MG TAB PO SCH (21:00)
[2019-01-15 21:19] LABS: Hemoglobin 7.7 g/dL (12.0-16.0)
[2019-01-16 07:11] LABS: #Basophils 0.1 thou/uL (0.0-0.2); #Eosinphils 0.1 thou/uL (0.0-0.7); #Lymphocytes 1.1 thou/uL (1.20-3.40); #Monocytes 0.7 thou/uL (0.11-0.59); #Neutrophils 6.3 thou/uL (1.40-6.50); %Basophils 0.8 % (0.0-1.0); %Eosinophils 1.1 % (0.0-10.0); %Lymphocytes 12.8 % (21.0-51.0); %Monocytes 8.7 % (0.0-10.0); %Neutrophils 76.5 % (42.0-75.0); Hemoglobin 7.6 g/dL (12.0-16.0); Mean Corpuscular HGB CONC 32.9 g/dL (32.0-36.0); Mean Corpuscular Hemoglobin 28.3 pg (27.0-31.0); Mean Corpuscular Volume 85.8 fL (78.0-98.0); Platelet Count 191 thou/uL (130-400); RBC Distribution Width 14.3 % (11.5-14.5); White Blood Cell (WBC) Count 8.2 thou/uL (4.8-10.8)
[2019-01-16] MEDS: Mometasone/Formoterol 120 PUFF INHALER INH SCH ×2 (07:25→18:53)
[2019-01-16] MEDS: Aspirin Chewable 81 MG TAB PO SCH (08:43)
[2019-01-16] MEDS: Insulin Glargine 10 UNITS in Pre-Filled Syringe 1 EACH SC SCH ×2 (08:43→20:24)
[2019-01-16] MEDS: Potassium Chloride 20 MEQ TAB PO SCH ×2 (08:43→17:01)
[2019-01-16] MEDS: Furosemide 40 MG TAB PO SCH (08:43)
[2019-01-16] MEDS: Docusate 100 MG CAP PO SCH (08:44)
[2019-01-16] MEDS: Estradiol 1 MG TAB PO SCH (08:44)
[2019-01-16] MEDS: Cyanocobalamin (Vitamin B-12) 1,000 MCG TAB PO SCH (08:44)
[2019-01-16] MEDS: DULoxetine 30 MG CAP PO SCH (08:44)
[2019-01-16] MEDS: Ferrous Sulfate 325 MG TAB PO SCH ×2 (08:45→20:23)
[2019-01-16] MEDS: Fish Oil 1,000 MG CAP PO SCH ×2 (08:45→20:23)
[2019-01-16] MEDS: Pantoprazole 40 MG GRANULES PACKET PO SCH (08:45)
[2019-01-16] MEDS: Famotidine 20 MG TAB PO SCH ×2 (08:45→20:23)
[2019-01-16] MEDS: Polyethylene Glycol 3350 17 GM Packet PO SCH (08:45)
[2019-01-16] MEDS: traMADol HCl 50 MG TAB PO PRN ×2 (08:46→15:11)
[2019-01-16] MEDS: Saccharomyces boulardii 250 MG CAP PO SCH (08:46)
[2019-01-16] MEDS: HumaLOG 300 UNITS/3 ML VIAL SC PRN ×2 (08:51→11:36)
[2019-01-16] MEDS: guaiFENesin ER 600 MG TAB PO SCH ×2 (08:55→20:23)
--- NOTE | 2019-01-16 09:26 | PDOC.PN ---
- Subjective Encounter Start Date: 01/16/19 Encounter Start Time: 09:24 Subjective: alert,nodistress - Objective Resuscitation Status - Order Detail: 01/11/19 19:49 Resuscitation Status Routine Resuscitation Status: DNAR: NO Resuscitation Discussed with: d/w patient at bedside, POA is charisse Mancini & Josh HINTON Reviewed: Yes Vital Signs & Weight: Vital Signs (12 hours) Temp Pulse Resp BP BP Pulse Ox 01/16/19 07:25 105 H 16 98 01/16/19 07:00 98.1 F 107 H 17 109/54 L 100 01/16/19 03:17 97.7 F 100 18 118/92 H 97 Weight Admit Weight 170 lb 6 oz Weight 165 lb 9.6 oz I&O: 01/15/19 01/16/19 01/17/19 06:59 06:59 06:59 Intake Total 670 720 Output Total 975 900 Balance -305 -180 Result Diagrams: 01/16/19 07:00 01/15/19 06:05 Additional Labs: Accuchecks 01/16/19 01/15/19 01/15/19 05:12 20:12 16:45 POC Glucose 223 H 176 H 200 H 01/15/19 10:30 POC Glucose 236 H Phys Exam - Physical Examination Neck: no JVD Respiratory: clear to auscultation bilateral Cardiovascular: irregular Gastrointestinal: soft, positive bowel sounds Musculoskeletal: edema present Dx/Plan (1) Acute on chronic anemia Code(s): D64.9 - ANEMIA, UNSPECIFIED Status: Acute (2) Acute on chronic diastolic (congestive) heart failure Code(s): I50.33 - ACUTE ON CHRONIC DIASTOLIC (CONGESTIVE) HEART FAILURE Status : Acute (3) Chronic respiratory failure with hypoxia, on home oxygen therapy Code(s): J96.11 - CHRONIC RESPIRATORY FAILURE WITH HYPOXIA; Z99.81 - DEPENDENCE ON SUPPLEMENTAL OXYGEN Status: Acute (4) Hypothyroidism Code(s): E03.9 - HYPOTHYROIDISM, UNSPECIFIED Status: Chronic Qualifiers: Hypothyroidism type: unspecified Qualified Code(s): E03.9 - Hypothyroidism , unspecified (5) Atrial fibrillation with RVR Code(s): I48.91 - UNSPECIFIED ATRIAL FIBRILLATION Status: Acute (6) CKD stage 3 due to type 2 diabetes mellitus Code(s): E11.22 - TYPE 2 DIABETES MELLITUS W DIABETIC CHRONIC KIDNEY DISEASE; N18.3 - CHRONIC KIDNEY DISEASE, STAGE 3 (MODERATE) Status: Acute (7) Hx of CABG Status: Acute (8) DM type 2 (diabetes mellitus, type 2) Status: Chronic Qualifiers: Diabetes mellitus fci insulin use: with fci use Diabetes mellitus complication status: with unspecified complications Qualified Code(s) : E11.8 - Type 2 diabetes mellitus with unspecified complications; Z79.4 - assisted (current) use of insulin Comment: Controlled (9) Dyslipidemia Code(s): E78.5 - HYPERLIPIDEMIA, UNSPECIFIED Status: Chronic Comment: Statin (10) Hypothyroid Code(s): E03.9 - HYPOTHYROIDISM, UNSPECIFIED Status: Chronic - Plan Hg stable post transfusion -: ferriten level normal -: cont current meds -: to fci care tomorrow if stable * .
--- NOTE | 2019-01-16 09:51 | PRG ---
DATE OF SERVICE: 01/16/2019 SUBJECTIVE: This morning, she is in severe low back pain, unresponsive to usual medication. OBJECTIVE: VITAL SIGNS: Her saturations are 98% on 2 L, temperature 98, pulse 105, and blood pressure 109/56. CHEST: Decreased breath sounds. Minimal wheezing. CARDIAC: Normal S1 and S2. No gallops. ABDOMEN: No masses. LABORATORY DATA: H and H are 7.6 and 23, platelet count is normal. Glucose normal. ASSESSMENT: 1. Chronic obstructive pulmonary disease. 2. Congestive heart failure. 3. Morbid obesity. 4. Chronic pain. 5. Fractured leg. PLAN: Pain relief, PT, supportive care. Pulmonary-centeno, continue neb treatment, Dulera. We will follow. Job ID: [id number]
--- NOTE | 2019-01-16 10:54 | PDOC.CTH ---
Cardiology Progress Note - Subjective pt. seen and eval. by me. No new cardiac events. c/o's of generalized weakness and fatigue. - Objective Vital Signs Temp Pulse Resp BP BP Pulse Ox 01/16/19 07:25 105 H 16 98 01/16/19 07:00 98.1 F 107 H 17 109/54 L 100 01/16/19 03:17 97.7 F 100 18 118/92 H 97 Admit Weight 170 lb 6 oz Weight 165 lb 9.6 oz 01/15/19 01/16/19 01/17/19 06:59 06:59 06:59 Intake Total 670 720 Output Total 975 900 Balance -305 -180 - Physical Examination General/Neuro: alert & oriented x3 Neck: no JVD present Lungs: CTA, unlabored respirations Heart: RRR Abdomen: NT/ND, soft - Telemetry Telemetry Rhythm: NSR - Labs Result Diagrams: 01/16/19 07:00 01/15/19 06:05 Troponin/CKMB Troponin I Less than 0.010 ng/mL (< 0.028) 01/12/19 06:02 - Assessment/Plan 1. Acute on chronic Diastolic HF - stable with Lasix 40mg po; Not on BBlocker 2/ 2 hx of severe COPD; Not on ADITHYA/ARB 2/2 hx of CKD 2. Anemia - 1 unit of PRBC yesteday. No H/H done today. 3. Parox AFib - remains in SR; Stop Eliquis for anemia; on ASA 81mg qd; Dilatiazem 180mg was started from this am 4. CAD with hx of CABG - stable; on ASA 81mg and Pravastatin; Not on BBlocker 2 /2 hx of severe COPD; Not on ADITHYA/ARB 2/2 hx of CKD 5. COPD - On 2LNC; managed by oven unloader 6. CKD stage 3 - stable 7. DM type 2 - 8. HTN - hypotensitve; cont. to monitor 9. HLD - on statin 10. S/p Rt leg fx - MAR reviewed
[2019-01-16] MEDS: Acetaminophen 325 MG TAB PO PRN ×2 (11:36→17:02)
[2019-01-16] MEDS ORDERED: Ondansetron ODT 4 MG TAB PO PRN (15:04)
[2019-01-16] MEDS: Pravastatin Sodium 40 MG TAB PO SCH (20:23)
[2019-01-17] MEDS: Mometasone/Formoterol 120 PUFF INHALER INH SCH (07:49)
[2019-01-17] MEDS: Pantoprazole 40 MG GRANULES PACKET PO SCH (08:13)
[2019-01-17] MEDS: Cyanocobalamin (Vitamin B-12) 1,000 MCG TAB PO SCH (08:13)
[2019-01-17] MEDS: Fish Oil 1,000 MG CAP PO SCH (08:13)
[2019-01-17] MEDS: DULoxetine 30 MG CAP PO SCH (08:13)
[2019-01-17] MEDS: Famotidine 20 MG TAB PO SCH (08:13)
[2019-01-17] MEDS: Polyethylene Glycol 3350 17 GM Packet PO SCH (08:13)
[2019-01-17] MEDS: guaiFENesin ER 600 MG TAB PO SCH (08:13)
[2019-01-17] MEDS: Aspirin Chewable 81 MG TAB PO SCH (08:14)
[2019-01-17] MEDS: Saccharomyces boulardii 250 MG CAP PO SCH (08:14)
[2019-01-17] MEDS: Estradiol 1 MG TAB PO SCH (08:14)
[2019-01-17] MEDS: Ferrous Sulfate 325 MG TAB PO SCH (08:14)
[2019-01-17] MEDS: Docusate 100 MG CAP PO SCH (08:14)
[2019-01-17] MEDS: Furosemide 40 MG TAB PO SCH (08:14)
[2019-01-17] MEDS: Potassium Chloride 20 MEQ TAB PO SCH ×2 (08:15→16:43)
[2019-01-17] MEDS: Insulin Glargine 10 UNITS in Pre-Filled Syringe 1 EACH SC SCH (09:21)
--- NOTE | 2019-01-17 09:34 | PRG ---
DATE OF SERVICE: 01/17/2019 SUBJECTIVE: This morning, she is still having some pain. She is short of breath. OBJECTIVE: VITAL SIGNS: Saturations are 93% on 1 L, temperature 97, pulse 105, blood pressure 110/56. CHEST: Decreased breath sounds. No wheezing. CARDIAC: Normal S1 and S2. No gallops. ABDOMEN: No mass. IMPRESSION: Chronic obstructive pulmonary disease, severe deconditioning, chronic pain. PLAN: Pulmonary centeno, she will be discharged home on present medication. Follow up with the primary care physician. Job ID: [id number]
[2019-01-17 10:45] LABS: #Basophils 0.1 thou/uL (0.0-0.2); #Eosinphils 0.1 thou/uL (0.0-0.7); #Lymphocytes 0.9 thou/uL (1.20-3.40); #Monocytes 0.6 thou/uL (0.11-0.59); #Neutrophils 7.8 thou/uL (1.40-6.50); %Basophils 0.9 % (0.0-1.0); %Eosinophils 0.7 % (0.0-10.0); %Monocytes 5.9 % (0.0-10.0); %Neutrophils 82.5 % (42.0-75.0); Hemoglobin 7.6 g/dL (12.0-16.0); Mean Corpuscular Hemoglobin 26.6 pg (27.0-31.0); Mean Corpuscular Volume 85.8 fL (78.0-98.0); Platelet Count 218 thou/uL (130-400); RBC Distribution Width 14.7 % (11.5-14.5); Red Blood Cell (RBC) Count 2.88 mill/uL (4.20-5.40); White Blood Cell (WBC) Count 9.4 thou/uL (4.8-10.8)
--- NOTE | 2019-01-17 10:55 | DIS ---
DATE OF ADMISSION: 01/11/2019 DATE OF DISCHARGE: 01/17/2019 TRANSFER OF CARE NOTE: PRIMARY CARE PROVIDER: Jason Avina MD. DISPOSITION: Discharged back to [facility]. FINAL DIAGNOSES: Acute post hemorrhagic anemia, chronic anticoagulation, atrial fibrillation, hypertension, coronary artery disease, diastolic heart failure, hypothyroidism, diabetes mellitus type 2, dyslipidemia, and chronic obstructive pulmonary disease. DISCHARGE MEDICATIONS: 1. Trazodone 200 mg p.o. at bedtime. 2. Florastor 250 mg a day. 3. Pravastatin 40 mg a day. 4. Potassium chloride 20 mEq twice a day. 5. MiraLAX 17 g in water daily. 6. Protonix 40 mg a day. 7. Dulera 200/5 two puffs b.i.d. 8. Remeron 30 mg a day. 9. Lantus 10 units subcu twice a day. 10. Lasix 40 mg a day. 11. Ferrous sulfate 325 mg a day. 12. Estrace 0.5 mg a day. 13. Cardizem CD 180 a day. 14. Cymbalta 60 mg a day. 15. Vitamin B12 100 mcg a day. 16. Aspirin 81 mg a day. 17. Pepcid 20 mg twice a day. 18. DuoNeb 3 mL nebulizer q.6 hours routine. 19. Tramadol 50 mg p.o. q.6 hours p.r.n. Medications held: Eliquis. ALLERGIES: CODEINE, GABAPENTIN, HYDROCODONE, IODINE, AND MORPHINE. DIET: Diabetic. CODE STATUS: DNAR. PENDING AT TIME OF DISCHARGE: Nothing. CONSULTATIONS: 1. Dr. Jaden Walton, Pulmonology. 2. Dr. Gabo Barajas, Cardiology. PROCEDURES: None. HOSPITAL COURSE: The patient was admitted to [facility], to [place] for CHF exacerbation, hypotension, and anasarca. Her initial laboratory; white count 7.9, hemoglobin 7.3, and platelet count 132,000. Metabolic profile, normal. Blood sugar 153. Chest x-ray; cardiomegaly, pulmonary vascular congestion, post median sternotomy, bilateral lower extremity Dopplers were done for DVT. There was none. On 01/13, she was given low-dose Cardizem, H and H was monitored. Her hemoglobin on 01/12 was 6.5. She was transfused, on 01/13, it was 8.0. Her Eliquis was eventually discontinued, on 01/15, it was 7.1. She was transfused, followup with 7.7. Iron studies were done and she has adequate iron stores. Currently, a CBC is pending. However, she is very desirous of going home and so discharge is being initiated. She has had no recurrent hypotension. She is off all IV medications. Blood pressure is stable. Cardiorespiratory exam reveals clear chest with irregular rate and rhythm consistent with her atrial fibrillation. She is being transferred back to [facility] for continuing care. She will need follow up by Dr. Avina. She will also need a CBC in one week. She is also being sent on oxygen as she has chronic respiratory failure. Her long-term prognosis is poor due to her multiplicity of medical problems. Her last echocardiogram done in October of this month had EF of 50% to 55% with diastolic dysfunction as etiology of her congestive heart failure. Job ID: [id number]
--- NOTE | 2019-01-17 13:24 | PDOC.CTH ---
Cardiology Progress Note - Subjective The pt seen and examined. No overnight events. No cardiac complaints. - Objective Vital Signs Temp Pulse Pulse Pulse Resp BP BP 01/17/19 12:00 98.8 F 101 H 18 01/17/19 09:43 97 104 H 126/60 117/64 01/17/19 08:00 97.4 F L 105 H 18 01/17/19 07:51 90 18 01/17/19 07:49 90 18 01/17/19 04:00 97.6 F 94 12 BP Pulse Ox 01/17/19 12:00 119/82 98 01/17/19 09:43 01/17/19 08:00 110/56 L 93 L 01/17/19 07:51 97 01/17/19 07:49 97 01/17/19 04:00 111/53 L 96 Admit Weight 170 lb 6 oz Weight 157 lb 6.4 oz 01/16/19 01/17/19 01/18/19 06:59 06:59 06:59 Intake Total 720 780 590 Output Total 900 Balance -180 780 590 - Physical Examination General/Neuro: alert & oriented x3 Neck: no JVD present Lungs: other: (diminished at bases) Heart: other: (irregular) Abdomen: soft Extremities: other: (No edema) - Telemetry Telemetry Rhythm: SR with PACs - Labs Result Diagrams: 01/17/19 10:36 01/15/19 06:05 Troponin/CKMB Troponin I Less than 0.010 ng/mL (< 0.028) 01/12/19 06:02 - Assessment/Plan 1. Acute on chronic Diastolic HF - stable with Lasix 40mg po; Not on BBlocker 2/ 2 hx of severe COPD; Not on ADITHYA/ARB 2/2 hx of CKD 2. Anemia - 1 unit of PRBC on 01/15/2019. Hgb today was 7.6. 3. Parox AFib - remains in SR; Stop Eliquis for anemia; on ASA 81mg qd; Dilatiazem 180mg was started from this am 4. CAD with hx of CABG - stable; on ASA 81mg and Pravastatin; Not on BBlocker 2 /2 hx of severe COPD; Not on ADITHYA/ARB 2/2 hx of CKD 5. COPD - On 2LNC; managed by audiovisual librarian 6. CKD stage 3 - stable 7. DM type 2 - 8. HTN - hypotensitve; cont. to monitor 9. HLD - on statin 10. S/p Rt leg fx - MAR reviewed Review of Systems - Review of Systems Constitutional: reports: no symptoms reported EENTM: reports: no symptoms reported Respiratory: reports: no symptoms reported Cardiac (ROS): reports: no symptoms reported ABD/GI: reports: no symptoms reported : reports: no symptoms reported
[2019-01-17] MEDS: traMADol HCl 50 MG TAB PO PRN (14:42)
[2019-01-17] MEDS: Acetaminophen 325 MG TAB PO PRN (14:45)
[2019-01-17 14:46] VITALS: BMI 27.0
[2019-01-17 16:28] VITALS: BP 118/65; TEMP 98.2
== END 2019-01-17 18:30 | DRG 291 ==
LOC: ERS 14:26 → OBSVTOIN 20:04 → 2NO 20:04
PROVIDERS: ADMIT Internal Medicine; ATTEND Internal Medicine
PROC: 30233N1 Transfusion of Nonautologous Red Blood Cells into Peripheral Vein, Percutaneous Approach (ICD-10-PCS; principal; 2019-01-12)
DX: I13.0 Hypertensive heart and chronic kidney disease with heart failure and stage 1 through stage 4 chronic kidney disease, or unspecified chronic kidney disease (principal); I50.33 Acute on chronic diastolic (congestive) heart failure; D62 Acute posthemorrhagic anemia; E44.0 Moderate protein-calorie malnutrition; I24.8 Other forms of acute ischemic heart disease; J96.11 Chronic respiratory failure with hypoxia; J44.1 Chronic obstructive pulmonary disease with (acute) exacerbation; E03.9 Hypothyroidism, unspecified; Z66 Do not resuscitate; F41.9 Anxiety disorder, unspecified; E11.51 Type 2 diabetes mellitus with diabetic peripheral angiopathy without gangrene; K21.9 Gastro-esophageal reflux disease without esophagitis; E66.01 Morbid (severe) obesity due to excess calories; D50.9 Iron deficiency anemia, unspecified; I48.0 Paroxysmal atrial fibrillation; E78.5 Hyperlipidemia, unspecified; N18.3 Chronic kidney disease, stage 3 (moderate); E11.22 Type 2 diabetes mellitus with diabetic chronic kidney disease; I95.9 Hypotension, unspecified; Z68.27 Body mass index [BMI] 27.0-27.9, adult; Z90.710 Acquired absence of both cervix and uterus; Z86.73 Personal history of transient ischemic attack (TIA), and cerebral infarction without residual deficits; Z87.891 Personal history of nicotine dependence; Z90.49 Acquired absence of other specified parts of digestive tract; Z95.1 Presence of aortocoronary bypass graft; Z88.5 Allergy status to narcotic agent; Z88.8 Allergy status to other drugs, medicaments and biological substances; Z99.81 Dependence on supplemental oxygen; Z79.4 Long term (current) use of insulin
CPT/HCPCS: 36415; 36416; 36430; 71045; 80048; 80053; 80069; 82274; 82550; 82728; 83540; 83550; 83690; 83880; 84443; 84484; 85025; 86850; 86900; 86901; 93005; 93798; 93970; 94664; 94760; 96361; 96374; J1825; J1940; J7620; J8597; P9016; Q0162

== ENCOUNTER 2019-03-26 19:31 | Inpatient (IN) | payer MEDICARE, MEDICAID ==
[2019-03-26] MEDS ORDERED: cefTRIAXone\\ROCEPHIN 1 GM VIAL ONE (19:58)
[2019-03-26] MEDS ORDERED: Norepinephrine 8 MG in Dextrose 5% in Water 242 ML IVPB PRN (21:34)
[2019-03-26] MEDS ORDERED: Ondansetron ODT 4 MG TAB SL PRN (22:34)
[2019-03-26] MEDS ORDERED: Ondansetron PF 4 MG/2 ML Vial IVP PRN ×2 (22:34→23:24)
[2019-03-26] MEDS ORDERED: traZODone HCl 50 MG TAB PO PRN (23:13)
[2019-03-26] MEDS ORDERED: Dextrose 5% in Water 1,000 ML IV PRN (23:14)
[2019-03-26] MEDS ORDERED: Dextrose 50% Abboject 50 ML SYRINGE SLOW IVP PRN (23:14)
[2019-03-26] MEDS ORDERED: Calcium Carbonate 500 MG ChewTAB PO PRN (23:24)
[2019-03-26] MEDS ORDERED: Senokot S 8.6-50 MG TAB PO PRN (23:24)
[2019-03-26] MEDS ORDERED: Ondansetron ODT 4 MG TAB PO PRN (23:24)
[2019-03-26] MEDS ORDERED: Bisacodyl 10 MG SUPP PR PRN (23:24)
[2019-03-26] MEDS ORDERED: Pantoprazole 40 MG VIAL IVP SCH (23:30)
[2019-03-27] MEDS: Insulin Regular 300 UNITS/3 ML VIAL SC PRN ×5 (00:16→21:19)
[2019-03-27] MEDS: Sodium Chloride 0.9% 1,000 ML IV SCH ×2 (00:18→18:33)
--- NOTE | 2019-03-27 00:19 | HP ---
PRIMARY CARE: Jason Avina MD. PRIMARY GROUP RESERVATIONS COORDINATOR: Destini Barajas MD. CHIEF COMPLAINT: Generalized weakness. HISTORY OF PRESENT ILLNESS: The patient is a 73-year-old female, with chronic anemia, chronic atrial fibrillation, recently restarted on anticoagulation, presented to the emergency room with generalized weakness. Over the last 1 week, the patient has been generally weak and fatigued. She also complains of lightheadedness and intermittent blurring of vision. She gets short of breath on minimal exertion. She also had mild left-sided abdominal pain without any nausea, vomiting, diarrhea, constipation, hematemesis, melena, or hematochezia. No fever or chills reported. She has also lost her appetite recently. She was restarted on Eliquis 3 weeks ago. The patient was admitted at this facility 3 months ago. Her hemoglobin at that time was 7.3. Repeat hemoglobin next day was 6.5. She received blood transfusion. Eliquis was discontinued at that time. She was discharged to [facility]. Last month, the patient signed out from [facility]. She currently lives at home with her family. She had EGD 4 months ago that showed normal esophagus with small 5 mm nonbleeding vascular ectasia that was treated with argon plasma coagulation. Duodenum was normal. Colonoscopy 4 months ago showed moderate sigmoid diverticulosis with small internal hemorrhoids and colonic polyps. Biopsies were negative for malignancy. PAST MEDICAL HISTORY: 1. Coronary artery disease. 2. Chronic anemia. 3. Chronic diastolic heart failure. 4. Paroxysmal atrial fibrillation, restarted on anticoagulation 3 weeks ago. 5. COPD. 6. CKD, stage 3. 7. Diabetes mellitus type 2. 8. Hypertension. 9. Hyperlipidemia. 10. Hypothyroidism. 11. History of TIA. 12. Anxiety. 13. Peripheral vascular disease. 14. Chronic low back pain. PAST SURGICAL HISTORY: 1. Coronary artery bypass grafting. 2. EGD and colonoscopy as discussed above. 3. Right tibia-fibula fracture repair. 4. Hernia repair. 5. Cholecystectomy. 6. Hysterectomy. 7. Tonsillectomy. 8. Appendectomy. ALLERGIES: THE PATIENT IS ALLERGIC TO MULTIPLE MEDICATIONS INCLUDING CODEINE, GABAPENTIN, HYDROCODONE, IODINE, AND MORPHINE. CURRENT MEDICATIONS: According to the list provided by the patient; 1. Metolazone 2.5 mg as needed. 2. Lasix 80 mg twice a day. 3. Eliquis 5 mg twice a day, started on 05 March 2019. 4. Pravastatin 40 mg at bedtime. 5. Trazodone 200 mg at bedtime. 6. Lyrica 300 mg b.i.d. 7. Remeron 30 mg at bedtime. 8. Estradiol 0.5 mg daily. 9. Cymbalta 60 mg daily. 10. Combivent Respimat 20/100 four times a day. 11. Cardizem ER 120 mg daily. 12. Ranitidine 150 mg daily. 13. Meloxicam 15 mg daily. 14. Breo Ellipta 100/25 daily. 15. Lantus 32 units b.i.d. 16. Humalog sliding scale. 17. Albuterol nebulizer 3 times a day. 18. Aspirin 81 mg daily. 19. Fish oil 1000 mg daily. 20. Protonix 40 mg daily. 21. Vitamin B12 at 1000 mcg daily. 22. Colace 100 mg as needed. SOCIAL HISTORY: The patient currently lives at home with her family. She quit smoking recently. She ambulates with the help of her cane and walker. She has home health care. She is full code and makes her own decision with the help of her family. FAMILY HISTORY: Mother in her 80s from natural cause. Father in his 60s with an TX. REVIEW OF SYSTEMS: All other review of systems was reviewed and were found negative. PHYSICAL EXAMINATION: VITAL SIGNS: Temperature 99, respirations of 18, pulse rate of 115, blood pressure of 93/65, O2 saturation 100% on 3 L nasal cannula. The patient is currently on Levophed. GENERAL: A 73-year-old female, in no apparent distress. HEENT: Head; atraumatic and normocephalic. Sclerae are anicteric. Pale mucous membranes. No oral lesion. NECK: Supple. No JVD appreciated. No carotid bruit. LUNGS: Showed diminished air entry at bilateral bases. No wheezing or rhonchi. No accessory muscle use. HEART: S1, S2 present. Irregularly irregular. No rubs or gallops. 2/6 systolic murmur over the mitral area. ABDOMEN: Soft, nontender. No rebound or guarding. No costovertebral angle tenderness. EXTREMITIES: Trace edema in bilateral lower extremity. No calf tenderness. SKIN: Warm and dry. LYMPH NODES: No palpable lymph nodes in the neck. PERIPHERAL VASCULAR: Radial pulses palpable bilaterally. MUSCULOSKELETAL: No joint swelling or tenderness. LABORATORY FINDINGS: Hemoglobin 4.1, WBC 7.0, hematocrit 15.2, platelet count 225. INR 2.4. Chemistry showed sodium 132, potassium 3.3, chloride 81, bicarb 35, BUN 61, creatinine 1.64, glucose of 342. Lactic acid 4.3. Ferritin was 14.8, iron of 10, TIBC 379. Troponin 0.185. BNP was 1609. EKG by my review showed atrial fibrillation with rapid ventricular response. CT scan of the abdomen and pelvis without contrast showed findings consistent with cirrhosis and portal hypertension with small bilateral pleural effusions. Chest x-ray by my review showed cardiomegaly with diminished air entry at bilateral bases. IMPRESSION: 1. Symptomatic anemia/hypovolemic shock, currently on Levophed. The patient received 1 unit of PRBC. 2. Acute blood loss anemia. The patient had EGD and colonoscopy earlier this year. 3. Chronic obstructive pulmonary disease with chronic hypoxic respiratory failure, on home oxygen. 4. Paroxysmal atrial fibrillation, restarted on anticoagulation 3 weeks ago. 5. Diabetes mellitus type 2. 6. Hypertension. 7. Hyperlipidemia. 8. Chronic low back pain. 9. Chronic insomnia. 10. Chronic diastolic heart failure. 11. Coronary artery disease status post coronary artery bypass grafting. 12. Chronic kidney disease, stage 3. 13. Iron deficiency. 14. Lactic acidosis. 15. Elevated troponin secondary to demand ischemia/type [address] abdomen consistent with cirrhosis/portal hypertension with ascites. 17. Peripheral vascular disease. 18. Hypothyroidism. 19. Gastroesophageal reflux disease. 20. Former smoker. 21. Hemorrhoids. 22. Generalized weakness, multifactorial. 23. History of carotid stenosis. PLAN: The patient will be monitored in the intensive care unit. We will continue Levophed. She has received 1 unit of PRBC. She will receive another PRBC unit tonight. We will keep her n.p.o. except for ice chips. Gastroenterology Team will be consulted. Insulin sliding scale. Repeat lactic acid and troponin in a.m. There is no active bleeding identified. Anticoagulation will be held. We will also hold aspirin for now. Plan of care was discussed with the patient in detail. She stated understanding. Job ID: [id number]
[2019-03-27 04:51] LABS: #Eosinphils 0.1 thou/uL (0.0-0.7); #Lymphocytes 1.8 thou/uL (1.20-3.40); #Neutrophils 7.8 thou/uL (1.40-6.50); %Basophils 0.3 % (0.0-1.0); %Eosinophils 1.4 % (0.0-10.0); %Lymphocytes 16.8 % (21.0-51.0); %Monocytes 9.5 % (0.0-10.0); Hemoglobin 6.7 g/dL (12.0-16.0); Mean Corpuscular HGB CONC 31.5 g/dL (32.0-36.0); Mean Corpuscular Hemoglobin 24.4 pg (27.0-31.0); Mean Corpuscular Volume 77.7 fL (78.0-98.0); Mean Platelet Volume 11.1 fL (7.4-10.4); Platelet Count 239 thou/uL (130-400); RBC Distribution Width 21.8 % (11.5-14.5); Red Blood Cell (RBC) Count 2.74 mill/uL (4.20-5.40); Reticulocyte Count 7.4 % (0.5-1.5); White Blood Cell (WBC) Count 10.8 thou/uL (4.8-10.8)
[2019-03-27 05:03] LABS: Lactic Acid 0.9 mmol/L (0.5-2.2)
[2019-03-27 05:09] LABS: ALT (SGPT) 15 U/L (8-55); AST (SGOT) 31 U/L (5-34); Alkaline Phosphatase 112 U/L (40-150); BUN (Urea Nitrogen) 62 mg/dL (9.8-20.1); Bilirubin, Total 1.3 mg/dL (0.2-1.2); Calc. Creatinine Clearance 35 mL/min (70-130); Calcium 8.4 mg/dL (7.8-10.44); Estimated GFR-MDRD 28; Globulin 3.1 g/dL (2.4-3.5); Glucose 212 mg/dL (83-110); Magnesium 2.1 mg/dL (1.6-2.6); Phosphorus 4.2 mg/dL (2.3-4.7); Protein, Total 6.1 g/dL (6.0-8.3)
[2019-03-27 05:17] LABS: Anion Gap 17 mmol/L (10-20); Carbon Dioxide 34 mmol/L (23-31); Chloride 84 mmol/L (98-107); Sodium 132 mmol/L (136-145)
[2019-03-27 05:22] LABS: Potassium 2.5 mmol/L (3.5-5.1)
[2019-03-27] MEDS ORDERED: Potassium Chloride 40 MEQ in Premix Bag 1 BAG IVPB SCH (05:45)
[2019-03-27] MEDS: Mometasone/Formoterol 120 PUFF INHALER INH SCH ×2 (07:22→21:50)
[2019-03-27] MEDS: Pantoprazole 40 MG VIAL IVP SCH ×2 (08:44→21:12)
[2019-03-27] MEDS ORDERED: CCU Electrolyte Replacement 1 EACH FS ONE (09:38)
[2019-03-27] MEDS ORDERED: CCU ELECTROLYTE REPLACEMENT PROTOCOL FS PRN (09:43)
[2019-03-27] MEDS ORDERED: Potassium Chloride 40 MEQ in Premix Bag 1 BAG IVPB PRN (09:43)
[2019-03-27] MEDS ORDERED: Potassium Phosphate 9 MMOL in Sodium Chloride 0.9% 100 ML IVPB PRN (09:43)
[2019-03-27] MEDS ORDERED: Potassium Phosphate 15 MMOL in Sodium Chloride 0.9% 250 ML 250 ML IV PRN (09:43)
[2019-03-27] MEDS ORDERED: Potassium Chloride 20 MEQ TAB PO PRN (09:43)
[2019-03-27] MEDS ORDERED: Magnesium 2 GM/50 ML 2 GM in Premix Bag 1 BAG IVPB PRN (09:43)
[2019-03-27] MEDS ORDERED: PHOS-NAK 1 PKT PACK PO PRN ×2 (09:43)
[2019-03-27] MEDS ORDERED: Magnesium Oxide 400 MG TAB PO PRN ×2 (09:43)
[2019-03-27] MEDS ORDERED: Potassium Phosphate 12 MMOL in Sodium Chloride 0.9% 250 ML 250 ML IV PRN (09:43)
[2019-03-27] MEDS ORDERED: Potassium Chloride 40 MEQ in Sodium Chloride 0.9% 250 ML 250 ML IVPB PRN (09:43)
--- NOTE | 2019-03-27 10:07 | CON ---
DATE OF CONSULTATION: 03/27/2019 REASON FOR CONSULTATION: ICU placement. HISTORY OF PRESENT ILLNESS: This is a 73-year-old female, who came in with fatigue and weakness. She was found to have a hematocrit of 15.3. She has received 2 units of blood since admission. She is currently on a low dose of a Levophed drip and that is in the process being weaned off. At the current time, she says she feels fine and has no complaints. In looking at her history, she has had a prolonged workup for anemia for over 6 months. She says she has received over 20 units of blood during this time frame. She has had multiple endoscopies. PAST MEDICAL HISTORY: 1. Coronary artery disease. 2. Anemia. 3. Chronic diastolic heart failure. 4. Atrial fibrillation, paroxysmal. 5. COPD. 6. Chronic kidney disease, stage 3. 7. Diabetes mellitus, type 2. 8. Hypertension. 9. Hyperlipidemia. 10. Hypothyroidism. 11. Stroke. 12. Anxiety. 13. Peripheral vascular disease. 14. Chronic low back pain. PAST SURGICAL HISTORY: 1. Coronary artery bypass grafting surgery. 2. EGD and colonoscopy. 3. Right tib-fib fracture repair. 4. Hernia repair. 5. Cholecystectomy. 6. Hysterectomy. 7. Tonsillectomy. 8. Appendectomy. ALLERGIES: CODEINE, GABAPENTIN, HYDROCODONE, IODINE, AND MORPHINE. MEDICATIONS: These were reviewed in history and physical. See extensive list noted. Notable medications include the fact she is on Eliquis 5 mg twice daily. She was also taking iron pills as an outpatient. SOCIAL HISTORY: Does not smoke, but the history and physical indicates that she quit recently. Does not consume alcohol. FAMILY MEDICAL HISTORY: Remarkable for heart disease. REVIEW OF SYSTEMS: Twelve-point review of systems is otherwise negative. PHYSICAL EXAMINATION: VITAL SIGNS: Temperature 98.3, pulse 102, blood pressure 125/54, and O2 saturation 100%. GENERAL: She is awake and alert, in no distress. HEENT: Unremarkable. NECK: No adenopathy or JVD. CHEST: Clear. CARDIAC: S1 and S2 regular without audible murmur. ABDOMEN: Soft, obese, nontender, and nondistended. EXTREMITIES: She has a right femoral central line. She has no cyanosis or edema. She has a bruise over her left tibial region. IMAGING DATA: Her chest x-ray shows some interstitial changes in the left upper lobe. This looks somewhat more prominent than her last film. LABORATORY DATA: White blood cell count 10.8, hemoglobin 6.7, hematocrit 21.3, and platelet count 239 - that was taken before last blood transfusion. Sodium 132, potassium 3.5, chloride 84, CO2 of 34, BUN 62, creatinine 1.7, and glucose 212. ASSESSMENT: 1. Symptomatic anemia. 2. Hypotension due to anemia and chronic blood loss. 3. Severe hypokalemia. PLAN: 1. Replace potassium. 2. Recheck H and H. 3. Wean Levophed as tolerated. 4. Further workup per GI and Internal Medicine. Job ID: [id number]
[2019-03-27 10:35] LABS: Hemoglobin 8.7 g/dL (12.0-16.0)
--- NOTE | 2019-03-27 11:16 | PRG ---
DATE OF SERVICE: 03/27/2019 SUBJECTIVE: The patient is seen and examined at bedside. She is feeling better. She does not have much complaints to offer. OBJECTIVE: VITAL SIGNS: Blood pressure is 123/62, pulse is 107, respiratory rate is 20, and O2 saturation is 100% on O2 by nasal cannula. HEENT: Head is atraumatic and normocephalic. Eyes are PERRLA. Sclerae are nonicteric. Conjunctivae are palish. Oral mucosa is moist. NECK: Supple. LUNGS: Clear. HEART: S1 and S2, irregularly irregular. No S3. No S4. ABDOMEN: Soft, nontender, nondistended. EXTREMITIES: No clubbing, cyanosis, or edema. NEUROLOGIC: She follows my commands. She moves her all 4 extremities. There are no any motor or sensory deficits. Cranial nerves are intact. LABORATORY DATA: Labs showed a white count of 10.8, hemoglobin 6.7, hematocrit 21.3, platelet count is 239,000. Retic count is 7.4, immature retic fraction is 0.596, both of them are high. Sodium of 132, potassium 2.5, chloride 84, CO2 of 32, BUN 62, creatinine 1.76, glucose 226 to 298. Total bilirubin 1.3. Troponin-I 0.283. Albumin 3.0. Cortisol 12. IMPRESSION: 1. Symptomatic anemia with hypovolemic shock, requiring vasopressors, status post transfusion of 2 units of packed red blood cells. 2. Acute blood loss anemia that is on chronic, status post multiple EGDs and colonoscopy. 3. Chronic obstructive pulmonary disease, on home oxygen. 4. Paroxysmal atrial fibrillation. She was restarted on anticoagulation recently, Eliquis 5 mg once a day. 5. Diabetes mellitus, type 2. 6. Hyperlipidemia. 7. Chronic low back pain. 8. Chronic diastolic heart failure. 9. PAD. 10. Chronic kidney disease, stage 3. 11. Iron deficiency. 12. Elevated troponin secondary to demand ischemia, most likely type 2 myocardial infarction. We will obtain additional two sets of troponins. 13. CT abdomen showing liver cirrhosis with portal hypertension . 14. Peripheral vascular disease. 15. Hypothyroidism. PLAN: Plan is to continue Levophed, continue IV fluids. Continue PRBC transfusion as needed. The patient had 2 units of packed red blood cells and her hemoglobin level should be improved by this time. We will have the next hemoglobin and hematocrit done as we speak. GI consult is pending with Dr. Thrasher. Obviously, her anticoagulation was stopped and we can not use any of her heart rate controlling medications for her atrial fibrillation, but her rate is around 100, so that is acceptable at this point. We will keep her n.p.o. Job ID: [id number]
[2019-03-27 14:00] LABS: CKMB 1.9 ng/mL (0-6.6)
[2019-03-27 15:27] LABS: Potassium 3.7 mmol/L (3.5-5.1)
[2019-03-27 18:46] LABS: CKMB 1.7 ng/mL (0-6.6)
--- NOTE | 2019-03-27 18:49 | CON ---
DATE OF CONSULTATION: HISTORY OF PRESENT ILLNESS: The patient is a 73-year-old woman who presents for evaluation of weakness. The patient has had a long history of coronary artery disease, status post coronary artery bypass surgery x4 in 2008. She had a BARBOSA placed to the LAD, saphenous vein graft to a diagonal, posterior descending and ramus vessel. The patient underwent a followup cardiac catheterization in 2018. She was found to have a patent BARBOSA and RCA lesion with an occluded diagonal graft. The patient subsequently has been on medical therapy. She has had a long history of paroxysmal atrial fibrillation. She has also had a history of GI hemorrhage. The patient was in her usual state of health when she started feeling weak. The patient denied having any chest discomfort or palpitations. PAST MEDICAL HISTORY: 1. Coronary artery disease. 2. Peripheral vascular disease. 3. Cerebrovascular disease. 4. COPD. 5. Hypothyroidism. 6. Depression. PAST SURGICAL HISTORY: Cholecystectomy, hernia surgery, hysterectomy, and coronary artery bypass surgery x4. MEDICATIONS: See nursing list. ALLERGIES: ACETAMINOPHEN, IODINE, CODEINE, ADHESIVE TAPE, GABAPENTIN, MORPHINE, AND HYDROCODONE. SOCIAL HISTORY: Former smoker. REVIEW OF SYSTEMS: Ten-point system otherwise unremarkable. No history of bright red blood per rectum. PHYSICAL EXAMINATION: GENERAL: This is a pale woman, in no acute distress. VITAL SIGNS: Blood pressure 107/70. NECK: No jugular venous distention. LUNGS: Clear to auscultation. HEART: Irregular rate and rhythm with a normal S1, S2. 1/6 systolic murmur. ABDOMEN: Distended. EXTREMITIES: Showed trace edema. LABORATORY DATA: White blood cell count 10.8, hemoglobin 6.7, hematocrit 21.3, and platelets are 239. Sodium 132, potassium 2.5, chloride 84, bicarbonate 34, BUN 62, and creatinine 1.76. DIAGNOSTIC DATA: Her EKG revealed her to have normal sinus rhythm with a right bundle-branch block and left anterior fascicular block. IMPRESSION: 1. Gastrointestinal hemorrhage. 2. Paroxysmal atrial fibrillation. 3. History of coronary artery bypass surgery. 4. Peripheral vascular disease. 5. Cerebrovascular disease. 6. Hypertension. 7. Dyslipidemia. 8. Renal insufficiency. PLAN: This patient presents with severe GI hemorrhage. She states that she was not taking Eliquis, but was on apparently aspirin and Plavix. From a Cardiac standpoint, she is not in atrial fibrillation at this time. The patient most probably will benefit from being on Multaq or amiodarone. She appears to be a poor candidate because of risk of recurrent gastrointestinal hemorrhage. We will follow this patient with you through her hospitalization. Critical care note time 30 minutes. Please call my office. Job ID: [id number]
--- NOTE | 2019-03-27 22:35 | CON ---
DATE OF CONSULTATION: 03/27/2019 REASON: Symptomatic anemia. HISTORY OF PRESENT ILLNESS: Mrs. Kirk is a 73-year-old female who lives in [place], was admitted to the hospital yesterday with increasing fatigue and weakness and dizziness. On admission, she was noted to have a hemoglobin of 4.1. Since that time, she has received 2 units of RBC transfusion with improvement of hemoglobin to 8. She is currently on Levophed for blood pressure support. She denies having any nausea, vomiting, or abdominal pain. She has not noted any overt bleeding such as melena or hematochezia. She was recently restarted on her Eliquis for atrial fibrillation approximately 3 weeks ago. The patient was last admitted to this facility 3 months ago for anemia, at which time she her Eliquis was discontinued. In November of this year, she underwent both EGD and colonoscopy. She did have an AVM in the stomach that was cauterized with plasma argon gas. Her colonoscopy was notable for a benign transverse colon stricture that could not be traversed. Biopsy was negative and her CEA level was 5, which is normal. She has had multiple red blood cell transfusions on Eliquis previously and on IV iron infusion. PAST MEDICAL HISTORY: 1. Atrial fibrillation. 2. Coronary artery disease. 3. Chronic iron-deficiency anemia. 4. COPD. 5. Chronic kidney disease stage 3. 6. Adult-onset diabetes. 7. Hypertension. 8. Peripheral vascular disease. 9. Hypothyroidism. 10. Chronic back pain. PAST SURGICAL HISTORY: Coronary artery bypass grafting, cholecystectomy, hysterectomy, appendectomy, and EGD/colonoscopy. ALLERGIES: CODEINE, GABAPENTIN, HYDROCODONE, IODINE, AND MORPHINE. MEDICATIONS: Include; 1. Metolazone. 2. Furosemide. 3. Eliquis. 4. Pravastatin. 5. Trazodone. 6. Lyrica. 7. Remeron. 8. Cymbalta. 9. Cardizem ER. 10. Ranitidine. 11. Meloxicam. 12. Breo. 13. Insulin. 14. Aspirin. SOCIAL HISTORY: The patient lives by herself. Has a son who lives nearby. She has no tobacco or alcohol usage. FAMILY HISTORY: Negative for any known GI problem, liver disease, or GI malignancy. REVIEW OF SYSTEMS: Ten-point review of systems did not show any other pertinent positives or negatives. PHYSICAL EXAMINATION: VITAL SIGNS: Temperature is 98.5; blood pressure 119/67, on 3 mcg of Levophed; pulse of 98. GENERAL: She is alert, conversant, does not appear in any distress. HEENT: Shows anicteric sclerae. Oropharynx is clear and moist. NECK: Supple. CARDIOVASCULAR: Shows normal S1, S2. Regular rate and rhythm. CHEST: Shows normal breath sounds. ABDOMEN: Soft, protuberant, but nontender. Has active bowel sounds. EXTREMITIES: Shows no edema. LABORATORY DATA: WBC is 10.8; hemoglobin 4.1 yesterday, currently at 8.7 after 3 units RBC infusion; platelet count of 239. Sodium 132, potassium 2.5, chloride creatinine 1.76, BUN of 62. Abdominal pelvic CT without contrast showed nodular liver suggestive of cirrhosis, anasarca. ASSESSMENT: 1. Acute on chronic iron-deficiency anemia, likely precipitated by resumption of Eliquis 3 weeks ago. The patient has had both EGD and colonoscopy 4 months ago without any aggressive process. 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 I suspect that her anemia is multifactorial due to chronic disease, chronic kidney failure, poor nutrition, and occult GI bleed or mucosal blood loss from Eliquis. 2. 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 RECOMMENDATIONS: 1. No plan on repeat any endoscopy from GI standpoint. 2. The patient is not a good candidate for any anti-coagulant or anti-platelet therapy going forward. 3. Can advance diet. 4. We will trend her hemoglobin. Job ID: [id number] [facility]
[2019-03-28 04:41] LABS: #Eosinphils 0.2 thou/uL (0.0-0.7); #Lymphocytes 1.2 thou/uL (1.20-3.40); #Monocytes 0.5 thou/uL (0.11-0.59); #Neutrophils 4.1 thou/uL (1.40-6.50); %Basophils 0.8 % (0.0-1.0); %Lymphocytes 19.5 % (21.0-51.0); %Monocytes 8.3 % (0.0-10.0); %Neutrophils 68.4 % (42.0-75.0); Mean Corpuscular Hemoglobin 25.8 pg (27.0-31.0); Mean Corpuscular Volume 80.7 fL (78.0-98.0); Mean Platelet Volume 11.1 fL (7.4-10.4); Platelet Count 165 thou/uL (130-400); Red Blood Cell (RBC) Count 2.69 mill/uL (4.20-5.40)
[2019-03-28 04:58] LABS: BUN (Urea Nitrogen) 43 mg/dL (9.8-20.1); Calc. Creatinine Clearance 49 mL/min (70-130); Calcium 8.2 mg/dL (7.8-10.44); Estimated GFR-MDRD 41; Glucose 227 mg/dL (83-110)
[2019-03-28 05:08] LABS: Anion Gap 12 mmol/L (10-20); Carbon Dioxide 35 mmol/L (23-31); Chloride 90 mmol/L (98-107); Potassium 3.1 mmol/L (3.5-5.1); Sodium 134 mmol/L (136-145)
[2019-03-28 06:37] VITALS: BMI 29.8
[2019-03-28] MEDS: Mometasone/Formoterol 120 PUFF INHALER INH SCH ×2 (06:40→18:32)
[2019-03-28] MEDS: Insulin Regular 300 UNITS/3 ML VIAL SC PRN ×3 (07:05→15:57)
--- NOTE | 2019-03-28 08:42 | PDOC.CTH ---
Cardiology Progress Note - Subjective The pt seen and examined. No overnight events. No cardiac complaints. She stated she has received total 23 units PRBC tx since 09/2018 (total 3 units this admission) - Objective Vital Signs Temp Pulse Resp Pulse Ox 03/28/19 07:13 100 03/28/19 07:00 98.1 F 03/28/19 06:39 100 03/28/19 06:38 99 17 100 03/28/19 04:00 98.2 F 03/28/19 02:13 92 18 100 03/28/19 00:00 98.0 F 03/27/19 21:55 91 14 97 Weight 174 lb 9.698 oz 03/27/19 03/28/19 03/29/19 06:59 06:59 06:59 Intake Total 1068 2331.1 Output Total 120 1175 Balance 948 1156.1 - Physical Examination General/Neuro: alert & oriented x3 Neck: no JVD present Lungs: CTA (diminished at bases) Heart: RRR Abdomen: soft Extremities: other: (no edema) - Telemetry Telemetry Rhythm: SR-ST 90-110s - Labs Result Diagrams: 03/29/19 04:19 03/29/19 04:19 Troponin/CKMB CK-MB (CK-2) 1.7 ng/mL (0-6.6) 03/27/19 17:47 Troponin I 0.190 ng/mL (< 0.028) H 03/27/19 17:47 - Assessment/Plan 1. Acute on Chronic iron-deficiency Anemia - she received 3 units PRBC tx during this admission. No good candidate for OAC or anti-platelet per GI 2. Prox Afib - remains in SR; not on anti-arrhythmic med or BBlocker for now due to hypotension; No good candidate for OAC or anti-platelet per GI 3. CAD with hx of CABG - stable; may resume bblocker once her VS is more stable ; not good candidate for ASA due to chronic anemia 4. chronic diastolic HF - stable; may resume bblocker and diuretic once her VS is more stable; not on ADITHYA or ARB due to hx of CKD stage 3 5. HTN - hypotensive; off Livophed now; cont. to monitor 6. DM type 2 7. Hypothyroidism 8. HLD 9. COPD 10. Chronic back pain 11. S/p Rt leg fx MAR reviewed * Echo on 03/27/2019 with EF 40-45%, mild dilated LA, mod ERV, mild increased LV size, mild AR, mod MR, severe TR pt. seen and eval. by me. I agree with the a/Pby the BOBTAILER. Chest : few scattered rhonchi. RRR The afib. was likely ncaused by the stress assoc. with the anemia. Consider Multaq. Review of Systems - Review of Systems Constitutional: reports: no symptoms reported EENTM: reports: no symptoms reported Respiratory: reports: no symptoms reported Cardiac (ROS): reports: no symptoms reported ABD/GI: reports: no symptoms reported : reports: no symptoms reported
--- NOTE | 2019-03-28 11:01 | PRG ---
DATE OF SERVICE: 03/28/2019 SUBJECTIVE: The patient feels well without any complaint. She tolerates diet. There is no pain, nausea, or vomiting. There is no sign of any overt GI bleeding. PHYSICAL EXAMINATION: VITAL SIGNS: Temperature is 98.1, blood pressure 108/55 without Levophed, pulse of 104. GENERAL: She is alert, conversant, in no distress. HEENT: Shows anicteric sclerae, but pale. Oropharynx is clear. NECK: Supple. CV: Shows normal S1 and S2. Regular rhythm. Slightly fast. CHEST: Shows a breath sound. ABDOMEN: Mildly protuberant, but soft and nontender. Good bowel sounds. EXTREMITIES: Shows no edema. LABORATORY DATA: WBC 6.0, hemoglobin 7.0, and platelet count of 165. Electrolytes within normal range. Potassium 3.1 and creatinine 1.27. ASSESSMENT: 1. Acute on chronic iron deficiency anemia. 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 She returned with acute anemia after resumption of Eliquis. 2. Overall stable, feels better with transfusion. Hemoglobin is still low. 3. Incidental finding of cirrhosis on CT scan, overall compensated, likely from steatohepatitis. RECOMMENDATIONS: 1. We will transfuse one more unit of RBC. 2. No planned intervention from GI standpoint. However, we will consider small bowel capsule study if she continues to require transfusion in the future while on no anticoagulant. 3. We will follow. Job ID: [id number] [facility]
--- NOTE | 2019-03-28 11:02 | PRG ---
DATE OF SERVICE: 03/28/2019 SUBJECTIVE: She is very pleasant and conversant this morning, says she is doing well, has no new complaints. OBJECTIVE: VITAL SIGNS: Pulse 100, blood pressure 110/63, O2 saturation 100%. She has been off Levophed since about 3 a.m. this morning. Intake for the last 24 hours 2331, output 1171. HEENT: Unremarkable. NECK: No adenopathy or JVD. CHEST: Clear to auscultation without wheezing. CARDIAC: S1, S2. Regular. ABDOMEN: Soft. EXTREMITIES: LABORATORY DATA: White blood cell count 6, hematocrit 21.7, and platelet count 165. Sodium 134, potassium 3.1, chloride 90, CO2 of 35, BUN 43, creatinine 1.3, glucose 227. ASSESSMENT: 1. Severe anemia, likely due to gastrointestinal loss, which is chronic. 2. Hypotension due to anemia. 3. Paroxysmal atrial fibrillation - previously on anticoagulation. 4. Hypokalemia. PLAN: She can be transferred out to the floor. I would anticipate that she could need blood in the next day or two. We will continue to trend her H and H. Her potassium will be replaced. Job ID: [id number]
--- NOTE | 2019-03-28 13:30 | PRG ---
DATE OF SERVICE: 03/28/2019 OBJECTIVE: HEENT: Head is atraumatic and normocephalic. Eyes are PERRLA. Sclerae are nonicteric. Conjunctivae palish. Oral mucosa is moist. NECK: Supple. LUNGS: Clear. HEART: S1 and S2 normal. No S3. No S4. ABDOMEN: Soft, nontender, and obese. Bowel sounds are present. EXTREMITIES: No clubbing, cyanosis, or edema. NEUROLOGIC: She follows my commands. She moves her all 4 extremities. There are no any motor or sensory deficits. Cranial nerves are intact. LABORATORY DATA: Labs showed white count of 6.0, hemoglobin of 7.0, hematocrit 21.7, platelet count is 165,000. Sodium of 134, potassium 3.1, chloride 90, CO2 of 35, BUN 43, creatinine 1.27, and glycemia is ranging from 271 to 293. IMPRESSION: 1. Symptomatic anemia with hypovolemic shock, requiring vasopressor use status post transfusion of packed red blood cells x3. Her hemoglobin is at 7.0 today. 2. Acute on chronic blood loss anemia, status post multiple EGDs and colonoscopies. The patient was seen by Dr. Kincaid, who does not recommend any more diagnostic workup. He recommends transfusion p.r.n. and if she needs any diagnostic workup, he recommends capsule endoscopy. 3. Chronic obstructive pulmonary disease, on home oxygen. 4. Paroxysmal atrial fibrillation. 5. Diabetes mellitus, type 2. 6. Hyperlipidemia. 7. Chronic diastolic heart failure with some systolic component since her echocardiogram was done and her LVEF was estimated at 40% to 45%. Also, there was moderately enlarged right ventricle cavity with moderate mitral regurgitation and severe tricuspid regurgitation. 8. Iron deficiency. 9. Indeterminate troponin levels. 10. Liver cirrhosis per CT of the abdomen with some evidence of portal hypertension. 11. Peripheral vascular disease. 12. Hypothyroidism. PLAN: The patient is off Levophed at this point. Her blood pressure is holding up pretty good. We will transfuse her with additional unit of packed red blood cells. We will check her hemoglobin and hematocrit tomorrow morning, and she can be transferred to telemetry floor. Job ID: [id number]
[2019-03-28] MEDS: traZODone HCl 50 MG TAB PO PRN (20:16)
[2019-03-29 05:18] LABS: #Basophils 0.1 thou/uL (0.0-0.2); #Eosinphils 0.2 thou/uL (0.0-0.7); #Lymphocytes 0.9 thou/uL (1.20-3.40); #Monocytes 0.5 thou/uL (0.11-0.59); #Neutrophils 3.8 thou/uL (1.40-6.50); %Basophils 0.9 % (0.0-1.0); %Eosinophils 3.8 % (0.0-10.0); %Lymphocytes 16.2 % (21.0-51.0); %Monocytes 9.5 % (0.0-10.0); %Neutrophils 69.6 % (42.0-75.0); Mean Corpuscular HGB CONC 31.2 g/dL (32.0-36.0); Mean Corpuscular Hemoglobin 25.4 pg (27.0-31.0); Mean Corpuscular Volume 81.5 fL (78.0-98.0); Mean Platelet Volume 11.2 fL (7.4-10.4); Platelet Count 150 thou/uL (130-400); RBC Distribution Width 21.7 % (11.5-14.5); Red Blood Cell (RBC) Count 3.13 mill/uL (4.20-5.40); White Blood Cell (WBC) Count 5.5 thou/uL (4.8-10.8)
[2019-03-29 05:48] LABS: BUN (Urea Nitrogen) 25 mg/dL (9.8-20.1); Calc. Creatinine Clearance 76 mL/min (70-130); Calcium 8.6 mg/dL (7.8-10.44); Estimated GFR-MDRD 66; Glucose 161 mg/dL (83-110)
[2019-03-29 05:57] LABS: Anion Gap 12 mmol/L (10-20); Carbon Dioxide 35 mmol/L (23-31); Chloride 93 mmol/L (98-107); Potassium 3.6 mmol/L (3.5-5.1); Sodium 136 mmol/L (136-145)
[2019-03-29] MEDS: Mometasone/Formoterol 120 PUFF INHALER INH SCH ×3 (06:36→18:18)
[2019-03-29] MEDS ORDERED: Lorazepam 1 MG TAB PO SCH (11:15)
[2019-03-29] MEDS: Insulin Regular 300 UNITS/3 ML VIAL SC PRN ×2 (11:55→17:51)
--- NOTE | 2019-03-29 12:51 | PRG ---
DATE OF SERVICE: 03/29/2019 SUBJECTIVE: The patient was seen and examined at the bedside. She is quite upset. She had some arguments with the nurse I believe yesterday, and she is not happy because her phone is not working and she does not have foam on her bed in the mattress. She wants to go home. She is just not happy from her current situation. OBJECTIVE: VITAL SIGNS: Blood pressure is 122/56, pulse is 102, respirations 18, O2 saturation is 99% on 3 L by nasal cannula, and her temperature is 97.8. Her blood pressure was running low at night, it was 100/55, and last night, it was 97/58. HEENT: Her head is atraumatic and normocephalic. Eyes are PERRLA. Sclerae are nonicteric. Conjunctivae are palish. Oral mucosa is moist. NECK: Supple. LUNGS: Clear. HEART: S1 and S2 normal. No S3. No S4. ABDOMEN: Soft, nontender, and nondistended. EXTREMITIES: No clubbing or cyanosis. There is 1+ peripheral edema below the knees, mainly on the right side. NEUROLOGIC: She is alert and oriented x4. There are no any motor deficits. Her cranial nerves are intact. LABORATORY DATA: Her labs showed a white count of 5.5, hemoglobin 8.0, hematocrit 25.5, and platelet count is 150,000. Sodium of 136, potassium 3.6, chloride 93, CO2 of 35, BUN 25, and creatinine 0.85. Her glycemia is ranging from 189 to 258. ASSESSMENT: 1. Symptomatic anemia with hypovolemic shock, requiring vasopressors use and status post transfusions of packed red blood cells x3. Hemoglobin is up to 8.0 today. 2. Acute on chronic blood loss anemia, status post multiple esophagogastroduodenoscopies and colonoscopies. Recreation Adviser recommends to transfusion. No more diagnostic workup. 3. Chronic obstructive pulmonary disease, on home oxygen. 4. Paroxysmal atrial fibrillation. 5. Diabetes mellitus, type 2. 6. Hyperlipidemia. 7. Chronic diastolic heart failure with some systolic component. Left ventricular ejection fraction estimated at 40% to 45% on the last echo. 8. Iron deficiency. 9. Indeterminate troponin levels. 10. Liver cirrhosis per CT of the abdomen with some evidence of portal hypertension. 11. Peripheral vascular disease. 12. Hypothyroidism. PLAN: Plan is to start her on her Lasix small dose 20 mg twice a day since her blood pressure is getting somewhat better, but I am still holding her other blood pressure medications. I will give her 0.5 mg of lorazepam for her anxiety and upset, and also I will get PT to work on her, and she will need her blood pressure medications to be restarted when the blood pressure gets better, specifically I am referring to diltiazem, and her furosemide dose will need to be increased to 40 twice a day if her blood pressure is doing well. Also, we will start her on her long-acting insulin since her glycemia is high, and she will continue on short-acting, and obviously, she is not on any anticoagulation at this point because of her current recent bleeding. Job ID: [id number]
--- NOTE | 2019-03-29 12:56 | PDOC.CTH ---
Cardiology Progress Note - Subjective The pt seen and examined. No overnight events. No cardiac complaints. - Objective Vital Signs Temp Pulse Resp BP BP Pulse Ox 03/29/19 10:26 102 H 16 03/29/19 08:35 97.8 F 102 H 18 122/56 L 99 03/29/19 06:36 96 16 03/29/19 06:28 96 03/29/19 06:27 95 16 03/29/19 02:58 97.3 F L 86 17 100/55 L 100 03/29/19 02:15 86 16 100 Weight 162 lb 11.2 oz 03/28/19 03/29/19 03/30/19 06:59 06:59 06:59 Intake Total 2331.1 1520 Output Total 1175 800 Balance 1156.1 720 - Physical Examination General/Neuro: alert & oriented x3 Neck: no JVD present Lungs: CTA (diminished at bases) Heart: RRR Abdomen: soft Extremities: other: (No edema) - Telemetry Telemetry Rhythm: SR - Labs Result Diagrams: 03/29/19 04:19 03/29/19 04:19 Troponin/CKMB CK-MB (CK-2) 1.7 ng/mL (0-6.6) 03/27/19 17:47 Troponin I 0.190 ng/mL (< 0.028) H 03/27/19 17:47 - Assessment/Plan 1. Acute on Chronic iron-deficiency Anemia 2/2 Gastric Vascular ectasias - she will receive 1 more units PRBC tx today. possible smalll bowel capsule study by GI; No good candidate for OAC or anti-platelet per GI 2. Prox Afib - remains in SR; will start Multaq from today; No good candidate for OAC or anti-platelet per GI 3. CAD with hx of CABG - stable; may resume bblocker once her VS is more stable ; not good candidate for ASA due to chronic anemia 4. Chronic diastolic HF - stable; On Lasix 20mg BId; not on ADITHYA or ARB due to hx of CKD stage 3 5. HTN - stable without any BP meds; cont. to monitor 6. DM type 2 7. Hypothyroidism 8. HLD 9. COPD 10. Chronic back pain 11. S/p Rt leg fx MAR reviewed * Echo on 03/27/2019 with EF 40-45%, mild dilated LA, mod ERV, mild increased LV size, mild AR, mod MR, severe TR Pt. seen and eval. by me. I agree with the A/P by the DENTAL ASSOCIATE. Chest : mild wheeze. RRR with ectopy. The afib. was likely caused by the stress assoc. with the anemia. Started Multaq. Review of Systems - Review of Systems Constitutional: reports: no symptoms reported EENTM: reports: no symptoms reported Respiratory: reports: no symptoms reported Cardiac (ROS): reports: no symptoms reported ABD/GI: reports: no symptoms reported : reports: no symptoms reported Musculoskeletal: reports: no symptoms reported
[2019-03-29] MEDS ORDERED: Dronedarone HCl 400 MG TAB PO SCH (13:00)
[2019-03-29] MEDS: Furosemide 20 MG TAB PO SCH (14:28)
--- NOTE | 2019-03-29 17:42 | PRG ---
DATE OF SERVICE: 03/29/2019 SUBJECTIVE: The patient is without complaint. She is tolerating diet without nausea or vomiting. She did have one black stool today. Denies any abdominal pain. PHYSICAL EXAMINATION: VITAL SIGNS: Temperature is 98.6, blood pressure 103/54, pulse of 94. GENERAL: She is alert. In no distress. HEENT: Anicteric sclerae. Oropharynx is moist. CV: Normal S1 and S2. Regular rate and rhythm. CHEST: Breath sounds. ABDOMEN: Protuberant but soft and nontender. She has good bowel sounds. EXTREMITIES: No edema. LABORATORY DATA: Hemoglobin of 8.0 after one additional unit from hemoglobin of 7. Electrolytes within normal range. Creatinine 0.85. ASSESSMENT: 1. Chronic iron deficiency anemia with recurrent gastrointestinal bleed when she was restarted on Eliquis. The patient is now about the 4 units of RBC transfusion and feels better. No signs of ongoing bleed. 2. History of iron deficiency anemia, likely from vascular ectasias, which was seen in her stomach on EGD with high likelihood of involvement in the small bowel. She is not a good candidate for long-term anticoagulation. 3. Incidental finding of cirrhosis on CT, overall compensated, likely from steatohepatitis. RECOMMENDATIONS: 1. Overall stable from GI standpoint. 2. The patient can be discharged to home from GI standpoint if her blood count remains stable tomorrow. 3. No planned intervention from GI standpoint for now. However, if she continues to require transfusion in the future for iron deficiency anemia, we will proceed with small-bowel capsule evaluation as outpatient. Job ID: [id number]
[2019-03-29] MEDS: Ferrous Sulfate 325 MG TAB PO SCH (17:47)
[2019-03-29] MEDS: Dronedarone HCl 400 MG TAB PO SCH (17:47)
[2019-03-29] MEDS: Atorvastatin Calcium 10 MG TAB PO SCH (21:03)
[2019-03-29] MEDS: Pregabalin 75 MG CAP PO SCH (21:03)
[2019-03-29] MEDS: Mirtazapine 30 MG TAB PO SCH (21:04)
[2019-03-29] MEDS: Insulin Glargine 10 UNITS in Pre-Filled Syringe 1 EACH SC SCH (21:10)
[2019-03-30] MEDS: Mometasone/Formoterol 120 PUFF INHALER INH SCH ×2 (06:54→18:12)
[2019-03-30] MEDS: Dronedarone HCl 400 MG TAB PO SCH ×2 (09:51→17:40)
[2019-03-30] MEDS: Ferrous Sulfate 325 MG TAB PO SCH ×2 (09:51→17:40)
[2019-03-30] MEDS: Estradiol 1 MG TAB PO SCH (09:52)
[2019-03-30] MEDS: Furosemide 20 MG TAB PO SCH ×2 (09:52→13:33)
[2019-03-30] MEDS: Multivitamin W/ Minerals 1 TAB PO SCH (09:52)
[2019-03-30] MEDS: Pregabalin 75 MG CAP PO SCH ×2 (09:52→21:21)
[2019-03-30] MEDS: Insulin Glargine 10 UNITS in Pre-Filled Syringe 1 EACH SC SCH ×2 (09:56→21:25)
--- NOTE | 2019-03-30 11:49 | PDOC.CTH ---
Cardiology Progress Note - Subjective The pt seen and examined. No overnight events. No cardiac complaints. - Objective Vital Signs Temp Pulse Pulse Pulse Pulse Resp BP 03/30/19 10:31 100 98 95 120/67 03/30/19 10:18 91 16 03/30/19 08:00 98.3 F 92 18 03/30/19 06:52 99 16 03/30/19 04:00 97.6 F 81 18 BP BP BP Pulse Ox 03/30/19 10:31 114/61 98/49 L 03/30/19 10:18 96 03/30/19 08:00 114/54 L 03/30/19 06:52 97 03/30/19 04:00 95/52 L 97 Weight 159 lb 6.4 oz 03/29/19 03/30/19 03/31/19 06:59 06:59 06:59 Intake Total 1520 740 Output Total 800 Balance 720 740 - Physical Examination General/Neuro: alert & oriented x3 Neck: no JVD present Lungs: other: (diminished at bases) Heart: RRR Abdomen: soft Extremities: other: - Telemetry Telemetry Rhythm: SR - Labs Result Diagrams: 03/30/19 13:01 03/30/19 13:01 Troponin/CKMB CK-MB (CK-2) 1.7 ng/mL (0-6.6) 03/27/19 17:47 Troponin I 0.190 ng/mL (< 0.028) H 03/27/19 17:47 - Assessment/Plan 1. Acute on Chronic iron-deficiency Anemia 2/2 Gastric Vascular ectasias - Total 3 units PRBC tx during this admission; possible small bowel capsule study by GI; No good candidate for OAC or anti-platelet per GI 2. Prox Afib - remains in SR with Multaq; No good candidate for OAC or anti- platelet per GI 3. CAD with hx of CABG - stable; may resume bblocker once her VS is more stable ; not good candidate for ASA due to chronic anemia 4. Chronic diastolic HF - stable; On Lasix 20mg BId; not on ADITHYA or ARB due to hx of CKD stage 3 5. HTN - stable without any BP meds; cont. to monitor 6. DM type 2 7. Hypothyroidism 8. HLD 9. COPD with Home O2 3LNC 10. Chronic back pain 11. S/p Rt leg fx MAR reviewed * Echo on 03/27/2019 with EF 40-45%, mild dilated LA, mod ERV, mild increased LV size, mild AR, mod MR, severe TR * From Cardiac standpoint, the pt is stable d/c home once her H&H is stable. * The pt will f/u with Dr Barajas' office within 1 month. .Pt. seen and eval. by me. I agree with the A/P by the TELEPHONE CLEANER. She is maintaining NSR with frequent PAC's, PVC's occasionally.Chest: decreased BS but no wheezing at present Review of Systems - Review of Systems Constitutional: reports: no symptoms reported EENTM: reports: no symptoms reported Respiratory: reports: no symptoms reported Cardiac (ROS): reports: no symptoms reported ABD/GI: reports: no symptoms reported : reports: no symptoms reported Musculoskeletal: reports: no symptoms reported
--- NOTE | 2019-03-30 12:33 | PDOC.HOSPP ---
- Subjective Encounter Date: 03/30/19 Encounter Time: 12:32 Subjective: 73 y/o female with CAD. Chronic anemia, chronic respiratory failure admitted due to worsening weakness and poor execercise tolerance. Found to have hypotension with severe anemia. Was treated with levophed and transfused 4 units of PRBC while anticoagulation was discontinued. Clinically improved. - Objective Vital Signs & Weight: Vital Signs (12 hours) Temp Pulse Pulse Pulse Pulse Resp BP 03/30/19 10:31 100 98 95 120/67 03/30/19 10:18 91 16 03/30/19 08:00 98.3 F 92 18 03/30/19 06:52 99 16 03/30/19 04:00 97.6 F 81 18 BP BP BP Pulse Ox 03/30/19 10:31 114/61 98/49 L 03/30/19 10:18 96 03/30/19 08:00 114/54 L 03/30/19 06:52 97 03/30/19 04:00 95/52 L 97 Weight Weight 159 lb 6.4 oz Most Recent Monitor Data Heart Rate from ECG 97 NIBP 109/55 NIBP BP-Mean 73 Respiration from ECG 22 SpO2 100 I&O: 03/29/19 03/30/19 03/31/19 06:59 06:59 06:59 Intake Total 1520 740 Output Total 800 Balance 720 740 Result Diagrams: 03/29/19 04:19 03/29/19 04:19 Additional Labs: Accuchecks 03/30/19 03/30/19 03/29/19 11:30 05:26 20:45 POC Glucose 147 H 128 H 167 H 03/29/19 16:33 POC Glucose 252 H ROS - Medication Medications: Active Medications Generic Name Dose Route Start Last Admin Trade Name Freq PRN Reason Stop Dose Admin Albuterol/Ipratropium 3 ml 03/27/19 02:30 03/30/19 10:18 Duoneb NEB 3 ml [id number] KRISTIE Administration Atorvastatin Calcium 10 mg 03/29/19 21:00 03/29/19 21:03 Lipitor PO 10 mg HS KRISTIE Administration Dronedarone 400 mg 03/29/19 17:00 03/30/19 09:51 Multaq PO 400 mg BID-WM KRISTIE Administration Estradiol 0.5 mg 03/30/19 09:00 03/30/19 09:52 Estrace PO 0.5 mg DAILY KRISTIE Administration Ferrous Sulfate 325 mg 03/29/19 17:00 03/30/19 09:51 Feosol PO 325 mg BID-WM KRISTIE Administration Furosemide 20 mg 03/29/19 14:00 03/30/19 09:52 Lasix PO 20 mg 0900,1400 KRISTIE Administration Potassium Chloride 40 meq/ 100 mls @ 50 mls/hr 03/27/19 09:43 03/27/19 09:50 Device IVPB 100 mls ASDIR PRN Administration FOR SERUM K+ 2.5 - 3.5 Insulin Glargine 10 units/ 0.1 mls @ 0 mls/hr 03/29/19 21:00 03/29/19 21:10 Miscellaneous Medication SC 0.1 mls HS KRISTIE Administration Insulin Glargine 10 units/ 0.1 mls @ 0 mls/hr 03/30/19 09:00 03/30/19 09:56 Miscellaneous Medication SC 0.1 mls QAM KRISTIE Administration Insulin Human Regular 0 units 03/26/19 23:14 03/29/19 17:51 Humulin R SC 4 unit .MILD SLIDING SCALE PRN Administration Mild Correctional Scale Insulin Human Regular 0 units 03/26/19 23:14 03/27/19 21:19 Humulin R SC 3 unit .BEDTIME SLIDING SC PRN Administration Bedtime Correctional Scale Iron/Minerals/Multivitamins 1 tab 03/30/19 09:00 03/30/19 09:52 Theragran M PO 1 tab DAILY KRISTIE Administration Mirtazapine 30 mg 03/29/19 21:00 03/29/19 21:04 Remeron PO 30 mg HS KRISTIE Administration Mometasone Furoate/Formoterol Fumar 2 puff 03/29/19 18:30 03/30/19 06:54 Dulera 100 Mcg/5 Mcg Inhaler INH 2 puff BID-RT KRISTIE Administration Pantoprazole Sodium 40 mg 03/28/19 09:00 03/30/19 09:52 Protonix PO 40 mg BID KRISTIE Administration Potassium Chloride 40 meq 03/27/19 09:43 03/28/19 07:48 Klor-Con PER TUBE 40 meq ASDIR PRN Administration FOR SERUM K+ 2.5-3.5 Pregabalin 300 mg 03/29/19 21:00 03/30/19 09:52 Lyrica PO 300 mg BID KRISTIE Administration Trazodone HCl 200 mg 03/28/19 16:43 03/28/19 20:16 Desyrel PO 200 mg HSPRN PRN Administration Insomnia - Exam awake alert General - other findings: obese Eye: PERRL, anicteric sclera ENT: normocephalic atraumatic Neck: supple, symmetric Neck - other findings: short thick neck with excess subcuties Heart: irregular, murmur present Respiratory: no wheezes, no ronchi Respiratory - other findings: fair air entry bilaterally with few bibasal crackles Gastrointestinal: soft, non-tender, non-distended, normal bowel sounds Gastrointestinal - other findings: morbidly obese Extremities: no cyanosis Extremeties - other findings: trace to mild bilateral leg edema Neurological: CN's grossly intact, no focal deficits Musculoskeletal: generalized weakness Psychiatric: normal affect, A&O x 3 Hosp A/P (1) Acute on chronic combined systolic and diastolic congestive heart failure, NYHA class 1 Code(s): I50.43 - ACUTE ON CHRONIC COMBINED SYSTOLIC AND DIASTOLIC HRT FAIL Status: Acute (2) Hypotension Status: Acute (3) Liver cirrhosis Code(s): K74.60 - UNSPECIFIED CIRRHOSIS OF LIVER Status: Acute (4) Gastric AVM Code(s): K31.819 - ANGIODYSPLASIA OF STOMACH AND DUODENUM WITHOUT BLEEDING Status: Acute (5) Moderate mitral regurgitation Code(s): I34.0 - NONRHEUMATIC MITRAL (VALVE) INSUFFICIENCY Status: Acute (6) Severe tricuspid regurgitation Code(s): I07.1 - RHEUMATIC TRICUSPID INSUFFICIENCY Status: Acute (7) Morbid obesity Code(s): E66.01 - MORBID (SEVERE) OBESITY DUE TO EXCESS CALORIES Status: Acute (8) Physical deconditioning Code(s): R53.81 - OTHER MALAISE Status: Acute (9) Acute blood loss anemia Code(s): D62 - ACUTE POSTHEMORRHAGIC ANEMIA Status: Acute (10) Atrial fibrillation with RVR Code(s): I48.91 - UNSPECIFIED ATRIAL FIBRILLATION Status: Acute (11) Chronic respiratory failure with hypoxia, on home oxygen therapy Code(s): J96.11 - CHRONIC RESPIRATORY FAILURE WITH HYPOXIA; Z99.81 - DEPENDENCE ON SUPPLEMENTAL OXYGEN Status: Acute (12) Paroxysmal atrial fibrillation Code(s): I48.0 - PAROXYSMAL ATRIAL FIBRILLATION Status: Acute (13) CAD (coronary artery disease) Code(s): I25.10 - ATHSCL HEART DISEASE OF [place] CORONARY ARTERY W/O ANG PCTRS Status: Chronic Qualifiers: Coronary Disease-Associated Artery/Lesion type: bypass graft [place] vs. transplanted heart: [place] heart Associated angina: without angina Qualified Code(s): I25.810 - Atherosclerosis of coronary artery bypass graft(s) without angina pectoris (14) COPD (chronic obstructive pulmonary disease) Status: Chronic Qualifiers: COPD type: COPD with acute exacerbation Qualified Code(s): J44.1 - Chronic obstructive pulmonary disease with (acute) exacerbation (15) DM type 2 (diabetes mellitus, type 2) Status: Chronic Qualifiers: Diabetes mellitus buttermaker continuous churn insulin use: with fdc use Diabetes mellitus complication status: with unspecified complications (16) Hypothyroidism Code(s): E03.9 - HYPOTHYROIDISM, UNSPECIFIED Status: Chronic Qualifiers: Hypothyroidism type: unspecified Qualified Code(s): E03.9 - Hypothyroidism , unspecified (17) PVD (peripheral vascular disease) Code(s): I73.9 - PERIPHERAL VASCULAR DISEASE, UNSPECIFIED Status: Chronic (18) Hemorrhagic shock Code(s): R57.8 - OTHER SHOCK Status: Acute - Plan Start low dose lisinopril. Monitir vitals Monitor CBC and BMP Increase activity No antiplatelet or anticoagulation.
[2019-03-30] MEDS ORDERED: Lisinopril 2.5 MG TAB PO SCH (12:45)
[2019-03-30 13:29] LABS: BUN (Urea Nitrogen) 13 mg/dL (9.8-20.1); Calc. Creatinine Clearance 67 mL/min (70-130); Estimated GFR-MDRD 63; Glucose 143 mg/dL (83-110)
[2019-03-30 13:43] LABS: Chloride 93 mmol/L (98-107); Potassium 3.1 mmol/L (3.5-5.1); Sodium 140 mmol/L (136-145)
[2019-03-30 13:46] LABS: Anion Gap 15 mmol/L (10-20); Carbon Dioxide 35 mmol/L (23-31)
[2019-03-30 13:58] LABS: #Eosinphils 0.1 thou/uL (0.0-0.7); #Lymphocytes 1.3 thou/uL (1.20-3.40); #Monocytes 0.6 thou/uL (0.11-0.59); %Basophils 0.6 % (0.0-1.0); %Eosinophils 1.6 % (0.0-10.0); %Lymphocytes 18.3 % (21.0-51.0); %Monocytes 7.9 % (0.0-10.0); %Neutrophils 71.6 % (42.0-75.0); Anisocytosis SLIGHT = 6-15 cells (100X) (0-5/hpf); Hemoglobin 9.7 g/dL (12.0-16.0); Hypochromia SLIGHT = 6-15 cells (100X) (0-5/hpf); Large Platelets SLIGHT; MDiff Complete? YES; Mean Corpuscular HGB CONC 29.5 g/dL (32.0-36.0); Mean Corpuscular Volume 81.3 fL (78.0-98.0); Ovalocytes SLIGHT = 2-5 cells (100X) (0-1/hpf); Platelet Count 165 thou/uL (130-400); Platelet Morphology Comment Appears Adequate; Polychromasia SLIGHT = 2-3 cells (100X) (0-2/hpf); RBC Distribution Width 22.8 % (11.5-14.5); Red Blood Cell (RBC) Count 4.06 mill/uL (4.20-5.40); Schistocytes SLIGHT = 2-5 cells (100X) (0-1/hpf); Tear Drops SLIGHT = 2-5 cells (100X) (0-1/hpf)
--- NOTE | 2019-03-30 19:47 | PRG ---
DATE OF SERVICE: 03/30/2019 SUBJECTIVE: Ms. Kirk has had no overt bleeding today. No abdominal pain or complaints. She is tolerating a solid diet. OBJECTIVE: VITAL SIGNS: Temperature 98.9, pulse 78, blood pressure 106/54. GENERAL: She is in no acute distress. Awake and alert. LUNGS: Clear to auscultation bilaterally. HEART: Regular rate and rhythm without murmur. ABDOMEN: Soft, nontender, nondistended. Bowel sounds are present. EXTREMITIES: No lower extremity edema. LABORATORY DATA: White blood cell count 7.0, hemoglobin 9.7, platelets 165. Her creatinine is 0.88 today. IMPRESSION: 1. Chronic iron deficiency anemia from recurrent gastrointestinal bleeding from vascular ectasias in her stomach. 2. Cirrhosis, likely from steatohepatitis, compensated without need for further intervention at this time. RECOMMENDATIONS: 1. She should likely avoid anticoagulation longer term. 2. I will sign off. Please call if GI can be of assistance. Job ID: [id number]
[2019-03-30] MEDS ORDERED: Potassium Chloride 20 MEQ TAB PO SCH (21:15)
[2019-03-30] MEDS: Atorvastatin Calcium 10 MG TAB PO SCH (21:24)
[2019-03-30] MEDS: Mirtazapine 30 MG TAB PO SCH (21:24)
[2019-03-30] MEDS: Insulin Regular 300 UNITS/3 ML VIAL SC PRN (21:26)
[2019-03-30] MEDS: traZODone HCl 50 MG TAB PO PRN (21:44)
[2019-03-31 05:40] LABS: Hemoglobin 8.1 g/dL (12.0-16.0)
[2019-03-31 05:50] LABS: Anion Gap 11 mmol/L (10-20); BUN (Urea Nitrogen) 16 mg/dL (9.8-20.1); Calc. Creatinine Clearance 63 mL/min (70-130); Calcium 8.1 mg/dL (7.8-10.44); Carbon Dioxide 37 mmol/L (23-31); Chloride 95 mmol/L (98-107); Estimated GFR-MDRD 59; Glucose 117 mg/dL (83-110); Magnesium 1.8 mg/dL (1.6-2.6); Potassium 3.5 mmol/L (3.5-5.1); Sodium 139 mmol/L (136-145)
[2019-03-31 08:00] VITALS: BP 121/59; TEMP 99.4
[2019-03-31] MEDS ORDERED: Lisinopril 2.5 MG TAB PO SCH (09:00)
[2019-03-31] MEDS: Ferrous Sulfate 325 MG TAB PO SCH (09:45)
[2019-03-31] MEDS: Dronedarone HCl 400 MG TAB PO SCH (09:45)
[2019-03-31] MEDS: Estradiol 1 MG TAB PO SCH (09:46)
[2019-03-31] MEDS: Furosemide 20 MG TAB PO SCH (09:46)
[2019-03-31] MEDS: Multivitamin W/ Minerals 1 TAB PO SCH (09:46)
[2019-03-31] MEDS: Insulin Glargine 10 UNITS in Pre-Filled Syringe 1 EACH SC SCH (09:48)
[2019-03-31] MEDS: Pregabalin 75 MG CAP PO SCH (09:56)
[2019-03-31] MEDS ORDERED: Magnesium Oxide 400 MG TAB PO SCH (10:15)
[2019-03-31] MEDS ORDERED: Potassium Chloride 20 MEQ TAB PO SCH (10:15)
[2019-03-31] MEDS: Mometasone/Formoterol 120 PUFF INHALER INH SCH (10:27)
[2019-03-31 10:56] LABS: #Eosinphils 0.2 thou/uL (0.0-0.7); #Lymphocytes 1.1 thou/uL (1.20-3.40); #Monocytes 0.5 thou/uL (0.11-0.59); #Neutrophils 4.7 thou/uL (1.40-6.50); %Basophils 0.5 % (0.0-1.0); %Eosinophils 2.7 % (0.0-10.0); %Monocytes 7.2 % (0.0-10.0); %Neutrophils 72.6 % (42.0-75.0); Anisocytosis SLIGHT = 6-15 cells (100X) (0-5/hpf); Hemoglobin 8.9 g/dL (12.0-16.0); MDiff Complete? YES; Mean Corpuscular HGB CONC 30.9 g/dL (32.0-36.0); Mean Corpuscular Hemoglobin 25.2 pg (27.0-31.0); Mean Corpuscular Volume 81.3 fL (78.0-98.0); Mean Platelet Volume 11.4 fL (7.4-10.4); Platelet Count 159 thou/uL (130-400); Polychromasia SLIGHT = 2-3 cells (100X) (0-2/hpf); RBC Distribution Width 22.5 % (11.5-14.5); Red Blood Cell (RBC) Count 3.52 mill/uL (4.20-5.40); White Blood Cell (WBC) Count 6.5 thou/uL (4.8-10.8)
[2019-04-01] MEDS ORDERED: Magnesium Oxide 400 MG TAB PO SCH (09:00)
== END 2019-03-31 14:10 | disposition home health service (06) | DRG 377 ==
LOC: ERS 19:31 → CCU 22:13 → 2NO 03-28 17:50
PROVIDERS: ADMIT Family Medicine; ATTEND Family Medicine
PROC: 3E033XZ Introduction of Vasopressor into Peripheral Vein, Percutaneous Approach (ICD-10-PCS; 2019-03-26)
PROC: 30233N1 Transfusion of Nonautologous Red Blood Cells into Peripheral Vein, Percutaneous Approach (ICD-10-PCS; principal; 2019-03-27)
DX: K31.811 Angiodysplasia of stomach and duodenum with bleeding (principal); R57.1 Hypovolemic shock; I21.A1 Myocardial infarction type 2; I50.43 Acute on chronic combined systolic (congestive) and diastolic (congestive) heart failure; D62 Acute posthemorrhagic anemia; R18.8 Other ascites; I13.0 Hypertensive heart and chronic kidney disease with heart failure and stage 1 through stage 4 chronic kidney disease, or unspecified chronic kidney disease; E87.2 Acidosis; J96.11 Chronic respiratory failure with hypoxia; J44.1 Chronic obstructive pulmonary disease with (acute) exacerbation; D50.9 Iron deficiency anemia, unspecified; I25.10 Atherosclerotic heart disease of native coronary artery without angina pectoris; K21.9 Gastro-esophageal reflux disease without esophagitis; M48.00 Spinal stenosis, site unspecified; J44.9 Chronic obstructive pulmonary disease, unspecified; M19.90 Unspecified osteoarthritis, unspecified site; N18.3 Chronic kidney disease, stage 3 (moderate); I73.9 Peripheral vascular disease, unspecified; F51.04 Psychophysiologic insomnia; G89.29 Other chronic pain; E03.9 Hypothyroidism, unspecified; F41.9 Anxiety disorder, unspecified; G47.00 Insomnia, unspecified; E66.9 Obesity, unspecified; I08.1 Rheumatic disorders of both mitral and tricuspid valves; E66.01 Morbid (severe) obesity due to excess calories; E87.6 Hypokalemia; I48.0 Paroxysmal atrial fibrillation; E78.5 Hyperlipidemia, unspecified; E11.22 Type 2 diabetes mellitus with diabetic chronic kidney disease; D63.1 Anemia in chronic kidney disease; I48.2 Chronic atrial fibrillation; F32.9 Major depressive disorder, single episode, unspecified; K75.81 Nonalcoholic steatohepatitis (NASH); K74.60 Unspecified cirrhosis of liver; Z90.49 Acquired absence of other specified parts of digestive tract; Z79.01 Long term (current) use of anticoagulants; Z90.710 Acquired absence of both cervix and uterus; Z88.6 Allergy status to analgesic agent; Z88.8 Allergy status to other drugs, medicaments and biological substances; Z86.73 Personal history of transient ischemic attack (TIA), and cerebral infarction without residual deficits; Z95.1 Presence of aortocoronary bypass graft; Z87.891 Personal history of nicotine dependence
CPT/HCPCS: 36415; 36416; 36430; 80048; 80053; 82533; 82553; 83605; 83735; 84100; 84484; 85014; 85018; 85025; 85046; 86850; 86900; 86901; 93306; 94640; 96365; 99213; C9113; G0463; J0696; J1815; J3480; J7070; J7620; P9016

== ENCOUNTER 2019-04-11 07:48 | Inpatient (IN) | payer MEDICARE, MEDICAID ==
[2019-04-11 08:25] LABS: #Basophils 0.1 thou/uL (0.0-0.2); #Monocytes 0.4 thou/uL (0.11-0.59); #Neutrophils 5.6 thou/uL (1.40-6.50); %Eosinophils 0.6 % (0.0-10.0); %Lymphocytes 24.5 % (21.0-51.0); %Monocytes 4.4 % (0.0-10.0); %Neutrophils 69.5 % (42.0-75.0); Hemoglobin 10.9 g/dL (12.0-16.0); Mean Corpuscular HGB CONC 30.6 g/dL (32.0-36.0); Mean Corpuscular Hemoglobin 24.5 pg (27.0-31.0); Mean Corpuscular Volume 79.9 fL (78.0-98.0); Mean Platelet Volume 11.4 fL (7.4-10.4); Platelet Count 147 thou/uL (130-400); RBC Distribution Width 21.2 % (11.5-14.5); Red Blood Cell (RBC) Count 4.46 mill/uL (4.20-5.40); White Blood Cell (WBC) Count 8.1 thou/uL (4.8-10.8)
--- NOTE | 2019-04-11 08:43 | RAD ---
PORTABLE CHEST: INDICATIONS: Shortness of breath. COMPARISON: 03/26/2019 FINDINGS: Cardiomegaly. Vascular congestion. Confluent alveolar infiltrate in the apices and right lower lung . Bilateral effusions, larger on the right, with possible loculated fluid in the right lateral lung base. Postop sternotomy change. IMPRESSION: 1. Cardiomegaly with vascular congestion. 2. Bilateral effusions, larger on the right. 3. Asymmetric opacity in the upper lobes may represent edema or superimposed inflammatory infiltrate on congestive heart failure. POS: [facility]
[2019-04-11 08:45] LABS: ALT (SGPT) 14 U/L (8-55); AST (SGOT) 26 U/L (5-34); Albumin 3.4 g/dL (3.4-4.8); Alkaline Phosphatase 129 U/L (40-150); Anion Gap 15 mmol/L (10-20); BUN (Urea Nitrogen) 7 mg/dL (9.8-20.1); Calc. Creatinine Clearance 0 mL/min (70-130); Calcium 8.4 mg/dL (7.8-10.44); Carbon Dioxide 32 mmol/L (23-31); Chloride 97 mmol/L (98-107); Estimated GFR-MDRD 68; Globulin 3.4 g/dL (2.4-3.5); Glucose 146 mg/dL (83-110); Potassium 3.4 mmol/L (3.5-5.1); Protein, Total 6.8 g/dL (6.0-8.3); Sodium 141 mmol/L (136-145)
[2019-04-11] MEDS ORDERED: Furosemide 40 MG/4 ML VIAL ONE (09:14)
[2019-04-11 11:44] LABS: Troponin I 0.012 ng/mL (< 0.028)
[2019-04-11] MEDS ORDERED: Potassium Chloride 20 MEQ TAB PO SCH (11:45)
[2019-04-11] MEDS ORDERED: Magnesium Sulfate 2 GM in Sodium Chloride 0.9% 100 ML IVPB SCH (11:45)
[2019-04-11] MEDS ORDERED: Dextrose 50% Abboject 50 ML SYRINGE SLOW IVP PRN (11:51)
[2019-04-11] MEDS ORDERED: HumaLOG 300 UNITS/3 ML VIAL SC PRN ×2 (11:51)
[2019-04-11] MEDS ORDERED: Dextrose 5% in Water 1,000 ML IV PRN (11:51)
[2019-04-11] MEDS ORDERED: Magnesium Sulfate 4 GM in Sodium Chloride 0.9% 250 ML 250 ML IVPB SCH (12:00)
[2019-04-11] MEDS ORDERED: Senokot S 8.6-50 MG TAB PO PRN (12:01)
[2019-04-11] MEDS ORDERED: Acetaminophen 650 MG Suppository PR PRN (12:01)
[2019-04-11] MEDS ORDERED: Acetaminophen 325 MG TAB PO PRN (12:01)
[2019-04-11] MEDS ORDERED: Insulin Regular 300 UNITS/3 ML VIAL SC PRN (12:04)
[2019-04-11] MEDS ORDERED: Calcium Carbonate 500 MG ChewTAB PO PRN (12:04)
--- NOTE | 2019-04-11 13:21 | HP ---
PRIMARY CARE PHYSICIAN: Dr. Avina. PRIMARY MANAGER PACU: Dr. Barajas. CHIEF COMPLAINT: Cough, shortness of breath along with increased somnolence of 3 days duration. HISTORY OF PRESENT ILLNESS: The patient is a 73-year-old female with chronic systolic and diastolic heart failure with recent hospitalization for congestive heart failure exacerbation, presented to the emergency room with above complaints. The patient was discharged from this facility 11 days ago. Post discharge, she continued to have intermittent shortness of breath along with slight cough. Over the last 2 to 3 days, the cough worsened. The cough was now productive of thick yellowish phlegm. Breathing became more labored according to the family. She has been somnolent and has not been eating well recently. She is currently on 3 L of home oxygen at home. No chest pain or palpitations reported. PAST MEDICAL HISTORY: 1. Chronic systolic and diastolic heart failure. 2. Chronic anemia with recent blood transfusion. 3. Chronic obstructive pulmonary disease with chronic hypoxic respiratory failure on 3 L oxygen. 4. Paroxysmal atrial fibrillation. Anticoagulation was discontinued earlier this month due to hemorrhagic shock requiring pressors. 5. Diabetes mellitus, type 2. 6. Hypertension. 7. Hyperlipidemia. 8. Chronic insomnia. 9. Coronary artery disease status post coronary artery bypass grafting. 10. Chronic kidney disease, stage 3. 11. Iron deficiency. 12. Peripheral vascular disease. 13. Hypothyroidism. 14. Gastroesophageal reflux disease. 15. History of carotid stenosis. 16. History of hemorrhoids. PAST SURGICAL HISTORY: 1. Coronary artery bypass grafting. 2. Esophagogastroduodenoscopy and colonoscopy. 3. Hernia repair. 4. Cholecystectomy. 5. Hysterectomy. 6. Tonsillectomy. 7. Appendectomy. 8. Right tibia-fibular repair. ALLERGIES: THE PATIENT IS ALLERGIC TO SEVERAL MEDICATIONS INCLUDING GABAPENTIN, HYDROCODONE, IODINE, MORPHINE, AND CODEINE. HOME MEDICATION: Current home medications are same as recent discharge medications. No changes in her medications have been made post discharge. Anticoagulation was discontinued in last admission. SOCIAL HISTORY: The patient currently lives at home with her family. She recently quit smoking. She used to ambulate with a cane and walker. However, lately she is more or less bedridden. The family requested do not resuscitate. The patient usually makes her own decision with the help of her family. FAMILY HISTORY: Mother in her 80s from natural cause. REVIEW OF SYSTEMS: Review of systems cannot be reliably obtained from the patient due to current cognitive status. PHYSICAL EXAMINATION: VITAL SIGNS: The patient is currently on nonrebreather. Temperature is 98.3, respiration 24, pulse of 103, blood pressure 144/86, O2 saturation of 93% on nonrebreather. GENERAL: A 73-year-old female, in respiratory distress. Somnolent. HEENT: Head, atraumatic and normocephalic. Sclerae anicteric. Moist mucous membrane. No oral lesion. NECK: Supple. JVD elevated. No carotid bruit. LUNGS: Showed diffuse rhonchi with rales bilaterally. There is accessory muscle use. There is diminished air entry at bilateral bases. HEART: S1, S2 present. Regularly irregular. She had midline scar from previous CABG. ABDOMEN: Soft, nontender. No rebound or guarding. Bowel sounds present. EXTREMITIES: Trace edema in bilateral lower extremity. No calf tenderness. LYMPH NODES: No palpable lymph nodes in the neck. PERIPHERAL VASCULAR: Radial pulses palpable bilaterally. MUSCULOSKELETAL: No joint swelling or tenderness. SKIN: Warm and dry. NEUROLOGIC AND PSYCHIATRY: Could not be reliably done due to current mentation. LABORATORY FINDINGS: WBC 8.1, hemoglobin 10.9, hematocrit 35.6, platelet 147. Chemistry showed sodium 141, potassium 3.4, chloride 97, bicarbonate 32, BUN 7, creatinine 0.83, glucose of 146, magnesium 1.4. Troponin was negative. BNP was 2358. LFTs in normal range. IMAGING STUDIES: Chest x-ray by my review showed cardiomegaly with significant bilateral vascular congestion with bilateral pleural if effusion larger on the right. There is some asymmetric opacity in the upper lobe as well could be pneumonia. EKG by my review showed atrial fibrillation with heart rate of 105. IMPRESSION: 1. Acute on chronic hypoxic respiratory failure. 2. Acute on chronic systolic/diastolic heart failure exacerbation. 3. Suspected pneumonia rule out aspiration. 4. Chronic atrial fibrillation. 5. Recent hospitalization for anemia, congestive heart failure as well as hemorrhagic shock requiring pressors. 6. Moderate mitral regurgitation. 7. Severe tricuspid regurgitation. 8. Peripheral vascular disease. 9. Hypothyroidism. 10. Diabetes mellitus, type 2. 11. Chronic obstructive pulmonary disease. 12. Coronary artery disease status post coronary artery bypass grafting. 13. Physical deconditioning. 14. Bilateral pleural effusion secondary to congestive heart failure. 15. Hypokalemia. 16. Hypomagnesemia. PLAN: The patient will be monitored in the intermediate care unit due to significant volume overload. We will get stat ABG and start her on noninvasive positive-pressure ventilation. We will keep the patient n.p.o. IV diuresis. Cardiology and Pulmonary consultation. Do not resuscitate was verified with the family. We will also start empiric antibiotics. We will replace electrolytes. DVT prophylaxis with Lovenox. We will avoid SCDs due to peripheral vascular disease. Plan was discussed with the family in detail, they stated understanding. Job ID: [id number]
[2019-04-11 13:30] LABS: Lactic Acid 1.2 mmol/L (0.5-2.2)
[2019-04-11] MEDS ORDERED: Furosemide 20 MG TAB PO SCH (14:00)
[2019-04-11] MEDS ORDERED: Furosemide 40 MG/4 ML VIAL SLOW IVP SCH ×2 (14:00)
[2019-04-11] MEDS: Potassium Chloride 40 MEQ in Sodium Chloride 0.9% 250 ML 250 ML IVPB SCH ×2 (14:23→19:18)
--- NOTE | 2019-04-11 14:51 | CON ---
DATE OF CONSULTATION: 04/11/2019 SERVICE: Pulmonary Medicine. REASON FOR CONSULT: Respiratory failure. HISTORY OF PRESENT ILLNESS: The patient is a 73-year-old white female with past medical history significant for systolic and diastolic heart failure, and kidney disease. Ultimately, she had increasing shortness of breath over the last several days. She denies having any fevers, chills, cough, sputum production, nausea, vomiting, or diarrhea. She has been having some orthopnea and paroxysmal nocturnal dyspnea. She has severe dyspnea that limits her activity. She denies having any hemoptysis or fevers or night sweats. She presented to the emergency department because of the increasing shortness of breath. She was discovered to be volume overloaded. She got a dose of Lasix, had significant urinary output since then. The patient indicates to me that her breathing is improving a little bit, though she still has increased work. PAST MEDICAL HISTORY: 1. Chronic systolic and diastolic heart failure. 2. Anemia. 3. COPD. 4. Chronic hypoxic respiratory failure. 5. Atrial fibrillation, paroxysmal. 6. Type 2 diabetes mellitus. 7. Hypertension. 8. Dyslipidemia. 9. Coronary artery disease. 10. CKD 3. 11. Peripheral vascular disease. 12. Hypothyroidism. 13. Gastroesophageal reflux disease. PAST SURGICAL HISTORY: 1. Coronary artery bypass graft. 2. Herniorrhaphy. 3. Cholecystectomy. 4. Hysterectomy. 5. Tonsillectomy. 6. Appendectomy. 7. Tib-fib fracture repair. SOCIAL HISTORY: She is currently living at home with her family. She has an extensive history of smoking with a greater than 100 pack-year history. That being said, she quit recently. She is confined to a bed ever since the leg fracture. She has no exposure to chemicals, dust, asbestos, or tuberculosis. FAMILY HISTORY: Noncontributory. ALLERGIES: GABAPENTIN, HYDROCODONE, IODINE, MORPHINE, CODEINE. MEDICATIONS: List of the patient's inpatient medications were reviewed. No specific updates were made at this time. REVIEW OF SYSTEMS: General; head, eyes, ears, nose, and throat; cardiovascular, respiratory, GI, , musculoskeletal, neurologic, and skin are negative, except as mentioned in the HPI. PHYSICAL EXAMINATION: VITAL SIGNS: Afebrile, pulse 104, respirations 18, and saturation 99% on 2 L nasal cannula, blood pressure 138/75. HEENT: Normocephalic and atraumatic. Sclerae white. Conjunctivae pink. Oral mucosa is moist without lesions. LUNGS: One full air entry. Crackles are present. There is a slightly prolonged expiratory phase. Minimally wheezing is present without any rhonchi. HEART: Normal rate regular. ABDOMEN: Soft, nontender, nondistended. Bowel sounds are positive. MUSCULOSKELETAL: No cyanosis or clubbing. No pitting in the bilateral lower extremities. NEUROLOGIC: Grossly nonfocal. LABORATORY DATA: CBC is grossly unremarkable with a hemoglobin that has improved to 10.9. D-dimer 2.77. Basic metabolic profile and liver function studies are unremarkable. BNP is 2300, which represents a historic high. Procalcitonin is quite low at 0.07. Troponin and lactate are unremarkable. Magnesium is 1.4. IMAGING STUDIES: Chest x-ray demonstrates findings consistent with volume overload including cephalization, vascular congestion, bilateral effusions right greater than left, cardiomegaly. ASSESSMENT: 1. Acute hypoxic respiratory failure. 2. Acute on chronic systolic, diastolic, and valvular heart failure. 3. Abnormal chest x-ray characterized by bilateral upper lobe infiltrates, bilateral pleural effusions, and findings consistent with significant volume overload. DISCUSSION AND PLAN: The patient's magnesium and potassium will be replaced. From my perspective, she is stable for transition to the floor. We will continue to diurese her through time. The patient's family member is here at this time. He indicates to me that she indulges in salt. Additionally, during the last hospital stay, her Lasix was backed off to 20 mg twice daily, which does not have a significant impact on her urine production. As such, we may need to consider increasing the dose to 40 mg to be given once daily and giving a second dose if she starts developing volume overload. Pulmonary and Critical Care will continue to follow along. Dr. Walton and has established a relationship with Ms. Kirk and will assume care in the morning. 70 minutes have been devoted to this patient in various activities. I personally reviewed all imaging studies and laboratory data noted within this document. For fifty percent of this time, I was interacting with the patient at the bedside or coordinating care with the care team. For the remainder of the time I was immediately available to the patient in the hospital unit. Job ID: [id number] [facility]
--- NOTE | 2019-04-11 15:39 | CON ---
DATE OF CONSULTATION: 04/11/2019 PRIMARY SENIOR MECHANICAL PROJECT MANAGER: Destini Barajas MD HISTORY OF PRESENT ILLNESS: Ms. Kirk is a very pleasant 73-year-old white female, who comes to the hospital for shortness of breath. She has been noticing increased shortness of breath in the last few days. She was admitted to the hospital about a week or two ago with a GI bleed. Her hemoglobin dropped down to 6 back up to 10.9 now. She was evaluated in the ER, was found to have a BNP in 2000 range with significant worsening pulmonary edema and pleural effusions on the chest x-ray. She was admitted, placed on a BiPAP for oxygen supplementation and started on IV Lasix. She is already diuresing quite well. She has a history of ischemic cardiomyopathy, EF at 40% to 45%, last time it was evaluated and diastolic dysfunction. Currently, she is still on the BiPAP. No new complaints other than the shortness of breath, which is actually starting to get better. PAST MEDICAL HISTORY: 1. Systolic and diastolic heart failure, EF at 40% to 45%. 2. Recent anemia of blood loss anemia. 3. COPD. 4. Paroxysmal atrial fibrillation, currently in atrial fibrillation, but rate control. 5. Type 2 diabetes. 6. Hypertension. 7. Hyperlipidemia. 8. Chronic insomnia. 9. Coronary artery disease, status post bypass grafting. 10. Chronic kidney disease stage 3. 11. Iron deficiency. 12. Peripheral vascular disease. 13. Hypothyroidism. 14. GERD. 15. Carotid stenosis. 16. Hemorrhoids. PAST SURGICAL HISTORY: 1. Coronary artery bypass grafting. 2. EGD and colonoscopy. 3. Hernia repair. 4. Cholecystectomy. 5. Hysterectomy. 6. Tonsillectomy. 7. Appendectomy. 8. Right tibial-fibular repair. ALLERGIES: 1. GABAPENTIN. 2. HYDROCODONE. 3. IODINE. 4. MORPHINE. 5. CODEINE. OUTPATIENT MEDICATIONS: Include; 1. Trazodone. 2. Lyrica. 3. Pravastatin 40 mg at bedtime. 4. Protonix. 5. Lisinopril 2.5 mg a day. 6. Furosemide 20 mg twice a day. 7. Ferrous sulfate. 8. Estradiol. 9. Multaq 400 mg b.i.d. 10. Senokot. 11. [place]-3 fish oil. 12. Sublingual nitroglycerin p.r.n. 13. Multivitamin. 14. Remeron. 15. Magnesium oxide 400 mg a day. 16. DuoNeb. 17. Humalog KwikPen. 18. Lantus. 19. Breo Ellipta. 20. Vitamin B12. 21. Tylenol p.r.n. SOCIAL HISTORY: Quit smoking recently. No alcohol or drug use. Does not ambulate that well, mostly bed ridden. FAMILY HISTORY: Noncontributory. REVIEW OF SYSTEMS: Review of system is not reliable as the patient is somewhat confused. PHYSICAL EXAMINATION: VITAL SIGNS: Temperature 98.2. Pulse 99 and on my evaluation, it was 87, irregularly irregular. Respiratory rate 18 and saturation 96% on 50% FiO2 on a BiPAP. GENERAL: Awake, somnolent, but wakes up with the stimulus and in mild respiratory distress. HEENT: Normocephalic and atraumatic. NECK: Supple. LUNGS: Have reduced breath sounds bilaterally. CARDIOVASCULAR: S1 and S2. Irregularly irregular heart rate in the 70s to 90s. ABDOMEN: Soft. Positive bowel sounds. EXTREMITIES: Trace edema. SKIN: Warm and dry. LABORATORY DATA: Laboratory work was reviewed. CBC with a white count of 8.1, hemoglobin 10, hematocrit 35, and platelet count of 147. Coags reviewed. Chemistries were reviewed. Potassium was 3.4. Normal BUN and creatinine with a GFR of 68. BNP was 2358. Procalcitonin is normal. Lactic acid is 1.2. Chest x-ray was reviewed. Most recent echocardiogram was done about 2 weeks ago. EF was at 40% to 45% with moderately enlarged right ventricle with mild AI, moderate MR, and severe tricuspid regurgitation. ASSESSMENT: 1. Acute on chronic systolic and diastolic heart failure. 2. Chronic obstructive pulmonary disease. 3. Coronary artery disease stable at this time. No acute coronary syndrome. 4. Paroxysmal atrial fibrillation, currently in atrial fibrillation, rate controlled. 5. Recent gastrointestinal bleeding. PLAN: 1. Agree with continued diuresis. 2. Continue oxygen supplementation as needed. Currently on BiPAP. 3. She is already diuresing. 4. No anticoagulation for stroke prophylaxis, given her history of GI bleeding. Thank you for letting us to participate in the care of your patient. Dr. Barajas, her primary school secretary will follow up in the morning. Job ID: [id number]
[2019-04-11 15:51] LABS: Magnesium 1.7 mg/dL (1.6-2.6); Potassium 3.7 mmol/L (3.5-5.1)
[2019-04-11 15:56] LABS: Troponin I 0.043 ng/mL (< 0.028)
[2019-04-11] MEDS: Ferrous Sulfate 325 MG TAB PO SCH (18:33)
[2019-04-11] MEDS: cefTRIAXone\\ROCEPHIN 2 GM in Sodium Chloride 0.9% 100 ML IVPB SCH (18:42)
[2019-04-12] MEDS: Atorvastatin Calcium 10 MG TAB PO SCH ×2 (01:05→21:13)
[2019-04-12] MEDS: Dronedarone HCl 400 MG TAB PO SCH ×3 (01:05→17:56)
[2019-04-12] MEDS: Famotidine 20 MG TAB PO SCH ×3 (01:06→21:15)
[2019-04-12] MEDS: Doxycycline 100 MG CAP PO SCH ×3 (01:06→21:12)
[2019-04-12] MEDS: Pregabalin 75 MG CAP PO SCH ×3 (01:07→21:12)
[2019-04-12] MEDS: Famotidine/PF 20 mg/2ml Vial SLOW IVP SCH ×2 (01:07→10:04)
[2019-04-12] MEDS: Furosemide 40 MG/4 ML VIAL SLOW IVP SCH ×2 (05:15→17:56)
[2019-04-12 07:14] LABS: ALT (SGPT) 11 U/L (8-55); AST (SGOT) 23 U/L (5-34); Albumin 3.2 g/dL (3.4-4.8); Alkaline Phosphatase 111 U/L (40-150); Anion Gap 13 mmol/L (10-20); BUN (Urea Nitrogen) 10 mg/dL (9.8-20.1); Bilirubin, Total 0.5 mg/dL (0.2-1.2); Calc. Creatinine Clearance 67 mL/min (70-130); Calcium 8.8 mg/dL (7.8-10.44); Carbon Dioxide 35 mmol/L (23-31); Chloride 100 mmol/L (98-107); Estimated GFR-MDRD 62; Globulin 3.3 g/dL (2.4-3.5); Glucose 121 mg/dL (83-110); Magnesium 2.1 mg/dL (1.6-2.6); Potassium 4.2 mmol/L (3.5-5.1); Protein, Total 6.5 g/dL (6.0-8.3); Sodium 144 mmol/L (136-145)
[2019-04-12 08:24] LABS: #Basophils 0.1 thou/uL (0.0-0.2); #Lymphocytes 1.5 thou/uL (1.20-3.40); #Monocytes 0.6 thou/uL (0.11-0.59); #Neutrophils 3.5 thou/uL (1.40-6.50); %Eosinophils 0.5 % (0.0-10.0); %Lymphocytes 26.6 % (21.0-51.0); %Monocytes 10.5 % (0.0-10.0); %Neutrophils 61.4 % (42.0-75.0); Hemoglobin 9.9 g/dL (12.0-16.0); Hypochromia SLIGHT = 6-15 cells (100X) (0-5/hpf); MDiff Complete? YES; Mean Corpuscular HGB CONC 29.7 g/dL (32.0-36.0); Mean Corpuscular Hemoglobin 23.9 pg (27.0-31.0); Mean Corpuscular Volume 80.6 fL (78.0-98.0); Mean Platelet Volume 11.6 fL (7.4-10.4); Platelet Count 138 thou/uL (130-400); Polychromasia SLIGHT = 2-3 cells (100X) (0-2/hpf); RBC Distribution Width 20.8 % (11.5-14.5); Red Blood Cell (RBC) Count 4.14 mill/uL (4.20-5.40); White Blood Cell (WBC) Count 5.7 thou/uL (4.8-10.8)
[2019-04-12] MEDS ORDERED: Enoxaparin Sodium 40 MG/0.4 ML SYRINGE SC SCH (09:00)
--- NOTE | 2019-04-12 09:27 | PRG ---
DATE OF SERVICE: 04/12/2019 SUBJECTIVE: A 73-year-old obese female, 78 kg, presented yesterday with shortness of breath, oxygen saturations 93% on 3 L, blood pressure is 144/86, respirations 24, and temperature 98. This morning, she says she is feeling better. No coughing or wheezing. Speech is here to assess her speech and swallowing. OBJECTIVE: CHEST: Decreased breath sounds. Minimal crackles. No wheezing. CARDIAC: Normal S1 and S2. No gallops. ABDOMEN: No masses. LABORATORY DATA: White count 5000. Lytes are normal. X-ray shows previously described chronic cardiomegaly, bilateral pleural effusion, right greater than left. IMPRESSION AND PLAN: Chronic obstructive pulmonary disease, congestive heart failure, pleural effusion, and severe deconditioning. At this stage, most of her problem appears to be cardiac in origin. We will continue neb treatment and supportive care. Empiric antibiotics, which have been de-escalated. We will follow. Job ID: [id number]
[2019-04-12] MEDS: Lisinopril 2.5 MG TAB PO SCH (10:00)
[2019-04-12] MEDS: Estradiol 1 MG TAB PO SCH (10:05)
[2019-04-12] MEDS: Ferrous Sulfate 325 MG TAB PO SCH ×2 (10:06→17:55)
[2019-04-12 12:22] VITALS: BMI 26.9
--- NOTE | 2019-04-12 13:35 | PDOC.CPN ---
- Subjective Date: 04/12/19 Time: 13:34 Interval history: The pt was seen and examined. No overnight events. No cardiac complaints at this time. No complaint of SOB with 2.5LNC. - Review of Systems Respiratory: reports: shortness of breath Neurological: reports: weakness - Objective Allergies/Adverse Reactions: Allergies Allergy/AdvReac Type Severity Reaction Status Date / Time adhesive tape Allergy Verified 03/26/19 22:52 codeine Allergy Verified 03/26/19 22:52 gabapentin Allergy Verified 03/26/19 22:52 hydrocodone Allergy Verified 03/26/19 22:52 iodine Allergy Verified 03/26/19 22:52 morphine Allergy Verified 03/26/19 22:52 venom-honey bee Allergy Verified 03/26/19 22:52 [bee venom (honey bee)] Visit Medications: Current Medications Acetaminophen (Tylenol) 650 mg PO Q4H PRN PRN Reason: Headache/Fever/Mild Pain (1-3) Acetaminophen (Tylenol) 650 mg MA Q4H PRN PRN Reason: Headache/Fever/Mild Pain (1-3) Albuterol/Ipratropium (Duoneb) 3 ml NEB [id number] [facility] Stop: 04/12/19 19:01 Last Admin: 04/12/19 07:30 Dose: 3 ml Atorvastatin Calcium (Lipitor) 10 mg PO HS [facility] Last Admin: 04/12/19 01:05 Dose: Not Given Calcium Carbonate (Tums) 1,000 mg PO Q4H PRN PRN Reason: Heartburn or Indigestion Dextrose/Water (Dextrose 50%) 25 gm SLOW IVP PRN PRN PRN Reason: Hypoglycemia Doxycycline Hyclate (Vibramycin) 100 mg PO BID [facility] Last Admin: 04/12/19 10:04 Dose: 100 mg Dronedarone (Multaq) 400 mg PO BID-[facility] Last Admin: 04/12/19 10:00 Dose: 400 mg Enoxaparin Sodium (Lovenox) 40 mg SC 0900 [facility] Last Admin: 04/12/19 10:06 Dose: 40 mg Estradiol (Estrace) 0.5 mg PO DAILY [facility] Last Admin: 04/12/19 10:05 Dose: 0.5 mg Famotidine (Pepcid) 20 mg SLOW IVP Q12HR [facility] Last Admin: 04/12/19 10:04 Dose: 20 mg Famotidine (Pepcid) 20 mg PO BID [facility] Last Admin: 04/12/19 10:05 Dose: Not Given Ferrous Sulfate (Feosol) 325 mg PO BID-[facility] Last Admin: 04/12/19 10:06 Dose: 325 mg Furosemide (Lasix) 40 mg SLOW IVP 0600,1400 [facility] Last Admin: 04/12/19 05:15 Dose: 40 mg Glucagon (Glucagon) 1 mg IM PRN PRN PRN Reason: Hypoglycemia Dextrose/Water (D5w) 1,000 mls @ 0 mls/hr IV .Q0M PRN PRN Reason: Hypoglycemia Ceftriaxone Sodium 2 gm/ (Sodium Chloride) 100 mls @ 200 mls/hr IVPB Q24HR [facility] Last Admin: 04/11/19 18:42 Dose: 100 mls Insulin Human Lispro (Humalog) 0 units SC .MILD SLIDING SCALE PRN PRN Reason: Mild Correctional Scale Last Admin: 04/12/19 11:57 Dose: 2 unit Insulin Human Lispro (Humalog) 0 units SC .BEDTIME SLIDING SC PRN PRN Reason: Bedtime Correctional Scale Insulin Human Regular (Humulin R) 0 units SC .MODERATE SLIDING SC PRN PRN Reason: Moderate Correctional Scale Lisinopril (Zestril) 2.5 mg PO DAILY [facility] Last Admin: 04/12/19 10:00 Dose: 2.5 mg Pantoprazole Sodium (Protonix) 40 mg PO BID [facility] Last Admin: 04/12/19 10:07 Dose: Not Given Pregabalin (Lyrica) 300 mg PO BID [facility] Last Admin: 04/12/19 10:02 Dose: 300 mg Senna/Docusate Sodium (Senokot S) 2 tab PO BIDPRN PRN PRN Reason: Constipation Sodium Chloride (Flush - Normal Saline) 10 ml IVF Q12HR PRN PRN Reason: Saline Flush Sodium Chloride (Flush - Normal Saline) 10 ml IVF PRN PRN PRN Reason: Saline Flush Trazodone HCl (Desyrel) 200 mg PO HS PRN PRN Reason: Anxiety/Insomnia Vital Signs & Weight: Vital Signs Temp Pulse Pulse Pulse Resp BP BP 04/12/19 10:00 93 113/61 04/12/19 09:04 95 95 121/68 04/12/19 08:00 98.4 F 08/29/19 07:30 89 16 04/12/19 04:00 18 04/12/19 03:59 98.5 F 04/12/19 02:00 18 BP Pulse Ox Pulse Ox Pulse Ox 04/12/19 10:00 04/12/19 09:04 113/61 96 97 04/12/19 08:00 98 04/12/19 07:30 98 04/12/19 04:00 04/12/19 03:59 04/12/19 02:00 Admit Weight 162 lb Weight 162 lb 3 oz - Physical Exam Cardiac: regular rate and rhythm, S1/S2 Lungs: clear to auscultation, decreased breath sounds - Labs Result Diagrams: 04/12/19 06:17 04/12/19 06:17 Troponin/CKMB Troponin I 0.043 ng/mL (< 0.028) H 04/11/19 15:13 - Telemetry Sinus rhythms and dysrhythmias: sinus rhythm (SR in 80s) - Assessment/Plan Assessment/Plan: 1. Acute on Chronic diastolic HF - stable with Lasix IV 40mg BID and Lisinopril ; not on BBlocker due to hx of COPD 2. Prox Afib - in SR with Multaq; not good candidate for OAC or anti-platelet per GI 3. CAD with hx of CABG - stable with ADITHYA and statin; not on ASA due to hx of severe GI bleed and Anemia 4. Chronic iron deficiency anemia 2/2/ gastric vascular ectasias - stable; plan to have small bowel capsule study by GI 5. HTN - stable 6. DM type 2 7. Hypothyroidism 8. HLD - On statin 9. COPD with Home O2 3LNC 10. s/p Rt Leg Fx MAR reviewed Echo in 03/2019 with EF 40-45% Pt. seen and eval. by me. I agree with the A/P by the [employer] D[employer]PER. She seems to be drinking too much volume when she is at home. She is better after diuresis. Continue present treatment. Chest : decreased bases. RRR.No edema.
--- NOTE | 2019-04-12 15:43 | PDOC.HOSPP ---
- Subjective Encounter Date: 04/12/19 Encounter Time: 13:30 Subjective: Patient seen and examined for Resp failure. Off BiPAP. Feels better. No CP or SOB. No new complaints. No overnight events - Objective Vital Signs & Weight: Vital Signs (12 hours) Temp Pulse Pulse Pulse Resp BP BP 04/12/19 13:54 90 17 04/12/19 12:00 98.7 F 04/12/19 11:20 93 94 111/67 04/12/19 10:00 93 113/61 04/12/19 09:04 95 95 121/68 04/12/19 08:00 98.4 F 04/12/19 07:30 89 16 04/12/19 04:00 18 04/12/19 03:59 98.5 F BP Pulse Ox Pulse Ox Pulse Ox 04/12/19 13:54 100 04/12/19 12:00 04/12/19 11:20 111/66 100 97 04/12/19 10:00 04/12/19 09:04 113/61 96 97 04/12/19 08:00 98 04/12/19 07:30 98 04/12/19 04:00 04/12/19 03:59 Weight Admit Weight 162 lb Weight 162 lb 3 oz Most Recent Monitor Data Heart Rate from ECG 88 NIBP 109/65 NIBP BP-Mean 79 Respiration from ECG 17 SpO2 100 I&O: 04/11/19 04/12/19 04/13/19 06:59 06:59 06:59 Intake Total 285 Output Total 1700 Balance -1415 Result Diagrams: 04/12/19 06:17 04/12/19 06:17 Additional Labs: Accuchecks 04/12/19 04/12/19 04/11/19 10:46 05:29 22:53 POC Glucose 161 H 119 H 149 H 04/11/19 16:55 POC Glucose 185 H EKG Reviewed by me: Yes (Tele SR) Hospitalist ROS - Review of Systems Respiratory: reports: SOB with excertion. denies: cough, dry, shortness of breath, hemoptysis, pleuritic pain, sputum, wheezing, other Cardiovascular: denies: chest pain, palpitations, orthopnea, paroxysmal noc. dyspnea, edema, light headedness, other Gastrointestinal: denies: nausea, vomitting, abdominal pain, diarrhea, constipation, melena, hematochezia, other - Medication Medications: Active Medications Generic Name Dose Route Start Last Admin Trade Name Freq PRN Reason Stop Dose Admin Albuterol/Ipratropium 3 ml 04/11/19 19:00 04/12/19 13:54 Duoneb NEB 04/12/19 19:01 3 ml [id number] KRISTIE Administration Atorvastatin Calcium 10 mg 04/11/19 21:00 04/12/19 01:05 Lipitor PO Not Given HS KRISTIE Doxycycline Hyclate 100 mg 04/11/19 21:00 04/12/19 10:04 Vibramycin PO 100 mg BID KRISTIE Administration Dronedarone 400 mg 04/11/19 17:00 04/12/19 10:00 Multaq PO 400 mg BID-[facility] KRISTIE Administration Enoxaparin Sodium 40 mg 04/12/19 09:00 04/12/19 10:06 Lovenox SC 40 mg 0900 KRISTIE Administration Estradiol 0.5 mg 04/12/19 09:00 04/12/19 10:05 Estrace PO 0.5 mg DAILY KRISTIE Administration Famotidine 20 mg 04/11/19 21:00 04/12/19 10:04 Pepcid SLOW IVP 20 mg Q12HR KRISTIE Administration Famotidine 20 mg 04/11/19 21:00 04/12/19 10:05 Pepcid PO Not Given BID [facility] Ferrous Sulfate 325 mg 04/11/19 17:00 04/12/19 10:06 Feosol PO 325 mg BID-[facility] KRISTIE Administration Furosemide 40 mg 04/12/19 06:00 04/12/19 05:15 Lasix SLOW IVP 40 mg 0600,1400 KRISTIE Administration Ceftriaxone Sodium 2 gm/ 100 mls @ 200 mls/hr 04/11/19 13:00 04/11/19 18:42 Sodium Chloride IVPB 100 mls Q24HR KRISTIE Administration Insulin Human Lispro 0 units 04/11/19 11:51 04/12/19 11:57 Humalog SC 2 unit .MILD SLIDING SCALE PRN Administration Mild Correctional Scale Lisinopril 2.5 mg 04/12/19 09:00 04/12/19 10:00 Zestril PO 2.5 mg DAILY KRISTIE Administration Pantoprazole Sodium 40 mg 04/11/19 21:00 04/12/19 10:07 Protonix PO Not Given BID KRISTIE Pregabalin 300 mg 04/11/19 21:00 04/12/19 10:02 Lyrica PO 300 mg BID KRISTIE Administration - Exam General Appearance: NAD Heart: RRR, no gallops, no rubs Heart - other findings: no heaves Respiratory: CTAB, no rales, no ronchi Respiratory - other findings: dec AE at bases Gastrointestinal: soft, non-tender, normal bowel sounds Extremities: no edema Neurological: no new deficit Psychiatric: normal affect, A&O x 3 Hosp A/P - Plan IMPRESSION: 1. Acute on chronic hypoxic respiratory failure. Off NIPPV 2. Acute on chronic systolic/diastolic heart failure exacerbation. 3. Suspected pneumonia rule out aspiration. 4. Paroxysmal atrial fibrillation. 5. Recent hospitalization for anemia, congestive heart failure as well as hemorrhagic shock requiring pressors. 6. Moderate mitral regurgitation. 7. Severe tricuspid regurgitation. 8. Peripheral vascular disease. 9. Hypothyroidism. 10. Diabetes mellitus, type 2. 11. Chronic obstructive pulmonary disease. 12. Coronary artery disease status post coronary artery bypass grafting. No Antiplatelet due to GIB 13. Physical deconditioning. 14. Bilateral pleural effusion secondary to congestive heart failure. 15. Hypokalemia. 16. Hypomagnesemia. PLAN: Cont IV Lasix 40 mg BID Add Potassium supp No BB due to COPD Transfer to [facility] IV Ceftriaxone Cont PO Doxy AM labs Res[place] [facility]HC at [place]
[2019-04-12] MEDS: cefTRIAXone\\ROCEPHIN 2 GM in Sodium Chloride 0.9% 100 ML IVPB SCH (17:45)
[2019-04-12] MEDS: traZODone HCl 50 MG TAB PO PRN (21:11)
[2019-04-13] MEDS: Furosemide 40 MG/4 ML VIAL SLOW IVP SCH (06:22)
[2019-04-13 07:12] LABS: Hemoglobin 9.3 g/dL (12.0-16.0); Platelet Count 109 thou/uL (130-400)
[2019-04-13 07:26] LABS: Albumin 2.8 g/dL (3.4-4.8); Anion Gap 13 mmol/L (10-20); BUN (Urea Nitrogen) 11 mg/dL (9.8-20.1); BUN/Creatinine Ratio 13.41; Calc. Creatinine Clearance 73 mL/min (70-130); Calcium 8.2 mg/dL (7.8-10.44); Carbon Dioxide 37 mmol/L (23-31); Chloride 97 mmol/L (98-107); Estimated GFR-MDRD 69; Glucose 108 mg/dL (83-110); Magnesium 1.7 mg/dL (1.6-2.6); Phosphorus 4.7 mg/dL (2.3-4.7); Potassium 4.1 mmol/L (3.5-5.1); Sodium 143 mmol/L (136-145)
--- NOTE | 2019-04-13 08:56 | PDOC.CPN ---
- Subjective Date: 04/13/19 Time: 08:59 Interval history: The pt seen and examined. No overnight events. No cardiac complaints. - Review of Systems General: reports: fatigue Neurological: reports: weakness - Objective Allergies/Adverse Reactions: Allergies Allergy/AdvReac Type Severity Reaction Status Date / Time adhesive tape Allergy Verified 03/26/19 22:52 codeine Allergy Verified 03/26/19 22:52 gabapentin Allergy Verified 03/26/19 22:52 hydrocodone Allergy Verified 03/26/19 22:52 iodine Allergy Verified 03/26/19 22:52 morphine Allergy Verified 03/26/19 22:52 venom-honey bee Allergy Verified 03/26/19 22:52 [bee venom (honey bee)] Visit Medications: Current Medications Acetaminophen (Tylenol) 650 mg PO Q4H PRN PRN Reason: Headache/Fever/Mild Pain (1-3) Acetaminophen (Tylenol) 650 mg DE Q4H PRN PRN Reason: Headache/Fever/Mild Pain (1-3) Atorvastatin Calcium (Lipitor) 10 mg PO [facility] Last Admin: 04/12/19 21:13 Dose: 10 mg Calcium Carbonate (Tums) 1,000 mg PO Q4H PRN PRN Reason: Heartburn or Indigestion Dextrose/Water (Dextrose 50%) 25 gm SLOW IVP PRN PRN PRN Reason: Hypoglycemia Doxycycline Hyclate (Vibramycin) 100 mg PO BID [facility] Last Admin: 04/12/19 21:12 Dose: 100 mg Dronedarone (Multaq) 400 mg PO BID-[facility] Last Admin: 04/12/19 17:56 Dose: 400 mg Estradiol (Estrace) 0.5 mg PO DAILY [facility] Last Admin: 04/12/19 10:05 Dose: 0.5 mg Famotidine (Pepcid) 20 mg PO BID [facility] Last Admin: 04/12/19 21:15 Dose: 20 mg Ferrous Sulfate (Feosol) 325 mg PO BID-[facility] Last Admin: 04/12/19 17:55 Dose: 325 mg Furosemide (Lasix) 40 mg SLOW IVP 0600,1400 [facility] Stop: 04/13/19 10:00 Last Admin: 04/13/19 06:22 Dose: 40 mg Furosemide (Lasix) 40 mg PO 0900,1400 [facility] Glucagon (Glucagon) 1 mg IM PRN PRN PRN Reason: Hypoglycemia Dextrose/Water (D5w) 1,000 mls @ 0 mls/hr IV .Q0M PRN PRN Reason: Hypoglycemia Insulin Human Lispro (Humalog) 0 units SC .MILD SLIDING SCALE PRN PRN Reason: Mild Correctional Scale Last Admin: 04/12/19 11:57 Dose: 2 unit Insulin Human Lispro (Humalog) 0 units SC .BEDTIME SLIDING SC PRN PRN Reason: Bedtime Correctional Scale Insulin Human Regular (Humulin R) 0 units SC .MODERATE SLIDING SC PRN PRN Reason: Moderate Correctional Scale Lisinopril (Zestril) 2.5 mg PO DAILY [facility] Last Admin: 04/12/19 10:00 Dose: 2.5 mg Pantoprazole Sodium (Protonix) 40 mg PO BID [facility] Last Admin: 04/12/19 21:13 Dose: 40 mg Potassium Chloride (K-Dur) 20 meq PO QAM-[facility] Pregabalin (Lyrica) 300 mg PO BID [facility] Last Admin: 04/12/19 21:12 Dose: 300 mg Senna/Docusate Sodium (Senokot S) 2 tab PO BIDPRN PRN PRN Reason: Constipation Sodium Chloride (Flush - Normal Saline) 10 ml IVF Q12HR PRN PRN Reason: Saline Flush Sodium Chloride (Flush - Normal Saline) 10 ml IVF PRN PRN PRN Reason: Saline Flush Last Admin: 04/13/19 06:22 Dose: 10 ml Trazodone HCl (Desyrel) 200 mg PO HS PRN PRN Reason: Anxiety/Insomnia Last Admin: 04/12/19 21:11 Dose: 200 mg Vital Signs & Weight: Vital Signs Temp Pulse Resp BP Pulse Ox 04/13/19 07:22 97.8 F 04/13/19 04:00 97.6 F 91 18 93/60 100 04/13/19 00:00 98.2 F 88 16 94/42 L 100 Admit Weight 162 lb Weight 161 lb 14.4 oz - Physical Exam Cardiac: regular rate and rhythm Lungs: clear to auscultation, decreased breath sounds Neuro: cranial nerve 2-12 intact Abdomen: unremarkable Musculoskeletal: decreased range of motion - Labs Result Diagrams: 04/13/19 06:23 04/13/19 06:23 Troponin/CKMB Troponin I 0.043 ng/mL (< 0.028) H 04/11/19 15:13 - Telemetry Sinus rhythms and dysrhythmias: sinus rhythm - Assessment/Plan Assessment/Plan: 1. Acute on Chronic diastolic HF - stable with Lasix IV 40mg BID, which will be changed to PO BID from this afternoon; On Lisinopril; not on BBlocker due to hx of COPD; Fluid restriction education given to the pt. 2. Prox Afib - in SR with Multaq; not good candidate for OAC or anti-platelet per GI 3. CAD with hx of CABG - stable with ADITHYA and statin; not on ASA due to hx of severe GI bleed and Anemia 4. Chronic iron deficiency anemia 2/2/ gastric vascular ectasias - stable; plan to have small bowel capsule study by GI 5. HTN - stable 6. DM type 2 7. Hypothyroidism 8. HLD - On statin 9. COPD with Home O2 3LNC 10. s/p Rt Leg Fx 11. Anemia MAR reviewed Echo in 03/2019 with EF 40-45% Pt. seen and eval. by me. I agree with the A/P by the [employer] REPA[employer]ER. She denies any SOB. Her problem seems to be noncompliance with water intake when she goes home. At this time she is stable again. Changed to po lasiux. She could go home today from my perspective. chest: decreased BS in right bvase. Chronic. RRR at present. aleja
[2019-04-13] MEDS ORDERED: Furosemide 40 MG TAB PO SCH (09:00)
[2019-04-13] MEDS: Ferrous Sulfate 325 MG TAB PO SCH ×2 (09:03→16:20)
[2019-04-13] MEDS: Dronedarone HCl 400 MG TAB PO SCH ×2 (09:07→16:20)
[2019-04-13] MEDS: Doxycycline 100 MG CAP PO SCH ×2 (09:07→20:23)
[2019-04-13] MEDS: Lisinopril 2.5 MG TAB PO SCH (09:07)
[2019-04-13] MEDS: Potassium Chloride 20 MEQ TAB PO SCH (09:08)
[2019-04-13] MEDS: Famotidine 20 MG TAB PO SCH ×2 (09:08→20:23)
[2019-04-13] MEDS: Estradiol 1 MG TAB PO SCH (09:28)
--- NOTE | 2019-04-13 10:10 | PRG ---
DATE OF SERVICE: 04/13/2019 SUBJECTIVE: This morning, the patient is awake, alert, and responsive. Less short of breath. OBJECTIVE: VITAL SIGNS: Temperature 97, blood pressure 120/60, pulse 60, respiratory rate 18. CHEST: No wheezing or crackles. CARDIAC: Normal S1 and S2. No gallops. ABDOMEN: No masses. LABORATORY DATA: Lytes are better. Hemoglobin and hematocrit are stable. IMPRESSION: 1. Respiratory failure. 2. Congestive heart failure. 3. Chronic pleural effusions. 4. Morbid obesity. 5. Sleep apnea. PLAN: At this stage, disposition as per Cardiology. Supportive care, PT, neb treatments. We will follow. Job ID: [id number]
[2019-04-13] MEDS: Pregabalin 75 MG CAP PO SCH ×2 (13:29→20:22)
[2019-04-13] MEDS: Furosemide 40 MG TAB PO SCH (14:41)
[2019-04-13] MEDS: traZODone HCl 50 MG TAB PO PRN (20:23)
[2019-04-13] MEDS: Atorvastatin Calcium 10 MG TAB PO SCH (20:23)
--- NOTE | 2019-04-13 22:41 | PDOC.HOSPP ---
- Subjective Encounter Date: 04/13/19 Encounter Time: 09:30 Subjective: Patient seen and examined for CHF. SOB improving. No new complaints. No overnight events - Objective Vital Signs & Weight: Vital Signs (12 hours) Temp Pulse Pulse BP BP Pulse Ox Pulse Ox 04/13/19 20:00 99.1 F 100 04/13/19 15:35 99.4 F 04/13/19 15:19 91 92 114/63 109/68 100 04/13/19 11:14 98.5 F 04/13/19 10:54 96 92 111/66 113/71 100 Pulse Ox 04/13/19 20:00 04/13/19 15:35 04/13/19 15:19 100 04/13/19 11:14 04/13/19 10:54 100 Weight Admit Weight 162 lb Weight 161 lb 14.4 oz Most Recent Monitor Data Heart Rate from ECG 95 NIBP 87/48 NIBP BP-Mean 61 Respiration from ECG 13 SpO2 99 I&O: 04/12/19 04/13/19 04/14/19 06:59 06:59 06:59 Intake Total 285 870 700 Output Total 1700 2300 2650 Balance 1415 -1430 -1950 Result Diagrams: 04/14/19 03:38 04/14/19 03:38 Additional Labs: Accuchecks 04/13/19 04/13/19 04/13/19 21:00 16:28 13:00 POC Glucose 147 H 154 H 191 H 04/13/19 04/13/19 04/13/19 08:02 06:22 00:59 POC Glucose 141 H 121 H 144 H EKG Reviewed by me: Yes (Tele SR) Hospitalist ROS - Review of Systems Cardiovascular: denies: chest pain, palpitations, orthopnea, paroxysmal noc. dyspnea, edema, light headedness, other Gastrointestinal: denies: nausea, vomitting, abdominal pain, diarrhea, constipation, melena, hematochezia, other - Medication Medications: Active Medications Generic Name Dose Route Start Last Admin Trade Name Freq PRN Reason Stop Dose Admin Atorvastatin Calcium 10 mg 04/11/19 21:00 04/13/19 20:23 Lipitor PO 10 mg HS KRISTIE Administration Doxycycline Hyclate 100 mg 04/11/19 21:00 04/13/19 20:23 Vibramycin PO 100 mg BID KRISTIE Administration Dronedarone 400 mg 04/11/19 17:00 04/13/19 16:20 Multaq PO 400 mg BID-WM KRISTIE Administration Estradiol 0.5 mg 04/12/19 09:00 04/13/19 09:28 Estrace PO 0.5 mg DAILY KRISTIE Administration Famotidine 20 mg 04/11/19 21:00 04/13/19 20:23 Pepcid PO 20 mg BID KRISTIE Administration Ferrous Sulfate 325 mg 04/11/19 17:00 04/13/19 16:20 Feosol PO 325 mg BID-WM KRISTIE Administration Furosemide 40 mg 04/13/19 14:00 04/13/19 14:41 Lasix PO 40 mg 0900,1400 KRISTIE Administration Insulin Human Lispro 0 units 04/11/19 11:51 04/12/19 11:57 Humalog SC 2 unit .MILD SLIDING SCALE PRN Administration Mild Correctional Scale Lisinopril 2.5 mg 04/12/19 09:00 04/13/19 09:07 Zestril PO 2.5 mg DAILY KRISTIE Administration Pantoprazole Sodium 40 mg 04/11/19 21:00 04/13/19 20:23 Protonix PO 40 mg BID KRISTIE Administration Potassium Chloride 20 meq 04/13/19 08:00 04/13/19 09:08 K-Dur PO 20 meq QAM-WM KRISTIE Administration Pregabalin 300 mg 04/11/19 21:00 04/13/19 20:22 Lyrica PO 300 mg BID KRISTIE Administration Sodium Chloride 10 ml 04/11/19 12:01 04/13/19 06:22 Flush - Normal Saline IVF 10 ml PRN PRN Administration Saline Flush Trazodone HCl 200 mg 04/11/19 11:45 04/13/19 20:23 Desyrel PO 200 mg HS PRN Administration Anxiety/Insomnia - Exam General Appearance: awake alert General - other findings: Minimal resp distress Heart: RRR, no rubs Respiratory: no ronchi, rales (at bases) Gastrointestinal: soft, non-tender, non-distended, normal bowel sounds Extremities: no edema Neurological: no new deficit Hosp A/P - Plan IMPRESSION: 1. Acute on chronic hypoxic respiratory failure. Off NIPPV 2. Acute on chronic systolic/diastolic heart failure exacerbation. 3. Suspected pneumonia rule out aspiration. on Doxycycline 4. Paroxysmal atrial fibrillation. 5. Recent hospitalization for anemia, congestive heart failure as well as hemorrhagic shock requiring pressors. 6. Moderate mitral regurgitation. 7. Severe tricuspid regurgitation. 8. Peripheral vascular disease. 9. Hypothyroidism. 10. Diabetes mellitus, type 2. 11. Chronic obstructive pulmonary disease. 12. Coronary artery disease status post coronary artery bypass grafting. No Antiplatelet due to GIB 13. Physical deconditioning. 14. Bilateral pleural effusion secondary to congestive heart failure. 15. Hypokalemia. 16. Hypomagnesemia. 17. Thrombocytopenia 18. Chronic Anemia. PLAN: Change Lasix to PO Cont ACEI Cont Potassium supp No BB due to COPD AM labs SNF Eval
[2019-04-14 04:11] LABS: Hemoglobin 9.3 g/dL (12.0-16.0); Platelet Count 99 thou/uL (130-400)
[2019-04-14 04:29] LABS: Anion Gap 14 mmol/L (10-20); Carbon Dioxide 40 mmol/L (23-31); Chloride 93 mmol/L (98-107); Sodium 144 mmol/L (136-145)
[2019-04-14 06:12] LABS: Albumin 2.7 g/dL (3.4-4.8); BUN (Urea Nitrogen) 9 mg/dL (9.8-20.1); BUN/Creatinine Ratio 11.39; Calc. Creatinine Clearance 74 mL/min (70-130); Calcium 8.2 mg/dL (7.8-10.44); Estimated GFR-MDRD 72; Glucose 103 mg/dL (83-110); Magnesium 1.4 mg/dL (1.6-2.6); Phosphorus 3.5 mg/dL (2.3-4.7)
[2019-04-14] MEDS: Ferrous Sulfate 325 MG TAB PO SCH (09:23)
[2019-04-14] MEDS: Dronedarone HCl 400 MG TAB PO SCH (09:23)
[2019-04-14] MEDS: Doxycycline 100 MG CAP PO SCH (09:24)
[2019-04-14] MEDS: Potassium Chloride 20 MEQ TAB PO SCH (09:24)
[2019-04-14] MEDS: Estradiol 1 MG TAB PO SCH (09:24)
[2019-04-14] MEDS: Famotidine 20 MG TAB PO SCH (09:25)
[2019-04-14] MEDS: Lisinopril 2.5 MG TAB PO SCH (09:25)
[2019-04-14] MEDS: Furosemide 40 MG TAB PO SCH ×2 (09:25→15:33)
[2019-04-14] MEDS: Pregabalin 75 MG CAP PO SCH (09:25)
[2019-04-14 10:25] VITALS: TEMP 97.9
[2019-04-14] MEDS ORDERED: Magnesium Oxide 400 MG TAB PO SCH (11:59)
[2019-04-14] MEDS ORDERED: Potassium Chloride 20 MEQ TAB PO SCH (12:00)
[2019-04-14 12:30] VITALS: BP 107/83
--- NOTE | 2019-04-14 18:07 | PRG ---
DATE OF SERVICE: 04/14/2019 SUBJECTIVE: Pilar Kirk was seen this morning. She has excellent spirits. OBJECTIVE: VITAL SIGNS: Blood pressure 107/63, heart rate 91, respiratory rate 20, and oximetry is 100%. LUNGS: Clear. HEART: Regular rhythm. ABDOMEN: Soft. IMPRESSION: 1. Respiratory failure. 2. Congestive heart failure. 3. Chronic pleural effusions, most likely secondary to heart failure. 4. Obesity. 5. Sleep apnea. PLAN: She is tentatively being discharged home, appears to be stable from my standpoint. Job ID: [id number]
--- NOTE | 2019-04-14 23:29 | DIS ---
DATE OF ADMISSION: 04/11/2019 DATE OF DISCHARGE: 04/14/2019 DISCHARGE MEDICATIONS: Please see full list. The following changes were made to the patient's home medications; 1. Doxycycline 100 mg one tablet p.o. b.i.d. for the next 6 days, #12 tablets. 2. Furosemide 40 mg one tablet p.o. b.i.d. 3. Potassium chloride 20 mEq p.o. b.i.d. All other home medications were continued without changes. DISCHARGE DIAGNOSES: 1. Congestive heart failure with acute exacerbation secondary to medical noncompliance with fluid restrictions and medical therapy. 2. Shortness of breath. 3. Acute on chronic respiratory failure. 4. Home oxygen dependent, 3 L nasal cannula continuously. 5. Community-acquired pneumonia. 6. Paroxysmal atrial fibrillation. 7. Moderate mitral regurgitation. 8. Severe tricuspid regurgitation. 9. Peripheral vascular disease. 10. Hypothyroidism. 11. Diabetes mellitus. 12. COPD. 13. CAD, status post coronary artery bypass grafting. 14. Debility. 15. Bilateral pleural effusions secondary to congestive heart failure. 16. Hypokalemia. 17. Hypomagnesemia. 18. Thrombocytopenia. 19. Chronic anemia. HOSPITAL COURSE: Ms. Kirk is a pleasant 73-year-old white female who presented to [facility] on 04/11/2019, with worsening shortness of breath. The patient was identified to have acute CHF exacerbation, was placed on IV Lasix. The patient was seen by Cardiology, please see full consultation and progress notes for details. With maximum medical therapy, the patient did have improvement of shortness of breath and return to her baseline O2 saturations on 3 L nasal cannula continuously. Cardiology was happy with the clinical improvement and recommended the patient safe for discharge on 04/13/2019. The patient is recommended to follow up with primary care physician in the next 5 to 7 days. The patient is recommended to follow up with Cardiology in the next 1 to 2 weeks. The patient is recommended to take all medications as outlined. The patient is recommended to strictly observe fluid restrictions and salt restrictions to avoid future CHF exacerbations. The patient is recommended to return to acute care hospital immediately if signs or symptoms return, worsen, or any other new symptoms occur. REASON FOR HOSPITALIZATION: Shortness of breath. SPECIFIC FINDINGS/TREATMENTS RENDERED: The patient with acute CHF exacerbation, placed on fluid restrictions and IV diuretic therapy with resolution of symptoms. SPECIFIC INSTRUCTIONS FOR THE PATIENT OR FAMILY: 1. Follow up with primary care physician in the next 5 to 7 days. 2. Follow up with Cardiology in the next 1 to 2 weeks. 3. Take all medications as directed. 4. Strict fluid restriction of 1.5 L of all fluids consumed in a day, low-salt diet. 5. The patient is to return to acute care hospital immediately if signs or symptoms return, worsen, or any other new symptoms occur. Greater than 35 minutes spent coordinating care and discharge process. Job ID: [id number] MTDD
== END 2019-04-14 15:34 | disposition home health service (06) | DRG 291 ==
LOC: ERS 07:48 → ERHOLD 10:05 → OBSVTOIN 10:05 → IMCU/EMU 13:57
PROVIDERS: ADMIT Internal Medicine; ATTEND Internal Medicine
DX: I13.0 Hypertensive heart and chronic kidney disease with heart failure and stage 1 through stage 4 chronic kidney disease, or unspecified chronic kidney disease (principal); I50.43 Acute on chronic combined systolic (congestive) and diastolic (congestive) heart failure; J96.21 Acute and chronic respiratory failure with hypoxia; J18.9 Pneumonia, unspecified organism; J44.0 Chronic obstructive pulmonary disease with (acute) lower respiratory infection; I48.0 Paroxysmal atrial fibrillation; E11.22 Type 2 diabetes mellitus with diabetic chronic kidney disease; N18.3 Chronic kidney disease, stage 3 (moderate); D63.1 Anemia in chronic kidney disease; E11.51 Type 2 diabetes mellitus with diabetic peripheral angiopathy without gangrene; E03.9 Hypothyroidism, unspecified; K21.9 Gastro-esophageal reflux disease without esophagitis; I65.29 Occlusion and stenosis of unspecified carotid artery; I08.1 Rheumatic disorders of both mitral and tricuspid valves; E87.6 Hypokalemia; E83.42 Hypomagnesemia; G47.00 Insomnia, unspecified; K31.819 Angiodysplasia of stomach and duodenum without bleeding; F51.04 Psychophysiologic insomnia; E66.9 Obesity, unspecified; I25.10 Atherosclerotic heart disease of native coronary artery without angina pectoris; D50.9 Iron deficiency anemia, unspecified; Z99.81 Dependence on supplemental oxygen; Z95.1 Presence of aortocoronary bypass graft; Z90.49 Acquired absence of other specified parts of digestive tract; Z90.710 Acquired absence of both cervix and uterus; Z88.5 Allergy status to narcotic agent; Z88.8 Allergy status to other drugs, medicaments and biological substances; Z87.891 Personal history of nicotine dependence; Z68.26 Body mass index [BMI] 26.0-26.9, adult; Z91.14 Patient's other noncompliance with medication regimen; Z79.899 Other long term (current) drug therapy; Z79.818 Long term (current) use of other agents affecting estrogen receptors and estrogen levels; Z79.4 Long term (current) use of insulin
CPT/HCPCS: 36415; 36416; 71045; 80053; 80069; 83605; 83735; 83880; 84145; 84484; 85014; 85018; 85025; 85049; 85379; 93005; 93798; 94640; 94660; 96374; J0696; J1650; J1940; J3475; J3480; J3490; J7050; J7620; S0028